=== PATIENT | female | born 1945 | race Caucasian/White ===

== ENCOUNTER → 2017-02-26 | Outpatient (CLI) | payer MEDICARE, OTHER ==
[~2017-02-26] MED LIST: ENAL1TAB16 PO; FEXO180T PO; SIMV40TA4 PO; vitamins PO
--- NOTE | 2017-02-26 13:51 | Diagnostic Imaging Report ---
Bilateral diagnostic mammogram. The current study was also evaluated with a Computer Aided Detection (CAD) system. INDICATION: Asymmetry along the upper aspect of the right MLO view. FINDINGS: The breasts are composed of scattered fibroglandular densities. There are scattered benign-appearing calcifications. No mass, architectural distortion, or suspicious cluster of calcification. Allowing for technique and positional differences, no suspicious change is seen. IMPRESSION: No significant change. ACR BI-RADS Category 2: Benign findings. Result letter will be mailed to the patient. Note: At least 10% of breast cancer is not imaged by mammography. Dictated by: Dictated on workstation # [id number]
== END ==
LOC: RAD 13:10
PROVIDERS: ATTEND Nurse Practitioner Family
DX: R92.8 Other abnormal and inconclusive findings on diagnostic imaging of breast (principal)
CPT/HCPCS: 77066

== ENCOUNTER → 2018-03-24 | Outpatient (CLI) | payer MEDICARE, OTHER ==
--- NOTE | 2018-03-24 19:13 | Diagnostic Imaging Report ---
INDICATION: Routine screening. COMPARISON: Comparison is made with prior study from 02/26/2017 and 03/04/2016. TECHNIQUE: 2D and 3D bilateral screening mammography was performed with computer-aided detection (CAD) system. FINDINGS: Scattered fibroglandular densities are identified bilaterally. No spiculated mass or malignant appearing microcalcifications are seen. There are benign calcifications bilaterally. The axillae are unremarkable. IMPRESSION: No mammographic features suspicious for malignancy are identified. ACR BI-RADS Category 2: Benign findings. Result letter will be mailed to the patient. Note: At least 10% of breast cancer is not imaged by mammography. Dictated by: Dictated on workstation # [id number]
== END ==
LOC: RAD 12:47
PROVIDERS: ATTEND Nurse Practitioner Family
DX: Z12.31 Encounter for screening mammogram for malignant neoplasm of breast (principal)
CPT/HCPCS: 77067

== ENCOUNTER → 2018-11-09 | Outpatient (CLI) | payer MEDICARE, OTHER ==
--- NOTE | 2018-11-09 13:28 | Diagnostic Imaging Report ---
EXAMINATION: Pelvic ultrasound. INDICATION: Vaginal bleeding, post menopausal. FINDINGS: There are no prior studies available for comparison. In the left adnexa, there is a large 10.4 x 12.7 x 11.1 cm complex mass. This mass has both solid and cystic components and there does seem to be blood flow to the solid component. I am concerned that this is related to an ovarian neoplasm. If further imaging as desired, then CT of the abdomen and pelvis should be obtained. Ultimately, laparoscopy will most likely be necessary. The right ovary could not be identified. The uterus is not enlarged measuring 7.5 x 3.7 x 3.1 cm. The endometrial lining is slightly thickened measuring 6 mm (normal postmenopausal thickening 5 mm or less). IMPRESSION: 1. There is a large complex mass in the left adnexa. This finding is worrisome for an ovarian neoplasm. If further imaging is desired, then CT the abdomen pelvis should be obtained. Ultimately, laparoscopy will most likely be necessary. 2. There is no other abnormality identified. 3. These results were discussed with Constance Esposito APRN. Dictated by: Dictated on workstation # [id number]
== END ==
LOC: RAD 11:31
PROVIDERS: ATTEND Nurse Practitioner Family
DX: N83.8 Other noninflammatory disorders of ovary, fallopian tube and broad ligament (principal); N93.8 Other specified abnormal uterine and vaginal bleeding; Z78.0 Asymptomatic menopausal state
CPT/HCPCS: 76830; 76856

== ENCOUNTER → 2018-11-20 | Outpatient (CLI) | payer MEDICARE, OTHER ==
[~2018-11-20] MED LIST changes: +IOHEXOL 350 MG/ML 100 ML (OMNIPAQUE 350) VIAL IV ONE; +NS 100 ML (IVPB) BAG IV ONE; +RECEIVED CONTRAST (Hold Metformin) IV SCH
--- NOTE | 2018-11-20 10:32 | Diagnostic Imaging Report ---
PROCEDURE: CT chest with contrast only. TECHNIQUE: Multiple contiguous axial images were obtained through the chest after administration of intravenous contrast. INDICATION: Left adnexal mass. COMPARISON: 04/04/2016 FINDINGS: Soft tissue nodularity of the anterior mediastinum overall relatively stable. No suggestion for pathologically enlarged mediastinal and/or hilar lymph nodes. The heart size is unremarkable. Thoracic aorta normal in contour. Small hiatal hernia at the gastroesophageal junction. The lung mackey are clear of infiltrate. There is presence of peripheral pneumatocele and/or bulla within the left upper lobe and medial left lung base, appears unchanged. No abnormal pulmonary mass. No significant pleural effusion. Faint hypervascular area of enhancement at the lateral right lobe of the liver is present, nonspecific as to etiology. Gallstones are present. Cyst superior pole left kidney. Leftward curvature of the thoracic spine. Probable hemangioma L1 and T11 levels. IMPRESSION: 1. Negative for acute abnormality about the chest. No findings to suggest thoracic metastatic disease. Dictated by: Dictated on workstation # [id number]
== END ==
LOC: RAD 09:18
PROVIDERS: ATTEND Nurse Practitioner Family
DX: Z01.811 Encounter for preprocedural respiratory examination (principal); R19.09 Other intra-abdominal and pelvic swelling, mass and lump
CPT/HCPCS: 71260

== ENCOUNTER → 2019-02-08 | Outpatient (CLI) | payer MEDICARE, OTHER ==
[~2019-02-08] MED LIST changes: -IOHEXOL 350 MG/ML 100 ML (OMNIPAQUE 350) VIAL IV ONE; -NS 100 ML (IVPB) BAG IV ONE; -RECEIVED CONTRAST (Hold Metformin) IV SCH
--- NOTE | 2019-02-08 17:50 | Diagnostic Imaging Report ---
PATIENT HISTORY: Right leg pain and numbness for two weeks in the medial upper thigh. TECHNIQUE: High-resolution grayscale ultrasound was performed of the soft tissues in the right upper medial thigh at the area of pain. COMPARISON: None. FINDINGS: Ultrasound performed of the soft tissues in the area of concern at the upper medial right thigh demonstrates unremarkable fat and muscular soft tissue. No fluid collection or mass is seen. IMPRESSION: Unremarkable soft tissue ultrasound of the upper medial right thigh. Dictated by: Dictated on workstation # [id number]
== END ==
LOC: RAD 13:45
PROVIDERS: ATTEND Internal Medicine Hematology & Oncology
DX: M79.604 Pain in right leg (principal); R20.0 Anesthesia of skin
CPT/HCPCS: 76881

== ENCOUNTER → 2019-02-25 | Outpatient (CLI) | payer MEDICARE, OTHER ==
--- NOTE | 2019-02-25 19:13 | Diagnostic Imaging Report ---
INDICATION: Right hip pain. TIME OF EXAM: 2:25 p.m. EXAMINATION: Two views of the right hip were obtained. FINDINGS: Femoral acetabular alignment is normal. Joint space is maintained. The femoral head and neck are intact. No fracture is seen. IMPRESSION: No acute bony abnormality is detected. Dictated by: Dictated on workstation # [id number]
== END ==
LOC: RAD 11:59
PROVIDERS: ATTEND Internal Medicine Hematology & Oncology
DX: M25.551 Pain in right hip (principal); R29.898 Other symptoms and signs involving the musculoskeletal system
CPT/HCPCS: 73502

== ENCOUNTER 2019-03-18 10:37 | Outpatient (RCR) | payer MEDICARE, OTHER ==
[2019-01-07 11:11] LABS: BASOPHILS % (AUTO) 0 % (0-10); EOSINOPHILS % (AUTO) 0 % (0-10); HEMATOCRIT 39 % (35-52); HEMOGLOBIN 12.9 G/DL (11.5-16.0); LYMPHOCYTES # (AUTO) 0.6 X 10^3 (1.0-4.0); LYMPHOCYTES % (AUTO) 5 % (12-44); MEAN CORPUSCULAR HEMOGLOBIN 28 PG (25-34); MEAN CORPUSCULAR HGB CONC 33 G/DL (32-36); MEAN CORPUSCULAR VOLUME 85 FL (80-99); MEAN PLATELET VOLUME 9.4 FL (7.4-10.4); MONOCYTES % (AUTO) 0 % (0-12); NEUTROPHILS # (AUTO) 10.4 X 10^3 (1.8-7.8); NEUTROPHILS % (AUTO) 95 % (42-75); PLATELET COUNT 291 10^3/uL (130-400); RED CELL DISTRIBUTION WIDTH 14.3 % (10.0-14.5)
[2019-01-07 11:29] LABS: ALANINE AMINOTRANSFERASE 15 U/L (0-55); ALKALINE PHOSPHATASE 75 U/L (40-136); BILIRUBIN,TOTAL 0.3 MG/DL (0.1-1.0); BUN/CREATININE RATIO 20; CALCIUM 9.6 MG/DL (8.5-10.1); CARBON DIOXIDE 20 MMOL/L (21-32); CHLORIDE 102 MMOL/L (98-107); CREATININE SERUM 0.82 MG/DL (0.60-1.30); GFR ESTIMATED > 60; GLUCOSE 302 MG/DL (70-105); SODIUM 134 MMOL/L (135-145); TOTAL PROTEIN 7.3 GM/DL (6.4-8.2)
[2019-01-14 11:24] LABS: BASOPHILS % (AUTO) 0 % (0-10); EOSINOPHILS % (AUTO) 0 % (0-10); HEMATOCRIT 42 % (35-52); HEMOGLOBIN 13.7 G/DL (11.5-16.0); LYMPHOCYTES # (AUTO) 0.9 X 10^3 (1.0-4.0); LYMPHOCYTES % (AUTO) 5 % (12-44); MEAN CORPUSCULAR HEMOGLOBIN 28 PG (25-34); MEAN CORPUSCULAR HGB CONC 33 G/DL (32-36); MEAN CORPUSCULAR VOLUME 84 FL (80-99); MEAN PLATELET VOLUME 9.4 FL (7.4-10.4); MONOCYTES # (AUTO) 0.7 X 10^3 (0.0-1.0); MONOCYTES % (AUTO) 4 % (0-12); NEUTROPHILS # (AUTO) 17.2 X 10^3 (1.8-7.8); NEUTROPHILS % (AUTO) 92 % (42-75); PLATELET COUNT 349 10^3/uL (130-400); RED CELL DISTRIBUTION WIDTH 14.9 % (10.0-14.5); WHITE BLOOD COUNT 18.7 10^3/uL (4.3-11.0)
[2019-01-14 11:38] LABS: ALANINE AMINOTRANSFERASE 23 U/L (0-55); ALBUMIN 4.2 GM/DL (3.2-4.5); ALKALINE PHOSPHATASE 63 U/L (40-136); BILIRUBIN,TOTAL 0.3 MG/DL (0.1-1.0); BUN/CREATININE RATIO 21; CALCIUM 9.5 MG/DL (8.5-10.1); CARBON DIOXIDE 24 MMOL/L (21-32); CHLORIDE 100 MMOL/L (98-107); CREATININE SERUM 0.77 MG/DL (0.60-1.30); GFR ESTIMATED > 60; GLUCOSE 190 MG/DL (70-105); POTASSIUM 4.5 MMOL/L (3.6-5.0); SODIUM 135 MMOL/L (135-145); TOTAL PROTEIN 7.2 GM/DL (6.4-8.2)
[2019-01-21 13:59] LABS: BASOPHILS % (AUTO) 0 % (0-10); EOSINOPHILS # (AUTO) 0.1 10^3/uL (0.0-0.3); EOSINOPHILS % (AUTO) 1 % (0-10); HEMATOCRIT 37 % (35-52); HEMOGLOBIN 12.4 G/DL (11.5-16.0); LYMPHOCYTES # (AUTO) 1.4 X 10^3 (1.0-4.0); LYMPHOCYTES % (AUTO) 13 % (12-44); MEAN CORPUSCULAR HEMOGLOBIN 28 PG (25-34); MEAN CORPUSCULAR HGB CONC 33 G/DL (32-36); MEAN CORPUSCULAR VOLUME 84 FL (80-99); MEAN PLATELET VOLUME 11.1 FL (7.4-10.4); MONOCYTES # (AUTO) 1.3 X 10^3 (0.0-1.0); MONOCYTES % (AUTO) 11 % (0-12); NEUTROPHILS # (AUTO) 8.3 X 10^3 (1.8-7.8); NEUTROPHILS % (AUTO) 75 % (42-75); PLATELET COUNT 197 10^3/uL (130-400); RED CELL DISTRIBUTION WIDTH 14.5 % (10.0-14.5); WHITE BLOOD COUNT 11.1 10^3/uL (4.3-11.0)
[2019-01-21 14:17] LABS: BUN/CREATININE RATIO 16; CALCIUM 9.3 MG/DL (8.5-10.1); CARBON DIOXIDE 25 MMOL/L (21-32); CHLORIDE 96 MMOL/L (98-107); CREATININE SERUM 0.91 MG/DL (0.60-1.30); GFR ESTIMATED > 60; GLUCOSE 167 MG/DL (70-105); POTASSIUM 3.4 MMOL/L (3.6-5.0); SODIUM 132 MMOL/L (135-145)
[2019-01-28 13:49] LABS: BASOPHILS # (AUTO) 0.1 10^3/uL (0.0-0.1); BASOPHILS % (AUTO) 1 % (0-10); EOSINOPHILS % (AUTO) 0 % (0-10); HEMATOCRIT 37 % (35-52); HEMOGLOBIN 12.1 G/DL (11.5-16.0); LYMPHOCYTES # (AUTO) 2.1 X 10^3 (1.0-4.0); LYMPHOCYTES % (AUTO) 10 % (12-44); MEAN CORPUSCULAR HEMOGLOBIN 28 PG (25-34); MEAN CORPUSCULAR HGB CONC 33 G/DL (32-36); MEAN CORPUSCULAR VOLUME 85 FL (80-99); MEAN PLATELET VOLUME 9.6 FL (7.4-10.4); MONOCYTES # (AUTO) 1.3 X 10^3 (0.0-1.0); MONOCYTES % (AUTO) 6 % (0-12); NEUTROPHILS # (AUTO) 18.3 X 10^3 (1.8-7.8); NEUTROPHILS % (AUTO) 84 % (42-75); PLATELET COUNT 358 10^3/uL (130-400); RED CELL DISTRIBUTION WIDTH 15.1 % (10.0-14.5); WHITE BLOOD COUNT 21.8 10^3/uL (4.3-11.0)
[2019-01-28 14:06] LABS: BUN/CREATININE RATIO 8; CALCIUM 8.7 MG/DL (8.5-10.1); CARBON DIOXIDE 26 MMOL/L (21-32); CHLORIDE 99 MMOL/L (98-107); CREATININE SERUM 0.71 MG/DL (0.60-1.30); GFR ESTIMATED > 60; GLUCOSE 133 MG/DL (70-105); POTASSIUM 3.7 MMOL/L (3.6-5.0); SODIUM 134 MMOL/L (135-145)
[2019-01-28 14:37] LABS: BILIRUBIN,URINE NEGATIVE (NEGATIVE); CLARITY,URINE CLEAR; COLOR,URINE YELLOW; GLUCOSE, URINE (UA) NEGATIVE (NEGATIVE); KETONES,URINE NEGATIVE (NEGATIVE); LEUKOCYTE ESTERASE ,URINE 3+ (NEGATIVE); NITRITE,URINE NEGATIVE (NEGATIVE); PH,URINE 7 (5-9); PROTEIN,URINE 3+ (NEGATIVE); UROBILINOGEN,URINE NORMAL (NORMAL)
[2019-01-28 14:46] LABS: BACTERIA,URINE MODERATE /HPF; WBC,URINE >100 /HPF
[2019-02-04 09:36] LABS: BASOPHILS % (AUTO) 0 % (0-10); EOSINOPHILS % (AUTO) 0 % (0-10); HEMATOCRIT 37 % (35-52); HEMOGLOBIN 12.2 G/DL (11.5-16.0); LYMPHOCYTES # (AUTO) 1.2 X 10^3 (1.0-4.0); LYMPHOCYTES % (AUTO) 6 % (12-44); MEAN CORPUSCULAR HEMOGLOBIN 29 PG (25-34); MEAN CORPUSCULAR HGB CONC 33 G/DL (32-36); MEAN CORPUSCULAR VOLUME 85 FL (80-99); MEAN PLATELET VOLUME 8.7 FL (7.4-10.4); MONOCYTES # (AUTO) 0.5 X 10^3 (0.0-1.0); MONOCYTES % (AUTO) 3 % (0-12); NEUTROPHILS # (AUTO) 16.9 X 10^3 (1.8-7.8); NEUTROPHILS % (AUTO) 91 % (42-75); PLATELET COUNT 504 10^3/uL (130-400); RED CELL DISTRIBUTION WIDTH 15.8 % (10.0-14.5); WHITE BLOOD COUNT 18.6 10^3/uL (4.3-11.0)
[2019-02-04 10:01] LABS: ALANINE AMINOTRANSFERASE 57 U/L (0-55); ALBUMIN 3.7 GM/DL (3.2-4.5); ALKALINE PHOSPHATASE 110 U/L (40-136); BILIRUBIN,TOTAL 0.2 MG/DL (0.1-1.0); BUN/CREATININE RATIO 14; CALCIUM 9.5 MG/DL (8.5-10.1); CARBON DIOXIDE 22 MMOL/L (21-32); CHLORIDE 103 MMOL/L (98-107); CREATININE SERUM 0.83 MG/DL (0.60-1.30); GFR ESTIMATED > 60; GLUCOSE 226 MG/DL (70-105); POTASSIUM 4.7 MMOL/L (3.6-5.0); SODIUM 134 MMOL/L (135-145); TOTAL PROTEIN 7.2 GM/DL (6.4-8.2)
[2019-02-11 14:04] LABS: BASOPHILS % (AUTO) 2 % (0-10); EOSINOPHILS % (AUTO) 0 % (0-10); HEMATOCRIT 34 % (35-52); LYMPHOCYTES # (AUTO) 1.3 X 10^3 (1.0-4.0); LYMPHOCYTES % (AUTO) 48 % (12-44); MEAN CORPUSCULAR HEMOGLOBIN 28 PG (25-34); MEAN CORPUSCULAR HGB CONC 33 G/DL (32-36); MEAN CORPUSCULAR VOLUME 85 FL (80-99); MEAN PLATELET VOLUME 9.6 FL (7.4-10.4); MONOCYTES # (AUTO) 0.3 X 10^3 (0.0-1.0); MONOCYTES % (AUTO) 10 % (0-12); NEUTROPHILS # (AUTO) 1.1 X 10^3 (1.8-7.8); NEUTROPHILS % (AUTO) 41 % (42-75); PLATELET COUNT 253 10^3/uL (130-400); RED CELL DISTRIBUTION WIDTH 15.6 % (10.0-14.5); WHITE BLOOD COUNT 2.6 10^3/uL (4.3-11.0)
[2019-02-11 14:29] LABS: BUN/CREATININE RATIO 24; CALCIUM 9.1 MG/DL (8.5-10.1); CARBON DIOXIDE 26 MMOL/L (21-32); CHLORIDE 102 MMOL/L (98-107); CREATININE SERUM 0.67 MG/DL (0.60-1.30); GFR ESTIMATED > 60; GLUCOSE 119 MG/DL (70-105); POTASSIUM 3.9 MMOL/L (3.6-5.0); SODIUM 135 MMOL/L (135-145)
[2019-02-18 14:00] LABS: BASOPHILS # (AUTO) 0.1 10^3/uL (0.0-0.1); BASOPHILS % (AUTO) 2 % (0-10); EOSINOPHILS % (AUTO) 0 % (0-10); HEMATOCRIT 35 % (35-52); HEMOGLOBIN 11.4 G/DL (11.5-16.0); LYMPHOCYTES # (AUTO) 1.8 X 10^3 (1.0-4.0); LYMPHOCYTES % (AUTO) 32 % (12-44); MEAN CORPUSCULAR HEMOGLOBIN 29 PG (25-34); MEAN CORPUSCULAR HGB CONC 33 G/DL (32-36); MEAN CORPUSCULAR VOLUME 87 FL (80-99); MEAN PLATELET VOLUME 8.8 FL (7.4-10.4); MONOCYTES % (AUTO) 17 % (0-12); NEUTROPHILS # (AUTO) 2.8 X 10^3 (1.8-7.8); NEUTROPHILS % (AUTO) 50 % (42-75); PLATELET COUNT 151 10^3/uL (130-400); WHITE BLOOD COUNT 5.6 10^3/uL (4.3-11.0)
[2019-02-18 14:17] LABS: BUN/CREATININE RATIO 12; CARBON DIOXIDE 26 MMOL/L (21-32); CHLORIDE 103 MMOL/L (98-107); CREATININE SERUM 0.67 MG/DL (0.60-1.30); GFR ESTIMATED > 60; GLUCOSE 135 MG/DL (70-105); POTASSIUM 3.5 MMOL/L (3.6-5.0); SODIUM 136 MMOL/L (135-145)
[2019-02-25 10:58] LABS: BASOPHILS % (AUTO) 0 % (0-10); EOSINOPHILS % (AUTO) 0 % (0-10); HEMATOCRIT 37 % (35-52); LYMPHOCYTES # (AUTO) 1.1 X 10^3 (1.0-4.0); LYMPHOCYTES % (AUTO) 6 % (12-44); MEAN CORPUSCULAR HEMOGLOBIN 28 PG (25-34); MEAN CORPUSCULAR HGB CONC 33 G/DL (32-36); MEAN CORPUSCULAR VOLUME 86 FL (80-99); MEAN PLATELET VOLUME 9.5 FL (7.4-10.4); MONOCYTES # (AUTO) 0.5 X 10^3 (0.0-1.0); MONOCYTES % (AUTO) 3 % (0-12); NEUTROPHILS # (AUTO) 16.5 X 10^3 (1.8-7.8); NEUTROPHILS % (AUTO) 91 % (42-75); PLATELET COUNT 336 10^3/uL (130-400); RED CELL DISTRIBUTION WIDTH 17.4 % (10.0-14.5); WHITE BLOOD COUNT 18.2 10^3/uL (4.3-11.0)
[2019-02-25 11:23] LABS: ALANINE AMINOTRANSFERASE 16 U/L (0-55); ALBUMIN 3.9 GM/DL (3.2-4.5); ALKALINE PHOSPHATASE 91 U/L (40-136); BILIRUBIN,TOTAL 0.3 MG/DL (0.1-1.0); BUN/CREATININE RATIO 21; CALCIUM 9.8 MG/DL (8.5-10.1); CARBON DIOXIDE 23 MMOL/L (21-32); CHLORIDE 105 MMOL/L (98-107); CREATININE SERUM 0.72 MG/DL (0.60-1.30); GFR ESTIMATED > 60; GLUCOSE 193 MG/DL (70-105); POTASSIUM 4.1 MMOL/L (3.6-5.0); SODIUM 139 MMOL/L (135-145)
[2019-02-25 12:06] LABS: BILIRUBIN,URINE NEGATIVE (NEGATIVE); CLARITY,URINE CLEAR; COLOR,URINE YELLOW; GLUCOSE, URINE (UA) NEGATIVE (NEGATIVE); KETONES,URINE NEGATIVE (NEGATIVE); LEUKOCYTE ESTERASE ,URINE 1+ (NEGATIVE); NITRITE,URINE NEGATIVE (NEGATIVE); PH,URINE 8 (5-9); PROTEIN,URINE 2+ (NEGATIVE); UROBILINOGEN,URINE NORMAL (NORMAL)
[2019-02-25 12:14] LABS: BACTERIA,URINE NEGATIVE /HPF
[2019-03-04 13:20] LABS: BASOPHILS # (AUTO) 0.1 10^3/uL (0.0-0.1); BASOPHILS % (AUTO) 2 % (0-10); EOSINOPHILS % (AUTO) 0 % (0-10); HEMATOCRIT 35 % (35-52); HEMOGLOBIN 11.4 G/DL (11.5-16.0); LYMPHOCYTES # (AUTO) 1.7 X 10^3 (1.0-4.0); LYMPHOCYTES % (AUTO) 55 % (12-44); MEAN CORPUSCULAR HEMOGLOBIN 28 PG (25-34); MEAN CORPUSCULAR HGB CONC 33 G/DL (32-36); MEAN CORPUSCULAR VOLUME 86 FL (80-99); MEAN PLATELET VOLUME 9.7 FL (7.4-10.4); MONOCYTES # (AUTO) 0.3 X 10^3 (0.0-1.0); MONOCYTES % (AUTO) 8 % (0-12); NEUTROPHILS % (AUTO) 34 % (42-75); PLATELET COUNT 215 10^3/uL (130-400); RED CELL DISTRIBUTION WIDTH 16.6 % (10.0-14.5)
[2019-03-04 13:42] LABS: BUN/CREATININE RATIO 21; CALCIUM 9.6 MG/DL (8.5-10.1); CARBON DIOXIDE 24 MMOL/L (21-32); CHLORIDE 103 MMOL/L (98-107); CREATININE SERUM 0.71 MG/DL (0.60-1.30); GFR ESTIMATED > 60; GLUCOSE 176 MG/DL (70-105); POTASSIUM 3.8 MMOL/L (3.6-5.0); SODIUM 137 MMOL/L (135-145)
[2019-03-11 13:18] LABS: BASOPHILS # (AUTO) 0.1 10^3/uL (0.0-0.1); BASOPHILS % (AUTO) 1 % (0-10); EOSINOPHILS % (AUTO) 0 % (0-10); HEMATOCRIT 36 % (35-52); HEMOGLOBIN 11.5 G/DL (11.5-16.0); LYMPHOCYTES # (AUTO) 2.5 X 10^3 (1.0-4.0); LYMPHOCYTES % (AUTO) 30 % (12-44); MEAN CORPUSCULAR HEMOGLOBIN 28 PG (25-34); MEAN CORPUSCULAR HGB CONC 32 G/DL (32-36); MEAN CORPUSCULAR VOLUME 87 FL (80-99); MEAN PLATELET VOLUME 9.5 FL (7.4-10.4); MONOCYTES % (AUTO) 12 % (0-12); NEUTROPHILS # (AUTO) 4.8 X 10^3 (1.8-7.8); NEUTROPHILS % (AUTO) 57 % (42-75); PLATELET COUNT 193 10^3/uL (130-400); RED CELL DISTRIBUTION WIDTH 17.2 % (10.0-14.5); WHITE BLOOD COUNT 8.4 10^3/uL (4.3-11.0)
[2019-03-11 13:32] LABS: BUN/CREATININE RATIO 9; CALCIUM 9.4 MG/DL (8.5-10.1); CARBON DIOXIDE 24 MMOL/L (21-32); CHLORIDE 104 MMOL/L (98-107); CREATININE SERUM 0.66 MG/DL (0.60-1.30); GFR ESTIMATED > 60; GLUCOSE 126 MG/DL (70-105); POTASSIUM 3.7 MMOL/L (3.6-5.0); SODIUM 141 MMOL/L (135-145)
[~2019-03-18] VITALS: Ht 160 cm; Wt 88.5 kg
[~2019-03-18 10:37] MED LIST changes: +CARBOPLATIN IV SCH; +D5W IV SCH; +FAMOTIDINE 20MG/2ML IV (CANCER CTR) IV SCH; +FOSAPREPITANT DIMEGLUMINE 150 MG in NS (IVPB) CANCER CENTER ONLY 150 ML IV SCH; +NS IV 1000 ML (CANCER CTR) IV SCH; +NS IV SCH; +PALONOSETRON HCL 0.25 MG, DEXAMETHASONE INJECTION 10 MG in NS (IVPB) CANCER CENTER 50 ML IV SCH; +PEGFILGRASTIM 6 MG/0.6ML NEULASTA SC SCH; +diphenhydrAMINE 25 MG TAB (BENADRYL) CANCER CENTER PO ONE; +diphenhydrAMINE 50 MG/ML INJ (CANCER CENTER) IV PRN; +diphenhydrAMINE 50 MG/ML INJ (CANCER CENTER) ONE; +methylPREDNISolone 125 MG/2 ML (SOLU-MEDROL) CANCER CTR ONE
[2019-03-18 10:57] LABS: BASOPHILS # (AUTO) 0.1 10^3/uL (0.0-0.1); BASOPHILS % (AUTO) 1 % (0-10); EOSINOPHILS % (AUTO) 0 % (0-10); HEMATOCRIT 36 % (35-52); HEMOGLOBIN 11.6 G/DL (11.5-16.0); LYMPHOCYTES # (AUTO) 2.3 X 10^3 (1.0-4.0); LYMPHOCYTES % (AUTO) 17 % (12-44); MEAN CORPUSCULAR HEMOGLOBIN 28 PG (25-34); MEAN CORPUSCULAR HGB CONC 32 G/DL (32-36); MEAN CORPUSCULAR VOLUME 89 FL (80-99); MEAN PLATELET VOLUME 9.2 FL (7.4-10.4); MONOCYTES # (AUTO) 1.2 X 10^3 (0.0-1.0); MONOCYTES % (AUTO) 9 % (0-12); NEUTROPHILS # (AUTO) 10.1 X 10^3 (1.8-7.8); NEUTROPHILS % (AUTO) 74 % (42-75); PLATELET COUNT 401 10^3/uL (130-400); RED CELL DISTRIBUTION WIDTH 17.9 % (10.0-14.5); WHITE BLOOD COUNT 13.7 10^3/uL (4.3-11.0)
[2019-03-18 11:14] LABS: ALANINE AMINOTRANSFERASE 15 U/L (0-55); ALBUMIN 3.8 GM/DL (3.2-4.5); ALKALINE PHOSPHATASE 90 U/L (40-136); BILIRUBIN,TOTAL 0.4 MG/DL (0.1-1.0); BUN/CREATININE RATIO 9; CALCIUM 9.1 MG/DL (8.5-10.1); CARBON DIOXIDE 25 MMOL/L (21-32); CHLORIDE 103 MMOL/L (98-107); CREATININE SERUM 0.75 MG/DL (0.60-1.30); GFR ESTIMATED > 60; GLUCOSE 139 MG/DL (70-105); POTASSIUM 3.7 MMOL/L (3.6-5.0); SODIUM 137 MMOL/L (135-145); TOTAL PROTEIN 6.5 GM/DL (6.4-8.2)
== END 2019-03-30 | disposition home or self-care (01) ==
LOC: ONC 10:37
PROVIDERS: ATTEND Internal Medicine Hematology & Oncology
DX: Z51.11 Encounter for antineoplastic chemotherapy (principal); C56.2 Malignant neoplasm of left ovary; E11.9 Type 2 diabetes mellitus without complications; I10 Essential (primary) hypertension; F17.210 Nicotine dependence, cigarettes, uncomplicated; M79.604 Pain in right leg; R29.898 Other symptoms and signs involving the musculoskeletal system; Z76.89 Persons encountering health services in other specified circumstances; R30.0 Dysuria; R06.02 Shortness of breath; R06.2 Wheezing; R23.2 Flushing; T45.1X5A Adverse effect of antineoplastic and immunosuppressive drugs, initial encounter; K59.00 Constipation, unspecified; Z90.710 Acquired absence of both cervix and uterus; Z79.899 Other long term (current) drug therapy
CPT/HCPCS: 36415; 36591; 80048; 80053; 81000; 85025; 87077; 87088; 87186; 96367; 96372; 96375; 96409; 96413; 96417; 99213; 99214

== ENCOUNTER → 2019-03-25 | Outpatient (CLI) | payer MEDICARE, OTHER ==
[~2019-03-25] MED LIST changes: -CARBOPLATIN IV SCH; -D5W IV SCH; -FAMOTIDINE 20MG/2ML IV (CANCER CTR) IV SCH; -FOSAPREPITANT DIMEGLUMINE 150 MG in NS (IVPB) CANCER CENTER ONLY 150 ML IV SCH; -NS IV 1000 ML (CANCER CTR) IV SCH; -NS IV SCH; -PALONOSETRON HCL 0.25 MG, DEXAMETHASONE INJECTION 10 MG in NS (IVPB) CANCER CENTER 50 ML IV SCH; -PEGFILGRASTIM 6 MG/0.6ML NEULASTA SC SCH; -diphenhydrAMINE 25 MG TAB (BENADRYL) CANCER CENTER PO ONE; -diphenhydrAMINE 50 MG/ML INJ (CANCER CENTER) IV PRN; -diphenhydrAMINE 50 MG/ML INJ (CANCER CENTER) ONE; -methylPREDNISolone 125 MG/2 ML (SOLU-MEDROL) CANCER CTR ONE
--- NOTE | 2019-03-26 17:12 | Diagnostic Imaging Report ---
INDICATION: Routine screening. COMPARISON: Prior mammograms from 03/24/2018 and 02/26/2017. EXAMINATION: 2D and 3D bilateral screening mammography was performed with CAD. The current study was also evaluated with a Computer Aided Detection (CAD) system. FINDINGS: Scattered fibroglandular densities are identified, bilaterally. Scattered benign-appearing calcifications are also noted, bilaterally. Nodular densities in both breasts appear stable. No spiculated mass or malignant appearing microcalcifications are seen. Axillae are unremarkable. IMPRESSION: No mammographic features suspicious for malignancy are identified. ACR BI-RADS Category 2: Benign findings. Result letter will be mailed to the patient. Note: At least 10% of breast cancer is not imaged by mammography. Dictated on workstation # [id number]
== END ==
LOC: RAD 14:29
PROVIDERS: ATTEND Nurse Practitioner Family
DX: Z12.31 Encounter for screening mammogram for malignant neoplasm of breast (principal)
CPT/HCPCS: 77067

== ENCOUNTER 2019-04-15 11:02 | Outpatient (RCR) | payer MEDICARE, OTHER ==
[2019-04-15 11:22] LABS: BASOPHILS # (AUTO) 0.1 10^3/uL (0.0-0.1); BASOPHILS % (AUTO) 1 % (0-10); EOSINOPHILS # (AUTO) 0.3 10^3/uL (0.0-0.3); EOSINOPHILS % (AUTO) 3 % (0-10); HEMATOCRIT 41 % (35-52); HEMOGLOBIN 13.2 G/DL (11.5-16.0); LYMPHOCYTES # (AUTO) 2.8 X 10^3 (1.0-4.0); LYMPHOCYTES % (AUTO) 26 % (12-44); MEAN CORPUSCULAR HEMOGLOBIN 29 PG (25-34); MEAN CORPUSCULAR HGB CONC 33 G/DL (32-36); MEAN CORPUSCULAR VOLUME 90 FL (80-99); MEAN PLATELET VOLUME 9.6 FL (7.4-10.4); MONOCYTES % (AUTO) 9 % (0-12); NEUTROPHILS # (AUTO) 6.6 X 10^3 (1.8-7.8); NEUTROPHILS % (AUTO) 62 % (42-75); PLATELET COUNT 343 10^3/uL (130-400); RED CELL DISTRIBUTION WIDTH 16.2 % (10.0-14.5); WHITE BLOOD COUNT 10.6 10^3/uL (4.3-11.0)
[2019-04-15 11:42] LABS: ALANINE AMINOTRANSFERASE 12 U/L (0-55); ALBUMIN 4.3 GM/DL (3.2-4.5); ALKALINE PHOSPHATASE 85 U/L (40-136); BILIRUBIN,TOTAL 0.6 MG/DL (0.1-1.0); BUN/CREATININE RATIO 13; CALCIUM 9.8 MG/DL (8.5-10.1); CARBON DIOXIDE 25 MMOL/L (21-32); CHLORIDE 102 MMOL/L (98-107); CREATININE SERUM 0.82 MG/DL (0.60-1.30); GFR ESTIMATED > 60; GLUCOSE 134 MG/DL (70-105); SODIUM 139 MMOL/L (135-145); TOTAL PROTEIN 7.4 GM/DL (6.4-8.2)
== END 2019-07-14 | disposition home or self-care (01) ==
LOC: ONC 11:02
PROVIDERS: ATTEND Internal Medicine Hematology & Oncology
DX: C56.2 Malignant neoplasm of left ovary (principal); E11.9 Type 2 diabetes mellitus without complications; I10 Essential (primary) hypertension; F17.210 Nicotine dependence, cigarettes, uncomplicated; Z79.899 Other long term (current) drug therapy
CPT/HCPCS: 36415; 80053; 85025; 86304; 99213

== ENCOUNTER 2019-07-16 10:11 | Outpatient (RCR) | payer MEDICARE, OTHER ==
[2019-07-16 10:39] LABS: BASOPHILS # (AUTO) 0.1 10^3/uL (0.0-0.1); BASOPHILS % (AUTO) 1 % (0-10); EOSINOPHILS # (AUTO) 0.4 10^3/uL (0.0-0.3); EOSINOPHILS % (AUTO) 3 % (0-10); HEMATOCRIT 44 % (35-52); HEMOGLOBIN 14.5 G/DL (11.5-16.0); LYMPHOCYTES # (AUTO) 2.9 X 10^3 (1.0-4.0); LYMPHOCYTES % (AUTO) 22 % (12-44); MEAN CORPUSCULAR HEMOGLOBIN 28 PG (25-34); MEAN CORPUSCULAR HGB CONC 33 G/DL (32-36); MEAN CORPUSCULAR VOLUME 84 FL (80-99); MEAN PLATELET VOLUME 9.6 FL (7.4-10.4); MONOCYTES # (AUTO) 1.1 X 10^3 (0.0-1.0); MONOCYTES % (AUTO) 8 % (0-12); NEUTROPHILS % (AUTO) 67 % (42-75); PLATELET COUNT 264 10^3/uL (130-400); RED CELL DISTRIBUTION WIDTH 14.9 % (10.0-14.5); WHITE BLOOD COUNT 13.4 10^3/uL (4.3-11.0)
[2019-07-16 11:02] LABS: ALANINE AMINOTRANSFERASE 12 U/L (0-55); ALBUMIN 4.2 GM/DL (3.2-4.5); ALKALINE PHOSPHATASE 93 U/L (40-136); BILIRUBIN,TOTAL 0.6 MG/DL (0.1-1.0); BUN/CREATININE RATIO 18; CALCIUM 9.4 MG/DL (8.5-10.1); CARBON DIOXIDE 25 MMOL/L (21-32); CHLORIDE 104 MMOL/L (98-107); CREATININE SERUM 0.76 MG/DL (0.60-1.30); GFR ESTIMATED > 60; GLUCOSE 122 MG/DL (70-105); POTASSIUM 3.9 MMOL/L (3.6-5.0); SODIUM 138 MMOL/L (135-145); TOTAL PROTEIN 7.2 GM/DL (6.4-8.2)
== END 2019-10-14 | disposition home or self-care (01) ==
LOC: ONC 10:11
PROVIDERS: ATTEND Internal Medicine Hematology & Oncology
DX: C56.2 Malignant neoplasm of left ovary (principal); E11.9 Type 2 diabetes mellitus without complications; I10 Essential (primary) hypertension; F17.210 Nicotine dependence, cigarettes, uncomplicated; Z79.899 Other long term (current) drug therapy
CPT/HCPCS: 80053; 85025; 99213

== ENCOUNTER 2020-01-12 10:15 | Outpatient (RCR) | payer MEDICARE, OTHER ==
[2020-01-12 10:40] LABS: BASOPHILS # (AUTO) 0.1 10^3/uL (0.0-0.1); BASOPHILS % (AUTO) 0 % (0-10); EOSINOPHILS # (AUTO) 0.4 10^3/uL (0.0-0.3); EOSINOPHILS % (AUTO) 2 % (0-10); HEMATOCRIT 44 % (35-52); HEMOGLOBIN 14.3 G/DL (11.5-16.0); LYMPHOCYTES % (AUTO) 16 % (12-44); MEAN CORPUSCULAR HEMOGLOBIN 28 PG (25-34); MEAN CORPUSCULAR HGB CONC 33 G/DL (32-36); MEAN CORPUSCULAR VOLUME 87 FL (80-99); MEAN PLATELET VOLUME 9.4 FL (7.4-10.4); MONOCYTES # (AUTO) 1.1 X 10^3 (0.0-1.0); MONOCYTES % (AUTO) 6 % (0-12); NEUTROPHILS # (AUTO) 13.5 X 10^3 (1.8-7.8); NEUTROPHILS % (AUTO) 75 % (42-75); PLATELET COUNT 288 10^3/uL (130-400); RED CELL DISTRIBUTION WIDTH 14.9 % (10.0-14.5)
[2020-01-12 11:04] LABS: ALANINE AMINOTRANSFERASE 11 U/L (0-55); ALBUMIN 4.1 GM/DL (3.2-4.5); ALKALINE PHOSPHATASE 87 U/L (40-136); BILIRUBIN,TOTAL 0.5 MG/DL (0.1-1.0); BUN/CREATININE RATIO 14; CALCIUM 9.3 MG/DL (8.5-10.1); CARBON DIOXIDE 27 MMOL/L (21-32); CHLORIDE 103 MMOL/L (98-107); CREATININE SERUM 0.81 MG/DL (0.60-1.30); GFR ESTIMATED > 60; GLUCOSE 132 MG/DL (70-105); SODIUM 138 MMOL/L (135-145)
[2020-01-12 11:14] LABS: ABSOLUTE RETIC # 53 10e9/L (24-90); RETICULOCYTE % 1.05 % (0.50-2.40)
[2020-01-12 12:50] LABS: BAND NEUTROPHILS 4 %; BASOPHILS % (MANUAL) 1 %; EOSINOPHILS % (MANUAL) 2 %; LYMPHOCYTES % (MANUAL) 14 %; MONOCYTES % (MANUAL) 1 %; NEUTROPHILS % (MANUAL) 78 %; RBC MORPH NORMAL
== END 2020-01-13 | disposition home or self-care (01) ==
LOC: ONC 10:15
PROVIDERS: ATTEND Internal Medicine Hematology & Oncology
DX: C56.2 Malignant neoplasm of left ovary (principal); E11.9 Type 2 diabetes mellitus without complications; I10 Essential (primary) hypertension; K43.9 Ventral hernia without obstruction or gangrene; F17.210 Nicotine dependence, cigarettes, uncomplicated; Z79.899 Other long term (current) drug therapy
CPT/HCPCS: 80053; 85007; 85025; 85027; 85045; 86304; 99213

== ENCOUNTER 2020-04-24 05:46 | Outpatient (RCR) | payer MEDICARE, OTHER ==
[~2020-04-24] VITALS: Ht 162.6 cm; Wt 83.7 kg
[~2020-04-24 05:46] MED LIST changes: +CHOL10002 PO; +ENAL1TAB9 PO; +FEXO-46 PO; +GLUC1TAB20 PO; +LETR2.5T6 PO; +NF-GLIP2.5 PO; +PRAV40TA2 PO; +VITA1CAP19 PO; +VITA400C60 PO
== END 2020-04-24 15:14 | disposition home or self-care (01) ==
LOC: PREOP 05:46
PROVIDERS: ATTEND Surgery
DX: Z01.818 Encounter for other preprocedural examination (principal); Z11.59 Encounter for screening for other viral diseases
CPT/HCPCS: 87635

== ENCOUNTER 2020-04-27 09:26 | Day surgery (SDC) | payer MEDICARE, OTHER ==
[2020-04-27] VITALS (12 sets, daily range): BP systolic 113–156; BP diastolic 52–85
[~2020-04-27] VITALS: Ht 162.6 cm; Wt 83.7 kg
[2020-04-27] MEDS ORDERED: ceFAZolin 2 GM IV Premixed 50 ML IV ONE (09:45)
--- NOTE | 2020-04-27 09:46 | Progress Note-Pre Operative ---
Pre-Operative Progress Note H&P Reviewed The H&P was reviewed, patient examined and no changes noted. Date Seen by Provider: Apr 27, 2020 Time Seen by Provider: :45 Date H&P Reviewed: Apr 27, 2020 Time H&P Reviewed: :45 Pre-Operative Diagnosis: ventral abd incisional hernia DEWAYNE CARPIO MD Apr 27, 2020 09:46
[2020-04-27] MEDS ORDERED: HYDR-4342 PO (09:48)
--- NOTE | 2020-04-27 09:49 | Discharge Inst-Surgical ---
D/C Lap Instructions-BALAJI New, Converted, or Re-Newed RX: RX on Chart Follow Up Appt in 2 weeks Activity as tolerated No driving for 24 hours No driving while on pain medications Incentive Spirometry use every 2 hours while awake Regular Diet Symptoms to Report: Fever over 101 degree F, Nausea/Vomiting Infection Signs and Symptoms to report: Increased redness, Foul odor of wound, Increased drainage Bathing instructions: May shower Operative Area Clean/Dry; Keep incision clean/dry If any problems/questions: Contact your physician or go to Emergency Room DEWAYNE CARPIO MD Apr 27, 2020 09:49
[2020-04-27] MEDS: LACTATED RINGERS 1,000 ML IV PRN ×2 (09:51→12:37)
[2020-04-27] MEDS ORDERED: morphine INJ 10 MG/ML 1ML (SYR OR VIAL) IVP PRN ×2 (10:00)
[2020-04-27] MEDS ORDERED: ACETAMINOPHEN 325 MG TABLET PO PRN (10:00)
[2020-04-27] MEDS ORDERED: ONDANSETRON 4 MG/2 ML (SDV) Z0FRAN IVP PRN ×2 (10:00→13:30)
[2020-04-27] MEDS ORDERED: HYDROcodone/APAP 5 MG/325 MG (LORTAB) TAB PO PRN (10:00)
[2020-04-27] MEDS ORDERED: fentaNYL INJECTION 100 MCG/2 ML AMP ONE (11:09)
[2020-04-27] MEDS ORDERED: ONDANSETRON 4 MG/2 ML (SDV) Z0FRAN ONE (11:11)
[2020-04-27] MEDS ORDERED: proPOfol 200 MG/20 ML (DIPRIVAN) VIAL IV ONE (11:11)
[2020-04-27] MEDS ORDERED: BUP/EPI 0.5% 1:200,000 (SENSORCAINE) 30 ML VIAL ONE (11:11)
[2020-04-27] MEDS ORDERED: MIDAZOLAM 2 MG/2 ML (VERSED) VIAL ONE (11:11)
[2020-04-27] MEDS ORDERED: LIDOCAINE PF 2% 5 ML (XYLOCAINE) VIAL ONE (11:12)
[2020-04-27] MEDS ORDERED: ROCURONIUM 10 MG/ML 5 ML SYRINGE IV ONE (11:12)
[2020-04-27] MEDS ORDERED: GLYCOPYRROLATE 0.2 MG/ML (ROBINUL) 2 ML VIAL ONE (11:15)
[2020-04-27] MEDS ORDERED: NEOSTIGMINE 3 MG/3 ML VIAL ONE (11:15)
--- OUTSIDE RECORDS SUMMARY | 2020-04-27 11:24 | XMS REPORT | Clinical Summary ---
Author Author [facility] Organization [facility] Address Unknown Phone Unavailable Care Team Providers Care Traveling Clerk Name Role Phone Samantha Capone MD PCP Source Comments Some departments are not documenting in the electronic medical record. If you d o not see the information that you expected, contact Release of Information in [facility] Information Management department at [phone] for further assistan ce in locating additional records.[facility] Allergies Comments Active Allergy Reactions Severity Noted Date Metformin COUGH Low 11/17/2018 Paclitaxel HIVES High 04/06/2019 Medications End Date Status Medication Sig Dispensed Refills Start Date Active vitamins, B complex tab Take 1 tablet 0 by mouth daily. Active vitamin E 400 unit Take 400 0 capsule Units by mouth every 48 hours. Active cholecalciferol (VITAMIN Take 1,000 0 D-3) 1,000 units tablet Units by mouth twice daily. Active coenzyme Q10(+) 100 mg Take 100 mg 0 cap by mouth daily. Active ondansetron (ZOFRAN) 8 mg Take one 6 tablet 0 tabletIndications: Please tablet by 9 take day of bowel prep mouth every 8 starting 30 mins prior to hours as taking morning meds needed for Nausea or Vomiting. Active fexofenadine(+) (GARFIELD) Take 180 mg 0 180 mg tablet by mouth at bedtime daily. Active enalapril-hydrochlorthiaz Take 1 tablet 0 bita (VASERETIC) 10-25 mg by mouth tablet daily. Active glipiZIDE CR (GLUCOTROL Take 2.5 mg 0 XL) 2.5 mg tablet by mouth daily with breakfast. Active Glucosamine-Chondroitin Take 1 tablet 0 (OSTEO BI-FLEX) 250-200 by mouth mg tab twice daily. Active Vit A,C,B-Acfy-Ksnuik Take 1 0 (PRESERVISION AREDS) capsule by 14,320-226-200 mouth daily. hfxz-kk-bxbm cap Active pravastatin (PRAVACHOL) Take 40 mg by 0 40 mg tablet mouth at bedtime daily. Active diphenhydrAMINE (BENADRYL Take 25 mg by 0 ALLERGY) 25 mg mouth at tabletIndications: bedtime as allergic rhinitis needed for Sleep. Active polyethylene glycol 3350 Take one 12 each 0 0 (MIRALAX) 17 g packet packet by 9 mouth daily. Active senna/docusate Take one 30 tablet 0 (SENOKOT-S) 8.6/50 mg tablet by 9 tablet mouth twice daily. Active oxyCODONE (ROXICODONE, Take one 30 tablet 0 OXY-IR) 5 mg tablet tablet by 9 mouth every 4 hours as needed Active nystatin (NYSTOP) 100,000 Use on fold 15 g 1 unit/g topical powder after 9 showering and as needed Active trimethoprim/sulfamethoxa Take one 14 tablet 0 zole (BACTRIM DS) 160/800 tablet by 9 mg tabletIndications: mouth twice skin and skin structure daily. infection Active fluconazole (DIFLUCAN) Take one 1 tablet 0 200 mg tabletIndications: tablet by 9 mucocutaneous candidiasis mouth daily. Active letrozole (FEMARA) 2.5 mg Take 2.5 mg 0 tablet by mouth daily. 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 Cancer Staging: Pathologic stage from : FIGO Stage IC2, calculated as Stage IC (pT1c2, pN0, cM0) - Signed by Nhi Gordon MD on 12/16/2018 Resolved Problems Problem Noted Date Resolved Date Adnexal mass 11/19/2018 07/08/2019 Family History Medical History Relation Name Comments Cancer Father Cancer-Prostate Father Heart Disease Father High Cholesterol Father Hypertension Father Migraines Father Cancer-Breast Maternal Aunt Diabetes Maternal Grandmother Arthritis-osteo Mother Cancer Mother Cancer-Breast Mother Hypertension Mother Cancer-Ovarian Other Cancer Paternal Aunt Cancer-Colon Paternal Aunt Cancer-Uterine Paternal Grandmother Heart Disease Paternal Grandmother Cancer-Lung Sister Relation Name Status Comments Father Maternal Aunt Maternal Grandmother Mother Other Paternal Aunt Paternal Grandmother Sister Social History Date Tobacco Use Types Packs/Day Years Used Current Every Day Smoker Cigarettes 1 50 Smokeless Tobacco: Never Used Tobacco Cessation: Ready to Quit: No Comments: decreased to 8 cigarettes/day Drinks/Week oz/Week Comments Alcohol Use No Alcohol Habits Answer Date Recorded How often do you have a drink containing alcohol? Never 11/17/2018 How many drinks containing alcohol do you have on No t asked a typical day when you are drinking? How often do you have six or more drinks on one Not asked occasion? Sex Assigned at Date Recorded Not on file Industry Job Start Date Occupation Not on file Not on file Not on file Travel End Travel History Travel Start No recent travel history available. 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 Blood Pressure 103 10/12/2019 10:38 AM ESL PROFESSOR Pulse 36.9 C (98.5 F) 10/12/2019 10:38 AM ESL PROFESSOR Temperature 16 10/12/2019 10:38 AM ESL PROFESSOR Respiratory Rate 99% 10/12/2019 10:38 AM ESL PROFESSOR Oxygen Saturation - - Inhaled Oxygen Concentration 82.9 kg (182 lb 12.8 oz) 10/12/2019 10:38 AM ESL PROFESSOR Weight 161.3 cm (5' 3.5") 10/12/2019 10:38 AM ESL PROFESSOR Height 31.87 10/12/2019 10:38 AM ESL PROFESSOR Body Mass Index Plan of Treatment Health Maintenance Due Date Last Done Comments MEDICARE ANNUAL WELLNESS 1945 VISIT DTAP/TDAP VACCINES (1 - 1964 Tdap) HEPATITIS C SCREENING 1964 PHYSICAL (COMPREHENSIVE) 1964 EXAM BREAST CANCER SCREENING 1986 COLORECTAL CANCER 1996 SCREENING SHINGLES RECOMBINANT 1996 VACCINE (1 of 2) OSTEOPOROSIS 2011 SCREENING/MONITORING PNEUMONIA (PPSV23) 2011 VACCINE (1 of 1 - PPSV23) INFLUENZA VACCINE 08/10/2020 Results Not on filefrom Last 3 Months Insurance Type Payer Benefit Subscriber ID Effective Phone Address Plan / Dates Group Medicare MEDICARE MEDICARE xxxxxxxxxxx 2011-P PART A AND resent B PPO [employer] [place] [employer] xxxxxxxxxxxx 2012-P [place]ANCE [place] Advance Directives Patient Marketing Campaign Analyst Explanation Type Date Recorded Advance 12/03/2018 6:42 AM Directive/DPOA Date Inactivated Comments Code Status Date Activated 12/05/2018 9:39 PM Full Code 12/03/2018 5:11 PM Provider has discussed Code Status Yes w/Patient or Family?
--- OUTSIDE RECORDS SUMMARY | 2020-04-27 11:29 | XMS REPORT | CCD ---
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 Name Role Phone PP Unavailable CCM Unavailable Summary Purpose Interface Exchange Insurance Providers Payer name Policy type / Coverage type Covered democrat ID Effective Begin Date Effective End Date WPS Medicare Part B Medicare Part B [id number] Unknown [employer] Medicare Part B [id number] Unknown Family history Father Diagnosis Age At Onset Hyperlipidemia Unknown Heart Attack Unknown Hypertension Unknown Mother Diagnosis Age At Onset Arthritis Unknown Breast cancer Unknown Hypertension Unknown Skin cancer Unknown Osteoporosis Unknown Sister Diagnosis Age At Onset Cancer Unknown Social History Social History Element Codes Description Effective Dates Tobacco history SNOMED CT: 49683239 Current every day smoker one pack/day 48 yrs - pt down to 1/2 ppd as of Jul 2016 09/10/2016 Marital status Unknown M arried Derik 08/17/2015 Number of children Unknown 2 adopted children - 35 (Saul) and 33y/o (Jeb) 08/17/2015 Living arrangements Unknown House 08/17/2015 Employment Unknown Retir ed 08/17/[address]: 190706383 Never drinks alcohol 08/17/2015 Allergies, Adverse Reactions, Alerts Substance Reaction Codes Entered Date Inactivated Date Status * NO KNOWN DRUG OUSMANE RGIES Unknown 08/17/2015 No Inactive Date Active Past Medical History Illness Codes Condition Status Onset Date Resolved Date Encounter for screen ing mammogram for malignant neoplasm of breast ICD-9: V76.12 ICD-10: Z12.31 Active 03/12/2018 Unknown Ovarian cancer Unknown Active 03/15/2019 Unknow n Essential (primary) hypertension ICD-9: 401.1 ICD-10: I10 Active 03/10/2017 Unknown 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21 ICD-10: R73.01 Active 03/12/2018 Unknown Vitamin D deficiency , unspecified ICD-9: 268.9 ICD-10: E55.9 Active 08/16/2015 Unknown Diabetes Unknown Active 03/10/2017 Unknow n Essential (primary) hypertension ICD-9: 401.9 ICD-10: I10 Active 09/09/2016 Unknown Tobacco use ICD-9: 305.1 ICD-10: Z72.0 Active 09/09/2016 Unknown Emphysema (subcutane ous) resulting from a procedure, subsequent encounter ICD-9: V58.89 ICD-10: T81.82XD Active 04/22/2016 Unknown Hypertension Unknown Active 08/17/2015 Unknow n Other abnormal glucose ICD-9: 790.29 ICD-10: R73.09 Active 08/16/2015 Unknown Problems Condition Codes Effectiv e Dates Condition Status Encounter for screen ing mammogram for malignant neoplasm of breast ICD-9: V76.12 ICD-10: Z12.31 03/12/2018 Active Ovarian cancer Unknown 03/15/2019 Active Essential (primary) hypertension ICD-9: 401.1 ICD-10: I10 03/10/2017 Active 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 ICD-10: C56.2 03/15/2019 Active Mixed hyperlipidemia ICD-9: 272.2 ICD-10: E78.2 09/09/2016 Active Type 2 diabetes nadege itus without complications ICD-9: 250.00 ICD-10: E11.9 09/09/2016 Active Chronic obstructive pulmonary disease with acute lower respiratory infection ICD-9: 491.22 ICD-10: J44.0 11/26/2018 Active Cough ICD-9: 786.2 ICD-10: R05 11/26/2018 Active Postmenopausal bleeding ICD-9: 627.1 ICD-10: N95.0 11/06/2018 Active Unspecified ovarian cyst, left side ICD-9: 620.2 ICD-10: N83.202 11/12/2018 Active Impaired fasting glu cose ICD-9: 790.21 ICD-10: R73.01 03/12/2018 Active Vitamin D deficiency , unspecified ICD-9: 268.9 ICD-10: E55.9 08/16/2015 Active Diabetes Unknown 03/10/2017 Active Essential (primary) hypertension ICD-9: 401.9 ICD-10: I10 09/09/2016 Active Tobacco use ICD-9: 305.1 ICD-10: Z72.0 09/09/2016 Active Emphysema (subcutane ous) resulting from a procedure, subsequent encounter ICD-9: V58.89 ICD-10: T81.82XD 04/22/2016 Active Hypertension Unknown 08/17/2015 Active Other abnormal glucose ICD-9: 790.29 ICD-10: R73.09 08/16/2015 Active Medications Medication Codes Instruc tions Start Date Stop Date Sta tus Fill Instructions glipizide ER 2.5 mg tablet, extended release 24 hr RxNorm: 432767 TAKE ONE TABLET BY MOUTH DAILY 05/06/2019 11/01/2019 Active enalapril 10 mg-hydr ochlorothiazide 25 mg tablet RxNorm: 278245 TAKE ONE TABLET BY MOUTH DAILY 05/06/2019 11/01/2019 Active pravastatin 40 mg ta blet RxNorm: 009067 TAKE ONE TABLET BY MO UTH DAILY 05/06/2019 11/01/2019 Ac tive azithromycin 250 mg tablet RxNorm: 574639 2 tabs on day #1, the n 1 Tablet(s) PO daily x 4 days 11/26/2018 03/14/2019 Inactive Symbicort 160 mcg-4. 5 mcg/actuation HFA aerosol inhaler RxNorm: 6732493 1 INH BID 11/26/2018 01/24/2019 In active pravastatin 40 mg ta blet RxNorm: 224121 TAKE ONE TABLET BY MO UT DAILY 11/13/2018 05/05/2019 In active glipizide ER 2.5 mg tablet, extended release 24 hr RxNorm: 605658 TAKE ONE TABLET BY MOUTH DAILY 11/13/2018 05/05/2019 Inactive enalapril 10 mg-hydr ochlorothiazide 25 mg tablet RxNorm: 110705 TAKE ONE TABLET BY MOUTH DAILY 11/13/2018 05/05/2019 Inactive Symbicort 160 mcg-4. 5 mcg/actuation HFA aerosol inhaler RxNorm: 5842810 2 Puff(s) INH 03/12/2018 09/13/2018 Inactive enalapril 10 mg-hydr ochlorothiazide 25 mg tablet RxNorm: 988988 TAKE ONE TABLET BY MOUTH DAILY 02/23/2018 11/12/2018 Inactive glipizide ER 2.5 mg tablet, extended release 24 hr RxNorm: 532117 Tablet(s) TAKE ONE TABLET BY MOUTH DAILY 02/23/2018 11/12/2018 Inactive pravastatin 40 mg ta blet RxNorm: 168350 TAKE ONE TABLET BY [facility] DAILY 02/23/2018 11/12/2018 In active glipizide ER 2.5 mg tablet, extended release 24 hr RxNorm: 225440 TAKE ONE TABLET BY MOUTH DAILY 08/22/2017 02/17/2018 Inactive enalapril 10 mg-hydr ochlorothiazide 25 mg tablet RxNorm: 048159 TAKE ONE TABLET BY MOUTH DAILY 05/23/2017 02/16/2018 Inactive pravastatin 40 mg ta blet RxNorm: 856924 TAKE ONE TABLET BY [facility] DAILY 05/23/2017 02/16/2018 In active glipizide ER 2.5 mg tablet, extended release 24 hr RxNorm: 555742 TAKE ONE TABLET BY MOUTH DAILY 02/21/2017 08/19/2017 Inactive glipizide ER 2.5 mg tablet, extended release 24 hr RxNorm: 746244 TAKE ONE TABLET BY MOUTH DAILY 12/23/2016 02/20/2017 Inactive pravastatin 40 mg ta blet RxNorm: 522788 TAKE ONE TABLET BY [facility] DAILY 08/26/2016 05/22/2017 In active enalapril 10 mg-hydr ochlorothiazide 25 mg tablet RxNorm: 101725 TAKE ONE TABLET BY MOUTH DAILY 08/26/2016 02/22/2018 Inactive pravastatin 40 mg ta blet RxNorm: 709654 TAKE ONE TABLET BY MO UTH DAILY 08/26/2016 02/22/2018 In active enalapril 10 mg-hydr ochlorothiazide 25 mg tablet RxNorm: 385394 TAKE ONE TABLET BY MOUTH DAILY 08/26/2016 02/22/2018 Inactive enalapril 10 mg-hydr ochlorothiazide 25 mg tablet RxNorm: 558171 TAKE ONE TABLET BY MOUTH DAILY 08/26/2016 05/22/2017 Inactive glipizide ER 2.5 mg tablet, extended release 24 hr RxNorm: 888637 TAKE ONE TABLET BY MOUTH DAILY 06/25/2016 12/21/2016 Inactive glipizide ER 2.5 mg tablet, extended release 24 hr RxNorm: 795934 TAKE ONE TABLET BY MOUTH DAILY 03/11/2016 06/24/2016 Inactive glipizide 5 mg tablet RxNorm: 868378 1 Tablet(s) PO daily 10/16/2015 10/15/2015 Inactive glipizide ER 2.5 mg tablet, extended release 24 hr RxNorm: 628574 1 Tablet(s) PO daily 10/16/2015 03/10/2016 Inactive enalapril 10 mg-hydr ochlorothiazide 25 mg tablet RxNorm: 244377 1 Tablet(s) PO daily 09/01/2015 08/25/2016 Inactive pravastatin 40 mg ta blet RxNorm: 553314 1 Tablet(s) PO daily 09/01/2015 08/25/2016 Inactive metformin 500 mg tablet RxNorm: 433013 1/2 Tablet(s) PO BID 09/01/2015 09/13/2018 Inactive metformin 500 mg tablet RxNorm: 836889 1/2 Tablet(s) PO BID 09/01/2015 08/31/2015 Inactive pravastatin 40 mg ta blet RxNorm: 993947 1 Tablet(s) PO daily 08/17/2015 08/31/2015 Inactive vitamin E (dl, aceta te) 1,000 unit capsule RxNorm: 156839 1 Capsule(s) PO every other day No Start Date Active Super B Complex + C 150 mg tablet RxNorm: 1 Tablet(s) PO daily No Start Date Active Odilia 180 mg tablet RxNorm: 801902 1 Tablet(s) PO daily No Start Date Active Vitamin D2 1,000 uni t capsule RxNorm: 573378 1 Capsule(s) PO BID No Start Date Active enalapril 10 mg-hydr ochlorothiazide 25 mg tablet RxNorm: 574115 1 Tablet(s) PO daily No Start Date 08/31/2015 Inactive Medication Administered No Medication Administered data Immunizations No Immunization data Assessments Condition Codes Effectiv e Dates Encounter for screening mammogram for ma lignant neoplasm of breast ICD-10: Z12.31 ICD-9: V76.12 03/30/2019 Malignant neoplasm of left ovary ICD -10: C56.2 ICD-9: 183.0 03/15/2019 Essential (primary) hypertension ICD -10: I10 ICD-9: 401.1 03/15/2019 Type 2 diabetes mellitus without complications ICD-10: E11.9 ICD-9: 250.00 03/15/2019 Mixed hyperlipidemia ICD-10: E78.2 ICD-9: 272.2 03/15/2019 Chronic obstructive pulmonary disease wi th acute lower respiratory infection ICD-10: J44.0 ICD-9: 491.22 11/26/2018 Cough ICD-10: R05 ICD-9: 786.2 11/26/2018 Postmenopausal bleeding ICD-10: N95. 0 ICD-9: 627.1 11/12/2018 Unspecified ovarian cyst, left side ICD-10: N83.202 ICD-9: 620.2 11/12/2018 Vitamin D deficiency, unspecified IC D-10: E55.9 ICD-9: 268.9 03/12/2018 Impaired fasting glucose ICD-10: R73 .01 ICD-9: 790.21 03/12/2018 Tobacco use ICD-10: Z72.0 ICD-9: 305.1 09/10/2016 Essential (primary) hypertension ICD -10: I10 ICD-9: 401.9 09/10/2016 Emphysema (subcutaneous) resulting from a procedure, subsequent encounter ICD-10: T81.82XD ICD-9: V58.89 04/23/2016 Other abnormal glucose ICD-10: R73.0 9 ICD-9: 790.29 08/17/2015 Reason For Visit Reason For Visit Effective Dates Notes hypertension 03/15/2019 cough 11/26/2018 abnormal test results 11/12/2018 abdominal pain 11/06/2018 hypertension 09/14/2018 hypertension 03/12/2018 hypertension 09/11/2017 hypertension 03/10/2017 hypertension 09/10/2016 hypertension 04/23/2016 hypertension 02/29/2016 hypertension 08/17/2015 Results Observation Observation Code Item Item Code Result Date Lipid Ord30 CHOL 188 mg/dL 03/15/2019 Lipid Ord30 HDL 40.0 mg/dl 03/15/2019 Lipid Ord30 TRIG 204 mg/dL 03/15/2019 Lipid Ord30 LDL 107 mg/dL 03/15/2019 Lipid Ord30 C/HDL 4.7 Ratio 03/15/2019 Comp Metabolic Wsy442 NA 138 mEq/L 03/15/2019 Comp Metabolic Cyf453 K 4.2 mEq/L 03/15/2019 Comp Metabolic Fcf014 CL 102 mEq/L 03/15/2019 Comp Metabolic Psk668 CO2 28.0 mEq/L 03/15/2019 Comp Metabolic Jgt189 AN ION GAP 12 03/15/2019 Comp Metabolic Tnw950 GL UCOSE 157 mg/dL 03/15/2019 Comp Metabolic Kod919 Cr eat 0.6 mg/dL 03/15/2019 Comp Metabolic Jga648 eG FR 99 ml/min/1.73m2 03/15 Comp Metabolic Oic742 BUN 9 mg/dL 03/15/2019 Comp Metabolic Egc831 B/ C Ratio 14.3 Ratio 03/15/2019 Comp Metabolic Dsl948 CA LCIUM 8.9 mg/dL 03/15/2019 Comp Metabolic Thq822 AL K PHOS 91 U/L 03/15/2019 Comp Metabolic Piy889 T(SGOT) 12 U/L 03/15/2019 Comp Metabolic Uup748 AL T(SGPT) 14 U/L 03/15/2019 Comp Metabolic Gcc975 BI LI T 0.5 mg/dL 03/15/2019 Comp Metabolic Ayh270 AL BUMIN 3.7 g/dL 03/15/2019 Comp Metabolic Hwz119 TP RO 6.2 g/dL 03/15/2019 Comp Metabolic Lcf493 GL OB 2.5 g/dL 03/15/2019 Comp Metabolic Tsp528 A/ G Ratio 1.5 Ratio 03/15/2019 Comp Metabolic Mwr492 Os mo 278 mOsmo 03/15/2019 %Hba1C Sys469 % HbA1c 17141-6 7.2 % 03/15/2019 %Hba1C Ovq170 Gluc Ave 160 mg/dL 03/15/2019 Tsh Ord6 TSH (3rd IS) 3.46 uIU/mL 03/12/2018 Comp Metabolic Okm394 NA 138 mEq/L 03/12/2018 Comp Metabolic Txw908 K 4.5 mEq/L 03/12/2018 Comp Metabolic Ptl241 CL 104 mEq/L 03/12/2018 Comp Metabolic Cbh294 CO2 28.0 mEq/L 03/12/2018 Comp Metabolic Zfc750 AN ION GAP 11 03/12/2018 Comp Metabolic Ejb274 GL UCOSE 129 mg/dL 03/12/2018 Comp Metabolic Dsj651 Cr eat 0.8 mg/dL 03/12/2018 Comp Metabolic Keh044 eG FR 74 ml/min/1.73m2 03/12 Comp Metabolic Qqt664 BUN 12 mg/dL 03/12/2018 Comp Metabolic Bud225 B/ C Ratio 14.8 Ratio 03/12/2018 Comp Metabolic Tii202 CA LCIUM 9.1 mg/dL 03/12/2018 Comp Metabolic Ouz145 AL K PHOS 64 U/L 03/12/2018 Comp Metabolic Ydg163 T(SGOT) 13 U/L 03/12/2018 Comp Metabolic Uxu437 AL T(SGPT) 12 U/L 03/12/2018 Comp Metabolic Dre222 BI LI T 0.5 mg/dL 03/12/2018 Comp Metabolic Yby104 AL BUMIN 4.0 g/dL 03/12/2018 Comp Metabolic Xrt460 TP RO 6.8 g/dL 03/12/2018 Comp Metabolic Bqi163 GL OB 2.8 g/dL 03/12/2018 Comp Metabolic Lzc063 A/ G Ratio 1.4 Ratio 03/12/2018 Comp Metabolic Syz601 Os mo 277 mOsmo 03/12/2018 Vitamin D 25 Oh Top2692 VITAMIN D, 25 HYDROXY 47.13 ng/mL 03/12/2018 Lipid Ord30 CHOL 161 mg/dL 03/12/2018 Lipid Ord30 HDL 49.0 mg/dl 03/12/2018 Lipid Ord30 TRIG 126 mg/dL 03/12/2018 Lipid Ord30 LDL 87 mg/dL 03/12/2018 Lipid Ord30 C/HDL 3.3 Ratio 03/12/2018 %Hba1C Mbz171 % HbA1c 68725-1 6.4 % 03/12/2018 %Hba1C Kqd761 Gluc Ave 137 mg/dL 03/12/2018 Cbc With Differential Ord2 WBC 10.71 K/ul 03/12/2018 Cbc With Differential Ord2 RBC 5.35 M/ul 03/12/2018 Cbc With Differential Ord2 HGB 15.4 g/dl 03/12/2018 Cbc With Differential Ord2 HCT 46.8 % 03/12/2018 Cbc With Differential Ord2 Neut% 61.1 % 03/12/2018 Cbc With Differential Ord2 MCV 87.5 fl 03/12/2018 Cbc With Differential Ord2 Lymph% 27.2 % 03/12/2018 Cbc With Differential Ord2 MCH 28.8 pg 03/12/2018 Cbc With Differential Ord2 Bond% 9.0 % 03/12/2018 Cbc With Differential Ord2 MCHC 32.9 pg 03/12/2018 Cbc With Differential Ord2 Eos% 2.1 % 03/12/2018 Cbc With Differential Ord2 PLT 252 K/ul 03/12/2018 Cbc With Differential Ord2 Baso% 0.6 % 03/12/2018 Cbc With Differential Ord2 RDW 14.9 % 03/12/2018 Cbc With Differential Ord2 Neut ABS# 6.55 K/ul 03/12/2018 Cbc With Differential Ord2 Lymph ABS# 2.91 K/ul 03/12/2018 Cbc With Differential Ord2 Bond ABS# 1.0 K/ul 03/12/2018 Cbc With Differential Ord2 Eos ABS# 0.2 K/ul 03/12/2018 Cbc With Differential Ord2 Baso ABS# 0.1 K/ul 03/12/2018 Vitamin D 25 Oh [id number] VITAMIN D, 25 HYDROXY 40.72 ng/mL 09/11/2017 %Hba1C Fdl267 % HbA1c 26023-2 6.0 % 09/11/2017 %Hba1C Ykv504 Gluc Ave 126 mg/dL 09/11/2017 Cbc With Differential Ord2 WBC 12.20 K/ul 09/11/2017 Cbc With Differential Ord2 RBC 5.10 M/ul 09/11/2017 Cbc With Differential Ord2 HGB 14.7 g/dl 09/11/2017 Cbc With Differential Ord2 HCT 45.0 % 09/11/2017 Cbc With Differential Ord2 Neut% 60.0 % 09/11/2017 Cbc With Differential Ord2 MCV 88.2 fl 09/11/2017 Cbc With Differential Ord2 Lymph% 29.3 % 09/11/2017 Cbc With Differential Ord2 MCH 28.8 pg 09/11/2017 Cbc With Differential Ord2 Bond% 7.8 % 09/11/2017 Cbc With Differential Ord2 MCHC 32.7 pg 09/11/2017 Cbc With Differential Ord2 Eos% 2.5 % 09/11/2017 Cbc With Differential Ord2 PLT 283 K/ul 09/11/2017 Cbc With Differential Ord2 Baso% 0.4 % 09/11/2017 Cbc With Differential Ord2 RDW 14.9 % 09/11/2017 Cbc With Differential Ord2 Neut ABS# 7.33 K/ul 09/11/2017 Cbc With Differential Ord2 Lymph ABS# 3.57 K/ul 09/11/2017 Cbc With Differential Ord2 Bond ABS# 1.0 K/ul 09/11/2017 Cbc With Differential Ord2 Eos ABS# 0.3 K/ul 09/11/2017 Cbc With Differential Ord2 Baso ABS# 0.1 K/ul 09/11/2017 Tsh Ord6 hTSH II 2.46 uIU/mL 09/11/2017 Lipid Ord30 CHOL 172 mg/dL 09/11/2017 Lipid Ord30 HDL 47.0 mg/dl 09/11/2017 Lipid Ord30 TRIG 137 mg/dL 09/11/2017 Lipid Ord30 LDL 98 mg/dL 09/11/2017 Lipid Ord30 C/HDL 3.7 Ratio 09/11/2017 Comp Metabolic Bgg266 NA 138 mEq/L 09/11/2017 Comp Metabolic Ogv741 K 4.5 mEq/L 09/11/2017 Comp Metabolic Ujg802 CL 103 mEq/L 09/11/2017 Comp Metabolic Sej423 CO2 28.0 mEq/L 09/11/2017 Comp Metabolic Ali316 AN ION GAP 12 09/11/2017 Comp Metabolic Xsf607 GL UCOSE 105 mg/dL 09/11/2017 Comp Metabolic Upu536 Cr eat 0.7 mg/dL 09/11/2017 Comp Metabolic Amu209 eG FR 94 ml/min/1.73m2 09/11 Comp Metabolic Qto970 BUN 10 mg/dL 09/11/2017 Comp Metabolic Vae361 B/ C Ratio 15.2 Ratio 09/11/2017 Comp Metabolic Yqg706 CA LCIUM 9.1 mg/dL 09/11/2017 Comp Metabolic Pku815 AL K PHOS 70 U/L 09/11/2017 Comp Metabolic Fsg755 T(SGOT) 12 U/L 09/11/2017 Comp Metabolic Wng215 AL T(SGPT) 11 U/L 09/11/2017 Comp Metabolic Idw114 BI LI T 0.6 mg/dL 09/11/2017 Comp Metabolic Ssw808 AL BUMIN 4.1 g/dL 09/11/2017 Comp Metabolic Qdv647 TP RO 7.1 g/dL 09/11/2017 Comp Metabolic Xuf053 GL OB 3.0 g/dL 09/11/2017 Comp Metabolic Qre481 A/ G Ratio 1.4 Ratio 09/11/2017 Comp Metabolic Eok051 Os mo 275 mOsmo 09/11/2017 Microalbumin Srl317 Micr oAlb <0.7 mg/dL 09/11/2016 %Hba1C Gox501 % HbA1c 39154-1 5.8 % 09/11/2016 %Hba1C Ose981 Gluc Ave 120 mg/dL 09/11/2016 Cbc With Differential Ord2 WBC 12.06 K/ul 09/10/2016 Cbc With Differential Ord2 RBC 4.85 M/ul 09/10/2016 Cbc With Differential Ord2 HGB 14.2 g/dl 09/10/2016 Cbc With Differential Ord2 HCT 43.2 % 09/10/2016 Cbc With Differential Ord2 Neut% 58.7 % 09/10/2016 Cbc With Differential Ord2 MCV 89.1 fl 09/10/2016 Cbc With Differential Ord2 Lymph% 31.3 % 09/10/2016 Cbc With Differential Ord2 MCH 29.3 pg 09/10/2016 Cbc With Differential Ord2 Bond% 7.5 % 09/10/2016 Cbc With Differential Ord2 MCHC 32.9 pg 09/10/2016 Cbc With Differential Ord2 Eos% 2.1 % 09/10/2016 Cbc With Differential Ord2 PLT 272 K/ul 09/10/2016 Cbc With Differential Ord2 Baso% 0.4 % 09/10/2016 Cbc With Differential Ord2 RDW 14.7 % 09/10/2016 Cbc With Differential Ord2 Neut ABS# 7.07 K/ul 09/10/2016 Cbc With Differential Ord2 Lymph ABS# 3.78 K/ul 09/10/2016 Cbc With Differential Ord2 Bond ABS# 0.9 K/ul 09/10/2016 Cbc With Differential Ord2 Eos ABS# 0.3 K/ul 09/10/2016 Cbc With Differential Ord2 Baso ABS# 0.1 K/ul 09/10/2016 Lipid Ord30 CHOL 163 mg/dL 09/10/2016 Lipid Ord30 HDL 48.0 mg/dl 09/10/2016 Lipid Ord30 TRIG 174 mg/dL 09/10/2016 Lipid Ord30 LDL 80 mg/dL 09/10/2016 Lipid Ord30 C/HDL 3.4 Ratio 09/10/2016 Comp Metabolic Hrf639 NA 135 mEq/L 09/10/2016 Comp Metabolic Dzb435 K 3.8 mEq/L 09/10/2016 Comp Metabolic Uwi908 CL 99 mEq/L 09/10/2016 Comp Metabolic Ggd948 CO2 27.0 mEq/L 09/10/2016 Comp Metabolic Dly160 AN ION GAP 13 09/10/2016 Comp Metabolic Dqg499 GL UCOSE 72 mg/dL 09/10/2016 Comp Metabolic Seo285 Cr eat 0.7 mg/dL 09/10/2016 Comp Metabolic Ytz960 eG FR 89 ml/min/1.73m2 09/10 Comp Metabolic Mhk576 BUN 7 mg/dL 09/10/2016 Comp Metabolic Srs557 B/ C Ratio 10.1 Ratio 09/10/2016 Comp Metabolic Qjw262 CA LCIUM 9.1 mg/dL 09/10/2016 Comp Metabolic Ika387 AL K PHOS 66 U/L 09/10/2016 Comp Metabolic Gdp630 T(SGOT) 14 U/L 09/10/2016 Comp Metabolic Uqc332 AL T(SGPT) 11 U/L 09/10/2016 Comp Metabolic Nak634 BI LI T 0.6 mg/dL 09/10/2016 Comp Metabolic Lgs794 AL BUMIN 4.1 g/dL 09/10/2016 Comp Metabolic Qle547 TP RO 7.3 g/dL 09/10/2016 Comp Metabolic Bgp184 GL OB 3.2 g/dL 09/10/2016 Comp Metabolic Bow854 A/ G Ratio 1.3 Ratio 09/10/2016 Comp Metabolic Top913 Os mo 267 mOsmo 09/10/2016 Tsh Ord6 hTSH II 2.80 uIU/mL 09/10/2016 %Hba1C Aty037 % HbA1c 93949-5 5.8 % 02/29/2016 %Hba1C Jhj332 Gluc Ave 120 mg/dL 02/29/2016 Comp Metabolic Hcq868 NA 135 mEq/L 02/29/2016 Comp Metabolic Ifz795 K 4.4 mEq/L 02/29/2016 Comp Metabolic Ndk239 CL 101 mEq/L 02/29/2016 Comp Metabolic Rrq754 CO2 27.0 mEq/L 02/29/2016 Comp Metabolic Nke719 AN ION GAP 11 02/29/2016 Comp Metabolic Ysr232 GL UCOSE 77 mg/dL 02/29/2016 Comp Metabolic Qun895 Cr eat 0.6 mg/dL 02/29/2016 Comp Metabolic Jff447 eG FR 99 ml/min/1.73m2 02/28 Comp Metabolic Dag089 BUN 13 mg/dL 02/29/2016 Comp Metabolic Yrt006 B/ C Ratio 20.6 Ratio 02/29/2016 Comp Metabolic Nje482 CA LCIUM 9.4 mg/dL 02/29/2016 Comp Metabolic Pvo419 AL K PHOS 65 U/L 02/29/2016 Comp Metabolic Gwc848 T(SGOT) 14 U/L 02/29/2016 Comp Metabolic Ghu028 AL T(SGPT) 11 U/L 02/29/2016 Comp Metabolic Yhx207 BI LI T 0.6 mg/dL 02/29/2016 Comp Metabolic Ojw563 AL BUMIN 4.1 g/dL 02/29/2016 Comp Metabolic Nss615 TP RO 7.2 g/dL 02/29/2016 Comp Metabolic Job118 GL OB 3.1 g/dL 02/29/2016 Comp Metabolic Fvh279 A/ G Ratio 1.3 Ratio 02/29/2016 Comp Metabolic Dfq024 Os mo 269 mOsmo 02/29/2016 Lipid Ord30 CHOL 202 mg/dL 02/29/2016 Lipid Ord30 HDL 62.0 mg/dl 02/29/2016 Lipid Ord30 TRIG 123 mg/dL 02/29/2016 Lipid Ord30 LDL 115 mg/dL 02/29/2016 Lipid Ord30 C/HDL 3.3 Ratio 02/29/2016 Vitamin D 25 Oh [id number] VITAMIN D, 25 HYDROXY 58.48 ng/mL 08/18/2015 Lipid Ord30 CHOL 172 mg/dL 08/17/2015 Lipid Ord30 HDL 49.0 mg/dl 08/17/2015 Lipid Ord30 TRIG 170 mg/dL 08/17/2015 Lipid Ord30 LDL 89 mg/dL 08/17/2015 Lipid Ord30 C/HDL 3.5 Ratio 08/17/2015 %Hba1C Ekn460 % HbA1c 59134-3 6.4 % 08/17/2015 %Hba1C Qpp083 Gluc Ave 137 mg/dL 08/17/2015 Tsh Ord6 hTSH II 2.25 uIU/mL 08/17/2015 Cbc With Differential Ord2 WBC 10.9 K/uL 08/17/2015 Cbc With Differential Ord2 LYM 2.3 K/uL 08/17/2015 Cbc With Differential Ord2 LYM% 21.0 % 08/17/2015 Cbc With Differential Ord2 NEUT/GRAN 8.0 K/uL 08/17/2015 Cbc With Differential Ord2 NEUT/GRAN % 73.1 % 08/17/2015 Cbc With Differential Ord2 MID 0.6 K/uL 08/17/2015 Cbc With Differential Ord2 MID% 5.9 % 08/17/2015 Cbc With Differential Ord2 RBC 5.05 M/uL 08/17/2015 Cbc With Differential Ord2 HGB 15.2 g/dL 08/17/2015 Cbc With Differential Ord2 HCT 45.6 % 08/17/2015 Cbc With Differential Ord2 MCV 90 fL 08/17/2015 Cbc With Differential Ord2 MCH 30 pg 08/17/2015 Cbc With Differential Ord2 MCHC 33 g/dL 08/17/2015 Cbc With Differential Ord2 PLT 268 K/uL 08/17/2015 Cbc With Differential Ord2 RDW 14.8 % 08/17/2015 Comp Metabolic Pyp948 NA 132 mEq/L 08/17/2015 Comp Metabolic Szn645 K 4.4 mEq/L 08/17/2015 Comp Metabolic Yet128 CL 101 mEq/L 08/17/2015 Comp Metabolic Kmk733 CO2 24.0 mEq/L 08/17/2015 Comp Metabolic Whe702 AN ION GAP 11 08/17/2015 Comp Metabolic Sxu273 GL UCOSE 130 mg/dL 08/17/2015 Comp Metabolic Jux830 Cr eat 0.7 mg/dL 08/17/2015 Comp Metabolic Jps161 eG FR 93 ml/min/1.73m2 08/17 Comp Metabolic Avf030 BUN 8 mg/dL 08/17/2015 Comp Metabolic Dmb219 B/ C Ratio 11.9 Ratio 08/17/2015 Comp Metabolic Cra646 CA LCIUM 9.5 mg/dL 08/17/2015 Comp Metabolic Hvz604 AL K PHOS 70 U/L 08/17/2015 Comp Metabolic Ukb162 T(SGOT) 28 U/L 08/17/2015 Comp Metabolic Ddj820 AL T(SGPT) 14 U/L 08/17/2015 Comp Metabolic Brp158 BI LI T 0.8 mg/dL 08/17/2015 Comp Metabolic Cte690 AL BUMIN 4.2 g/dL 08/17/2015 Comp Metabolic Mbx739 TP RO 7.3 g/dL 08/17/2015 Comp Metabolic Dzo388 GL OB 3.1 g/dL 08/17/2015 Comp Metabolic Ftq024 A/ G Ratio 1.4 Ratio 08/17/2015 Comp Metabolic Xtd313 Os mo 265 mOsmo 08/17/2015 Review of Systems System Result Effective Dates Constitutional No recent illness 03/15/2019 Constitutional No chills 03/15/2019 Constitutional No fatigue 03/15/2019 Constitutional No fever 03/15/2019 Constitutional No insomnia 03/15/2019 Constitutional No malaise 03/15/2019 Eyes No blindness 2018 Eyes No vision change Ears/Nose/Throat/Neck No dental pain 03/15/2019 Ears/Nose/Throat/Neck No dizziness 03/15/2019 Ears/Nose/Throat/Neck No dysphagia 03/15/2019 Ears/Nose/Throat/Neck No headache 03/15/2019 Ears/Nose/Throat/Neck No hearing loss 03/15/2019 Ears/Nose/Throat/Neck No nasal allergies 03/15/2019 Ears/Nose/Throat/Neck No sore throat 03/15/2019 Ears/Nose/Throat/Neck No postnasal drip 03/15/2019 Ears/Nose/Throat/Neck No sinus congestion 03/15/2019 Cardiovascular No chest pain/pressure 03/15/2019 Cardiovascular No dyspnea 03/15/2019 Cardiovascular edema 04/2019 Cardiovascular No exercise intolerance 03/15/2019 Cardiovascular No fatigue 03/15/2019 Cardiovascular No near-syncope/dizziness 03/15/2019 Respiratory No chest tightness 03/15/2019 Respiratory cough 2018 Respiratory No dyspnea 0 03/15/2019 Respiratory No pedal edema 03/15/2019 Gastrointestinal No abdominal pain 03/15/2019 Gastrointestinal constipation 03/15/2019 Gastrointestinal No diarrhea 03/15/2019 Gastrointestinal No gastroesophageal reflu x 03/15/2019 Gastrointestinal No nausea 03/15/2019 Gastrointestinal No vomiting 03/15/2019 Neurologic No dizziness 03/15/2019 Neurologic No headache 0 03/15/2019 Psychiatric No anxiety 0 03/15/2019 Psychiatric No depression 03/15/2019 Constitutional No anorexia 03/15/2019 Constitutional weight loss 03/15/2019 Genitourinary/Nephrology No dysuria 03/15/2019 Musculoskeletal No joint complaint 03/15/2019 Dermatologic No rash 04/2019 Constitutional recent illness 11/26/2018 Constitutional No chills 11/26/2018 Constitutional No fatigue 11/26/2018 Constitutional No fever 11/26/2018 Constitutional No insomnia 11/26/2018 Constitutional No malaise 11/26/2018 Eyes No blindness 2018 Eyes No vision change Ears/Nose/Throat/Neck No dental pain 11/26/2018 Ears/Nose/Throat/Neck No dizziness 11/26/2018 Ears/Nose/Throat/Neck No dysphagia 11/26/2018 Ears/Nose/Throat/Neck No headache 11/26/2018 Ears/Nose/Throat/Neck No hearing loss 11/26/2018 Ears/Nose/Throat/Neck No nasal allergies 11/26/2018 Ears/Nose/Throat/Neck No sore throat 11/26/2018 Ears/Nose/Throat/Neck No postnasal drip 11/26/2018 Ears/Nose/Throat/Neck No sinus congestion 11/26/2018 Cardiovascular No chest pain/pressure 11/26/2018 Cardiovascular No dyspnea 11/26/2018 Cardiovascular No edema 11/26/2018 Cardiovascular No exercise intolerance 11/26/2018 Cardiovascular No fatigue 11/26/2018 Cardiovascular No near-syncope/dizziness 11/26/2018 Respiratory No chest tightness 11/26/2018 Respiratory cough 2018 Respiratory No dyspnea 0 11/26/2018 Respiratory No pedal edema 11/26/2018 Gastrointestinal No abdominal pain 11/26/2018 Gastrointestinal No constipation 11/26/2018 Gastrointestinal No diarrhea 11/26/2018 Gastrointestinal No gastroesophageal reflu x 11/26/2018 Gastrointestinal No nausea 11/26/2018 Gastrointestinal No vomiting 11/26/2018 Neurologic No dizziness 11/26/2018 Neurologic No headache 0 11/26/2018 Psychiatric No anxiety 0 11/26/2018 Psychiatric No depression 11/26/2018 Genitourinary/Nephrology vaginal discharge 11/26/2018 Constitutional No recent illness 11/12/2018 Constitutional No chills 11/12/2018 Constitutional No diaphoresis 11/12/2018 Constitutional No fever 11/12/2018 Eyes No eye erythema 01/2019 Ears/Nose/Throat/Neck No nasal discharge 11/12/2018 Cardiovascular No chest pain/pressure 11/12/2018 Respiratory No cough 01/2019 Neurologic No alteration of consciousness 11/12/2018 Neurologic No mental status change 11/12/2018 Constitutional No recent illness 11/06/2018 Constitutional No chills 11/06/2018 Constitutional No diaphoresis 11/06/2018 Constitutional No fever 11/06/2018 Eyes No eye erythema Ears/Nose/Throat/Neck No nasal discharge 11/06/2018 Cardiovascular No chest pain/pressure 11/06/2018 Cardiovascular No dyspnea 11/06/2018 Respiratory No cough Gastrointestinal No abdominal pain 11/06/2018 Gastrointestinal No constipation 11/06/2018 Gastrointestinal No diarrhea 11/06/2018 Gastrointestinal No vomiting 11/06/2018 Gastrointestinal No nausea 11/06/2018 Genitourinary/Nephrology menstrual i rregularity 11/06/2018 Genitourinary/Nephrology vaginal discharge 11/06/2018 Musculoskeletal No joint complaint 11/06/2018 Neurologic No alteration of consciousness 11/06/2018 Neurologic No mental status change 11/06/2018 Constitutional No recent illness 09/14/2018 Constitutional No anorexia 09/14/2018 Constitutional No night sweats 09/14/2018 Constitutional No chills 09/14/2018 Constitutional No diaphoresis 09/14/2018 Constitutional No fatigue 09/14/2018 Constitutional No fever 09/14/2018 Constitutional No insomnia 09/14/2018 Constitutional No malaise 09/14/2018 Constitutional No weight loss 09/14/2018 Constitutional No weight gain 09/14/2018 Constitutional No obesity 09/14/2018 Eyes No eye pain 018 Ears/Nose/Throat/Neck No dizziness 09/14/2018 Ears/Nose/Throat/Neck headache 09/14/2018 Ears/Nose/Throat/Neck nasal allergies 09/14/2018 Cardiovascular No dyspnea 09/14/2018 Respiratory No chest tightness 09/14/2018 Respiratory cigarette smoking 09/14/2018 Respiratory cough 2017 Gastrointestinal No abdominal pain 09/14/2018 Gastrointestinal No constipation 09/14/2018 Gastrointestinal No diarrhea 09/14/2018 Gastrointestinal No gas and bloating 09/14/2018 Gastrointestinal No nausea 09/14/2018 Gastrointestinal No vomiting 09/14/2018 Genitourinary/Nephrology No anuria/oliguri a 09/14/2018 Genitourinary/Nephrology No dysuria 09/14/2018 Dermatologic No rash 03/2018 Dermatologic No sores Neurologic No alteration of consciousness 09/14/2018 Neurologic No ataxia 03/2018 Neurologic No mental status change 09/14/2018 Psychiatric No anxiety 1 11/14/2017 Psychiatric No depression 09/14/2018 Endocrine No polydipsia 09/14/2018 Endocrine No polyuria Hematologic/Lymphatic No abnormal ec chymoses 09/14/2018 Hematologic/Lymphatic No abnormal bl eeding and bruising 09/14/2018 Allergy/Immunology No anaphylactoid reaction 09/14/2018 Allergy/Immunology No urticaria 09/14/2018 Musculoskeletal No joint complaint 09/14/2018 Constitutional No recent illness 03/12/2018 Constitutional No anorexia 03/12/2018 Constitutional No night sweats 03/12/2018 Constitutional No chills 03/12/2018 Constitutional No diaphoresis 03/12/2018 Constitutional No fatigue 03/12/2018 Constitutional No fever 03/12/2018 Constitutional No insomnia 03/12/2018 Constitutional No malaise 03/12/2018 Constitutional No weight loss 03/12/2018 Constitutional No weight gain 03/12/2018 Constitutional No obesity 03/12/2018 Eyes No eye pain 018 Ears/Nose/Throat/Neck No dizziness 03/12/2018 Ears/Nose/Throat/Neck headache 03/12/2018 Ears/Nose/Throat/Neck nasal allergies 03/12/2018 Cardiovascular No dyspnea 03/12/2018 Respiratory No chest tightness 03/12/2018 Respiratory cigarette smoking 03/12/2018 Respiratory cough 2017 Gastrointestinal No abdominal pain 03/12/2018 Gastrointestinal No constipation 03/12/2018 Gastrointestinal No diarrhea 03/12/2018 Gastrointestinal No gas and bloating 03/12/2018 Gastrointestinal No nausea 03/12/2018 Gastrointestinal No vomiting 03/12/2018 Genitourinary/Nephrology No anuria/oliguri a 03/12/2018 Genitourinary/Nephrology No dysuria 03/12/2018 Musculoskeletal joint complaint 03/12/2018 Dermatologic No rash 01/2018 Dermatologic No sores Neurologic No alteration of consciousness 03/12/2018 Neurologic No ataxia 01/2018 Neurologic No mental status change 03/12/2018 Psychiatric No anxiety 0 03/12/2018 Psychiatric No depression 03/12/2018 Endocrine No polydipsia 03/12/2018 Endocrine No polyuria Hematologic/Lymphatic No abnormal ec chymoses 03/12/2018 Hematologic/Lymphatic No abnormal bl eeding and bruising 03/12/2018 Allergy/Immunology No anaphylactoid reaction 03/12/2018 Allergy/Immunology No urticaria 03/12/2018 Constitutional No recent illness 09/11/2017 Constitutional No anorexia 09/11/2017 Constitutional No night sweats 09/11/2017 Constitutional No chills 09/11/2017 Constitutional No diaphoresis 09/11/2017 Constitutional No fatigue 09/11/2017 Constitutional No fever 09/11/2017 Constitutional No insomnia 09/11/2017 Constitutional No malaise 09/11/2017 Constitutional No weight loss 09/11/2017 Constitutional No weight gain 09/11/2017 Constitutional No obesity 09/11/2017 Eyes No eye pain 017 Ears/Nose/Throat/Neck No dizziness 09/11/2017 Ears/Nose/Throat/Neck headache 09/11/2017 Ears/Nose/Throat/Neck nasal allergies 09/11/2017 Cardiovascular No dyspnea 09/11/2017 Respiratory No chest tightness 09/11/2017 Respiratory cigarette smoking 09/11/2017 Respiratory cough 2016 Gastrointestinal No abdominal pain 09/11/2017 Gastrointestinal No constipation 09/11/2017 Gastrointestinal No diarrhea 09/11/2017 Gastrointestinal No gas and bloating 09/11/2017 Gastrointestinal No nausea 09/11/2017 Gastrointestinal No vomiting 09/11/2017 Genitourinary/Nephrology No anuria/oliguri a 09/11/2017 Genitourinary/Nephrology No dysuria 09/11/2017 Dermatologic No rash 12/2016 Dermatologic No sores Neurologic No alteration of consciousness 09/11/2017 Neurologic No ataxia 12/2016 Neurologic No mental status change 09/11/2017 Psychiatric No anxiety 1 11/11/2016 Psychiatric No depression 09/11/2017 Endocrine No polydipsia 09/11/2017 Endocrine No polyuria Hematologic/Lymphatic No abnormal ec chymoses 09/11/2017 Hematologic/Lymphatic No abnormal bl eeding and bruising 09/11/2017 Allergy/Immunology No anaphylactoid reaction 09/11/2017 Allergy/Immunology No urticaria 09/11/2017 Musculoskeletal joint complaint 09/11/2017 Constitutional No recent illness 03/10/2017 Constitutional No anorexia 03/10/2017 Constitutional No night sweats 03/10/2017 Constitutional No chills 03/10/2017 Constitutional No diaphoresis 03/10/2017 Constitutional No fatigue 03/10/2017 Constitutional No fever 03/10/2017 Constitutional No insomnia 03/10/2017 Constitutional No malaise 03/10/2017 Constitutional No weight loss 03/10/2017 Constitutional No weight gain 03/10/2017 Constitutional No obesity 03/10/2017 Eyes No eye pain 017 Ears/Nose/Throat/Neck No dizziness 03/10/2017 Ears/Nose/Throat/Neck No headache 03/10/2017 Cardiovascular No dyspnea 03/10/2017 Ears/Nose/Throat/Neck nasal allergies 03/10/2017 Ears/Nose/Throat/Neck nasal discharge 03/10/2017 Respiratory No chest tightness 03/10/2017 Respiratory cigarette smoking 03/10/2017 Respiratory cough 2016 Gastrointestinal No abdominal pain 03/10/2017 Gastrointestinal No gas and bloating 03/10/2017 Gastrointestinal No diarrhea 03/10/2017 Gastrointestinal No constipation 03/10/2017 Gastrointestinal No vomiting 03/10/2017 Gastrointestinal No nausea 03/10/2017 Genitourinary/Nephrology No anuria/oliguri a 03/10/2017 Genitourinary/Nephrology No dysuria 03/10/2017 Musculoskeletal No stiffness 03/10/2017 Musculoskeletal No swelling 03/10/2017 Musculoskeletal No arthralgia(s) 03/10/2017 Musculoskeletal No back pain 03/10/2017 Dermatologic No rash 11/2016 Dermatologic No sores Neurologic No alteration of consciousness 03/10/2017 Neurologic No ataxia 11/2016 Neurologic No mental status change 03/10/2017 Psychiatric No anxiety 0 03/10/2017 Psychiatric No depression 03/10/2017 Hematologic/Lymphatic No abnormal ec chymoses 03/10/2017 Hematologic/Lymphatic No abnormal bl eeding and bruising 03/10/2017 Endocrine No polyuria Endocrine No polydipsia 03/10/2017 Allergy/Immunology No urticaria 03/10/2017 Allergy/Immunology No anaphylactoid reaction 03/10/2017 Constitutional No recent illness 09/10/2016 Constitutional No chills 09/10/2016 Constitutional No fatigue 09/10/2016 Constitutional No fever 09/10/2016 Constitutional No insomnia 09/10/2016 Constitutional No malaise 09/10/2016 Eyes No blindness 2015 Eyes No vision change Ears/Nose/Throat/Neck No dental pain 09/10/2016 Ears/Nose/Throat/Neck No dizziness 09/10/2016 Ears/Nose/Throat/Neck No dysphagia 09/10/2016 Ears/Nose/Throat/Neck No headache 09/10/2016 Ears/Nose/Throat/Neck No hearing loss 09/10/2016 Ears/Nose/Throat/Neck No nasal allergies 09/10/2016 Ears/Nose/Throat/Neck No sore throat 09/10/2016 Ears/Nose/Throat/Neck No postnasal drip 09/10/2016 Ears/Nose/Throat/Neck No sinus congestion 09/10/2016 Cardiovascular No chest pain/pressure 09/10/2016 Cardiovascular No dyspnea 09/10/2016 Cardiovascular No edema 09/10/2016 Cardiovascular No exercise intolerance 09/10/2016 Cardiovascular No fatigue 09/10/2016 Cardiovascular No near-syncope/dizziness 09/10/2016 Respiratory No chest tightness 09/10/2016 Respiratory No cough 11/2015 Respiratory No dyspnea 1 11/10/2015 Respiratory No pedal edema 09/10/2016 Gastrointestinal No abdominal pain 09/10/2016 Gastrointestinal No constipation 09/10/2016 Gastrointestinal No diarrhea 09/10/2016 Gastrointestinal No gastroesophageal reflu x 09/10/2016 Gastrointestinal No nausea 09/10/2016 Gastrointestinal No vomiting 09/10/2016 Genitourinary/Nephrology No dysuria 09/10/2016 Genitourinary/Nephrology No nocturia 09/10/2016 Genitourinary/Nephrology No urinary incontinence 09/10/2016 Musculoskeletal No stiffness 09/10/2016 Musculoskeletal No swelling 09/10/2016 Musculoskeletal No muscle weakness 09/10/2016 Musculoskeletal No myalgias 09/10/2016 Dermatologic No rash 11/2015 Dermatologic No sores Dermatologic No scar 11/2015 Neurologic No dizziness 09/10/2016 Neurologic No headache 1 11/10/2015 Neurologic No neck pain 09/10/2016 Neurologic No syncope Psychiatric No anxiety 1 11/10/2015 Psychiatric No depression 09/10/2016 Constitutional No recent illness 04/23/2016 Constitutional No chills 04/23/2016 Constitutional No fatigue 04/23/2016 Constitutional No fever 04/23/2016 Constitutional No insomnia 04/23/2016 Constitutional No malaise 04/23/2016 Eyes No blindness 2015 Eyes No vision change Ears/Nose/Throat/Neck No dental pain 04/23/2016 Ears/Nose/Throat/Neck No dizziness 04/23/2016 Ears/Nose/Throat/Neck No dysphagia 04/23/2016 Ears/Nose/Throat/Neck No headache 04/23/2016 Ears/Nose/Throat/Neck No hearing loss 04/23/2016 Ears/Nose/Throat/Neck No nasal allergies 04/23/2016 Ears/Nose/Throat/Neck No sore throat 04/23/2016 Ears/Nose/Throat/Neck No postnasal drip 04/23/2016 Ears/Nose/Throat/Neck No sinus congestion 04/23/2016 Cardiovascular No chest pain/pressure 04/23/2016 Cardiovascular No dyspnea 04/23/2016 Cardiovascular No edema 04/23/2016 Cardiovascular No exercise intolerance 04/23/2016 Cardiovascular No fatigue 04/23/2016 Cardiovascular No near-syncope/dizziness 04/23/2016 Respiratory No chest tightness 04/23/2016 Respiratory No cough Respiratory No dyspnea 0 04/23/2016 Respiratory No pedal edema 04/23/2016 Gastrointestinal No abdominal pain 04/23/2016 Gastrointestinal No constipation 04/23/2016 Gastrointestinal No diarrhea 04/23/2016 Gastrointestinal No gastroesophageal reflu x 04/23/2016 Gastrointestinal No nausea 04/23/2016 Gastrointestinal No vomiting 04/23/2016 Genitourinary/Nephrology No dysuria 04/23/2016 Genitourinary/Nephrology No nocturia 04/23/2016 Genitourinary/Nephrology No urinary incontinence 04/23/2016 Musculoskeletal No stiffness 04/23/2016 Musculoskeletal No swelling 04/23/2016 Musculoskeletal No muscle weakness 04/23/2016 Musculoskeletal No myalgias 04/23/2016 Dermatologic No rash Dermatologic No sores Dermatologic No scar Neurologic No dizziness 04/23/2016 Neurologic No headache 0 04/23/2016 Neurologic No neck pain 04/23/2016 Neurologic No syncope Psychiatric No anxiety 0 04/23/2016 Psychiatric No depression 04/23/2016 Constitutional No recent illness 02/29/2016 Constitutional No chills 02/29/2016 Constitutional No fatigue 02/29/2016 Constitutional No fever 02/29/2016 Constitutional No insomnia 02/29/2016 Constitutional No malaise 02/29/2016 Eyes No blindness 2015 Eyes No vision change Ears/Nose/Throat/Neck No dental pain 02/29/2016 Ears/Nose/Throat/Neck No dizziness 02/29/2016 Ears/Nose/Throat/Neck No dysphagia 02/29/2016 Ears/Nose/Throat/Neck No headache 02/29/2016 Ears/Nose/Throat/Neck No hearing loss 02/29/2016 Ears/Nose/Throat/Neck No nasal allergies 02/29/2016 Ears/Nose/Throat/Neck No sore throat 02/29/2016 Ears/Nose/Throat/Neck No postnasal drip 02/29/2016 Ears/Nose/Throat/Neck No sinus congestion 02/29/2016 Cardiovascular No chest pain/pressure 02/29/2016 Cardiovascular No dyspnea 02/29/2016 Cardiovascular No edema 02/29/2016 Cardiovascular No exercise intolerance 02/29/2016 Cardiovascular No fatigue 02/29/2016 Cardiovascular No near-syncope/dizziness 02/29/2016 Respiratory No chest tightness 02/29/2016 Respiratory No cough Respiratory No dyspnea 0 02/29/2016 Respiratory No pedal edema 02/29/2016 Gastrointestinal No abdominal pain 02/29/2016 Gastrointestinal No constipation 02/29/2016 Gastrointestinal No diarrhea 02/29/2016 Gastrointestinal No gastroesophageal reflu x 02/29/2016 Gastrointestinal No nausea 02/29/2016 Gastrointestinal No vomiting 02/29/2016 Genitourinary/Nephrology No dysuria 02/29/2016 Genitourinary/Nephrology No nocturia 02/29/2016 Genitourinary/Nephrology No urinary incontinence 02/29/2016 Musculoskeletal No stiffness 02/29/2016 Musculoskeletal No swelling 02/29/2016 Musculoskeletal No muscle weakness 02/29/2016 Musculoskeletal No myalgias 02/29/2016 Dermatologic No rash Dermatologic No sores Dermatologic No scar Neurologic No dizziness 02/29/2016 Neurologic No headache 0 02/29/2016 Neurologic No neck pain 02/29/2016 Neurologic No syncope Psychiatric No anxiety 0 02/29/2016 Psychiatric No depression 02/29/2016 Constitutional No recent illness 08/17/2015 Constitutional No chills 08/17/2015 Constitutional No fatigue 08/17/2015 Constitutional No fever 08/17/2015 Constitutional No insomnia 08/17/2015 Constitutional No malaise 08/17/2015 Eyes No blindness 2014 Eyes No vision change Ears/Nose/Throat/Neck No dental pain 08/17/2015 Ears/Nose/Throat/Neck No dizziness 08/17/2015 Ears/Nose/Throat/Neck No dysphagia 08/17/2015 Ears/Nose/Throat/Neck No headache 08/17/2015 Ears/Nose/Throat/Neck No hearing loss 08/17/2015 Ears/Nose/Throat/Neck No nasal allergies 08/17/2015 Ears/Nose/Throat/Neck No sore throat 08/17/2015 Ears/Nose/Throat/Neck No postnasal drip 08/17/2015 Ears/Nose/Throat/Neck No sinus congestion 08/17/2015 Cardiovascular No chest pain/pressure 08/17/2015 Cardiovascular No dyspnea 08/17/2015 Cardiovascular No edema 08/17/2015 Cardiovascular No exercise intolerance 08/17/2015 Cardiovascular No fatigue 08/17/2015 Cardiovascular No near-syncope/dizziness 08/17/2015 Respiratory No chest tightness 08/17/2015 Respiratory No cough 06/2015 Respiratory No dyspnea 1 Respiratory No pedal edema 08/17/2015 Gastrointestinal No abdominal pain 08/17/2015 Gastrointestinal No constipation 08/17/2015 Gastrointestinal No diarrhea 08/17/2015 Gastrointestinal No gastroesophageal reflu x 08/17/2015 Gastrointestinal No nausea 08/17/2015 Gastrointestinal No vomiting 08/17/2015 Genitourinary/Nephrology No dysuria 08/17/2015 Genitourinary/Nephrology No nocturia 08/17/2015 Genitourinary/Nephrology No urinary incontinence 08/17/2015 Musculoskeletal No stiffness 08/17/2015 Musculoskeletal No swelling 08/17/2015 Musculoskeletal No muscle weakness 08/17/2015 Musculoskeletal No myalgias 08/17/2015 Dermatologic No rash 06/2015 Dermatologic No sores Dermatologic No scar 06/2015 Neurologic No dizziness 08/17/2015 Neurologic No headache 1 Neurologic No neck pain 08/17/2015 Neurologic No syncope Psychiatric No anxiety 1 Psychiatric No depression 08/17/2015 Physical Exam Exam Name System Name It em Name Status Result Effective Dates Notes Full Exam - General 1994 Constitutional general appearance Development: well developed 03/15/2019 None Full Exam - General 1994 Constitutional general appearance Development: appears stated age 0503/15/2019 None Full Exam - General 1994 Constitutional general appearance Hygiene/Attention to Grooming: good hygiene 03/15/2019 None Full Exam - General 1994 Eyes conjunctiva/eyelids Overall: conjunctiva clear 03/15/2019 None Full Exam - General 1994 Eyes conjunctiva/eyelids Overall: cornea clear 03/15/2019 None Full Exam - General 1994 Eyes conjunctiva/eyelids Overall: eyelids normal 03/15/2019 None Full Exam - General 1994 Eyes pupils and irises Overall: pupils equal, round, reactive to light and accomodation 03/15/2019 None Full Exam - General 1994 Ears/Nose/Throat otoscopic exam Overall: external auditory canals clear 03/15/2019 None Full Exam - General 1994 Ears/Nose/Throat otoscopic exam Overall: tympanic membranes clear 03/15/2019 None Full Exam - General 1994 Ears/Nose/Throat lips/teeth/gingiva Overall: benign lips 03/15/2019 None Full Exam - General 1994 Ears/Nose/Throat lips/teeth/gingiva Overall: normal dentition 03/15/2019 None Full Exam - General 1994 Ears/Nose/Throat oral cavity/pharynx/larynx Overall: oral mucosa clear 03/15/2019 None Full Exam - General 1994 Ears/Nose/Throat oral cavity/pharynx/larynx Overall: oropharyngeal mucosa clear 03/15/2019 None Full Exam - General 1994 Ears/Nose/Throat oral cavity/pharynx/larynx Overall: hypopharynx benign 03/15/2019 None Full Exam - General 1994 Ears/Nose/Throat oral cavity/pharynx/larynx Overall: no masses 03/15/2019 None Full Exam - General 1994 Respiratory respiratory effort/rhythm Overall: no retractions 03/15/2019 None Full Exam - General 1994 Respiratory respiratory effort/rhythm Overall: normal rate 03/15/2019 None Full Exam - General 1994 Cardiovascular extremities Overall: no clubbing 03/15/2019 None Full Exam - General 1994 Cardiovascular auscultation of heart Overall: regular rate 03/15/2019 None Full Exam - General 1994 Cardiovascular auscultation of heart Overall: normal heart sounds 03/15/2019 None Full Exam - General 1994 Musculoskeletal spine, ribs and pelvis Overall: good posture 03/15/2019 None Full Exam - General 1994 Musculoskeletal head and neck Overall: head atraumatic 03/15/2019 None Full Exam - General 1994 Musculoskeletal head and neck Overall: cervical spine benign 03/15/2019 None Full Exam - General 1994 Neurologic cranial nerves Overall: crainial nerves 2 - 12 grossly intact 03/15/2019 None Full Exam - General 1994 Psychiatric orientation/consciousness Overall: oriented to person, place and time 03/15/2019 None Full Exam - General 1994 Psychiatric mood and affect Overall: normal mood and affect 03/15/2019 None Full Exam - Cardiology Respiratory auscultation Overall: breath sounds clear bilaterally 03/15/2019 None Full Exam - General 1994 Constitutional general appearance Development: well developed 11/26/2018 None Full Exam - General 1994 Constitutional general appearance Development: appears stated age 0111/26/2018 None Full Exam - General 1994 Constitutional general appearance Hygiene/Attention to Grooming: good hygiene 11/26/2018 None Full Exam - General 1994 Eyes conjunctiva/eyelids Overall: conjunctiva clear 11/26/2018 None Full Exam - General 1994 Eyes conjunctiva/eyelids Overall: cornea clear 11/26/2018 None Full Exam - General 1994 Eyes conjunctiva/eyelids Overall: eyelids normal 11/26/2018 None Full Exam - General 1994 Eyes pupils and irises Overall: pupils equal, round, reactive to light and accomodation 11/26/2018 None Full Exam - General 1994 Ears/Nose/Throat otoscopic exam Overall: external auditory canals clear 11/26/2018 None Full Exam - General 1994 Ears/Nose/Throat otoscopic exam Overall: tympanic membranes clear 11/26/2018 None Full Exam - General 1994 Ears/Nose/Throat lips/teeth/gingiva Overall: benign lips 11/26/2018 None Full Exam - General 1995 Ears/Nose/Throat lips/teeth/gingiva Overall: normal dentition 11/26/2018 None Full Exam - General 1994 Ears/Nose/Throat oral cavity/pharynx/larynx Overall: oral mucosa clear 11/26/2018 None Full Exam - General 1994 Ears/Nose/Throat oral cavity/pharynx/larynx Overall: oropharyngeal mucosa clear 11/26/2018 None Full Exam - General 1994 Ears/Nose/Throat oral cavity/pharynx/larynx Overall: hypopharynx benign 11/26/2018 None Full Exam - General 1995 Ears/Nose/Throat oral cavity/pharynx/larynx Overall: no masses 11/26/2018 None Full Exam - General 1995 Respiratory respiratory effort/rhythm Overall: no retractions 11/26/2018 None Full Exam - General 1994 Respiratory respiratory effort/rhythm Overall: normal rate 11/26/2018 None Full Exam - General 1995 Cardiovascular extremities Overall: no clubbing 11/26/2018 None Full Exam - General 1994 Cardiovascular auscultation of heart Overall: regular rate 11/26/2018 None Full Exam - General 1994 Cardiovascular auscultation of heart Overall: normal heart sounds 11/26/2018 None Full Exam - General 1994 Musculoskeletal spine, ribs and pelvis Overall: good posture 11/26/2018 None Full Exam - General 1994 Musculoskeletal head and neck Overall: head atraumatic 11/26/2018 None Full Exam - General 1994 Musculoskeletal head and neck Overall: cervical spine benign 11/26/2018 None Full Exam - General 1994 Neurologic cranial nerves Overall: crainial nerves 2 - 12 grossly intact 11/26/2018 None Full Exam - General 1994 Psychiatric orientation/consciousness Overall: oriented to person, place and time 11/26/2018 None Full Exam - General 1994 Psychiatric mood and affect Overall: normal mood and affect 11/26/2018 None Full Exam - General 1994 Respiratory auscultation Upper lung field: inspiratory wheezes 11/26/2018 None Full Exam - General 1994 Respiratory auscultation Lower lung field: diminished 11/26/2018 None Full Exam - General 1994 Constitutional general appearance Overall: well developed 11/12/2018 None Full Exam - General 1994 Constitutional general appearance Overall: in no acute distress 11/12/2018 None Full Exam - General 1994 Constitutional general appearance Overall: well nourished 11/12/2018 None Full Exam - General 1994 Eyes conjunctiva/eyelids Overall: eyelids normal 11/12/2018 None Full Exam - General 1994 Eyes conjunctiva/eyelids Overall: cornea clear 11/12/2018 None Full Exam - General 1994 Eyes conjunctiva/eyelids Overall: conjunctiva clear 11/12/2018 None Full Exam - General 1994 Ears/Nose/Throat lips/teeth/gingiva Overall: benign lips 11/12/2018 None Full Exam - General 1994 Ears/Nose/Throat oral cavity/pharynx/larynx Overall: oral mucosa clear 11/12/2018 None Full Exam - General 1994 Respiratory respiratory effort/rhythm Overall: no retractions 11/12/2018 None Full Exam - General 1994 Respiratory respiratory effort/rhythm Overall: normal rate 11/12/2018 None Full Exam - General 1994 Musculoskeletal head and neck Overall: head atraumatic 11/12/2018 None Full Exam - General 1994 Musculoskeletal gait and station Overall: normal station 11/12/2018 None Full Exam - General 1994 Musculoskeletal gait and station Overall: normal gait 11/12/2018 None Full Exam - General 1994 Psychiatric orientation/consciousness Overall: oriented to person, place and time 11/12/2018 None Full Exam - General 1994 Psychiatric mood and affect Overall: normal mood and affect 11/12/2018 None Full Exam - General 1994 Psychiatric appearance Overall: well-groomed, good eye contact 11/12/2018 None Full Exam - Genitourinary/Female Con stitutional general appearance Overall: well nourished 11/06/2018 None Full Exam - Genitourinary/Female Con stitutional general appearance Overall: well developed 11/06/2018 None Full Exam - Genitourinary/Female Con stitutional general appearance Overall: in no acute distress 11/06/2018 None Full Exam - Genitourinary/Female Eyes conjunctiva/eyelids Overall: eyelids normal 11/06/2018 None Full Exam - Genitourinary/Female Eyes conjunctiva/eyelids Overall: cornea clear 11/06/2018 None Full Exam - Genitourinary/Female Eyes conjunctiva/eyelids Overall: conjunctiva clear 11/06/2018 None Full Exam - Genitourinary/Female Ear s/Nose/Throat lips/teeth/gingiva Overall: benign lips 11/06/2018 None Full Exam - Genitourinary/Female Ear s/Nose/Throat oral cavity/pharynx/larynx Overall: oral mucosa clear 11/06/2018 None Full Exam - Genitourinary/Female Res piratory respiratory effort/rhythm Overall: normal rate 11/06/2018 None Full Exam - Genitourinary/Female Res piratory respiratory effort/rhythm Overall: no retractions 11/06/2018 None Full Exam - Genitourinary/Female Res piratory auscultation Overall: br eath sounds clear bilaterally 11/06/2018 None Full Exam - Genitourinary/Female Car diovascular auscultation of heart Overall: regular rate 11/06/2018 None Full Exam - Genitourinary/Female Car diovascular auscultation of heart Overall: normal heart sounds 11/06/2018 None Full Exam - Genitourinary/Female Gen itourinary vagina Overall: no lesio ns 11/06/2018 None Full Exam - Genitourinary/Female Gen itourinary vagina Overall: normal t one 11/06/2018 None Full Exam - Genitourinary/Female Gen itourinary vagina Vaginal discharge: bloody 11/06/2018 None Full Exam - Genitourinary/Female Gen itourinary cervix Overall: no cervi ruben motion tenderness 11/06/2018 None Full Exam - Genitourinary/Female Gen itourinary cervix Cervical discharge: bloody 11/06/2018 None Full Exam - Genitourinary/Female Gen itourinary uterus Uterine mass: ten desi 11/06/2018 None Full Exam - Genitourinary/Female Gen itourinary adnexa/parametria Left adnexa: tender 11/06/2018 None Full Exam - Genitourinary/Female Gen itourinary adnexa/parametria Right adnexa: tender 11/06/2018 None Full Exam - Genitourinary/Female Mus culoskeletal head and neck Overall: h ead atraumatic 11/06/2018 None Full Exam - Genitourinary/Female Mus culoskeletal gait and station Overall: normal station 11/06/2018 None Full Exam - Genitourinary/Female Mus culoskeletal gait and station Overall: normal gait 11/06/2018 None Full Exam - Genitourinary/Female Neurologi c mood and affect Overall: normal affect 11/06/2018 None Full Exam - Genitourinary/Female Neurologi c mood and affect Overall: normal mood 11/06/2018 None Full Exam - Genitourinary/Female Neurologi c orientation Overall: oriented to person, place and time 11/06/2018 None Full Exam - Genitourinary/Female Psy chiatric appearance Overall: well -groomed, good eye contact 11/06/2018 None Full Exam - General 1994 Constitutional general appearance Development: well developed 09/14/2018 None Full Exam - General 1994 Constitutional general appearance Development: appears stated age 1109/14/2018 None Full Exam - General 1994 Eyes conjunctiva/eyelids Overall: conjunctiva clear 09/14/2018 None Full Exam - General 1994 Eyes conjunctiva/eyelids Overall: cornea clear 09/14/2018 None Full Exam - General 1994 Eyes conjunctiva/eyelids Overall: eyelids normal 09/14/2018 None Full Exam - General 1994 Eyes pupils and irises Overall: pupils equal, round, reactive to light and accomodation 09/14/2018 None Full Exam - General 1994 Ears/Nose/Throat otoscopic exam Overall: external auditory canals clear 09/14/2018 None Full Exam - General 1994 Ears/Nose/Throat otoscopic exam Overall: tympanic membranes clear 09/14/2018 None Full Exam - General 1994 Ears/Nose/Throat lips/teeth/gingiva Overall: benign lips 09/14/2018 None Full Exam - General 1994 Ears/Nose/Throat lips/teeth/gingiva Teeth: dental caries 09/14/2018 None Full Exam - General 1994 Ears/Nose/Throat oral cavity/pharynx/larynx Overall: oral mucosa clear 09/14/2018 None Full Exam - General 1994 Neck thyroid Overall: normal size 03/2018 None Full Exam - General 1994 Neck thyroid Overall: normal consistency 09/14/2018 None Full Exam - General 1994 Neck thyroid Overall: nontender 09/14 None Full Exam - General 1994 Neck inspection of neck Overall: normal size 09/14/2018 None Full Exam - General 1994 Neck inspection of neck Overall: normal appearance 09/14/2018 None Full Exam - General 1994 Respiratory auscultation Diffuse: diminished 09/14/2018 None Full Exam - General 1994 Respiratory auscultation Diffuse: expiratory wheezes 09/14/2018 None Full Exam - General 1994 Respiratory respiratory effort/rhythm Overall: no retractions 09/14/2018 None Full Exam - General 1994 Respiratory respiratory effort/rhythm Overall: normal rate 09/14/2018 None Full Exam - General 1994 Cardiovascular auscultation of heart Overall: regular rate 09/14/2018 None Full Exam - General 1994 Cardiovascular auscultation of heart Overall: normal heart sounds 09/14/2018 None Full Exam - General 1994 Abdomen abdominal exam Overall: no tenderness 09/14/2018 None Full Exam - General 1994 Abdomen abdominal exam Overall: normal bowel sounds 09/14/2018 None Full Exam - General 1994 Lymphatic neck nodes Overall: anterior cervical chain benign 09/14/2018 None Full Exam - General 1994 Lymphatic neck nodes Overall: posterior cervical chain benign 09/14/2018 None Full Exam - General 1994 Musculoskeletal gait and station Overall: normal gait 09/14/2018 None Full Exam - General 1994 Musculoskeletal gait and station Overall: normal station 09/14/2018 None Full Exam - General 1994 Musculoskeletal head and neck Overall: head atraumatic 09/14/2018 None Full Exam - General 1994 Musculoskeletal head and neck Overall: cervical spine benign 09/14/2018 None Full Exam - General 1994 Integument inspection of skin Overall: few scattered moles, no gross abnormalities 09/14/2018 None Full Exam - General 1994 Neurologic mental status Overall: alert 09/14/2018 None Full Exam - General 1994 Neurologic mental status Overall: oriented 09/14/2018 None Full Exam - General 1994 Neurologic gait Overall: no ataxia, no unsteadiness 09/14/2018 None Full Exam - General 1994 Neurologic motor Overall: normal bulk, tone 09/14/2018 None Full Exam - General 1994 Psychiatric orientation/consciousness Overall: oriented to person, place and time 09/14/2018 None Full Exam - General 1994 Psychiatric mood and affect Overall: normal mood and affect 09/14/2018 None Full Exam - General 1994 Psychiatric speech Overall: normal quality, no aphasia 09/14/2018 None Full Exam - General 1994 Constitutional general appearance Development: well developed 03/12/2018 None Full Exam - General 1994 Constitutional general appearance Development: appears stated age 0503/12/2018 None Full Exam - General 1994 Eyes conjunctiva/eyelids Overall: conjunctiva clear 03/12/2018 None Full Exam - General 1994 Eyes conjunctiva/eyelids Overall: cornea clear 03/12/2018 None Full Exam - General 1994 Eyes conjunctiva/eyelids Overall: eyelids normal 03/12/2018 None Full Exam - General 1994 Eyes pupils and irises Overall: pupils equal, round, reactive to light and accomodation 03/12/2018 None Full Exam - General 1994 Ears/Nose/Throat otoscopic exam Overall: external auditory canals clear 03/12/2018 None Full Exam - General 1994 Ears/Nose/Throat otoscopic exam Overall: tympanic membranes clear 03/12/2018 None Full Exam - General 1994 Ears/Nose/Throat lips/teeth/gingiva Overall: benign lips 03/12/2018 None Full Exam - General 1994 Ears/Nose/Throat lips/teeth/gingiva Teeth: dental caries 03/12/2018 None Full Exam - General 1994 Ears/Nose/Throat oral cavity/pharynx/larynx Overall: oral mucosa clear 03/12/2018 None Full Exam - General 1994 Neck thyroid Overall: normal size 01/2018 None Full Exam - General 1994 Neck thyroid Overall: normal consistency 03/12/2018 None Full Exam - General 1994 Neck thyroid Overall: nontender 03/12 None Full Exam - General 1994 Neck inspection of neck Overall: normal size 03/12/2018 None Full Exam - General 1994 Neck inspection of neck Overall: normal appearance 03/12/2018 None Full Exam - General 1994 Respiratory auscultation Diffuse: diminished 03/12/2018 None Full Exam - General 1994 Respiratory respiratory effort/rhythm Overall: no retractions 03/12/2018 None Full Exam - General 1994 Respiratory respiratory effort/rhythm Overall: normal rate 03/12/2018 None Full Exam - General 1994 Cardiovascular auscultation of heart Overall: regular rate 03/12/2018 None Full Exam - General 1994 Cardiovascular auscultation of heart Overall: normal heart sounds 03/12/2018 None Full Exam - General 1994 Abdomen abdominal exam Overall: no tenderness 03/12/2018 None Full Exam - General 1994 Abdomen abdominal exam Overall: normal bowel sounds 03/12/2018 None Full Exam - General 1994 Lymphatic neck nodes Overall: anterior cervical chain benign 03/12/2018 None Full Exam - General 1994 Lymphatic neck nodes Overall: posterior cervical chain benign 03/12/2018 None Full Exam - General 1994 Musculoskeletal gait and station Overall: normal gait 03/12/2018 None Full Exam - General 1994 Musculoskeletal gait and station Overall: normal station 03/12/2018 None Full Exam - General 1994 Musculoskeletal head and neck Overall: head atraumatic 03/12/2018 None Full Exam - General 1994 Musculoskeletal head and neck Overall: cervical spine benign 03/12/2018 None Full Exam - General 1994 Integument inspection of skin Overall: few scattered moles, no gross abnormalities 03/12/2018 None Full Exam - General 1994 Neurologic mental status Overall: alert 03/12/2018 None Full Exam - General 1994 Neurologic mental status Overall: oriented 03/12/2018 None Full Exam - General 1994 Neurologic gait Overall: no ataxia, no unsteadiness 03/12/2018 None Full Exam - General 1994 Neurologic motor Overall: normal bulk, tone 03/12/2018 None Full Exam - General 1994 Psychiatric orientation/consciousness Overall: oriented to person, place and time 03/12/2018 None Full Exam - General 1994 Psychiatric mood and affect Overall: normal mood and affect 03/12/2018 None Full Exam - General 1994 Psychiatric speech Overall: normal quality, no aphasia 03/12/2018 None Full Exam - General 1994 Respiratory auscultation Diffuse: expiratory wheezes 03/12/2018 None Full Exam - General 1994 Constitutional general appearance Development: well developed 09/11/2017 None Full Exam - General 1994 Constitutional general appearance Development: appears stated age 1109/11/2017 None Full Exam - General 1994 Eyes conjunctiva/eyelids Overall: conjunctiva clear 09/11/2017 None Full Exam - General 1994 Eyes conjunctiva/eyelids Overall: cornea clear 09/11/2017 None Full Exam - General 1994 Eyes conjunctiva/eyelids Overall: eyelids normal 09/11/2017 None Full Exam - General 1994 Eyes pupils and irises Overall: pupils equal, round, reactive to light and accomodation 09/11/2017 None Full Exam - General 1994 Ears/Nose/Throat otoscopic exam Overall: external auditory canals clear 09/11/2017 None Full Exam - General 1994 Ears/Nose/Throat otoscopic exam Overall: tympanic membranes clear 09/11/2017 None Full Exam - General 1994 Ears/Nose/Throat lips/teeth/gingiva Overall: benign lips 09/11/2017 None Full Exam - General 1994 Ears/Nose/Throat lips/teeth/gingiva Teeth: dental caries 09/11/2017 None Full Exam - General 1994 Ears/Nose/Throat oral cavity/pharynx/larynx Overall: oral mucosa clear 09/11/2017 None Full Exam - General 1994 Neck thyroid Overall: normal size 12/2016 None Full Exam - General 1994 Neck thyroid Overall: normal consistency 09/11/2017 None Full Exam - General 1994 Neck thyroid Overall: nontender 09/11 None Full Exam - General 1994 Neck inspection of neck Overall: normal size 09/11/2017 None Full Exam - General 1994 Neck inspection of neck Overall: normal appearance 09/11/2017 None Full Exam - General 1994 Respiratory respiratory effort/rhythm Overall: no retractions 09/11/2017 None Full Exam - General 1994 Respiratory respiratory effort/rhythm Overall: normal rate 09/11/2017 None Full Exam - General 1994 Cardiovascular auscultation of heart Overall: regular rate 09/11/2017 None Full Exam - General 1994 Cardiovascular auscultation of heart Overall: normal heart sounds 09/11/2017 None Full Exam - General 1994 Abdomen abdominal exam Overall: no tenderness 09/11/2017 None Full Exam - General 1994 Abdomen abdominal exam Overall: normal bowel sounds 09/11/2017 None Full Exam - General 1994 Lymphatic neck nodes Overall: anterior cervical chain benign 09/11/2017 None Full Exam - General 1994 Lymphatic neck nodes Overall: posterior cervical chain benign 09/11/2017 None Full Exam - General 1994 Musculoskeletal gait and station Overall: normal gait 09/11/2017 None Full Exam - General 1994 Musculoskeletal gait and station Overall: normal station 09/11/2017 None Full Exam - General 1994 Musculoskeletal head and neck Overall: head atraumatic 09/11/2017 None Full Exam - General 1994 Musculoskeletal head and neck Overall: cervical spine benign 09/11/2017 None Full Exam - General 1994 Integument inspection of skin Overall: few scattered moles, no gross abnormalities 09/11/2017 None Full Exam - General 1994 Neurologic mental status Overall: alert 09/11/2017 None Full Exam - General 1994 Neurologic mental status Overall: oriented 09/11/2017 None Full Exam - General 1994 Neurologic gait Overall: no ataxia, no unsteadiness 09/11/2017 None Full Exam - General 1994 Neurologic motor Overall: normal bulk, tone 09/11/2017 None Full Exam - General 1994 Psychiatric orientation/consciousness Overall: oriented to person, place and time 09/11/2017 None Full Exam - General 1994 Psychiatric mood and affect Overall: normal mood and affect 09/11/2017 None Full Exam - General 1994 Psychiatric speech Overall: normal quality, no aphasia 09/11/2017 None Full Exam - General 1994 Respiratory auscultation Diffuse: diminished 09/11/2017 None Full Exam - General 1994 Constitutional general appearance Development: well developed 03/10/2017 None Full Exam - General 1994 Constitutional general appearance Development: appears stated age 0503/10/2017 None Full Exam - General 1994 Eyes conjunctiva/eyelids Overall: conjunctiva clear 03/10/2017 None Full Exam - General 1994 Eyes conjunctiva/eyelids Overall: cornea clear 03/10/2017 None Full Exam - General 1994 Eyes conjunctiva/eyelids Overall: eyelids normal 03/10/2017 None Full Exam - General 1994 Eyes pupils and irises Overall: pupils equal, round, reactive to light and accomodation 03/10/2017 None Full Exam - General 1994 Ears/Nose/Throat otoscopic exam Overall: external auditory canals clear 03/10/2017 None Full Exam - General 1994 Ears/Nose/Throat otoscopic exam Overall: tympanic membranes clear 03/10/2017 None Full Exam - General 1994 Ears/Nose/Throat lips/teeth/gingiva Overall: benign lips 03/10/2017 None Full Exam - General 1994 Ears/Nose/Throat lips/teeth/gingiva Teeth: dental caries 03/10/2017 None Full Exam - General 1994 Ears/Nose/Throat oral cavity/pharynx/larynx Overall: oral mucosa clear 03/10/2017 None Full Exam - General 1994 Neck thyroid Overall: normal size 11/2016 None Full Exam - General 1994 Neck thyroid Overall: normal consistency 03/10/2017 None Full Exam - General 1994 Neck thyroid Overall: nontender 03/10 None Full Exam - General 1994 Neck inspection of neck Overall: normal size 03/10/2017 None Full Exam - General 1994 Neck inspection of neck Overall: normal appearance 03/10/2017 None Full Exam - General 1994 Respiratory respiratory effort/rhythm Overall: no retractions 03/10/2017 None Full Exam - General 1994 Respiratory respiratory effort/rhythm Overall: normal rate 03/10/2017 None Full Exam - General 1994 Cardiovascular auscultation of heart Overall: regular rate 03/10/2017 None Full Exam - General 1994 Cardiovascular auscultation of heart Overall: normal heart sounds 03/10/2017 None Full Exam - General 1994 Abdomen abdominal exam Overall: no tenderness 03/10/2017 None Full Exam - General 1994 Abdomen abdominal exam Overall: normal bowel sounds 03/10/2017 None Full Exam - General 1994 Lymphatic neck nodes Overall: anterior cervical chain benign 03/10/2017 None Full Exam - General 1994 Lymphatic neck nodes Overall: posterior cervical chain benign 03/10/2017 None Full Exam - General 1994 Musculoskeletal gait and station Overall: normal gait 03/10/2017 None Full Exam - General 1994 Musculoskeletal gait and station Overall: normal station 03/10/2017 None Full Exam - General 1994 Musculoskeletal head and neck Overall: head atraumatic 03/10/2017 None Full Exam - General 1994 Musculoskeletal head and neck Overall: cervical spine benign 03/10/2017 None Full Exam - General 1994 Integument inspection of skin Overall: few scattered moles, no gross abnormalities 03/10/2017 None Full Exam - General 1994 Neurologic mental status Overall: alert 03/10/2017 None Full Exam - General 1994 Neurologic mental status Overall: oriented 03/10/2017 None Full Exam - General 1994 Neurologic gait Overall: no ataxia, no unsteadiness 03/10/2017 None Full Exam - General 1994 Neurologic motor Overall: normal bulk, tone 03/10/2017 None Full Exam - General 1994 Psychiatric orientation/consciousness Overall: oriented to person, place and time 03/10/2017 None Full Exam - General 1994 Psychiatric mood and affect Overall: normal mood and affect 03/10/2017 None Full Exam - General 1994 Psychiatric speech Overall: normal quality, no aphasia 03/10/2017 None Full Exam - General 1994 Respiratory auscultation Overall: breath sounds clear bilaterally 03/10/2017 None Full Exam - General 1994 Constitutional general appearance Development: well developed 09/10/2016 None Full Exam - General 1994 Constitutional general appearance Development: appears stated age 1109/10/2016 None Full Exam - General 1994 Constitutional general appearance Hygiene/Attention to Grooming: good hygiene 09/10/2016 None Full Exam - General 1994 Eyes conjunctiva/eyelids Overall: conjunctiva clear 09/10/2016 None Full Exam - General 1994 Eyes conjunctiva/eyelids Overall: cornea clear 09/10/2016 None Full Exam - General 1994 Eyes conjunctiva/eyelids Overall: eyelids normal 09/10/2016 None Full Exam - General 1994 Eyes pupils and irises Overall: pupils equal, round, reactive to light and accomodation 09/10/2016 None Full Exam - General 1994 Ears/Nose/Throat otoscopic exam Overall: external auditory canals clear 09/10/2016 None Full Exam - General 1994 Ears/Nose/Throat otoscopic exam Overall: tympanic membranes clear 09/10/2016 None Full Exam - General 1994 Ears/Nose/Throat lips/teeth/gingiva Overall: benign lips 09/10/2016 None Full Exam - General 1994 Ears/Nose/Throat lips/teeth/gingiva Overall: normal dentition 09/10/2016 None Full Exam - General 1994 Ears/Nose/Throat oral cavity/pharynx/larynx Overall: oral mucosa clear 09/10/2016 None Full Exam - General 1994 Ears/Nose/Throat oral cavity/pharynx/larynx Overall: oropharyngeal mucosa clear 09/10/2016 None Full Exam - General 1994 Ears/Nose/Throat oral cavity/pharynx/larynx Overall: hypopharynx benign 09/10/2016 None Full Exam - General 1994 Ears/Nose/Throat oral cavity/pharynx/larynx Overall: no masses 09/10/2016 None Full Exam - General 1994 Respiratory auscultation Overall: breath sounds clear bilaterally 09/10/2016 None Full Exam - General 1994 Respiratory respiratory effort/rhythm Overall: no retractions 09/10/2016 None Full Exam - General 1994 Respiratory respiratory effort/rhythm Overall: normal rate 09/10/2016 None Full Exam - General 1994 Cardiovascular extremities Overall: no clubbing 09/10/2016 None Full Exam - General 1994 Cardiovascular auscultation of heart Overall: regular rate 09/10/2016 None Full Exam - General 1994 Cardiovascular auscultation of heart Overall: normal heart sounds 09/10/2016 None Full Exam - General 1994 Abdomen abdominal exam Overall: no tenderness 09/10/2016 None Full Exam - General 1994 Abdomen abdominal exam Overall: normal bowel sounds 09/10/2016 None Full Exam - General 1994 Lymphatic neck nodes Overall: anterior cervical chain benign 09/10/2016 None Full Exam - General 1994 Lymphatic neck nodes Overall: posterior cervical chain benign 09/10/2016 None Full Exam - General 1994 Musculoskeletal spine, ribs and pelvis Overall: spine benign 09/10/2016 None Full Exam - General 1994 Musculoskeletal spine, ribs and pelvis Overall: sacroiliac joint benign 09/10/2016 None Full Exam - General 1994 Musculoskeletal spine, ribs and pelvis Overall: good posture 09/10/2016 None Full Exam - General 1994 Musculoskeletal head and neck Overall: head atraumatic 09/10/2016 None Full Exam - General 1994 Musculoskeletal head and neck Overall: cervical spine benign 09/10/2016 None Full Exam - General 1994 Integument inspection of skin Overall: few scattered moles, no gross abnormalities 09/10/2016 None Full Exam - General 1994 Neurologic deep tendon reflexes Overall: deep tendon reflexes intact 09/10/2016 None Full Exam - General 1994 Neurologic cranial nerves Overall: crainial nerves 2 - 12 grossly intact 09/10/2016 None Full Exam - General 1994 Psychiatric orientation/consciousness Overall: oriented to person, place and time 09/10/2016 None Full Exam - General 1994 Psychiatric mood and affect Overall: normal mood and affect 09/10/2016 None Full Exam - General 1994 Constitutional general appearance Development: well developed 04/23/2016 None Full Exam - General 1994 Constitutional general appearance Development: appears stated age 0604/23/2016 None Full Exam - General 1994 Constitutional general appearance Hygiene/Attention to Grooming: good hygiene 04/23/2016 None Full Exam - General 1994 Eyes conjunctiva/eyelids Overall: conjunctiva clear 04/23/2016 None Full Exam - General 1994 Eyes conjunctiva/eyelids Overall: cornea clear 04/23/2016 None Full Exam - General 1994 Eyes conjunctiva/eyelids Overall: eyelids normal 04/23/2016 None Full Exam - General 1994 Eyes pupils and irises Overall: pupils equal, round, reactive to light and accomodation 04/23/2016 None Full Exam - General 1994 Ears/Nose/Throat otoscopic exam Overall: external auditory canals clear 04/23/2016 None Full Exam - General 1994 Ears/Nose/Throat otoscopic exam Overall: tympanic membranes clear 04/23/2016 None Full Exam - General 1994 Ears/Nose/Throat lips/teeth/gingiva Overall: benign lips 04/23/2016 None Full Exam - General 1994 Ears/Nose/Throat lips/teeth/gingiva Overall: normal dentition 04/23/2016 None Full Exam - General 1994 Ears/Nose/Throat oral cavity/pharynx/larynx Overall: oral mucosa clear 04/23/2016 None Full Exam - General 1994 Ears/Nose/Throat oral cavity/pharynx/larynx Overall: oropharyngeal mucosa clear 04/23/2016 None Full Exam - General 1994 Ears/Nose/Throat oral cavity/pharynx/larynx Overall: hypopharynx benign 04/23/2016 None Full Exam - General 1994 Ears/Nose/Throat oral cavity/pharynx/larynx Overall: no masses 04/23/2016 None Full Exam - General 1994 Respiratory auscultation Overall: breath sounds clear bilaterally 04/23/2016 None Full Exam - General 1994 Respiratory respiratory effort/rhythm Overall: no retractions 04/23/2016 None Full Exam - General 1994 Respiratory respiratory effort/rhythm Overall: normal rate 04/23/2016 None Full Exam - General 1994 Cardiovascular extremities Overall: no clubbing 04/23/2016 None Full Exam - General 1994 Cardiovascular auscultation of heart Overall: regular rate 04/23/2016 None Full Exam - General 1994 Cardiovascular auscultation of heart Overall: normal heart sounds 04/23/2016 None Full Exam - General 1994 Abdomen abdominal exam Overall: no tenderness 04/23/2016 None Full Exam - General 1994 Abdomen abdominal exam Overall: normal bowel sounds 04/23/2016 None Full Exam - General 1994 Lymphatic neck nodes Overall: anterior cervical chain benign 04/23/2016 None Full Exam - General 1994 Lymphatic neck nodes Overall: posterior cervical chain benign 04/23/2016 None Full Exam - General 1994 Musculoskeletal spine, ribs and pelvis Overall: spine benign 04/23/2016 None Full Exam - General 1994 Musculoskeletal spine, ribs and pelvis Overall: sacroiliac joint benign 04/23/2016 None Full Exam - General 1994 Musculoskeletal spine, ribs and pelvis Overall: good posture 04/23/2016 None Full Exam - General 1994 Musculoskeletal head and neck Overall: head atraumatic 04/23/2016 None Full Exam - General 1994 Musculoskeletal head and neck Overall: cervical spine benign 04/23/2016 None Full Exam - General 1994 Integument inspection of skin Overall: few scattered moles, no gross abnormalities 04/23/2016 None Full Exam - General 1994 Neurologic deep tendon reflexes Overall: deep tendon reflexes intact 04/23/2016 None Full Exam - General 1994 Neurologic cranial nerves Overall: crainial nerves 2 - 12 grossly intact 04/23/2016 None Full Exam - General 1994 Psychiatric orientation/consciousness Overall: oriented to person, place and time 04/23/2016 None Full Exam - General 1994 Psychiatric mood and affect Overall: normal mood and affect 04/23/2016 None Full Exam - General 1994 Constitutional general appearance Development: well developed 02/29/2016 None Full Exam - General 1994 Constitutional general appearance Development: appears stated age 0402/29/2016 None Full Exam - General 1994 Constitutional general appearance Hygiene/Attention to Grooming: good hygiene 02/29/2016 None Full Exam - General 1994 Eyes conjunctiva/eyelids Overall: conjunctiva clear 02/29/2016 None Full Exam - General 1994 Eyes conjunctiva/eyelids Overall: cornea clear 02/29/2016 None Full Exam - General 1994 Eyes conjunctiva/eyelids Overall: eyelids normal 02/29/2016 None Full Exam - General 1994 Eyes pupils and irises Overall: pupils equal, round, reactive to light and accomodation 02/29/2016 None Full Exam - General 1994 Ears/Nose/Throat otoscopic exam Overall: external auditory canals clear 02/29/2016 None Full Exam - General 1994 Ears/Nose/Throat otoscopic exam Overall: tympanic membranes clear 02/29/2016 None Full Exam - General 1994 Ears/Nose/Throat lips/teeth/gingiva Overall: benign lips 02/29/2016 None Full Exam - General 1994 Ears/Nose/Throat lips/teeth/gingiva Overall: normal dentition 02/29/2016 None Full Exam - General 1994 Ears/Nose/Throat oral cavity/pharynx/larynx Overall: oral mucosa clear 02/29/2016 None Full Exam - General 1994 Ears/Nose/Throat oral cavity/pharynx/larynx Overall: oropharyngeal mucosa clear 02/29/2016 None Full Exam - General 1994 Ears/Nose/Throat oral cavity/pharynx/larynx Overall: hypopharynx benign 02/29/2016 None Full Exam - General 1994 Ears/Nose/Throat oral cavity/pharynx/larynx Overall: no masses 02/29/2016 None Full Exam - General 1994 Respiratory auscultation Overall: breath sounds clear bilaterally 02/29/2016 None Full Exam - General 1994 Respiratory respiratory effort/rhythm Overall: no retractions 02/29/2016 None Full Exam - General 1994 Respiratory respiratory effort/rhythm Overall: normal rate 02/29/2016 None Full Exam - General 1994 Cardiovascular extremities Overall: no clubbing 02/29/2016 None Full Exam - General 1994 Cardiovascular auscultation of heart Overall: regular rate 02/29/2016 None Full Exam - General 1994 Cardiovascular auscultation of heart Overall: normal heart sounds 02/29/2016 None Full Exam - General 1994 Abdomen abdominal exam Overall: no tenderness 02/29/2016 None Full Exam - General 1994 Abdomen abdominal exam Overall: normal bowel sounds 02/29/2016 None Full Exam - General 1994 Lymphatic neck nodes Overall: anterior cervical chain benign 02/29/2016 None Full Exam - General 1994 Lymphatic neck nodes Overall: posterior cervical chain benign 02/29/2016 None Full Exam - General 1994 Musculoskeletal spine, ribs and pelvis Overall: spine benign 02/29/2016 None Full Exam - General 1994 Musculoskeletal spine, ribs and pelvis Overall: sacroiliac joint benign 02/29/2016 None Full Exam - General 1994 Musculoskeletal spine, ribs and pelvis Overall: good posture 02/29/2016 None Full Exam - General 1994 Musculoskeletal head and neck Overall: head atraumatic 02/29/2016 None Full Exam - General 1994 Musculoskeletal head and neck Overall: cervical spine benign 02/29/2016 None Full Exam - General 1994 Integument inspection of skin Overall: few scattered moles, no gross abnormalities 02/29/2016 None Full Exam - General 1994 Neurologic deep tendon reflexes Overall: deep tendon reflexes intact 02/29/2016 None Full Exam - General 1994 Neurologic cranial nerves Overall: crainial nerves 2 - 12 grossly intact 02/29/2016 None Full Exam - General 1994 Psychiatric orientation/consciousness Overall: oriented to person, place and time 02/29/2016 None Full Exam - General 1994 Psychiatric mood and affect Overall: normal mood and affect 02/29/2016 None Full Exam - General 1994 Constitutional general appearance Development: well developed 08/17/2015 None Full Exam - General 1994 Constitutional general appearance Development: appears stated age 1008/17/2015 None Full Exam - General 1994 Constitutional general appearance Hygiene/Attention to Grooming: good hygiene 08/17/2015 None Full Exam - General 1994 Eyes conjunctiva/eyelids Overall: conjunctiva clear 08/17/2015 None Full Exam - General 1994 Eyes conjunctiva/eyelids Overall: cornea clear 08/17/2015 None Full Exam - General 1994 Eyes conjunctiva/eyelids Overall: eyelids normal 08/17/2015 None Full Exam - General 1994 Eyes pupils and irises Overall: pupils equal, round, reactive to light and accomodation 08/17/2015 None Full Exam - General 1994 Ears/Nose/Throat otoscopic exam Overall: external auditory canals clear 08/17/2015 None Full Exam - General 1994 Ears/Nose/Throat otoscopic exam Overall: tympanic membranes clear 08/17/2015 None Full Exam - General 1994 Ears/Nose/Throat lips/teeth/gingiva Overall: benign lips 08/17/2015 None Full Exam - General 1994 Ears/Nose/Throat lips/teeth/gingiva Overall: normal dentition 08/17/2015 None Full Exam - General 1994 Ears/Nose/Throat oral cavity/pharynx/larynx Overall: oral mucosa clear 08/17/2015 None Full Exam - General 1994 Ears/Nose/Throat oral cavity/pharynx/larynx Overall: oropharyngeal mucosa clear 08/17/2015 None Full Exam - General 1994 Ears/Nose/Throat oral cavity/pharynx/larynx Overall: hypopharynx benign 08/17/2015 None Full Exam - General 1994 Ears/Nose/Throat oral cavity/pharynx/larynx Overall: no masses 08/17/2015 None Full Exam - General 1994 Respiratory auscultation Overall: breath sounds clear bilaterally 08/17/2015 None Full Exam - General 1994 Respiratory respiratory effort/rhythm Overall: no retractions 08/17/2015 None Full Exam - General 1994 Respiratory respiratory effort/rhythm Overall: normal rate 08/17/2015 None Full Exam - General 1994 Cardiovascular extremities Overall: no clubbing 08/17/2015 None Full Exam - General 1994 Cardiovascular auscultation of heart Overall: regular rate 08/17/2015 None Full Exam - General 1994 Cardiovascular auscultation of heart Overall: normal heart sounds 08/17/2015 None Full Exam - General 1994 Integument inspection of skin Overall: few scattered moles, no gross abnormalities 08/17/2015 None Full Exam - General 1994 Psychiatric orientation/consciousness Overall: oriented to person, place and time 08/17/2015 None Full Exam - General 1994 Psychiatric mood and affect Overall: normal mood and affect 08/17/2015 None Full Exam - General 1994 Abdomen abdominal exam Overall: no tenderness 08/17/2015 None Full Exam - General 1994 Abdomen abdominal exam Overall: normal bowel sounds 08/17/2015 None Full Exam - General 1994 Neurologic deep tendon reflexes Overall: deep tendon reflexes intact 08/17/2015 None Full Exam - General 1994 Neurologic cranial nerves Overall: crainial nerves 2 - 12 grossly intact 08/17/2015 None Full Exam - General 1994 Lymphatic neck nodes Overall: anterior cervical chain benign 08/17/2015 None Full Exam - General 1994 Lymphatic neck nodes Overall: posterior cervical chain benign 08/17/2015 None Full Exam - General 1994 Musculoskeletal head and neck Overall: cervical spine benign 08/17/2015 None Full Exam - General 1994 Musculoskeletal head and neck Overall: head atraumatic 08/17/2015 None Full Exam - General 1994 Musculoskeletal spine, ribs and pelvis Overall: good posture 08/17/2015 None Full Exam - General 1994 Musculoskeletal spine, ribs and pelvis Overall: sacroiliac joint benign 08/17/2015 None Full Exam - General 1994 Musculoskeletal spine, ribs and pelvis Overall: spine benign 08/17/2015 None Procedures Procedure Codes Date 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-[address]: 254737310 CPT-4: G0436 09/10/2016 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-[address]: 918502331 CPT-4: G0436 04/23/2016 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-[address]: 553639649 CPT-4: G0436 02/29/2016 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-[address]: 689957275 CPT-4: G0436 08/17/2015 TOTAL HYSTERECTOMY CPT- 4: 78493 Unknown Vital Signs Date Vital 03/15/2019 Blood Pressure 1: 140/84 Code: 8480-6 BMI: 33.1 Code: 47312-2 Heart Rate 1: 104 bpm Height: 5'4" SpO2: 96% Weight: 193 lbs 11/26/2018 Blood Pressure 1: 130/76 Code: 8480-6 BMI: 36.6 Code: 73623-8 Heart Rate 1: 100 bpm Height: 5'4" SpO2: 96% Temperature: 36.7 (C ) / 98.0 (F) Weight: 213 lbs 11/12/2018 Heigh t: Weight: 11/06/2018 Blood Pressure 1: 150/90 Code: 8480-6 BMI: 36.6 Code: 50283-9 Heart Rate 1: 105 bpm Height: 5'4" SpO2: 96% Weight: 213 lbs 09/14/2018 Blood Pressure 1: 130/80 Code: 8480-6 BMI: 36.9 Code: 00205-3 Height: 5'4" Weight: 215 lbs 03/12/2018 Blood Pressure 1: 148/82 Code: 8480-6 BMI: 36.7 Code: 84458-6 Heart Rate 1: 96 bpm Height: 5'4" SpO2: 98% Weight: 214 lbs 09/11/2017 Blood Pressure 1: 142/84 Code: 8480-6 BMI: 37.2 Code: 75547-9 Heart Rate 1: 91 bpm Height: 5'4" SpO2: 98% Weight: 217 lbs 03/10/2017 Blood Pressure 1: 144/78 Code: 8480-6 BMI: 36.8 Code: 48104-2 Heart Rate 1: 86 bpm Height: 5'4" SpO2: 98% Weight: 214 lbs 8 oz 09/10/2016 Blood Pressure 1: 130/80 Code: 8480-6 BMI: 36.7 Code: 51754-4 Heart Rate 1: 98 bpm Height: 5'4" SpO2: 98% Weight: 214 lbs 04/23/2016 Blood Pressure 1: 126/72 Code: 8480-6 BMI: 36.0 Code: 06675-8 Heart Rate 1: 86 bpm Height: 5'4" SpO2: 97% Weight: 209 lbs 8 oz 02/29/2016 Blood Pressure 1: 138/76 Code: 8480-6 BMI: 34.8 Code: 65380-6 Heart Rate 1: 78 bpm Height: 5'4" SpO2: 98% Weight: 203 lbs 08/17/2015 Blood Pressure 1: 140/88 Code: 8480-6 BMI: 35.2 Code: 35337-2 Heart Rate 1: 90 bpm Height: 5'4" SpO2: 97% Weight: 205 lbs Functional Status No Functional Status data History of Present Illness Symptom Name Status Resu lt Effective Date Notes Quality chronic 03/15/2019 None Quality primary hypert ension 03/15/2019 None Onset and Resolution o ngoing 03/15/2019 None Onset of Symptom durin g adulthood 03/15/2019 None Blood Pressure Values not checking blood pressure at home 03/15/2019 None Severity not consisten tly severe symptoms, the symptoms fluctuate from no symptoms to anxiety and headaches 03/15/2019 None Frequency of Episodes unchanged 03/15/2019 None Significant Medical Conditions diabetes 03/15/2019 None Triggers stress 03/15/2019 None Alleviating Factors me dication 03/15/2019 None Pertinent Findings Den ies dizziness 03/15/2019 None Pertinent Findings Den ies dyspnea 03/15/2019 None Pertinent Findings Den ies edema 03/15/2019 in the left ankle Quality non-insulin de pendent 03/15/2019 None Alleviating Factors me dication 03/15/2019 None Exacerbating Factors d iet 03/15/2019 None Pertinent Findings Den ies nausea 03/15/2019 None Pertinent Findings num bness 03/15/2019 in her hands and mildly i n her feet Pertinent Findings tin gling 03/15/2019 in her hands Onset of Symptom durin g adulthood 03/15/2019 None Significant Medications statin 03/15/2019 None Alleviating Factors me dication 03/15/2019 None Exacerbating Factors d iet 03/15/2019 None Onset and Resolution g radual in onset 03/15/2019 None Location in the throat 11/26/2018 None Quality dry 11/26/2018 None Onset and Resolution s udden in onset 11/26/2018 None Onset of Symptom 2-3 d ays ago 11/26/2018 None Frequency of Episodes hourly 11/26/2018 None Pertinent Findings Den ies chest discomfort 11/26/2018 None Pertinent Findings Den ies fever 11/26/2018 None Abnormal Indicator mal ignant 11/12/2018 None Pertinent Findings Den ies fever 11/12/2018 None Pertinent Findings uri nary urgency 11/12/2018 None Type of Test(s) ultras ound 11/12/2018 None Location diffusely 11/06/2018 None Quality intermittent 11/06/2018 None Onset of Symptom 10 da ys ago 11/06/2018 None Pertinent Findings Den ies back pain 11/06/2018 None Pertinent Findings Den ies dyspnea 11/06/2018 None Pertinent Findings men opause 11/06/2018 None Quality brown 11/06/2018 None Onset of Symptom Denie s 10 days ago 11/06/2018 None Limitation on Activities does not limit activities 11/06/2018 None Frequency of Episodes daily 11/06/2018 None hypertension Quality chr onic 09/14/2018 None hypertension Quality ricardo duncan hypertension 09/14/2018 None hypertension Onset and Resolution ongoing 09/14/2018 None hypertension Onset of Symptom during adulthood 09/14/2018 None hypertension Blood Pressure Values not checking blood pressure at home 09/14/2018 None hypertension Severity no t consistently severe symptoms, the symptoms fluctuate from no symptoms to anxiety and headaches 09/14/2018 None hypertension Frequency of Episodes unchanged 09/14/2018 None hypertension Significant Medical Condition s diabetes 09/14/[address] ress 09/14/2018 None hypertension Alleviating Factors medication 09/14/2018 None hypertension Pertinent Findings Denies dizziness 09/14/2018 None hypertension Pertinent Findings Denies dyspnea 09/14/2018 None hypertension Pertinent Findings Denies edema 09/14/2018 in the left ankle diabetes mellitus Quality non-insulin dependent 09/14/2018 None diabetes mellitus Alleviating Factors medication 09/14/2018 None diabetes mellitus Exacerbating Factors diet 09/14/2018 None diabetes mellitus Pertinent Findings Denies nausea 09/14/2018 None diabetes mellitus Pertinent Findings numbness 09/14/2018 in her hands and mildly in her feet diabetes mellitus Pertinent Findings tingling 09/14/2018 in her hands hyperlipidemia Onset of Symptom during adulthood 09/14/2018 None hyperlipidemia Significant Medications statin 09/14/2018 None hyperlipidemia Alleviating Factors medication 09/14/2018 None hyperlipidemia Exacerbating Factors diet 09/14/2018 None hyperlipidemia Onset and Resolution gradual in onset 09/14/2018 None diabetes mellitus Glucose monitoring does not test 09/14/2018 None hypertension Quality chr onic 03/12/2018 None hypertension Quality ricardo perla hypertension 03/12/2018 None hypertension Onset and Resolution ongoing 03/12/2018 None hypertension Onset of Symptom during adulthood 03/12/2018 None hypertension Blood Pressure Values not checking blood pressure at home 03/12/2018 None hypertension Severity no t consistently severe symptoms, the symptoms fluctuate from no symptoms to anxiety and headaches 03/12/2018 None hypertension Frequency of Episodes unchanged 03/12/2018 None hypertension Significant Medical Condition s diabetes 03/12/[address] ress 03/12/2018 None hypertension Alleviating Factors medication 03/12/2018 None hypertension Pertinent Findings Denies dizziness 03/12/2018 None hypertension Pertinent Findings Denies dyspnea 03/12/2018 None hypertension Pertinent Findings edema 03/12/2018 in the left ankle diabetes mellitus Quality non-insulin dependent 03/12/2018 None diabetes mellitus Alleviating Factors medication 03/12/2018 None diabetes mellitus Exacerbating Factors diet 03/12/2018 None diabetes mellitus Pertinent Findings Denies nausea 03/12/2018 None diabetes mellitus Pertinent Findings numbness 03/12/2018 in her hands and mildly in her feet diabetes mellitus Pertinent Findings tingling 03/12/2018 in her hands diabetes mellitus Test results Pt not checking blood glucose readings at home 03/12/2018 None hyperlipidemia Onset of Symptom during adulthood 03/12/2018 None hyperlipidemia Significant Medications statin 03/12/2018 None hyperlipidemia Alleviating Factors medication 03/12/2018 None hyperlipidemia Exacerbating Factors diet 03/12/2018 None hyperlipidemia Onset and Resolution gradual in onset 03/12/2018 None hypertension Quality chr onic 09/11/2017 None hypertension Onset and Resolution ongoing 09/11/2017 None hypertension Onset of Symptom during adulthood 09/11/2017 None hypertension Blood Pressure Values not checking blood pressure at home 09/11/2017 None hypertension Alleviating Factors medication 09/11/2017 None hypertension Pertinent Findings Denies dizziness 09/11/2017 None hypertension Pertinent Findings Denies dyspnea 09/11/2017 None hypertension Pertinent Findings Denies edema 09/11/2017 None diabetes mellitus Quality non-insulin dependent 09/11/2017 None diabetes mellitus Alleviating Factors medication 09/11/2017 None diabetes mellitus Exacerbating Factors diet 09/11/2017 None diabetes mellitus Pertinent Findings Denies dizziness 09/11/2017 None diabetes mellitus Pertinent Findings Denies nausea 09/11/2017 None diabetes mellitus Pertinent Findings numbness 09/11/2017 in her hands and mildly in her feet diabetes mellitus Pertinent Findings tingling 09/11/2017 in her hands hypertension Quality ricardo duncan hypertension 09/11/2017 None diabetes mellitus Test results Pt not checking blood glucose readings at home 09/11/2017 None hypertension Severity no t consistently severe symptoms, the symptoms fluctuate from no symptoms to anxiety and headaches 09/11/2017 None hypertension Frequency of Episodes unchanged 09/11/2017 None hypertension Significant Medical Condition s diabetes 09/11/[address] ress 09/11/2017 None hypertension Quality chr onic 03/10/2017 None hypertension Onset and Resolution ongoing 03/10/2017 None hypertension Onset of Symptom during adulthood 03/10/2017 None hypertension Blood Pressure Values not checking blood pressure at home 03/10/2017 None hypertension Severity mi ld 03/10/2017 None hypertension Alleviating Factors medication 03/10/2017 None hypertension Pertinent Findings Denies dizziness 03/10/2017 due to allergies hypertension Pertinent Findings Denies dyspnea 03/10/2017 None diabetes mellitus Quality non-insulin dependent 03/10/2017 None diabetes mellitus Alleviating Factors medication 03/10/2017 None diabetes mellitus Exacerbating Factors diet 03/10/2017 None diabetes mellitus Pertinent Findings Denies nausea 03/10/2017 None cough Quality intermitte nt 03/10/2017 None cough Quality productive 03/10/2017 None cough Onset and Resolution ongoing 03/10/2017 None cough Timing of Episodes upon awakening 03/10/2017 None cough Timing of Episodes in the morning 03/10/2017 None cough Triggers change of seasons 03/10/2017 None cough Triggers known all ergens 03/10/2017 None diabetes mellitus Test results Pt not checking blood glucose readings at home 03/10/2017 None hypertension Pertinent Findings Denies edema 03/10/2017 None hypertension Pertinent Findings anxiety 03/10/2017 None hypertension Pertinent Findings Denies confusion 03/10/2017 None hypertension Pertinent Findings Denies decreased energy 03/10/2017 None diabetes mellitus Pertinent Findings Denies tingling 03/10/2017 None diabetes mellitus Pertinent Findings Denies dizziness 03/10/2017 None diabetes mellitus Pertinent Findings Denies polyuria 03/10/2017 None diabetes mellitus Pertinent Findings Denies numbness 03/10/2017 None hypertension Quality chr onic 09/10/2016 None hypertension Onset and Resolution ongoing 09/10/2016 None hypertension Onset of Symptom during adulthood 09/10/2016 None hypertension Blood Pressure Values not checking blood pressure at home 09/10/2016 None hypertension Severity mi ld 09/10/2016 None hypertension Pertinent Findings dizziness 09/10/2016 due to allergies hypertension Pertinent Findings Denies dyspnea 09/10/2016 None diabetes mellitus Quality non-insulin dependent 09/10/2016 None diabetes mellitus Alleviating Factors medication 09/10/2016 None diabetes mellitus Exacerbating Factors diet 09/10/2016 None diabetes mellitus Pertinent Findings Denies nausea 09/10/2016 None diabetes mellitus Test results Pt not checking blood glucose readings at home 09/10/2016 None diabetes mellitus Glucose monitoring does not test 09/10/2016 None hypertension Alleviating Factors medication 09/10/2016 None cough Quality intermitte nt 09/10/2016 None cough Onset and Resolution ongoing 09/10/2016 None cough Triggers change of seasons 09/10/2016 None cough Triggers known all ergens 09/10/2016 None cough Quality productive 09/10/2016 None cough Timing of Episodes in the morning 09/10/2016 None cough Timing of Episodes upon awakening 09/10/2016 None hypertension Quality chr onic 04/23/2016 None hypertension Onset and Resolution ongoing 04/23/2016 None hypertension Onset of Symptom during adulthood 04/23/2016 None hypertension Blood Pressure Values not checking blood pressure at home 04/23/2016 None hypertension Severity mi ld 04/23/2016 None hypertension Pertinent Findings Denies dizziness 04/23/2016 None hypertension Pertinent Findings Denies dyspnea 04/23/2016 None diabetes mellitus Quality non-insulin dependent 04/23/2016 None diabetes mellitus Test results Pt not checking blood glucose readings at home 04/23/2016 None diabetes mellitus Glucose monitoring does not test 04/23/2016 None diabetes mellitus Exacerbating Factors diet 04/23/2016 None diabetes mellitus Alleviating Factors medication 04/23/2016 None diabetes mellitus Pertinent Findings Denies nausea 04/23/2016 None hypertension Onset of Symptom during adulthood 02/29/2016 None hypertension Blood Pressure Values not checking blood pressure at home 02/29/2016 None hypertension Pertinent Findings Denies dizziness 02/29/2016 None hypertension Pertinent Findings Denies dyspnea 02/29/2016 None hypertension Quality chr onic 02/29/2016 None hypertension Onset and Resolution ongoing 02/29/2016 None hypertension Severity mi ld 02/29/2016 None hypertension Onset of Symptom during adulthood 08/17/2015 None hypertension Blood Pressure Values not checking blood pressure at home 08/17/2015 None hypertension Pertinent Findings Denies dizziness 08/17/2015 None hypertension Pertinent Findings Denies dyspnea 08/17/2015 None Advance Directives No Advance Directive data Encounters Encounter Performer Loca tion Codes Date ([id number]) [id number] EST. 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 P ATIENT, LEVEL III Diagnosis: Chronic obstructive pulmonary disease with acute lower respiratory infection[ICD10: J44.0] Diagnosis: Cough[ICD10: R05] Samantha Capone MD, [facility] CPT-4: 19133 11/26/2018 [id number] EST. PATIENT, LEVEL III Diagnosis: Postmenopausal bleeding[ICD10: N95.0] Diagnosis: Unspecified ovarian cyst, left side[ICD10: N83.202] Constance Capone MD, [facility] CPT-4: 03703 11/12/2018 [id number] EST. PATIENT, LEVEL IV Diagnosis: Postmenopausal bleeding[ICD10: N95.0] Constance Capone MD, [facility] CPT- 4: 40551 11/06/2018 ([id number]) [id number] EST. P ATIENT, LEVEL IV Diagnosis: Essential (primary) hypertension[ICD10: I10] Diagnosis: Type 2 diabetes mellitus without complications[ICD10: E11.9] Diagnosis: Mixed hyperlipidemia[ICD10: E78.2] Blessing Capone MD, [facility] CPT-4: 72520 09/14/2018 ([id number]) 98621 EST. P ATIENT, LEVEL IV Diagnosis: Essential (primary) hypertension[ICD10: I10] Diagnosis: Mixed hyperlipidemia[ICD10: E78.2] Diagnosis: Vitamin D deficiency, unspecified[ICD10: E55.9] Diagnosis: Type 2 diabetes mellitus without complications[ICD10: E11.9] Diagnosis: Impaired fasting glucose[ICD10: R73.01] Diagnosis: Encounter for screening mammogram for malignant neoplasm of breast[ICD10: Z12.31] Blessing Capone MD, [facility] CPT-4: 91269 03/12/2018 ([id number]) 34728 EST. P ATIENT, LEVEL IV Diagnosis: Type 2 diabetes mellitus without complications[ICD10: E11.9] Diagnosis: Vitamin D deficiency, unspecified[ICD10: E55.9] Diagnosis: Mixed hyperlipidemia[ICD10: E78.2] Diagnosis: Essential (primary) hypertension[ICD10: I10] Blessing Capone MD, [facility] CPT-4: 83971 09/11/2017 ([id number]) 00389 EST. P ATIENT, LEVEL III Diagnosis: Essential (primary) hypertension[ICD10: I10] Diagnosis: Type 2 diabetes mellitus without complications[ICD10: E11.9] Blessing Capone MD, [facility] CPT-4: 83778 03/10/2017 ([id number]) 06955 EST. P ATIENT, LEVEL IV Diagnosis: Type 2 diabetes mellitus without complications[ICD10: E11.9] Diagnosis: Mixed hyperlipidemia[ICD10: E78.2] Diagnosis: Essential (primary) hypertension[ICD10: I10] Diagnosis: Tobacco use[ICD10: Z72.0] Samantha Capone MD, [facility] CPT-4: 05755 09/10/2016 ([id number]) [id number] EST. P ATIENT, LEVEL IV Diagnosis: Type 2 diabetes mellitus without complications[ICD10: E11.9] Diagnosis: Essential (primary) hypertension[ICD10: I10] Diagnosis: Emphysema (subcutaneous) resulting from a procedure, subsequent encounter[ICD10: T81.82XD] Diagnosis: Tobacco use[ICD10: Z72.0] Samantha Capone MD, [facility] CPT-4: 26515 04/23/2016 ([id number]) 95863 EST. P ATIENT, LEVEL IV Diagnosis: Essential (primary) hypertension[ICD10: I10] Diagnosis: Tobacco use[ICD10: Z72.0] Diagnosis: Type 2 diabetes mellitus without complications[ICD10: E11.9] Samantha Capone MD, [facility] CPT-4: 06806 02/29/2016 ([id number]) OFFICE VISI T, NEW - LEVEL 4 Diagnosis: Other abnormal glucose[ICD10: R73.09] Diagnosis: Essential (primary) hypertension[ICD10: I10] Diagnosis: Mixed hyperlipidemia[ICD10: E78.2] Diagnosis: Tobacco use[ICD10: Z72.0] Diagnosis: Vitamin D deficiency, unspecified[ICD10: E55.9] Samantha Capone MD, [facility] CPT-4: 85026 08/17/2015 Plan of Care Planned Activity Notes C odes Status Date Patient Education: Patient Medication Summary Completed 03/30/2019 Visit Plan: Hypertension - well con trolled - continue with current medications, continue with no added salt diet. Pt has been encouraged to exercise daily. The pt has been advised to call the office if there are any acute concerns about change in blood pressure readings at home. Hyperlipidemia - pt has been counseled about appropriate diet, exercise, and need for low fat food choices. I have discussed the need for the patient to take medications as prescribed. If the patient has negative side effects from the medication, they are to CALL the office and not abruptly discontinue the medication without discussion with a practitioner in the office. We will check labs in 3-6 months for follow up on the patient's chronic medical problem and to assure normal liver response to medications. DM -check Hgb A1C -patient has been on steroids recently with chemo so blood sugars will be more elevated Ovarian cancer - patient has finished chemo-will see Dr Alvarez later this week 03/15/2019 Appointment: Blessing Miller WPtel: [address] [place], [place] [phone] (15 min) Moderate 03/15/2019 Patient Education: Patient Medication Summary Completed 03/15/2019 Patient Education: Cholesterol Management Completed 03/15/2019 Patient Education: Diabetes Completed 03/15/2019 Patient Education: Smoking and Tobacco Addiction Completed 03/15/2019 Care Plan: SCREENINGMAMMOGRAPHYDIGITAL LOINC : 76404-8 Pending 03/15/2019 Visit Plan: COPD EXACERBATION - 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 Pt is to receive appropriate treatment as an out patient, but the pt is aware that if symptoms worsen or do not improve, to call [facility] for instructions, or go to the EMERGENCY ROOM if the symptoms are beyond acute control with rescue medications. We have reviewed chronic treatment strategy, symptom control, and plans for acute exacerbations. No changes today to the current treatment plan as the patient is stable, monitor for acute changes. 11/26/2018 Appointment: Samantha Capone WPtel: [phone] [phone] (30 min) Complex 11/26/2018 Patient Education: Patient Medication Summary Completed 11/26/2018 Visit Plan: Post menopausal bleedin g - US shows mass - Dr. Capone in to discuss with pt - will refer to [facility] telephone sterilizer/onc, will order CT Abdomen/pelvis and labs 11/12/2018 Appointment: Constance Esposito WPtel: [phone] [phone] [place] (30 min) Complex 11/12/2018 Patient Education: Patient Medication Summary Completed 11/12/2018 Visit Plan: Post menopausal bleedin g - Pap done - will order US and refer as indicated - pt is to notify clinic with any changes, questions, or concerns. 11/06/2018 Appointment: Constance Esposito WPtel: [facility] [place] (30 min) Complex 11/06/2018 Patient Education: Patient Medication Summary Completed 11/06/2018 Visit Plan: Hypertension - well con trolled - continue with current medications, continue with no added salt diet. Pt has been encouraged to exercise daily. The pt has been advised to call the office if there are any acute concerns about change in blood pressure readings at home. DM-patient stopped metformin on her own - refuses to have blood drawn today due to incorrect billing from the lab with labs in March. Cerumen impaction-right ear - removed today with water pic. Hyperlipidemia-continue pravastatin-low fat diet 09/14/2018 Appointment: Blessing Miller WPtel: [phone] [phone] [place] (30 min) Complex 09/14/2018 Patient Education: Patient Medication Summary Completed 09/14/2018 Patient Education: Diabetes Completed 09/14/2018 Patient Education: Cholesterol Management Completed 09/14/2018 Visit Plan: Hypertension - well con trolled - continue with current medications, continue with no added salt diet. Pt has been encouraged to exercise daily. The pt has been advised to call the office if there are any acute concerns about change in blood pressure readings at home. Hyperlipidemia - pt has been counseled about appropriate diet, exercise, and need for low fat food choices. I have discussed the need for the patient to take medications as prescribed. If the patient has negative side effects from the medication, they are to CALL the office and not abruptly discontinue the medication without discussion with a practitioner in the office. We will check labs in 3-6 months for follow up on the patient's chronic medical problem and to assure normal liver response to medications. DM-check Hgb A1C Cough-tobacco use-sample of symbicort provided and instructed on use 03/12/2018 Appointment: Blessing Miller WPtel: [phone] [phone] (30 min) Complex 03/12/2018 Patient Education: Patient Medication Summary Completed 03/12/2018 Care Plan: SCREENINGMAMMOGRAPHYDIGITAL LOINC : 11337-2 Pending 03/12/2018 Visit Plan: Hypertension - well con trolled - continue with current medications, continue with no added salt diet. Pt has been encouraged to exercise daily. The pt has been advised to call the office if there are any acute concerns about change in blood pressure readings at home. Diabetes Mellitus - I have recommended for the patient to have follow up labs prior to the next office visit. The patient has been instructed to continue with current medications as previously directed, continue with regular FSBS monitoring to assure continued control of diabetes. Pt to call for any acute concerns, complaints, or if the blood glucose readings are starting to become less controlled. Hyperlipidemia - pt has been counseled about appropriate diet, exercise, and need for low fat food choices. I have discussed the need for the patient to take medications as prescribed. If the patient has negative side effects from the medication, they are to CALL the office and not abruptly discontinue the medication without discussion with a practitioner in the office. We will check labs in 3-6 months for follow up on the patient's chronic medical problem and to assure normal liver response to medications. 09/11/2017 Appointment: Blessing Miller WPtel: [phone] [phone] (30 min) Complex 09/11/2017 Patient Education: Patient Medication Summary Completed 09/11/2017 Patient Education: Smoking and Tobacco Addiction Completed 09/11/2017 Patient Education: Obesity Completed 09/11/2017 Care Plan: Comp Metabolic Cancelled 09/11/2017 Care Plan: Cbc With Differential Cancelled 09/11/2017 Care Plan: %Hba1C LOIN C : 72715-8 Cancelled 09/11/2017 Care Plan: Tsh Cancelled 09/11/2017 Care Plan: Lipid Cancelled 09/11/2017 Care Plan: Vitamin D 25 Oh Cancelled 09/11/2017 Appointment: Blessing Miller WPtel: [phone] (30 min) Complex 09/08/2017 Visit Plan: Hypertension - well con trolled - continue with current medications, continue with no added salt diet. Pt has been encouraged to exercise daily. The pt has been advised to call the office if there are any acute concerns about change in blood pressure readings at home. Diabetes Mellitus - controlled - per recent FSBS reports. I have recommended for the patient to have follow up labs prior to the next office visit. The patient has been instructed to continue with current medications as previously directed, continue with regular FSBS monitoring to assure continued control of diabetes. Pt to call for any acute concerns, complaints, or if the blood glucose readings are starting to become less controlled. 03/10/2017 Appointment: Blessing Miller WPtel: [address] [place], [place] [phone] (30 min) Complex 03/10/2017 Patient Education: Patient Medication Summary Completed 03/10/2017 Patient Education: Smoking and Tobacco Addiction Completed 03/10/2017 Patient Education: Obesity Completed 03/10/2017 Care Plan: Lipid Cancelled 03/10/2017 Care Plan: Tsh Cancelled 03/10/2017 Care Plan: %Hba1C LOIN C : 97340-3 Cancelled 03/10/2017 Care Plan: Cbc With Differential Cancelled 03/10/2017 Care Plan: Comp Metabolic Cancelled 03/10/2017 Visit Plan: Diabetes Mellitus - con trolled - per recent FSBS reports. I have recommended for the patient to have follow up labs prior to the next office visit. The patient has been instructed to continue with current medications as previously directed, continue with regular FSBS monitoring to assure continued control of diabetes. Pt to call for any acute concerns, complaints, or if the blood glucose readings are starting to become less controlled. Hypertension - well controlled - continue with current medications, continue with no added salt diet. Pt has been encouraged to exercise daily. The pt has been advised to call the office if there are any acute concerns about change in blood pressure readings at home. Hyperlipidemia - pt has been counseled about appropriate diet, exercise, and need for low fat food choices. I have discussed the need for the patient to take medications as prescribed. If the patient has negative side effects from the medication, they are to CALL the office and not abruptly discontinue the medication without discussion with a practitioner in the office. We will check labs in 3-6 months for follow up on the patient's chronic medical problem and to assure normal liver response to me dications. smoking - pt is not interested in stopping smoking at this time. 09/10/2016 Patient Education: Patient Medication Summary Completed 09/10/2016 Patient Education: Smoking and Tobacco Addiction Completed 09/10/2016 Patient Education: Obesity Completed 09/10/2016 Care Plan: Comp Metabolic Cancelled 09/10/2016 Care Plan: Cbc With Differential Cancelled 09/10/2016 Care Plan: Microalbumin Cancelled 09/10/2016 Care Plan: %Hba1C LOIN C : 90016-0 Cancelled 09/10/2016 Care Plan: Tsh Cancelled 09/10/2016 Care Plan: Lipid Cancelled 09/10/2016 Visit Plan: Hypertension - well con trolled - continue with current medications, continue with no added salt diet. Pt has been encouraged to exercise daily. The pt has been advised to call the office if there are any acute concerns about change in blood pressure readings at home. Diabetes Mellitus - controlled - per recent FSBS reports. I have recommended for the patient to have follow up labs prior to the next office visit. The patient has been instructed to continue with current medications as previously directed, continue with regular FSBS monitoring to assure continued control of diabetes. Pt to call for any acute concerns, complaints, or if the blood glucose readings are starting to become less controlled. Tobaccoism - recommend pt to stop smoking - she has cut back on tobacco intake - down from 1.5ppd to 1/2 ppd. 04/23/2016 Patient Education: Patient Medication Summary Completed 04/23/2016 Patient Education: Smoking and Tobacco Addiction Completed 04/23/2016 Patient Education: Obesity Completed 04/23/2016 Visit Plan: Hypertension - well con trolled - continue with current medications, continue with no added salt diet. Pt has been encouraged to exercise daily. The pt has been advised to call the office if there are any acute concerns about change in blood pressure readings at home. Diabetes Mellitus - controlled - per recent FSBS reports. I have recommended for the patient to have follow up labs prior to the next office visit. The patient has been instructed to continue with current medications as previously directed, continue with regular FSBS monitoring to assure continued control of diabetes. Pt to call for any acute concerns, complaints, or if the blood glucose readings are starting to become less controlled. Tobacco abuse - recommended cessation - pt is not interested in stopping at this time, but is aware that there are ways to assist with smoking cessation when she is ready - and she is to avoid use of vapors. 02/29/2016 Patient Education: Patient Medication Summary Completed 02/29/2016 Patient Education: Smoking and Tobacco Addiction Completed 02/29/2016 Patient Education: Obesity Completed 02/29/2016 Appointment: Samantha Capone [facility]Ptel: [phone] (15 min) Moderate 02/22/2016 Visit Plan: Hypertension - well con trolled - continue with current medications, continue with no added salt diet. Pt has been encouraged to exercise daily. The pt has been advised to call the office if there are any acute concerns about change in blood pressure readings at home. Hyperlipidemia - continue with pravastatin - low fat diet, we will call with lab report. Tobaccoism - pt is NOT interested in stopping smoking, pt desires to continue smoking despite known risks, and pt reports that she has had several family members pass from cancer, including lung cancer. I have recommended a CT scan of her chest without contrast. Abnormal glucose - check hgba1c. 08/17/2015 Appointment: Samantha Capone WPtel: [phone] [place] ([place] New Patient 08/17/2015 Patient Education: Patient Medication Summary Completed 08/17/2015 Patient Education: Hypertension Completed 08/17/2015 Patient Education: Smoking and Tobacco Addiction Completed 08/17/2015 Instructions Comment . Post menopausal bl eeding - US shows mass - Dr. Capone in to discuss with pt - will refer to [facility] telephone sterilizer/onc, will order CT Abdomen/pelvis and labs . Hypertension - wel l controlled - continue with current medications, continue with no added salt diet. Pt has been encouraged to exercise daily. The pt has been advised to call the office if there are any acute concerns about change in blood pressure readings at home. Diabetes Mellitus - controlled - per recent FSBS reports. I have recommended for the patient to have follow up labs prior to the next office visit. The patient has been instructed to continue with current medications as previously directed, continue with regular FSBS monitoring to assure continued control of diabetes. Pt to call for any acute concerns, complaints, or if the blood glucose readings are starting to become less controlled. Tobacco abuse - recommended cessation - pt is not interested in stopping at this time, but is aware that there are ways to assist with smoking cessation when she is ready - and she is to avoid use of vapors. . COPD EXACERBATION - COPD is a chronic problem for this patient, however, the pt is experiencing an acute exacerbation of the COPD. Pt is to receive appropriate treatment as an out patient, but the pt is aware that if symptoms worsen or do not improve, to call [facility] for instructions, or go to the EMERGENCY ROOM if the symptoms are beyond acute control with rescue medications. We have reviewed chronic treatment strategy, symptom control, and plans for acute exacerbations. No changes today to the current treatment plan as the patient is stable, monitor for acute changes. . Hypertension - wel l controlled - continue with current medications, continue with no added salt diet. Pt has been encouraged to exercise daily. The pt has been advised to call the office if there are any acute concerns about change in blood pressure readings at home. Diabetes Mellitus - controlled - per recent FSBS reports. I have recommended for the patient to have follow up labs prior to the next office visit. The patient has been instructed to continue with current medications as previously directed, continue with regular FSBS monitoring to assure continued control of diabetes. Pt to call for any acute concerns, complaints, or if the blood glucose readings are starting to become less controlled. Tobaccoism - recommend pt to stop smoking - she has cut back on tobacco intake - down from 1.5ppd to 1/2 ppd. . Hypertension - wel l controlled - continue with current medications, continue with no added salt diet. Pt has been encouraged to exercise daily. The pt has been advised to call the office if there are any acute concerns about change in blood pressure readings at home. DM-patient stopped metformin on her own - refuses to have blood drawn today due to incorrect billing from the lab with labs in March. Cerumen impaction-right ear -removed today with water pic. Hyperlipidemia-continue pravastatin-low fat diet . Hypertension - wel l controlled - continue with current medications, continue with no added salt diet. Pt has been encouraged to exercise daily. The pt has been advised to call the office if there are any acute concerns about change in blood pressure readings at home. Diabetes Mellitus - I have recommended for the patient to have follow up labs prior to the next office visit. The patient has been instructed to continue with current medications as previously directed, continue with regular FSBS monitoring to assure continued control of diabetes. Pt to call for any acute concerns, complaints, or if the blood glucose readings are starting to become less controlled. Hyperlipidemia - pt has been counseled about appropriate diet, exercise, and need for low fat food choices. I have discussed the need for the patient to take medications as prescribed. If the patient has negative side effects from the medication, they are to CALL the office and not abruptly discontinue the medication without discussion with a practitioner in the office. We will check labs in 3-6 months for follow up on the patient's chronic medical problem and to assure normal liver response to medications. LABS TODAY MAMMOGRAM . Hypertension - well controlled - maximo nue with current medications, continue with no added salt diet. Pt has been encouraged to exercise daily. The pt has been advised to call the office if there are any acute concerns about change in blood pressure readings at home. Hyperlipidemia - pt has been counseled about appropriate diet, exercise, and need for low fat food choices. I have discussed the need for the patient to take medications as prescribed. If the patient has negative side effects from the medication, they are to CALL the office and not abruptly discontinue the medication without discussion with a practitioner in the office. We will check labs in 3-6 months for follow up on the patient's chronic medical problem and to assure normal liver response to medications. DM -check Hgb A1C -patient has been on steroids recently with chemo so blood sugars will be more elevated Ovarian cancer -patient has finished chemo-will see Dr Alvarez later this week SYMBICORT 2 PUFFS TW ICE DAILY . Hypertension - well controlled - maximo nue with current medications, continue with no added salt diet. Pt has been encouraged to exercise daily. The pt has been advised to call the office if there are any acute concerns about change in blood pressure readings at home. Hyperlipidemia - pt has been counseled about appropriate diet, exercise, and need for low fat food choices. I have discussed the need for the patient to take medications as prescribed. If the patient has negative side effects from the medication, they are to CALL the office and not abruptly discontinue the medication without discussion with a practitioner in the office. We will check labs in 3-6 months for follow up on the patient's chronic medical problem and to assure normal liver response to medications. DM-check Hgb A1C Cough-tobacco use-sample of symbicort provided and instructed on use co-enzyme Q10 - buy this over the counter - this may help decrease the irritation that the STATIN's cause your muscles. 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 . Hypertension - well controlled - maximo nue with current medications, continue with no added salt diet. Pt has been encouraged to exercise daily. The pt has been advised to call the office if there are any acute concerns about change in blood pressure readings at home. Hyperlipidemia - continue with pravastatin - low fat diet, we will call with lab report. Tobaccoism - pt is NOT interested in stopping smoking, pt desires to continue smoking despite known risks, and pt reports that she has had several family members pass from cancer, including lung cancer. I have recommended a CT scan of her chest without contrast. Abnormal glucose - check hgba1c. appointment for US m on at noon . Post menopausal bleeding - Pap done - will order US and refer as indicated - pt is to notify clinic with any changes, questions, or concerns. . Hypertension - wel l controlled - continue with current medications, continue with no added salt diet. Pt has been encouraged to exercise daily. The pt has been advised to call the office if there are any acute concerns about change in blood pressure readings at home. Diabetes Mellitus - controlled - per recent FSBS reports. I have recommended for the patient to have follow up labs prior to the next office visit. The patient has been instructed to continue with current medications as previously directed, continue with regular FSBS monitoring to assure continued control of diabetes. Pt to call for any acute concerns, complaints, or if the blood glucose readings are starting to become less controlled. . Diabetes Mellitus - controlled - per recent FSBS reports. I have recommended for the patient to have follow up labs prior to the next office visit. The patient has been instructed to continue with current medications as previously directed, continue with regular FSBS monitoring to assure continued control of diabetes. Pt to call for any acute concerns, complaints, or if the blood glucose readings are starting to become less controlled. Hypertension - well controlled - continue with current medications, continue with no added salt diet. Pt has been encouraged to exercise daily. The pt has been advised to call the office if there are any acute concerns about change in blood pressure readings at home. Hyperlipidemia - pt has been counseled about appropriate diet, exercise, and need for low fat food choices. I have discussed the need for the patient to take medications as prescribed. If the patient has negative side effects from the medication, they are to CALL the office and not abruptly discontinue the medication without discussion with a practitioner in the office. We will check labs in 3-6 months for follow up on the patient's chronic medical problem and to assure normal liver response to medications. smoking - pt is not interested in stopping smoking at this time.
--- OUTSIDE RECORDS SUMMARY | 2020-04-27 11:30 | XMS REPORT | CCD ---
Author Author Roberta Capone Organization Samantha Capone MD, [facility] Address [address] [place] [address] Phone Care Team Providers Care Clinical Psychiatrist Name Role Phone PP Unavailable CCM Unavailable Summary Purpose Interface Exchange Insurance Providers Payer name Policy type / Coverage type Covered alliance party ID Effective Begin Date Effective End Date WPS Medicare Part B Medicare Part B [id number] Unknown [employer] Medicare Part B [id number] Unknown Family history Father Diagnosis Age At Onset Hyperlipidemia Unknown Heart Attack Unknown Hypertension Unknown Mother Diagnosis Age At Onset Arthritis Unknown Breast cancer Unknown Hypertension Unknown Skin cancer Unknown Osteoporosis Unknown Sister Diagnosis Age At Onset Cancer Unknown Social History Social History Element Codes Description Effective Dates Tobacco history SNOMED CT: 65054636 Current every day smoker one pack/day 48 yrs - pt down to 1/2 ppd as of Jul 2016 09/10/2016 Marital status Unknown M arried Derik 08/17/2015 Number of children Unknown 2 adopted children - 35 (Saul) and 33y/o (Jeb) 08/17/2015 Living arrangements Unknown House 08/17/2015 Employment Unknown Retir ed 08/17/[address]: 066447275 Never drinks alcohol 08/17/2015 Allergies, Adverse Reactions, [...] Instruc tions Start Date Stop Date Sta s Fill Instructions azithromycin 250 mg tablet RxNorm: 951007 2 tabs on day #1, the n 1 Tablet(s) PO daily x 4 days 11/26/2018 03/14/2019 Inactive Symbicort 160 mcg-4. 5 mcg/actuation HFA aerosol inhaler RxNorm: 4611151 1 INH BID 11/26/2018 01/24/2019 In active pravastatin 40 mg ta blet RxNorm: 719243 TAKE ONE TABLET BY MO [facility] DAILY 11/13/2018 05/11/2019 Ac tive glipizide ER 2.5 mg tablet, extended release 24 hr RxNorm: 708300 TAKE ONE TABLET BY MOUTH DAILY 11/13/2018 05/11/2019 Active enalapril 10 mg-hydr ochlorothiazide 25 mg tablet RxNorm: 790632 TAKE ONE TABLET BY MOUTH DAILY 11/13/2018 05/11/2019 Active Symbicort 160 mcg-4. 5 mcg/actuation HFA aerosol inhaler RxNorm: 3843397 2 Puff(s) INH 03/12/2018 09/13/2018 Inactive enalapril 10 mg-hydr ochlorothiazide 25 mg tablet RxNorm: 266010 TAKE ONE TABLET BY MOUTH DAILY 02/23/2018 11/12/2018 Inactive glipizide ER 2.5 mg tablet, extended release 24 hr RxNorm: 720498 Tablet(s) TAKE ONE TABLET BY MOUTH DAILY 02/23/2018 11/12/2018 Inactive pravastatin 40 mg ta blet RxNorm: 809593 TAKE ONE TABLET BY [facility] DAILY 02/23/2018 11/12/2018 In active glipizide ER 2.5 mg tablet, extended release 24 hr RxNorm: 499636 TAKE ONE TABLET BY MOUTH DAILY 08/22/2017 02/17/2018 Inactive enalapril 10 mg-hydr ochlorothiazide 25 mg tablet RxNorm: 290105 TAKE ONE TABLET BY MOUTH DAILY 05/23/2017 02/16/2018 Inactive pravastatin 40 mg ta blet RxNorm: 711161 TAKE ONE TABLET BY [facility] DAILY 05/23/2017 02/16/2018 In active glipizide ER 2.5 mg tablet, extended release 24 hr RxNorm: 176811 TAKE ONE TABLET BY MOUTH DAILY 02/21/2017 08/19/2017 Inactive glipizide ER 2.5 mg tablet, extended release 24 hr RxNorm: 517428 TAKE ONE TABLET BY MOUTH DAILY 12/23/2016 02/20/2017 Inactive pravastatin 40 mg ta blet RxNorm: 273911 TAKE ONE TABLET BY [facility] DAILY 08/26/2016 05/22/2017 In active enalapril 10 mg-hydr ochlorothiazide 25 mg tablet RxNorm: 795197 TAKE ONE TABLET BY MOUTH DAILY 08/26/2016 02/22/2018 Inactive pravastatin 40 mg ta blet RxNorm: 183118 TAKE ONE TABLET BY [facility] DAILY 08/26/2016 02/22/2018 In active enalapril 10 mg-hydr ochlorothiazide 25 mg tablet RxNorm: 255469 TAKE ONE TABLET BY MOUTH DAILY 08/26/2016 02/22/2018 Inactive enalapril 10 mg-hydr ochlorothiazide 25 mg tablet RxNorm: 122640 TAKE ONE TABLET BY MOUTH DAILY 08/26/2016 05/22/2017 Inactive glipizide ER 2.5 mg tablet, extended release 24 hr RxNorm: 964406 TAKE ONE TABLET BY MOUTH DAILY 06/25/2016 12/21/2016 Inactive glipizide ER 2.5 mg tablet, extended release 24 hr RxNorm: 095459 TAKE ONE TABLET BY MOUTH DAILY 03/11/2016 06/24/2016 Inactive glipizide 5 mg tablet RxNorm: 888307 1 Tablet(s) PO daily 10/16/2015 10/15/2015 Inactive glipizide ER 2.5 mg tablet, extended release 24 hr RxNorm: 468630 1 Tablet(s) PO daily 10/16/2015 03/10/2016 Inactive enalapril 10 mg-hydr ochlorothiazide 25 mg tablet RxNorm: 407293 1 Tablet(s) PO daily 09/01/2015 08/25/2016 Inactive pravastatin 40 mg ta blet RxNorm: 760882 1 Tablet(s) PO daily 09/01/2015 08/25/2016 Inactive metformin 500 mg tablet RxNorm: 496759 1/2 Tablet(s) PO BID 09/01/2015 09/13/2018 Inactive metformin 500 mg tablet RxNorm: 155292 1/2 Tablet(s) PO BID 09/01/2015 08/31/2015 Inactive pravastatin 40 mg ta blet RxNorm: 089970 1 Tablet(s) PO daily 08/17/2015 08/31/2015 Inactive vitamin E (dl, aceta te) 1,000 unit capsule RxNorm: 925585 1 Capsule(s) PO every other day No Start Date Active Super B Complex + C 150 mg tablet RxNorm: 1 Tablet(s) PO daily No Start Date Active Odilia 180 mg tablet RxNorm: 963775 1 Tablet(s) PO daily No Start Date Active Vitamin D2 1,000 uni t capsule RxNorm: 369855 1 Capsule(s) PO BID No Start Date Active enalapril 10 mg-hydr ochlorothiazide 25 mg tablet RxNorm: 131175 1 Tablet(s) PO daily No Start Date [...] Ord30 C/HDL 4.7 Ratio 03/15/2019 Comp Metabolic Sbo211 NA 138 mEq/L 03/15/2019 Comp Metabolic Yul121 K 4.2 mEq/L 03/15/2019 Comp Metabolic Uab424 CL 102 mEq/L 03/15/2019 Comp Metabolic Nob434 CO2 28.0 mEq/L 03/15/2019 Comp Metabolic Qaa561 AN ION GAP 12 03/15/2019 Comp Metabolic Hjh236 GL UCOSE 157 mg/dL 03/15/2019 Comp Metabolic Ijo339 Cr eat 0.6 mg/dL 03/15/2019 Comp Metabolic Unk026 eG FR 99 ml/min/1.73m2 03/15 Comp Metabolic Xuc193 BUN 9 mg/dL 03/15/2019 Comp Metabolic Nua563 B/ C Ratio 14.3 Ratio 03/15/2019 Comp Metabolic Vvk691 CA LCIUM 8.9 mg/dL 03/15/2019 Comp Metabolic Emu541 AL K PHOS 91 U/L 03/15/2019 Comp Metabolic Ndi144 T(SGOT) 12 U/L 03/15/2019 Comp Metabolic Wmp049 AL T(SGPT) 14 U/L 03/15/2019 Comp Metabolic Cpg374 BI LI T 0.5 mg/dL 03/15/2019 Comp Metabolic Zhk000 AL BUMIN 3.7 g/dL 03/15/2019 Comp Metabolic Xil458 TP RO 6.2 g/dL 03/15/2019 Comp Metabolic Zcu612 GL OB 2.5 g/dL 03/15/2019 Comp Metabolic Zgm507 A/ G Ratio 1.5 Ratio 03/15/2019 Comp Metabolic Ubo268 Os mo 278 mOsmo 03/15/2019 %Hba1C Zdz937 % HbA1c 12205-5 7.2 % 03/15/2019 %Hba1C Man533 Gluc Ave 160 mg/dL 03/15/2019 Tsh Ord6 TSH (3rd IS) 3.46 uIU/mL 03/12/2018 Comp Metabolic Ygj313 NA 138 mEq/L 03/12/2018 Comp Metabolic Klk449 K 4.5 mEq/L 03/12/2018 Comp Metabolic Yuh864 CL 104 mEq/L 03/12/2018 Comp Metabolic Cdu634 CO2 28.0 mEq/L 03/12/2018 Comp Metabolic Ajm164 AN ION GAP 11 03/12/2018 Comp Metabolic Ohv343 GL UCOSE 129 mg/dL 03/12/2018 Comp Metabolic Dea163 Cr eat 0.8 mg/dL 03/12/2018 Comp Metabolic Hbw560 eG FR 74 ml/min/1.73m2 03/12 Comp Metabolic Lfu375 BUN 12 mg/dL 03/12/2018 Comp Metabolic Rhs622 B/ C Ratio 14.8 Ratio 03/12/2018 Comp Metabolic Daq734 CA LCIUM 9.1 mg/dL 03/12/2018 Comp Metabolic Qwt882 AL K PHOS 64 U/L 03/12/2018 Comp Metabolic Vzs585 T(SGOT) 13 U/L 03/12/2018 Comp Metabolic Wbo173 AL T(SGPT) 12 U/L 03/12/2018 Comp Metabolic Jcx559 BI LI T 0.5 mg/dL 03/12/2018 Comp Metabolic Yub085 AL BUMIN 4.0 g/dL 03/12/2018 Comp Metabolic Nup016 TP RO 6.8 g/dL 03/12/2018 Comp Metabolic Vwk971 GL OB 2.8 g/dL 03/12/2018 Comp Metabolic Yae385 A/ G Ratio 1.4 Ratio 03/12/2018 Comp Metabolic Ymx414 Os mo 277 mOsmo 03/12/2018 Vitamin D 25 Oh Xfn9137 VITAMIN D, 25 HYDROXY 47.13 ng/mL 03/12/2018 Lipid Ord30 CHOL 161 mg/dL 03/12/2018 Lipid Ord30 HDL 49.0 mg/dl 03/12/2018 Lipid Ord30 TRIG 126 mg/dL 03/12/2018 Lipid Ord30 LDL 87 mg/dL 03/12/2018 Lipid Ord30 C/HDL 3.3 Ratio 03/12/2018 %Hba1C Rif502 % HbA1c 95194-0 6.4 % 03/12/2018 %Hba1C Vov066 Gluc Ave 137 mg/dL 03/12/2018 Cbc With [...] 28.8 pg 03/12/2018 Cbc With Differential Ord2 [place]% 9.0 % 03/12/2018 Cbc With Differential Ord2 [...] 2.91 K/ul 03/12/2018 Cbc With Differential Ord2 [place] ABS# 1.0 K/ul 03/12/2018 Cbc With Differential Ord2 Eos ABS# 0.2 K/ul 03/12/2018 Cbc With Differential Ord2 Baso ABS# 0.1 K/ul 03/12/2018 Vitamin D 25 Oh Pzi6224 VITAMIN D, 25 HYDROXY 40.72 ng/mL 09/11/2017 %Hba1C Boq630 % HbA1c 88815-1 6.0 % 09/11/2017 %Hba1C Yxh259 Gluc Ave 126 mg/dL 09/11/2017 Cbc With [...] 28.8 pg 09/11/2017 Cbc With Differential Ord2 [place]% 7.8 % 09/11/2017 Cbc With Differential Ord2 [...] 3.57 K/ul 09/11/2017 Cbc With Differential Ord2 [place] ABS# 1.0 K/ul 09/11/2017 Cbc With Differential Ord2 Eos ABS# 0.3 K/ul 09/11/2017 Cbc With Differential Ord2 Baso ABS# 0.1 K/ul 09/11/2017 Tsh Ord6 hTSH II 2.46 uIU/mL 09/11/2017 Lipid Ord30 CHOL 172 mg/dL 09/11/2017 Lipid Ord30 HDL 47.0 mg/dl 09/11/2017 Lipid Ord30 TRIG 137 mg/dL 09/11/2017 Lipid Ord30 LDL 98 mg/dL 09/11/2017 Lipid Ord30 C/HDL 3.7 Ratio 09/11/2017 Comp Metabolic Lqr879 NA 138 mEq/L 09/11/2017 Comp Metabolic Bmh698 K 4.5 mEq/L 09/11/2017 Comp Metabolic Mbw709 CL 103 mEq/L 09/11/2017 Comp Metabolic Uwo386 CO2 28.0 mEq/L 09/11/2017 Comp Metabolic Lwv366 AN ION GAP 12 09/11/2017 Comp Metabolic Fao706 GL UCOSE 105 mg/dL 09/11/2017 Comp Metabolic Suh419 Cr eat 0.7 mg/dL 09/11/2017 Comp Metabolic Oui353 eG FR 94 ml/min/1.73m2 09/11 Comp Metabolic Ewo636 BUN 10 mg/dL 09/11/2017 Comp Metabolic Kpk481 B/ C Ratio 15.2 Ratio 09/11/2017 Comp Metabolic Ukh049 CA LCIUM 9.1 mg/dL 09/11/2017 Comp Metabolic Dcr393 AL K PHOS 70 U/L 09/11/2017 Comp Metabolic Blr275 T(SGOT) 12 U/L 09/11/2017 Comp Metabolic Ajp726 AL T(SGPT) 11 U/L 09/11/2017 Comp Metabolic Zxy008 BI LI T 0.6 mg/dL 09/11/2017 Comp Metabolic Nok780 AL BUMIN 4.1 g/dL 09/11/2017 Comp Metabolic Iuu913 TP RO 7.1 g/dL 09/11/2017 Comp Metabolic Fni417 GL OB 3.0 g/dL 09/11/2017 Comp Metabolic Gwp849 A/ G Ratio 1.4 Ratio 09/11/2017 Comp Metabolic Xjc340 Os mo 275 mOsmo 09/11/2017 Microalbumin Gxm349 Micr oAlb <0.7 mg/dL 09/11/2016 %Hba1C Egx089 % HbA1c 23272-1 5.8 % 09/11/2016 %Hba1C Fmt869 Gluc Ave 120 mg/dL 09/11/2016 Cbc With [...] 29.3 pg 09/10/2016 Cbc With Differential Ord2 [place]% 7.5 % 09/10/2016 Cbc With Differential Ord2 [...] 3.78 K/ul 09/10/2016 Cbc With Differential Ord2 [place] ABS# 0.9 K/ul 09/10/2016 Cbc With Differential Ord2 Eos ABS# 0.3 K/ul 09/10/2016 Cbc With Differential Ord2 Baso ABS# 0.1 K/ul 09/10/2016 Lipid Ord30 CHOL 163 mg/dL 09/10/2016 Lipid Ord30 HDL 48.0 mg/dl 09/10/2016 Lipid Ord30 TRIG 174 mg/dL 09/10/2016 Lipid Ord30 LDL 80 mg/dL 09/10/2016 Lipid Ord30 C/HDL 3.4 Ratio 09/10/2016 Comp Metabolic Pgy842 NA 135 mEq/L 09/10/2016 Comp Metabolic Ipk392 K 3.8 mEq/L 09/10/2016 Comp Metabolic Qjv201 CL 99 mEq/L 09/10/2016 Comp Metabolic Mqm901 CO2 27.0 mEq/L 09/10/2016 Comp Metabolic Tvm264 AN ION GAP 13 09/10/2016 Comp Metabolic Txk296 GL UCOSE 72 mg/dL 09/10/2016 Comp Metabolic Adh367 Cr eat 0.7 mg/dL 09/10/2016 Comp Metabolic Zpc698 eG FR 89 ml/min/1.73m2 09/10 Comp Metabolic Tar274 BUN 7 mg/dL 09/10/2016 Comp Metabolic Nzy573 B/ C Ratio 10.1 Ratio 09/10/2016 Comp Metabolic Ukh913 CA LCIUM 9.1 mg/dL 09/10/2016 Comp Metabolic Yvm031 AL K PHOS 66 U/L 09/10/2016 Comp Metabolic Fex086 T(SGOT) 14 U/L 09/10/2016 Comp Metabolic Xgi694 AL T(SGPT) 11 U/L 09/10/2016 Comp Metabolic Iac190 BI LI T 0.6 mg/dL 09/10/2016 Comp Metabolic Bnw076 AL BUMIN 4.1 g/dL 09/10/2016 Comp Metabolic Wak366 TP RO 7.3 g/dL 09/10/2016 Comp Metabolic Rso756 GL OB 3.2 g/dL 09/10/2016 Comp Metabolic Axf619 A/ G Ratio 1.3 Ratio 09/10/2016 Comp Metabolic Nro818 Os mo 267 mOsmo 09/10/2016 Tsh Ord6 hTSH II 2.80 uIU/mL 09/10/2016 %Hba1C Abu202 % HbA1c 57897-4 5.8 % 02/29/2016 %Hba1C Oop620 Gluc Ave 120 mg/dL 02/29/2016 Comp Metabolic Iey519 NA 135 mEq/L 02/29/2016 Comp Metabolic Gdj788 K 4.4 mEq/L 02/29/2016 Comp Metabolic Xqg982 CL 101 mEq/L 02/29/2016 Comp Metabolic Eev584 CO2 27.0 mEq/L 02/29/2016 Comp Metabolic Wjr906 AN ION GAP 11 02/29/2016 Comp Metabolic Lss477 GL UCOSE 77 mg/dL 02/29/2016 Comp Metabolic Nlm822 Cr eat 0.6 mg/dL 02/29/2016 Comp Metabolic Egp553 eG FR 99 ml/min/1.73m2 02/28 Comp Metabolic Ctp009 BUN 13 mg/dL 02/29/2016 Comp Metabolic Ncp100 B/ C Ratio 20.6 Ratio 02/29/2016 Comp Metabolic Agn408 CA LCIUM 9.4 mg/dL 02/29/2016 Comp Metabolic Zfk541 AL K PHOS 65 U/L 02/29/2016 Comp Metabolic Wqo134 T(SGOT) 14 U/L 02/29/2016 Comp Metabolic Bwn703 AL T(SGPT) 11 U/L 02/29/2016 Comp Metabolic Jmd047 BI LI T 0.6 mg/dL 02/29/2016 Comp Metabolic Tts414 AL BUMIN 4.1 g/dL 02/29/2016 Comp Metabolic Ghb459 TP RO 7.2 g/dL 02/29/2016 Comp Metabolic Wjl799 GL OB 3.1 g/dL 02/29/2016 Comp Metabolic Gna872 A/ G Ratio 1.3 Ratio 02/29/2016 Comp Metabolic Ufq417 Os mo 269 mOsmo 02/29/2016 Lipid Ord30 CHOL 202 mg/dL 02/29/2016 Lipid Ord30 HDL 62.0 mg/dl 02/29/2016 Lipid Ord30 TRIG 123 mg/dL 02/29/2016 Lipid Ord30 LDL 115 mg/dL 02/29/2016 Lipid Ord30 C/HDL 3.3 Ratio 02/29/2016 Vitamin D 25 Oh Gzd5755 VITAMIN D, 25 HYDROXY 58.48 ng/mL 08/18/2015 Lipid Ord30 CHOL 172 mg/dL 08/17/2015 Lipid Ord30 HDL 49.0 mg/dl 08/17/2015 Lipid Ord30 TRIG 170 mg/dL 08/17/2015 Lipid Ord30 LDL 89 mg/dL 08/17/2015 Lipid Ord30 C/HDL 3.5 Ratio 08/17/2015 %Hba1C Slw146 % HbA1c 71716-8 6.4 % 08/17/2015 %Hba1C Ofp495 Gluc Ave 137 mg/dL 08/17/2015 Tsh Ord6 [...] Ord2 RDW 14.8 % 08/17/2015 Comp Metabolic Mip834 NA 132 mEq/L 08/17/2015 Comp Metabolic Stv509 K 4.4 mEq/L 08/17/2015 Comp Metabolic Jjv979 CL 101 mEq/L 08/17/2015 Comp Metabolic Pys741 CO2 24.0 mEq/L 08/17/2015 Comp Metabolic Rhm507 AN ION GAP 11 08/17/2015 Comp Metabolic Flf791 GL UCOSE 130 mg/dL 08/17/2015 Comp Metabolic Vcr458 Cr eat 0.7 mg/dL 08/17/2015 Comp Metabolic Cca259 eG FR 93 ml/min/1.73m2 08/17 Comp Metabolic Ycs703 BUN 8 mg/dL 08/17/2015 Comp Metabolic Anq754 B/ C Ratio 11.9 Ratio 08/17/2015 Comp Metabolic Vic210 CA LCIUM 9.5 mg/dL 08/17/2015 Comp Metabolic Alz213 AL K PHOS 70 U/L 08/17/2015 Comp Metabolic Jxw873 T(SGOT) 28 U/L 08/17/2015 Comp Metabolic Cdz964 AL T(SGPT) 14 U/L 08/17/2015 Comp Metabolic Unb502 BI LI T 0.8 mg/dL 08/17/2015 Comp Metabolic Smo022 AL BUMIN 4.2 g/dL 08/17/2015 Comp Metabolic Jcy877 TP RO 7.3 g/dL 08/17/2015 Comp Metabolic Ylf988 GL OB 3.1 g/dL 08/17/2015 Comp Metabolic Avc098 A/ G Ratio 1.4 Ratio 08/17/2015 Comp Metabolic Lay919 Os mo 265 mOsmo 08/17/2015 Review of [...] hygiene 03/15/2019 None Full Exam - General 1995 Eyes conjunctiva/eyelids Overall: conjunctiva clear 03/15/2019 None Full Exam - General 1994 Eyes conjunctiva/eyelids Overall: cornea clear 03/15/2019 None Full Exam - General 1995 Eyes conjunctiva/eyelids Overall: eyelids normal 03/15/2019 None Full Exam - General 1994 Eyes pupils and irises Overall: pupils equal, round, reactive to light and accomodation 03/15/2019 None Full Exam - General 1995 Ears/Nose/Throat otoscopic exam Overall: external auditory canals clear 03/15/2019 None Full Exam - General 1995 Ears/Nose/Throat otoscopic exam Overall: tympanic membranes clear 03/15/2019 None Full Exam - General 1995 Ears/Nose/Throat lips/teeth/gingiva Overall: benign lips 03/15/2019 None Full Exam - General 1995 Ears/Nose/Throat lips/teeth/gingiva Overall: normal dentition 03/15/2019 None Full Exam - General 1994 Ears/Nose/Throat oral cavity/pharynx/larynx Overall: oral mucosa clear 03/15/2019 None Full Exam - General 1995 Ears/Nose/Throat oral cavity/pharynx/larynx Overall: oropharyngeal mucosa clear 03/15/2019 None Full Exam - General 1995 Ears/Nose/Throat oral cavity/pharynx/larynx Overall: hypopharynx benign 03/15/2019 [...] lips 11/26/2018 None Full Exam - General 1994 Ears/Nose/Throat lips/teeth/gingiva Overall: normal dentition 11/26/2018 None [...] masses 11/26/2018 None Full Exam - General 1994 Respiratory respiratory effort/rhythm Overall: no retractions 11/26/2018 None Full Exam - General 1994 Respiratory respiratory effort/rhythm Overall: normal rate 11/26/2018 None Full Exam - General 1994 Cardiovascular extremities Overall: no clubbing 11/26/2018 None [...] 08/17/2015 None Procedures Procedure Codes Date 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 3-[address]: 285006183 CPT-4: G0436 09/10/2016 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 3-[address]: 355091324 CPT-4: G0436 04/23/2016 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 3-[address]: 918076529 CPT-4: G0436 02/29/2016 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 3-[address]: 318052144 CPT-4: G0436 08/17/2015 TOTAL HYSTERECTOMY CPT- 4: 68211 Unknown Vital Signs Date Vital 03/15/2019 Blood Pressure 1: 140/84 Code: 8480-6 BMI: 33.1 Code: 62913-8 Heart Rate 1: 104 bpm Height: 5'4" SpO2: 96% Weight: 193 lbs 11/26/2018 Blood Pressure 1: 130/76 Code: 8480-6 BMI: 36.6 Code: 52559-6 Heart Rate 1: 100 bpm Height: 5'4" SpO2: 96% Temperature: 36.7 (C ) / 98.0 (F) Weight: 213 lbs 11/12/2018 Heigh t: Weight: 11/06/2018 Blood Pressure 1: 150/90 Code: 8480-6 BMI: 36.6 Code: 74248-2 Heart Rate 1: 105 bpm Height: 5'4" SpO2: 96% Weight: 213 lbs 09/14/2018 Blood Pressure 1: 130/80 Code: 8480-6 BMI: 36.9 Code: 38243-2 Height: 5'4" Weight: 215 lbs 03/12/2018 Blood Pressure 1: 148/82 Code: 8480-6 BMI: 36.7 Code: 05486-8 Heart Rate 1: 96 bpm Height: 5'4" SpO2: 98% Weight: 214 lbs 09/11/2017 Blood Pressure 1: 142/84 Code: 8480-6 BMI: 37.2 Code: 99988-8 Heart Rate 1: 91 bpm Height: 5'4" SpO2: 98% Weight: 217 lbs 03/10/2017 Blood Pressure 1: 144/78 Code: 8480-6 BMI: 36.8 Code: 99338-6 Heart Rate 1: 86 bpm Height: 5'4" SpO2: 98% Weight: 214 lbs 8 oz 09/10/2016 Blood Pressure 1: 130/80 Code: 8480-6 BMI: 36.7 Code: 34151-9 Heart Rate 1: 98 bpm Height: 5'4" SpO2: 98% Weight: 214 lbs 04/23/2016 Blood Pressure 1: 126/72 Code: 8480-6 BMI: 36.0 Code: 72064-8 Heart Rate 1: 86 bpm Height: 5'4" SpO2: 97% Weight: 209 lbs 8 oz 02/29/2016 Blood Pressure 1: 138/76 Code: 8480-6 BMI: 34.8 Code: 44995-1 Heart Rate 1: 78 bpm Height: 5'4" SpO2: 98% Weight: 203 lbs 08/17/2015 Blood Pressure 1: 140/88 Code: 8480-6 BMI: 35.2 Code: 97698-5 Heart Rate 1: 90 bpm Height: 5'4" [...] chr onic 03/12/2018 None hypertension Quality ricardo duncan hypertension 03/12/2018 None hypertension Onset and Resolution [...] 09/11/2017 in her hands hypertension Quality ricardo perla hypertension 09/11/2017 None diabetes mellitus Test results [...] Encounters Encounter Performer Loca tion Codes Date ([id number]) 68225 EST. 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 P ATIENT, LEVEL III Diagnosis: Chronic obstructive pulmonary disease with acute lower respiratory infection[ICD10: J44.0] Diagnosis: Cough[ICD10: R05] Samantha Capone MD, [facility] CPT-4: 88463 11/26/2018 74524 EST. PATIENT, LEVEL III Diagnosis: Postmenopausal bleeding[ICD10: N95.0] Diagnosis: Unspecified ovarian cyst, left side[ICD10: N83.202] oCnstance Capone MD, [facility] CPT-4: 90328 11/12/2018 31109 EST. PATIENT, LEVEL IV Diagnosis: Postmenopausal bleeding[ICD10: N95.0] Constance Capone MD, [facility] CPT- 4: 61580 11/06/2018 ([id number]) 12242 EST. P ATIENT, LEVEL IV Diagnosis: Essential (primary) hypertension[ICD10: I10] Diagnosis: Type 2 diabetes mellitus without complications[ICD10: E11.9] Diagnosis: Mixed hyperlipidemia[ICD10: E78.2] Blessing Capone MD, [facility] CPT-4: 43739 09/14/2018 ([id number]) 13887 EST. P ATIENT, LEVEL IV Diagnosis: Essential (primary) hypertension[ICD10: I10] Diagnosis: Mixed hyperlipidemia[ICD10: E78.2] Diagnosis: Vitamin D deficiency, unspecified[ICD10: E55.9] Diagnosis: Type 2 diabetes mellitus without complications[ICD10: E11.9] Diagnosis: Impaired fasting glucose[ICD10: R73.01] Diagnosis: Encounter for screening mammogram for malignant neoplasm of breast[ICD10: Z12.31] Blessing Capone MD, [facility] CPT-4: 85475 03/12/2018 ([id number]) 60015 EST. P ATIENT, LEVEL IV Diagnosis: Type 2 diabetes mellitus without complications[ICD10: E11.9] Diagnosis: Vitamin D deficiency, unspecified[ICD10: E55.9] Diagnosis: Mixed hyperlipidemia[ICD10: E78.2] Diagnosis: Essential (primary) hypertension[ICD10: I10] Blessing Capone MD, [facility] CPT-4: 02559 09/11/2017 ([id number]) 99037 EST. P ATIENT, LEVEL III Diagnosis: Essential (primary) hypertension[ICD10: I10] Diagnosis: Type 2 diabetes mellitus without complications[ICD10: E11.9] Blessing Capone MD, [facility] CPT-4: 65292 03/10/2017 ([id number]) 40093 EST. P ATIENT, LEVEL IV Diagnosis: Type 2 diabetes mellitus without complications[ICD10: E11.9] Diagnosis: Mixed hyperlipidemia[ICD10: E78.2] Diagnosis: Essential (primary) hypertension[ICD10: I10] Diagnosis: Tobacco use[ICD10: Z72.0] Samantha Capone MD, [facility] CPT-4: 53196 09/10/2016 ([id number]) 43598 EST. P ATIENT, LEVEL IV Diagnosis: Type 2 diabetes mellitus without complications[ICD10: E11.9] Diagnosis: Essential (primary) hypertension[ICD10: I10] Diagnosis: Emphysema (subcutaneous) resulting from a procedure, subsequent encounter[ICD10: T81.82XD] Diagnosis: Tobacco use[ICD10: Z72.0] Samantha Capone MD, [facility] CPT-4: 57850 04/23/2016 ([id number]) 34794 EST. P ATIENT, LEVEL IV Diagnosis: Essential (primary) hypertension[ICD10: I10] Diagnosis: Tobacco use[ICD10: Z72.0] Diagnosis: Type 2 diabetes mellitus without complications[ICD10: E11.9] Samantha Capone MD, [facility] CPT-4: 15125 02/29/2016 ([id number]) OFFICE VISI , [facility] - LEVEL 4 Diagnosis: Other abnormal glucose[ICD10: R73.09] Diagnosis: Essential (primary) hypertension[ICD10: I10] Diagnosis: Mixed hyperlipidemia[ICD10: E78.2] Diagnosis: Tobacco use[ICD10: Z72.0] Diagnosis: Vitamin D deficiency, unspecified[ICD10: E55.9] Samantha Capone MD, [facility] CPT-4: 27033 08/17/2015 Plan of Care Planned Activity Notes C odes Status Date Patient Education: Patient Medication Summary Completed 03/30/2019 Care Plan: SCREENINGMAMMOGRAPHYDIGITAL LOINC : 37478-5 Pending 03/30/2019 Visit Plan: Hypertension - well con [...] this week 03/15/2019 App[facility]ment: Bless[facility] [phone] [phone] (15 min) Moderate 03/15/2019 Patient Education: Patient Medication Summary Completed 03/15/2019 Patient Education: Cholesterol Management Completed 03/15/2019 Patient Education: Diabetes Completed 03/15/2019 Patient Education: Smoking and Tobacco Addiction Completed 03/15/2019 Care Plan: SCREENINGMAMMOGRAPHYDIGITAL LOINC : 22935-7 Pending 03/15/2019 Visit Plan: 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 11/26/2018 App[facility]ment[facility] [phone] [facility] ([facility] min) Complex 11/26/2018 Patient Education: Patient Medication Summary Completed 11/26/2018 Visit Plan: Post menopausal bleedin g - US shows mass - Dr. Capone in to discuss with pt - will refer to container finisher/onc, will order CT Abdomen/pelvis and labs 11/12/2018 Appointment: Constance Esposito WPtel: [facility] (30 min) Complex 11/12/2018 Patient Education: Patient Medication Summary Completed 11/12/2018 Visit Plan: Post menopausal bleedin g - Pap done - will order US and refer as indicated - pt is to notify clinic with any changes, questions, or concerns. 11/06/2018 Appointment: Constance Esposito WPtel: [phone] [place] (30 min) Complex 11/06/2018 Patient Education: [...] fat diet 09/14/2018 Appointment: Blessing Miller WPtel: [phone] [place] (30 min) Complex 09/14/2018 Patient Education: [...] on use 03/12/2018 Appointment: [facility] [phone] [phone] (30 min) Complex 03/12/2018 Patient Education: Patient Medication Summary Completed 03/12/2018 Care Plan: SCREENINGMAMMOGRAPHYDIGITAL LOINC : 19092-8 Pending 03/12/2018 Visit Plan: Hypertension - well [...] medications. 09/11/2017 Appointment: Blessing Miller WPtel: [phone] [id number] [place] Complex 09/11/2017 Patient Education: Patient Medication Summary Completed 09/11/2017 Patient Education: Smoking and Tobacco Addiction Completed 09/11/2017 Patient Education: Obesity Completed 09/11/2017 Care Plan: Comp Metabolic Cancelled 09/11/2017 Care Plan: Cbc With Differential Cancelled 09/11/2017 Care Plan: %Hba1C LOIN C : 14187-4 Cancelled 09/11/2017 Care Plan: Tsh Cancelled 09/11/2017 Care Plan: Lipid Cancelled 09/11/2017 Care Plan: Vitamin D 25 Oh Cancelled 09/11/2017 Appointment: Blessing Miller WPtel: [phone] [phone] (30 min) Complex 09/08/2017 Visit Plan: Hypertension [...] less controlled. 03/10/2017 Appointment: Bless[facility] Miller [facility]el[facility] [phone] [phone] ([facility] min) Complex 03/10/2017 Patient Education: Patient Medication Summary Completed 03/10/2017 Patient Education: Smoking and Tobacco Addiction Completed 03/10/2017 Patient Education: Obesity Completed 03/10/2017 Care Plan: Lipid Cancelled 03/10/2017 Care Plan: Tsh Cancelled 03/10/2017 Care Plan: %Hba1C LOIN C : 23491-7 Cancelled 03/10/2017 Care Plan: Cbc With Differential [...] Plan: Microalbumin Cancelled 09/10/2016 Care Plan: %Hba1C CARLOS C : 07802-2 Cancelled 09/10/2016 Care Plan: Tsh Cancelled 09/10/2016 [...] Completed 02/29/2016 Appointment: Samantha Capone WPtel: [phone] [phone] (15 min) Moderate 02/22/2016 Visit Plan: Hypertension [...] check hgba1c. 08/17/2015 Appointment: [facility]el[phone] [facility] [place] [facility] New Patient 08/17/2015 Patient Education: Patient Medication Summary Completed 08/17/2015 Patient Education: Hypertension Completed 08/17/2015 Patient Education: Smoking and Tobacco Addiction Completed 08/17/2015 Instructions Comment . Post menopausal bl eeding - US shows mass - Dr. Capone in to discuss with pt - will refer to [facility] container finisher/onc, will order CT Abdomen/pelvis and labs . [...] - check hgba1c. appointment for US m at noon . Post menopausal bleeding - [...]
--- OUTSIDE RECORDS SUMMARY | 2020-04-27 11:31 | XMS REPORT | CCD ---
Author Author Roberta Capone Organization Samantha Capone MD, [facility] Address [address] [place] [address] Phone Care Team Providers Care Optimization Specialist Name Role Phone PP Unavailable CCM Unavailable Summary Purpose Interface Exchange Insurance Providers Payer name Policy type / Coverage type Covered alliance party ID Effective Begin Date Effective End Date WPS Medicare Part B Medicare Part B [id number] 2018 Unknown [employer] Medicare Part B [id number] Unknown Family history Father Diagnosis Age At Onset Hyperlipidemia Unknown Heart Attack Unknown Hypertension Unknown Mother Diagnosis Age At Onset Arthritis Unknown Breast cancer Unknown Hypertension Unknown Skin cancer Unknown Osteoporosis Unknown Sister Diagnosis Age At Onset Cancer Unknown Social History Social History Element Codes Description Effective Dates Tobacco history SNOMED CT: 66367581 Current every day smoker one pack/day 48 yrs - pt down to 1/2 ppd as of Jul 2016 09/10/2016 Marital status Unknown M arried Derik 08/17/2015 Number of children Unknown 2 adopted children - 35 (Saul) and 33y/o (Jeb) 08/17/2015 Living arrangements Unknown House 08/17/2015 Employment Unknown Retir ed 08/17/[address]: 529698268 Never drinks alcohol 08/17/2015 Allergies, Adverse Reactions, Alerts Substance Reaction Codes Entered Date Inactivated Date Status * NO KNOWN DRUG OUSMANE RGIES Unknown 08/17/2015 No Inactive Date Active Past Medical History Illness Codes Condition Status Onset Date Resolved Date Ovarian cancer Unknown Active 03/15/2019 Unknow n [...] ICD-9: 620.2 ICD-10: N83.202 Active 11/12/2018 Unknown Encounter for screen ing mammogram for malignant neoplasm of breast ICD-9: V76.12 ICD-10: Z12.31 Active 03/12/2018 Unknown Impaired fasting glu cose ICD-9: 790.21 [...] Condition Codes Effectiv e Dates Condition Status Ovarian cancer Unknown 03/15/2019 Active Essential (primary) [...] side ICD-9: 620.2 ICD-10: N83.202 11/12/2018 Active Encounter for screen ing mammogram for malignant neoplasm of breast ICD-9: V76.12 ICD-10: Z12.31 03/12/2018 Active Impaired fasting glu cose ICD-9: 790.21 [...] Date Stop Date Sta tus Fill Instructions azithromycin 250 mg tablet RxNorm: 962467 2 tabs on day #1, the n 1 Tablet(s) PO daily x 4 days 11/26/2018 03/14/2019 Inactive Symbicort 160 mcg-4. 5 mcg/actuation HFA aerosol inhaler RxNorm: 2889280 1 INH BID 11/26/2018 01/24/2019 In active pravastatin 40 mg ta blet RxNorm: 740200 TAKE ONE TABLET BY MO UTH DAILY 11/13/2018 05/11/2019 Ac tive glipizide ER 2.5 mg tablet, extended release 24 hr RxNorm: 430616 TAKE ONE TABLET BY MOUTH DAILY 11/13/2018 05/11/2019 Active enalapril 10 mg-hydr ochlorothiazide 25 mg tablet RxNorm: 203138 TAKE ONE TABLET BY MOUTH DAILY 11/13/2018 05/11/2019 Active Symbicort 160 mcg-4. 5 mcg/actuation HFA aerosol inhaler RxNorm: 0319609 2 Puff(s) INH 03/12/2018 09/13/2018 Inactive enalapril 10 mg-hydr ochlorothiazide 25 mg tablet RxNorm: 007684 TAKE ONE TABLET BY MOUTH DAILY 02/23/2018 11/12/2018 Inactive glipizide ER 2.5 mg tablet, extended release 24 hr RxNorm: 624652 Tablet(s) TAKE ONE TABLET BY MOUTH DAILY 02/23/2018 11/12/2018 Inactive pravastatin 40 mg ta blet RxNorm: 237688 TAKE ONE TABLET BY [facility] DAILY 02/23/2018 11/12/2018 In active glipizide ER 2.5 mg tablet, extended release 24 hr RxNorm: 936690 TAKE ONE TABLET BY MOUTH DAILY 08/22/2017 02/17/2018 Inactive enalapril 10 mg-hydr ochlorothiazide 25 mg tablet RxNorm: 550119 TAKE ONE TABLET BY MOUTH DAILY 05/23/2017 02/16/2018 Inactive pravastatin 40 mg ta blet RxNorm: 730013 TAKE ONE TABLET BY [facility] DAILY 05/23/2017 02/16/2018 In active glipizide ER 2.5 mg tablet, extended release 24 hr RxNorm: 962702 TAKE ONE TABLET BY MOUTH DAILY 02/21/2017 08/19/2017 Inactive glipizide ER 2.5 mg tablet, extended release 24 hr RxNorm: 788368 TAKE ONE TABLET BY MOUTH DAILY 12/23/2016 02/20/2017 Inactive pravastatin 40 mg ta blet RxNorm: 607526 TAKE ONE TABLET BY [facility] DAILY 08/26/2016 05/22/2017 In active enalapril 10 mg-hydr ochlorothiazide 25 mg tablet RxNorm: 220180 TAKE ONE TABLET BY MOUTH DAILY 08/26/2016 02/22/2018 Inactive pravastatin 40 mg ta blet RxNorm: 808986 TAKE ONE TABLET BY [facility] DAILY 08/26/2016 02/22/2018 In active enalapril 10 mg-hydr ochlorothiazide 25 mg tablet RxNorm: 018441 TAKE ONE TABLET BY MOUTH DAILY 08/26/2016 02/22/2018 Inactive enalapril 10 mg-hydr ochlorothiazide 25 mg tablet RxNorm: 015878 TAKE ONE TABLET BY MOUTH DAILY 08/26/2016 05/22/2017 Inactive glipizide ER 2.5 mg tablet, extended release 24 hr RxNorm: 630639 TAKE ONE TABLET BY MOUTH DAILY 06/25/2016 12/21/2016 Inactive glipizide ER 2.5 mg tablet, extended release 24 hr RxNorm: 723434 TAKE ONE TABLET BY MOUTH DAILY 03/11/2016 06/24/2016 Inactive glipizide 5 mg tablet RxNorm: 545459 1 Tablet(s) PO daily 10/16/2015 10/15/2015 Inactive glipizide ER 2.5 mg tablet, extended release 24 hr RxNorm: 936623 1 Tablet(s) PO daily 10/16/2015 03/10/2016 Inactive enalapril 10 mg-hydr ochlorothiazide 25 mg tablet RxNorm: 843819 1 Tablet(s) PO daily 09/01/2015 08/25/2016 Inactive pravastatin 40 mg ta blet RxNorm: 303822 1 Tablet(s) PO daily 09/01/2015 08/25/2016 Inactive metformin 500 mg tablet RxNorm: 086630 1/2 Tablet(s) PO BID 09/01/2015 09/13/2018 Inactive metformin 500 mg tablet RxNorm: 722405 1/2 Tablet(s) PO BID 09/01/2015 08/31/2015 Inactive pravastatin 40 mg ta blet RxNorm: 149115 1 Tablet(s) PO daily 08/17/2015 08/31/2015 Inactive vitamin E (dl, aceta te) 1,000 unit capsule RxNorm: 264948 1 Capsule(s) PO every other day No Start Date Active Super B Complex + C 150 mg tablet RxNorm: 1 Tablet(s) PO daily No Start Date Active Odilia 180 mg tablet RxNorm: 469699 1 Tablet(s) PO daily No Start Date Active Vitamin D2 1,000 uni t capsule RxNorm: 805075 1 Capsule(s) PO BID No Start Date Active enalapril 10 mg-hydr ochlorothiazide 25 mg tablet RxNorm: 199986 1 Tablet(s) PO daily No Start Date 08/31/2015 Inactive Medication Administered No Medication Administered data Immunizations No Immunization data Assessments Condition Codes Effectiv e Dates Malignant neoplasm of left ovary ICD -10: [...] glucose ICD-10: R73 .01 ICD-9: 790.21 03/12/2018 Encounter for screening mammogram for ma lignant neoplasm of breast ICD-10: Z12.31 ICD-9: V76.12 03/12/2018 Tobacco use ICD-10: Z72.0 ICD-9: 305.1 [...] Ord30 C/HDL 4.7 Ratio 03/15/2019 Comp Metabolic Fce784 NA 138 mEq/L 03/15/2019 Comp Metabolic Low928 K 4.2 mEq/L 03/15/2019 Comp Metabolic Oij242 CL 102 mEq/L 03/15/2019 Comp Metabolic Vkd267 CO2 28.0 mEq/L 03/15/2019 Comp Metabolic Oen845 AN ION GAP 12 03/15/2019 Comp Metabolic Zix453 GL UCOSE 157 mg/dL 03/15/2019 Comp Metabolic Zyi995 Cr eat 0.6 mg/dL 03/15/2019 Comp Metabolic Hbh505 eG FR 99 ml/min/1.73m2 03/15 Comp Metabolic Mtd032 BUN 9 mg/dL 03/15/2019 Comp Metabolic Prm092 B/ C Ratio 14.3 Ratio 03/15/2019 Comp Metabolic Jar102 CA LCIUM 8.9 mg/dL 03/15/2019 Comp Metabolic Zrs116 AL K PHOS 91 U/L 03/15/2019 Comp Metabolic Bzz066 T(SGOT) 12 U/L 03/15/2019 Comp Metabolic Olb856 AL T(SGPT) 14 U/L 03/15/2019 Comp Metabolic Vow830 BI LI T 0.5 mg/dL 03/15/2019 Comp Metabolic Bdc906 AL BUMIN 3.7 g/dL 03/15/2019 Comp Metabolic Vwx690 TP RO 6.2 g/dL 03/15/2019 Comp Metabolic Ind219 GL OB 2.5 g/dL 03/15/2019 Comp Metabolic Cth123 A/ G Ratio 1.5 Ratio 03/15/2019 Comp Metabolic Lxi246 Os mo 278 mOsmo 03/15/2019 %Hba1C Ktt768 % HbA1c 53390-3 7.2 % 03/15/2019 %Hba1C Lic878 Gluc Ave 160 mg/dL 03/15/2019 Tsh Ord6 TSH (3rd IS) 3.46 uIU/mL 03/12/2018 Comp Metabolic Opo581 NA 138 mEq/L 03/12/2018 Comp Metabolic Afm379 K 4.5 mEq/L 03/12/2018 Comp Metabolic Hgn013 CL 104 mEq/L 03/12/2018 Comp Metabolic Rpy253 CO2 28.0 mEq/L 03/12/2018 Comp Metabolic Csa926 AN ION GAP 11 03/12/2018 Comp Metabolic Yxd810 GL UCOSE 129 mg/dL 03/12/2018 Comp Metabolic Erl002 Cr eat 0.8 mg/dL 03/12/2018 Comp Metabolic Sqs131 eG FR 74 ml/min/1.73m2 03/12 Comp Metabolic Fjp644 BUN 12 mg/dL 03/12/2018 Comp Metabolic Gcx865 B/ C Ratio 14.8 Ratio 03/12/2018 Comp Metabolic Zzg943 CA LCIUM 9.1 mg/dL 03/12/2018 Comp Metabolic Sye109 AL K PHOS 64 U/L 03/12/2018 Comp Metabolic Xhx252 T(SGOT) 13 U/L 03/12/2018 Comp Metabolic Rki287 AL T(SGPT) 12 U/L 03/12/2018 Comp Metabolic Iwg795 BI LI T 0.5 mg/dL 03/12/2018 Comp Metabolic Axa709 AL BUMIN 4.0 g/dL 03/12/2018 Comp Metabolic Jqf905 TP RO 6.8 g/dL 03/12/2018 Comp Metabolic Ytx109 GL OB 2.8 g/dL 03/12/2018 Comp Metabolic Cae798 A/ G Ratio 1.4 Ratio 03/12/2018 Comp Metabolic Vnj837 Os mo 277 mOsmo 03/12/2018 Vitamin D 25 Oh Qcw7006 VITAMIN D, 25 HYDROXY 47.13 ng/mL 03/12/2018 Lipid Ord30 CHOL 161 mg/dL 03/12/2018 Lipid Ord30 HDL 49.0 mg/dl 03/12/2018 Lipid Ord30 TRIG 126 mg/dL 03/12/2018 Lipid Ord30 LDL 87 mg/dL 03/12/2018 Lipid Ord30 C/HDL 3.3 Ratio 03/12/2018 %Hba1C Hgp789 % HbA1c 98554-4 6.4 % 03/12/2018 %Hba1C Itw371 Gluc Ave 137 mg/dL 03/12/2018 Cbc With [...] 28.8 pg 03/12/2018 Cbc With Differential Ord2 [place]% 9.0 % 03/12/2018 Cbc With Differential Ord2 [...] 2.91 K/ul 03/12/2018 Cbc With Differential Ord2 [place] ABS# 1.0 K/ul 03/12/2018 Cbc With Differential Ord2 Eos ABS# 0.2 K/ul 03/12/2018 Cbc With Differential Ord2 Baso ABS# 0.1 K/ul 03/12/2018 Vitamin D 25 Oh Lkq7623 VITAMIN D, 25 HYDROXY 40.72 ng/mL 09/11/2017 %Hba1C Yfw989 % HbA1c 28054-8 6.0 % 09/11/2017 %Hba1C Uzo391 Gluc Ave 126 mg/dL 09/11/2017 Cbc With [...] 28.8 pg 09/11/2017 Cbc With Differential Ord2 [place]% 7.8 % 09/11/2017 Cbc With Differential Ord2 [...] 3.57 K/ul 09/11/2017 Cbc With Differential Ord2 [place] ABS# 1.0 K/ul 09/11/2017 Cbc With Differential Ord2 Eos ABS# 0.3 K/ul 09/11/2017 Cbc With Differential Ord2 Baso ABS# 0.1 K/ul 09/11/2017 Tsh Ord6 hTSH II 2.46 uIU/mL 09/11/2017 Lipid Ord30 CHOL 172 mg/dL 09/11/2017 Lipid Ord30 HDL 47.0 mg/dl 09/11/2017 Lipid Ord30 TRIG 137 mg/dL 09/11/2017 Lipid Ord30 LDL 98 mg/dL 09/11/2017 Lipid Ord30 C/HDL 3.7 Ratio 09/11/2017 Comp Metabolic Iip659 NA 138 mEq/L 09/11/2017 Comp Metabolic Kvs242 K 4.5 mEq/L 09/11/2017 Comp Metabolic Tzj536 CL 103 mEq/L 09/11/2017 Comp Metabolic Ewp736 CO2 28.0 mEq/L 09/11/2017 Comp Metabolic Xgz330 AN ION GAP 12 09/11/2017 Comp Metabolic Mtm613 GL UCOSE 105 mg/dL 09/11/2017 Comp Metabolic Gks579 Cr eat 0.7 mg/dL 09/11/2017 Comp Metabolic Nuu272 eG FR 94 ml/min/1.73m2 09/11 Comp Metabolic Axo082 BUN 10 mg/dL 09/11/2017 Comp Metabolic Jxp773 B/ C Ratio 15.2 Ratio 09/11/2017 Comp Metabolic Xkh236 CA LCIUM 9.1 mg/dL 09/11/2017 Comp Metabolic Cti038 AL K PHOS 70 U/L 09/11/2017 Comp Metabolic Dcj456 T(SGOT) 12 U/L 09/11/2017 Comp Metabolic Uzk038 AL T(SGPT) 11 U/L 09/11/2017 Comp Metabolic Drb669 BI LI T 0.6 mg/dL 09/11/2017 Comp Metabolic Mih059 AL BUMIN 4.1 g/dL 09/11/2017 Comp Metabolic Edi739 TP RO 7.1 g/dL 09/11/2017 Comp Metabolic Sba440 GL OB 3.0 g/dL 09/11/2017 Comp Metabolic Oos180 A/ G Ratio 1.4 Ratio 09/11/2017 Comp Metabolic Wir123 Os mo 275 mOsmo 09/11/2017 Microalbumin Tug713 Micr oAlb <0.7 mg/dL 09/11/2016 %Hba1C Fee660 % HbA1c 15401-1 5.8 % 09/11/2016 %Hba1C Ixd213 Gluc Ave 120 mg/dL 09/11/2016 Cbc With [...] 29.3 pg 09/10/2016 Cbc With Differential Ord2 [place]% 7.5 % 09/10/2016 Cbc With Differential Ord2 [...] 3.78 K/ul 09/10/2016 Cbc With Differential Ord2 [place] ABS# 0.9 K/ul 09/10/2016 Cbc With Differential Ord2 Eos ABS# 0.3 K/ul 09/10/2016 Cbc With Differential Ord2 Baso ABS# 0.1 K/ul 09/10/2016 Lipid Ord30 CHOL 163 mg/dL 09/10/2016 Lipid Ord30 HDL 48.0 mg/dl 09/10/2016 Lipid Ord30 TRIG 174 mg/dL 09/10/2016 Lipid Ord30 LDL 80 mg/dL 09/10/2016 Lipid Ord30 C/HDL 3.4 Ratio 09/10/2016 Comp Metabolic Wmj589 NA 135 mEq/L 09/10/2016 Comp Metabolic Mou816 K 3.8 mEq/L 09/10/2016 Comp Metabolic Dnd166 CL 99 mEq/L 09/10/2016 Comp Metabolic Eav550 CO2 27.0 mEq/L 09/10/2016 Comp Metabolic Mmi284 AN ION GAP 13 09/10/2016 Comp Metabolic Xwm908 GL UCOSE 72 mg/dL 09/10/2016 Comp Metabolic Wuu421 Cr eat 0.7 mg/dL 09/10/2016 Comp Metabolic Ffx207 eG FR 89 ml/min/1.73m2 09/10 Comp Metabolic Iaq524 BUN 7 mg/dL 09/10/2016 Comp Metabolic Cdv826 B/ C Ratio 10.1 Ratio 09/10/2016 Comp Metabolic Imh793 CA LCIUM 9.1 mg/dL 09/10/2016 Comp Metabolic Srx961 AL K PHOS 66 U/L 09/10/2016 Comp Metabolic Thy919 T(SGOT) 14 U/L 09/10/2016 Comp Metabolic Ndq164 AL T(SGPT) 11 U/L 09/10/2016 Comp Metabolic Mwj626 BI LI T 0.6 mg/dL 09/10/2016 Comp Metabolic Uuq748 AL BUMIN 4.1 g/dL 09/10/2016 Comp Metabolic Jml193 TP RO 7.3 g/dL 09/10/2016 Comp Metabolic Nkw525 GL OB 3.2 g/dL 09/10/2016 Comp Metabolic Ubo703 A/ G Ratio 1.3 Ratio 09/10/2016 Comp Metabolic Pkj812 Os mo 267 mOsmo 09/10/2016 Tsh Ord6 hTSH II 2.80 uIU/mL 09/10/2016 %Hba1C Iju254 % HbA1c 36201-3 5.8 % 02/29/2016 %Hba1C Khl785 Gluc Ave 120 mg/dL 02/29/2016 Comp Metabolic Wgl821 NA 135 mEq/L 02/29/2016 Comp Metabolic Moa015 K 4.4 mEq/L 02/29/2016 Comp Metabolic Vtm359 CL 101 mEq/L 02/29/2016 Comp Metabolic Tlc489 CO2 27.0 mEq/L 02/29/2016 Comp Metabolic Mih465 AN ION GAP 11 02/29/2016 Comp Metabolic Hct678 GL UCOSE 77 mg/dL 02/29/2016 Comp Metabolic Nbt529 Cr eat 0.6 mg/dL 02/29/2016 Comp Metabolic Nhv453 eG FR 99 ml/min/1.73m2 02/28 Comp Metabolic Oxu592 BUN 13 mg/dL 02/29/2016 Comp Metabolic Drw801 B/ C Ratio 20.6 Ratio 02/29/2016 Comp Metabolic Kis230 CA LCIUM 9.4 mg/dL 02/29/2016 Comp Metabolic Lxj090 AL K PHOS 65 U/L 02/29/2016 Comp Metabolic Dke564 T(SGOT) 14 U/L 02/29/2016 Comp Metabolic Cuk601 AL T(SGPT) 11 U/L 02/29/2016 Comp Metabolic Xjq852 BI LI T 0.6 mg/dL 02/29/2016 Comp Metabolic Wuz765 AL BUMIN 4.1 g/dL 02/29/2016 Comp Metabolic Cad651 TP RO 7.2 g/dL 02/29/2016 Comp Metabolic Fpu650 GL OB 3.1 g/dL 02/29/2016 Comp Metabolic Odb157 A/ G Ratio 1.3 Ratio 02/29/2016 Comp Metabolic Eff551 Os mo 269 mOsmo 02/29/2016 Lipid Ord30 CHOL 202 mg/dL 02/29/2016 Lipid Ord30 HDL 62.0 mg/dl 02/29/2016 Lipid Ord30 TRIG 123 mg/dL 02/29/2016 Lipid Ord30 LDL 115 mg/dL 02/29/2016 Lipid Ord30 C/HDL 3.3 Ratio 02/29/2016 Vitamin D 25 Oh Rus5704 VITAMIN D, 25 HYDROXY 58.48 ng/mL 08/18/2015 Lipid Ord30 CHOL 172 mg/dL 08/17/2015 Lipid Ord30 HDL 49.0 mg/dl 08/17/2015 Lipid Ord30 TRIG 170 mg/dL 08/17/2015 Lipid Ord30 LDL 89 mg/dL 08/17/2015 Lipid Ord30 C/HDL 3.5 Ratio 08/17/2015 %Hba1C Agm414 % HbA1c 80401-0 6.4 % 08/17/2015 %Hba1C Pgu589 Gluc Ave 137 mg/dL 08/17/2015 Tsh Ord6 [...] Ord2 RDW 14.8 % 08/17/2015 Comp Metabolic Xed834 NA 132 mEq/L 08/17/2015 Comp Metabolic Vbm213 K 4.4 mEq/L 08/17/2015 Comp Metabolic Guy481 CL 101 mEq/L 08/17/2015 Comp Metabolic Qhm934 CO2 24.0 mEq/L 08/17/2015 Comp Metabolic Gmh506 AN ION GAP 11 08/17/2015 Comp Metabolic Mcx922 GL UCOSE 130 mg/dL 08/17/2015 Comp Metabolic Won953 Cr eat 0.7 mg/dL 08/17/2015 Comp Metabolic Muj351 eG FR 93 ml/min/1.73m2 08/17 Comp Metabolic Fbz028 BUN 8 mg/dL 08/17/2015 Comp Metabolic Pil244 B/ C Ratio 11.9 Ratio 08/17/2015 Comp Metabolic Bnp268 CA LCIUM 9.5 mg/dL 08/17/2015 Comp Metabolic Yqx439 AL K PHOS 70 U/L 08/17/2015 Comp Metabolic Imp989 T(SGOT) 28 U/L 08/17/2015 Comp Metabolic Npu907 AL T(SGPT) 14 U/L 08/17/2015 Comp Metabolic Uqo578 BI LI T 0.8 mg/dL 08/17/2015 Comp Metabolic Tux363 AL BUMIN 4.2 g/dL 08/17/2015 Comp Metabolic Qrq023 TP RO 7.3 g/dL 08/17/2015 Comp Metabolic Xzs407 GL OB 3.1 g/dL 08/17/2015 Comp Metabolic Fyy696 A/ G Ratio 1.4 Ratio 08/17/2015 Comp Metabolic Ios422 Os mo 265 mOsmo 08/17/2015 Review of [...] 08/17/2015 None Procedures Procedure Codes Date TOBACCO-USE SHAPER MACHINE HAND 3-[address]: 020747332 CPT-4: G0436 09/10/2016 TOBACCO-USE SHAPER MACHINE HAND 3-[address]: 361461475 CPT-4: G0436 04/23/2016 TOBACCO-USE SHAPER MACHINE HAND 3-[address]: 608265609 CPT-4: G0436 02/29/2016 TOBACCO-USE SHAPER MACHINE HAND 3-[address]: 503858707 CPT-4: G0436 08/17/2015 TOTAL HYSTERECTOMY CPT- 4: 88060 Unknown Vital Signs Date Vital 03/15/2019 Blood Pressure 1: 140/84 Code: 8480-6 BMI: 33.1 Code: 18119-1 Heart Rate 1: 104 bpm Height: 5'4" SpO2: 96% Weight: 193 lbs 11/26/2018 Blood Pressure 1: 130/76 Code: 8480-6 BMI: 36.6 Code: 81660-1 Heart Rate 1: 100 bpm Height: 5'4" SpO2: 96% Temperature: 36.7 (C ) / 98.0 (F) Weight: 213 lbs 11/12/2018 Heigh t: Weight: 11/06/2018 Blood Pressure 1: 150/90 Code: 8480-6 BMI: 36.6 Code: 30757-8 Heart Rate 1: 105 bpm Height: 5'4" SpO2: 96% Weight: 213 lbs 09/14/2018 Blood Pressure 1: 130/80 Code: 8480-6 BMI: 36.9 Code: 32116-8 Height: 5'4" Weight: 215 lbs 03/12/2018 Blood Pressure 1: 148/82 Code: 8480-6 BMI: 36.7 Code: 45453-9 Heart Rate 1: 96 bpm Height: 5'4" SpO2: 98% Weight: 214 lbs 09/11/2017 Blood Pressure 1: 142/84 Code: 8480-6 BMI: 37.2 Code: 91345-1 Heart Rate 1: 91 bpm Height: 5'4" SpO2: 98% Weight: 217 lbs 03/10/2017 Blood Pressure 1: 144/78 Code: 8480-6 BMI: 36.8 Code: 23472-5 Heart Rate 1: 86 bpm Height: 5'4" SpO2: 98% Weight: 214 lbs 8 oz 09/10/2016 Blood Pressure 1: 130/80 Code: 8480-6 BMI: 36.7 Code: 25626-0 Heart Rate 1: 98 bpm Height: 5'4" SpO2: 98% Weight: 214 lbs 04/23/2016 Blood Pressure 1: 126/72 Code: 8480-6 BMI: 36.0 Code: 68493-8 Heart Rate 1: 86 bpm Height: 5'4" SpO2: 97% Weight: 209 lbs 8 oz 02/29/2016 Blood Pressure 1: 138/76 Code: 8480-6 BMI: 34.8 Code: 99040-7 Heart Rate 1: 78 bpm Height: 5'4" SpO2: 98% Weight: 203 lbs 08/17/2015 Blood Pressure 1: 140/88 Code: 8480-6 BMI: 35.2 Code: 19313-0 Heart Rate 1: 90 bpm Height: 5'4" [...] Encounters Encounter Performer Loca tion Codes Date ([id number]) 94555 EST. 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 P ATIENT, LEVEL III Diagnosis: Chronic obstructive pulmonary disease with acute lower respiratory infection[ICD10: J44.0] Diagnosis: Cough[ICD10: R05] Samantha Capone MD, [facility] CPT-4: 29548 11/26/2018 [id number] EST. PATIENT, LEVEL III Diagnosis: Postmenopausal bleeding[ICD10: N95.0] Diagnosis: Unspecified ovarian cyst, left side[ICD10: N83.202] Constance Capone MD, [facility] CPT-4: 14802 11/12/2018 [id number] EST. PATIENT, LEVEL IV Diagnosis: Postmenopausal bleeding[ICD10: N95.0] Constance Capone MD, [facility] CPT- 4: 16614 11/06/2018 ([id number]) 85067 EST. P ATIENT, LEVEL IV Diagnosis: Essential (primary) hypertension[ICD10: I10] Diagnosis: Type 2 diabetes mellitus without complications[ICD10: E11.9] Diagnosis: Mixed hyperlipidemia[ICD10: E78.2] Blessing Capone MD, [facility] CPT-4: 53427 09/14/2018 ([id number]) 56300 EST. P ATIENT, LEVEL IV Diagnosis: Essential (primary) hypertension[ICD10: I10] Diagnosis: Mixed hyperlipidemia[ICD10: E78.2] Diagnosis: Vitamin D deficiency, unspecified[ICD10: E55.9] Diagnosis: Type 2 diabetes mellitus without complications[ICD10: E11.9] Diagnosis: Impaired fasting glucose[ICD10: R73.01] Diagnosis: Encounter for screening mammogram for malignant neoplasm of breast[ICD10: Z12.31] Blessing Capone MD, [facility] CPT-4: 81265 03/12/2018 ([id number]) 32174 EST. P ATIENT, LEVEL IV Diagnosis: Type 2 diabetes mellitus without complications[ICD10: E11.9] Diagnosis: Vitamin D deficiency, unspecified[ICD10: E55.9] Diagnosis: Mixed hyperlipidemia[ICD10: E78.2] Diagnosis: Essential (primary) hypertension[ICD10: I10] Blessing Capone MD, [facility] CPT-4: 36662 09/11/2017 ([id number]) 57250 EST. P ATIENT, LEVEL III Diagnosis: Essential (primary) hypertension[ICD10: I10] Diagnosis: Type 2 diabetes mellitus without complications[ICD10: E11.9] Blessing Capone MD, [facility] CPT-4: 23097 03/10/2017 ([id number]) 41525 EST. P ATIENT, LEVEL IV Diagnosis: Type 2 diabetes mellitus without complications[ICD10: E11.9] Diagnosis: Mixed hyperlipidemia[ICD10: E78.2] Diagnosis: Essential (primary) hypertension[ICD10: I10] Diagnosis: Tobacco use[ICD10: Z72.0] Samantha Capone MD, [facility] CPT-4: 88372 09/10/2016 ([id number]) 88764 EST. P ATIENT, LEVEL IV Diagnosis: Type 2 diabetes mellitus without complications[ICD10: E11.9] Diagnosis: Essential (primary) hypertension[ICD10: I10] Diagnosis: Emphysema (subcutaneous) resulting from a procedure, subsequent encounter[ICD10: T81.82XD] Diagnosis: Tobacco use[ICD10: Z72.0] Samantha Capone MD, [facility] CPT-4: 87353 04/23/2016 ([id number]) 65670 EST. P ATIENT, LEVEL IV Diagnosis: Essential (primary) hypertension[ICD10: I10] Diagnosis: Tobacco use[ICD10: Z72.0] Diagnosis: Type 2 diabetes mellitus without complications[ICD10: E11.9] Samantha Capone MD, [facility] CPT-4: 20082 02/29/2016 ([id number]) OFFICE VISI T, [facility] - LEVEL 4 Diagnosis: Other abnormal glucose[ICD10: R73.09] Diagnosis: Essential (primary) hypertension[ICD10: I10] Diagnosis: Mixed hyperlipidemia[ICD10: E78.2] Diagnosis: Tobacco use[ICD10: Z72.0] Diagnosis: Vitamin D deficiency, unspecified[ICD10: E55.9] Samantha Capone MD, [facility] CPT-4: 63099 08/17/2015 Plan of Care Planned Activity Notes C odes Status Date Visit Plan: Hypertension - well con trolled [...] week 03/15/2019 Appointment: Blessing Miller WPtel: [phone] [phone] (15 min) Moderate 03/15/2019 Patient Education: Patient Medication Summary Completed 03/15/2019 Patient Education: Cholesterol Management Completed 03/15/2019 Patient Education: Diabetes Completed 03/15/2019 Patient Education: Smoking and Tobacco Addiction Completed 03/15/2019 Care Plan: SCREENINGMAMMOGRAPHYDIGITAL LOINC : 96017-1 Pending 03/15/2019 Visit Plan: COPD EXACERBATION - OFFICIAL GREETER D is a chronic problem for this [...] changes. 11/26/2018 [phone] [place] (30 min) Complex 11/26/2018 Patient Education: Patient Medication Summary Completed 11/26/2018 Visit Plan: Post menopausal bleedin g - US shows mass - Dr. Capone in to discuss with pt - will refer to [facility] high speed operator/onc, will order CT Abdomen/pelvis and labs 11/12/2018 Appointment: Constance Esposito WPtel: [phone] [phone] (30 min) Complex 11/12/2018 Patient Education: Patient Medication Summary Completed 11/12/2018 Visit Plan: Post menopausal bleedin g - Pap done - will order US and refer as indicated - pt is to notify clinic with any changes, questions, or concerns. 11/06/2018 Appointment: Constance Esposito WPtel: [phone] [facility] (30 min) Complex 11/06/2018 Patient Education: Patient [...] diet 09/14/2018 Appointment: Blessing Miller WPtel: [phone] [phone] (30 min) Complex 09/14/2018 Patient Education: Patient [...] use 03/12/2018 Appointment: Blessing Miller WPtel: [phone] [phone] (30 min) Complex 03/12/2018 Patient Education: Patient Medication Summary Completed 03/12/2018 Care Plan: SCREENINGMAMMOGRAPHYDIGITAL LOINC : 34019-6 Pending 03/12/2018 Visit Plan: Hypertension - well [...] medications. 09/11/2017 Appointment: Blessing Miller [facility] [phone] [phone] (30 min) Complex 09/11/2017 Patient Education: Patient Medication Summary Completed 09/11/2017 Patient Education: Smoking and Tobacco Addiction Completed 09/11/2017 Patient Education: Obesity Completed 09/11/2017 Care Plan: Comp Metabolic Cancelled 09/11/2017 Care Plan: Cbc With Differential Cancelled 09/11/2017 Care Plan: %Hba1C LOIN C : 52235-2 Cancelled 09/11/2017 Care Plan: Tsh Cancelled 09/11/2017 Care Plan: Lipid Cancelled 09/11/2017 Care Plan: Vitamin D 25 Oh Cancelled 09/11/2017 Appointment: Blessing Miller WPtel[facility] [phone] [facility] [id number] (30 min) Complex 09/08/2017 Visit Plan: Hypertension [...] less controlled. 03/10/2017 Appointment: Blessing Miller WPtel[facility] [phone] [facility] [id number] (30 min) Complex 03/10/2017 Patient Education: Patient Medication Summary Completed 03/10/2017 Patient Education: Smoking and Tobacco Addiction Completed 03/10/2017 Patient Education: Obesity Completed 03/10/2017 Care Plan: Lipid Cancelled 03/10/2017 Care Plan: Tsh Cancelled 03/10/2017 Care Plan: %Hba1C LOIN C : 47912-5 Cancelled 03/10/2017 Care Plan: Cbc With Differential [...] 09/10/2016 Care Plan: %Hba1C LOIN C : 78302-4 Cancelled 09/10/2016 Care Plan: Tsh Cancelled 09/10/2016 [...] Completed 02/29/2016 Appointment: Samantha Capone WPtel: [phone] [id number] (15 min) Moderate 02/22/2016 Visit Plan: Hypertension [...] check hgba1c. 08/17/2015 Appointment: Samantha Capone WPtel: [facility] [place] (S) New Patient 08/17/2015 Patient Education: Patient Medication Summary Completed 08/17/2015 Patient Education: Hypertension Completed 08/17/2015 Patient Education: Smoking and Tobacco Addiction Completed 08/17/2015 Instructions Comment . Post menopausal bl eeding - US shows mass - Dr. Capone in to discuss with pt - will refer to [facility] high speed operator/onc, will order CT Abdomen/pelvis and labs . [...]
--- OUTSIDE RECORDS SUMMARY | 2020-04-27 11:32 | XMS REPORT | CCD ---
Author Author Roberta Capone Organization Samantha Capone MD, [facility] Address [address] [place] [address] Phone Care Team Providers Care Federal Aid Coordinator Name Role Phone PP Unavailable CCM Unavailable Summary Purpose Interface Exchange Insurance Providers Payer name Policy type / Coverage type Covered constitution party ID Effective Begin Date Effective End Date WPS Medicare Part B Medicare Part B [id number] 2018 Unknown [employer] Medicare Part B [id number] Unknown Family history Father Diagnosis Age At Onset Hyperlipidemia Unknown Heart Attack Unknown Hypertension Unknown Mother Diagnosis Age At Onset Arthritis Unknown Breast cancer Unknown Hypertension Unknown Skin cancer Unknown Osteoporosis Unknown Sister Diagnosis Age At Onset Cancer Unknown Social History Social History Element Codes Description Effective Dates Tobacco history SNOMED CT: 40239408 Current every day smoker one pack/day 48 yrs - pt down to 1/2 ppd as of Jul 2016 09/10/2016 Marital status Unknown M arried Derik 08/17/2015 Number of children Unknown 2 adopted children - 35 (Saul) and 33y/o (Jeb) 08/17/2015 Living arrangements Unknown House 08/17/2015 Employment Unknown Retir ed 08/17/[address]: 639940387 Never drinks alcohol 08/17/2015 Allergies, Adverse Reactions, [...] Fill Instructions azithromycin 250 mg tablet RxNorm: 723616 2 tabs on day #1, the n 1 Tablet(s) PO daily x 4 days 11/26/2018 03/14/2019 Inactive Symbicort 160 mcg-4. 5 mcg/actuation HFA aerosol inhaler RxNorm: 4220987 1 INH BID 11/26/2018 01/24/2019 In active pravastatin 40 mg ta blet RxNorm: 556768 TAKE ONE TABLET BY MO [facility] DAILY 11/13/2018 05/11/2019 Ac tive glipizide ER 2.5 mg tablet, extended release 24 hr RxNorm: 927305 TAKE ONE TABLET BY MOUTH DAILY 11/13/2018 05/11/2019 Active enalapril 10 mg-hydr ochlorothiazide 25 mg tablet RxNorm: 475922 TAKE ONE TABLET BY MOUTH DAILY 11/13/2018 05/11/2019 Active Symbicort 160 mcg-4. 5 mcg/actuation HFA aerosol inhaler RxNorm: 0449020 2 Puff(s) INH 03/12/2018 09/13/2018 Inactive enalapril 10 mg-hydr ochlorothiazide 25 mg tablet RxNorm: 097536 TAKE ONE TABLET BY MOUTH DAILY 02/23/2018 11/12/2018 Inactive glipizide ER 2.5 mg tablet, extended release 24 hr RxNorm: 351646 Tablet(s) TAKE ONE TABLET BY MOUTH DAILY 02/23/2018 11/12/2018 Inactive pravastatin 40 mg ta blet RxNorm: 981488 TAKE ONE TABLET BY MO [facility] DAILY 02/23/2018 11/12/2018 In active glipizide ER 2.5 mg tablet, extended release 24 hr RxNorm: 439477 TAKE ONE TABLET BY MOUTH DAILY 08/22/2017 02/17/2018 Inactive enalapril 10 mg-hydr ochlorothiazide 25 mg tablet RxNorm: 659356 TAKE ONE TABLET BY MOUTH DAILY 05/23/2017 02/16/2018 Inactive pravastatin 40 mg ta blet RxNorm: 253076 TAKE ONE TABLET BY [facility] DAILY 05/23/2017 02/16/2018 In active glipizide ER 2.5 mg tablet, extended release 24 hr RxNorm: 653452 TAKE ONE TABLET BY MOUTH DAILY 02/21/2017 08/19/2017 Inactive glipizide ER 2.5 mg tablet, extended release 24 hr RxNorm: 138405 TAKE ONE TABLET BY MOUTH DAILY 12/23/2016 02/20/2017 Inactive pravastatin 40 mg ta blet RxNorm: 511347 TAKE ONE TABLET BY [facility] DAILY 08/26/2016 05/22/2017 In active enalapril 10 mg-hydr ochlorothiazide 25 mg tablet RxNorm: 438498 TAKE ONE TABLET BY MOUTH DAILY 08/26/2016 02/22/2018 Inactive pravastatin 40 mg ta blet RxNorm: 844552 TAKE ONE TABLET BY [facility] DAILY 08/26/2016 02/22/2018 In active enalapril 10 mg-hydr ochlorothiazide 25 mg tablet RxNorm: 807185 TAKE ONE TABLET BY MOUTH DAILY 08/26/2016 02/22/2018 Inactive enalapril 10 mg-hydr ochlorothiazide 25 mg tablet RxNorm: 298672 TAKE ONE TABLET BY MOUTH DAILY 08/26/2016 05/22/2017 Inactive glipizide ER 2.5 mg tablet, extended release 24 hr RxNorm: 797247 TAKE ONE TABLET BY MOUTH DAILY 06/25/2016 12/21/2016 Inactive glipizide ER 2.5 mg tablet, extended release 24 hr RxNorm: 580908 TAKE ONE TABLET BY MOUTH DAILY 03/11/2016 06/24/2016 Inactive glipizide 5 mg tablet RxNorm: 200627 1 Tablet(s) PO daily 10/16/2015 10/15/2015 Inactive glipizide ER 2.5 mg tablet, extended release 24 hr RxNorm: 541733 1 Tablet(s) PO daily 10/16/2015 03/10/2016 Inactive enalapril 10 mg-hydr ochlorothiazide 25 mg tablet RxNorm: 482284 1 Tablet(s) PO daily 09/01/2015 08/25/2016 Inactive pravastatin 40 mg ta blet RxNorm: 482996 1 Tablet(s) PO daily 09/01/2015 08/25/2016 Inactive metformin 500 mg tablet RxNorm: 692652 1/2 Tablet(s) PO BID 09/01/2015 09/13/2018 Inactive metformin 500 mg tablet RxNorm: 071567 1/2 Tablet(s) PO BID 09/01/2015 08/31/2015 Inactive pravastatin 40 mg ta blet RxNorm: 716434 1 Tablet(s) PO daily 08/17/2015 08/31/2015 Inactive vitamin E (dl, aceta te) 1,000 unit capsule RxNorm: 863142 1 Capsule(s) PO every other day No Start Date Active Super B Complex + C 150 mg tablet RxNorm: 1 Tablet(s) PO daily No Start Date Active Odilia 180 mg tablet RxNorm: 319820 1 Tablet(s) PO daily No Start Date Active Vitamin D2 1,000 uni t capsule RxNorm: 059581 1 Capsule(s) PO BID No Start Date Active enalapril 10 mg-hydr ochlorothiazide 25 mg tablet RxNorm: 791857 1 Tablet(s) PO daily No Start Date [...] Observation Code Item Item Code Result Date %Hba1C Cxp209 % HbA1c 53095-5 7.2 % 03/15/2019 %Hba1C Peh530 Gluc Ave 160 mg/dL 03/15/2019 Tsh Ord6 TSH (3rd IS) 3.46 uIU/mL 03/12/2018 Comp Metabolic Nmh024 NA 138 mEq/L 03/12/2018 Comp Metabolic Yed579 K 4.5 mEq/L 03/12/2018 Comp Metabolic Rtt399 CL 104 mEq/L 03/12/2018 Comp Metabolic Zxj562 CO2 28.0 mEq/L 03/12/2018 Comp Metabolic Nak761 AN ION GAP 11 03/12/2018 Comp Metabolic Ggq246 GL UCOSE 129 mg/dL 03/12/2018 Comp Metabolic Pbf171 Cr eat 0.8 mg/dL 03/12/2018 Comp Metabolic Sdi299 eG FR 74 ml/min/1.73m2 03/12 Comp Metabolic Buj368 BUN 12 mg/dL 03/12/2018 Comp Metabolic Rcn930 B/ C Ratio 14.8 Ratio 03/12/2018 Comp Metabolic Dtx799 CA LCIUM 9.1 mg/dL 03/12/2018 Comp Metabolic Dtz068 AL K PHOS 64 U/L 03/12/2018 Comp Metabolic Yym232 T(SGOT) 13 U/L 03/12/2018 Comp Metabolic Arb790 AL T(SGPT) 12 U/L 03/12/2018 Comp Metabolic Fbo645 BI LI T 0.5 mg/dL 03/12/2018 Comp Metabolic Rrg794 AL BUMIN 4.0 g/dL 03/12/2018 Comp Metabolic Jkd191 TP RO 6.8 g/dL 03/12/2018 Comp Metabolic Jci222 GL OB 2.8 g/dL 03/12/2018 Comp Metabolic Cuf487 A/ G Ratio 1.4 Ratio 03/12/2018 Comp Metabolic Ugi259 Os mo 277 mOsmo 03/12/2018 Vitamin D 25 Oh Onf5592 VITAMIN D, 25 HYDROXY 47.13 ng/mL 03/12/2018 Lipid Ord30 CHOL 161 mg/dL 03/12/2018 Lipid Ord30 HDL 49.0 mg/dl 03/12/2018 Lipid Ord30 TRIG 126 mg/dL 03/12/2018 Lipid Ord30 LDL 87 mg/dL 03/12/2018 Lipid Ord30 C/HDL 3.3 Ratio 03/12/2018 %Hba1C Pyh454 % HbA1c 12271-8 6.4 % 03/12/2018 %Hba1C Vpo665 Gluc Ave 137 mg/dL 03/12/2018 Cbc With [...] 28.8 pg 03/12/2018 Cbc With Differential Ord2 Adair% 9.0 % 03/12/2018 Cbc With Differential Ord2 [...] 2.91 K/ul 03/12/2018 Cbc With Differential Ord2 Adair ABS# 1.0 K/ul 03/12/2018 Cbc With Differential Ord2 Eos ABS# 0.2 K/ul 03/12/2018 Cbc With Differential Ord2 Baso ABS# 0.1 K/ul 03/12/2018 Vitamin D 25 Oh Aqv5386 VITAMIN D, 25 HYDROXY 40.72 ng/mL 09/11/2017 %Hba1C Mpb839 % HbA1c 55153-8 6.0 % 09/11/2017 %Hba1C Hzt308 Gluc Ave 126 mg/dL 09/11/2017 Cbc With [...] 28.8 pg 09/11/2017 Cbc With Differential Ord2 Adair% 7.8 % 09/11/2017 Cbc With Differential Ord2 [...] 3.57 K/ul 09/11/2017 Cbc With Differential Ord2 Adair ABS# 1.0 K/ul 09/11/2017 Cbc With Differential Ord2 Eos ABS# 0.3 K/ul 09/11/2017 Cbc With Differential Ord2 Baso ABS# 0.1 K/ul 09/11/2017 Tsh Ord6 hTSH II 2.46 uIU/mL 09/11/2017 Lipid Ord30 CHOL 172 mg/dL 09/11/2017 Lipid Ord30 HDL 47.0 mg/dl 09/11/2017 Lipid Ord30 TRIG 137 mg/dL 09/11/2017 Lipid Ord30 LDL 98 mg/dL 09/11/2017 Lipid Ord30 C/HDL 3.7 Ratio 09/11/2017 Comp Metabolic Njm536 NA 138 mEq/L 09/11/2017 Comp Metabolic Hoh493 K 4.5 mEq/L 09/11/2017 Comp Metabolic Atp015 CL 103 mEq/L 09/11/2017 Comp Metabolic Glr397 CO2 28.0 mEq/L 09/11/2017 Comp Metabolic Vzn044 AN ION GAP 12 09/11/2017 Comp Metabolic Owm833 GL UCOSE 105 mg/dL 09/11/2017 Comp Metabolic Fct703 Cr eat 0.7 mg/dL 09/11/2017 Comp Metabolic Gbm240 eG FR 94 ml/min/1.73m2 09/11 Comp Metabolic Uxz345 BUN 10 mg/dL 09/11/2017 Comp Metabolic Nyw600 B/ C Ratio 15.2 Ratio 09/11/2017 Comp Metabolic Kqe134 CA LCIUM 9.1 mg/dL 09/11/2017 Comp Metabolic Ppn603 AL K PHOS 70 U/L 09/11/2017 Comp Metabolic Xkd460 T(SGOT) 12 U/L 09/11/2017 Comp Metabolic Kyf014 AL T(SGPT) 11 U/L 09/11/2017 Comp Metabolic Qpb016 BI LI T 0.6 mg/dL 09/11/2017 Comp Metabolic Prv552 AL BUMIN 4.1 g/dL 09/11/2017 Comp Metabolic Cua998 TP RO 7.1 g/dL 09/11/2017 Comp Metabolic Knc672 GL OB 3.0 g/dL 09/11/2017 Comp Metabolic Vyi131 A/ G Ratio 1.4 Ratio 09/11/2017 Comp Metabolic Vtx759 Os mo 275 mOsmo 09/11/2017 Microalbumin Wkd635 Micr oAlb <0.7 mg/dL 09/11/2016 %Hba1C Hib794 % HbA1c 08390-8 5.8 % 09/11/2016 %Hba1C Nye296 Gluc Ave 120 mg/dL 09/11/2016 Cbc With [...] 29.3 pg 09/10/2016 Cbc With Differential Ord2 Adair% 7.5 % 09/10/2016 Cbc With Differential Ord2 [...] 3.78 K/ul 09/10/2016 Cbc With Differential Ord2 Adair ABS# 0.9 K/ul 09/10/2016 Cbc With Differential Ord2 Eos ABS# 0.3 K/ul 09/10/2016 Cbc With Differential Ord2 Baso ABS# 0.1 K/ul 09/10/2016 Lipid Ord30 CHOL 163 mg/dL 09/10/2016 Lipid Ord30 HDL 48.0 mg/dl 09/10/2016 Lipid Ord30 TRIG 174 mg/dL 09/10/2016 Lipid Ord30 LDL 80 mg/dL 09/10/2016 Lipid Ord30 C/HDL 3.4 Ratio 09/10/2016 Comp Metabolic Fpl510 NA 135 mEq/L 09/10/2016 Comp Metabolic Ecx537 K 3.8 mEq/L 09/10/2016 Comp Metabolic Bsm112 CL 99 mEq/L 09/10/2016 Comp Metabolic Jbu910 CO2 27.0 mEq/L 09/10/2016 Comp Metabolic Qku584 AN ION GAP 13 09/10/2016 Comp Metabolic Ujk410 GL UCOSE 72 mg/dL 09/10/2016 Comp Metabolic Gde215 Cr eat 0.7 mg/dL 09/10/2016 Comp Metabolic Egq826 eG FR 89 ml/min/1.73m2 09/10 Comp Metabolic Hvx696 BUN 7 mg/dL 09/10/2016 Comp Metabolic Vcx230 B/ C Ratio 10.1 Ratio 09/10/2016 Comp Metabolic Bkf788 CA LCIUM 9.1 mg/dL 09/10/2016 Comp Metabolic Wda692 AL K PHOS 66 U/L 09/10/2016 Comp Metabolic Oew584 T(SGOT) 14 U/L 09/10/2016 Comp Metabolic Fpb401 AL T(SGPT) 11 U/L 09/10/2016 Comp Metabolic Ngd052 BI LI T 0.6 mg/dL 09/10/2016 Comp Metabolic Qmo725 AL BUMIN 4.1 g/dL 09/10/2016 Comp Metabolic Wzx467 TP RO 7.3 g/dL 09/10/2016 Comp Metabolic Drx451 GL OB 3.2 g/dL 09/10/2016 Comp Metabolic Syy671 A/ G Ratio 1.3 Ratio 09/10/2016 Comp Metabolic Cnx276 Os mo 267 mOsmo 09/10/2016 Tsh Ord6 hTSH II 2.80 uIU/mL 09/10/2016 %Hba1C Ljr581 % HbA1c 47816-5 5.8 % 02/29/2016 %Hba1C Ial706 Gluc Ave 120 mg/dL 02/29/2016 Comp Metabolic Vqb078 NA 135 mEq/L 02/29/2016 Comp Metabolic Qbb674 K 4.4 mEq/L 02/29/2016 Comp Metabolic Pte699 CL 101 mEq/L 02/29/2016 Comp Metabolic Lxx064 CO2 27.0 mEq/L 02/29/2016 Comp Metabolic Yvw185 AN ION GAP 11 02/29/2016 Comp Metabolic Rjf854 GL UCOSE 77 mg/dL 02/29/2016 Comp Metabolic Smk488 Cr eat 0.6 mg/dL 02/29/2016 Comp Metabolic Zyl172 eG FR 99 ml/min/1.73m2 02/28 Comp Metabolic Ddr496 BUN 13 mg/dL 02/29/2016 Comp Metabolic Wxp649 B/ C Ratio 20.6 Ratio 02/29/2016 Comp Metabolic Hwa553 CA LCIUM 9.4 mg/dL 02/29/2016 Comp Metabolic Hkj724 AL K PHOS 65 U/L 02/29/2016 Comp Metabolic Jmm083 T(SGOT) 14 U/L 02/29/2016 Comp Metabolic Knk727 AL T(SGPT) 11 U/L 02/29/2016 Comp Metabolic Hrs431 BI LI T 0.6 mg/dL 02/29/2016 Comp Metabolic Pub738 AL BUMIN 4.1 g/dL 02/29/2016 Comp Metabolic Oxq181 TP RO 7.2 g/dL 02/29/2016 Comp Metabolic Bsg262 GL OB 3.1 g/dL 02/29/2016 Comp Metabolic Fvd486 A/ G Ratio 1.3 Ratio 02/29/2016 Comp Metabolic Hgo579 Os mo 269 mOsmo 02/29/2016 Lipid Ord30 CHOL 202 mg/dL 02/29/2016 Lipid Ord30 HDL 62.0 mg/dl 02/29/2016 Lipid Ord30 TRIG 123 mg/dL 02/29/2016 Lipid Ord30 LDL 115 mg/dL 02/29/2016 Lipid Ord30 C/HDL 3.3 Ratio 02/29/2016 Vitamin D 25 Oh Jkv2411 VITAMIN D, 25 HYDROXY 58.48 ng/mL 08/18/2015 Lipid Ord30 CHOL 172 mg/dL 08/17/2015 Lipid Ord30 HDL 49.0 mg/dl 08/17/2015 Lipid Ord30 TRIG 170 mg/dL 08/17/2015 Lipid Ord30 LDL 89 mg/dL 08/17/2015 Lipid Ord30 C/HDL 3.5 Ratio 08/17/2015 %Hba1C Kyq177 % HbA1c 23796-4 6.4 % 08/17/2015 %Hba1C Nmm556 Gluc Ave 137 mg/dL 08/17/2015 Tsh Ord6 [...] Ord2 RDW 14.8 % 08/17/2015 Comp Metabolic Xrm689 NA 132 mEq/L 08/17/2015 Comp Metabolic Iba696 K 4.4 mEq/L 08/17/2015 Comp Metabolic Vbn252 CL 101 mEq/L 08/17/2015 Comp Metabolic Tcd409 CO2 24.0 mEq/L 08/17/2015 Comp Metabolic Hcg426 AN ION GAP 11 08/17/2015 Comp Metabolic Prc286 GL UCOSE 130 mg/dL 08/17/2015 Comp Metabolic Gmm584 Cr eat 0.7 mg/dL 08/17/2015 Comp Metabolic Sfw033 eG FR 93 ml/min/1.73m2 08/17 Comp Metabolic Bzi364 BUN 8 mg/dL 08/17/2015 Comp Metabolic Bss603 B/ C Ratio 11.9 Ratio 08/17/2015 Comp Metabolic Qak874 CA LCIUM 9.5 mg/dL 08/17/2015 Comp Metabolic Rzo778 AL K PHOS 70 U/L 08/17/2015 Comp Metabolic Zxr487 T(SGOT) 28 U/L 08/17/2015 Comp Metabolic Zeg404 AL T(SGPT) 14 U/L 08/17/2015 Comp Metabolic Jtf715 BI LI T 0.8 mg/dL 08/17/2015 Comp Metabolic Oth065 AL BUMIN 4.2 g/dL 08/17/2015 Comp Metabolic Vxo061 TP RO 7.3 g/dL 08/17/2015 Comp Metabolic Cwu674 GL OB 3.1 g/dL 08/17/2015 Comp Metabolic Wfu392 A/ G Ratio 1.4 Ratio 08/17/2015 Comp Metabolic Lon040 Os mo 265 mOsmo 08/17/2015 Review of [...] atraumatic 03/15/2019 None Full Exam - General 1995 Musculoskeletal head and neck Overall: cervical spine [...] dentition 11/26/2018 None Full Exam - General 1995 Ears/Nose/Throat oral cavity/pharynx/larynx Overall: oral mucosa clear 11/26/2018 None Full Exam - General 1994 Ears/Nose/Throat oral cavity/pharynx/larynx Overall: oropharyngeal mucosa clear 11/26/2018 None Full Exam - General 1995 Ears/Nose/Throat oral cavity/pharynx/larynx Overall: hypopharynx benign 11/26/2018 None Full Exam - General 1995 Ears/Nose/Throat oral cavity/pharynx/larynx Overall: no masses 11/26/2018 None Full Exam - General 1994 Respiratory respiratory effort/rhythm Overall: no retractions 11/26/2018 None Full Exam - General 1994 Respiratory respiratory effort/rhythm Overall: normal rate 11/26/2018 None Full Exam - General 1994 Cardiovascular extremities Overall: no clubbing 11/26/2018 None Full Exam - General 1995 Cardiovascular auscultation of heart Overall: regular rate [...] lips 11/12/2018 None Full Exam - General 1995 Ears/Nose/Throat oral cavity/pharynx/larynx Overall: oral mucosa clear [...] 08/17/2015 None Procedures Procedure Codes Date TOBACCO-USE SAP SECURITY CONSULTANT 3-[address]: 597967448 CPT-4: G0436 09/10/2016 TOBACCO-USE SAP SECURITY CONSULTANT 3-[address]: 130251580 CPT-4: G0436 04/23/2016 TOBACCO-USE SAP SECURITY CONSULTANT 3-[address]: 334061335 CPT-4: G0436 02/29/2016 TOBACCO-USE SAP SECURITY CONSULTANT 3-[address]: 926348816 CPT-4: G0436 08/17/2015 TOTAL HYSTERECTOMY CPT- 4: 67103 Unknown Vital Signs Date Vital 03/15/2019 Blood Pressure 1: 140/84 Code: 8480-6 BMI: 33.1 Code: 75807-1 Heart Rate 1: 104 bpm Height: 5'4" SpO2: 96% Weight: 193 lbs 11/26/2018 Blood Pressure 1: 130/76 Code: 8480-6 BMI: 36.6 Code: 63279-3 Heart Rate 1: 100 bpm Height: 5'4" SpO2: 96% Temperature: 36.7 (C ) / 98.0 (F) Weight: 213 lbs 11/12/2018 Heigh t: Weight: 11/06/2018 Blood Pressure 1: 150/90 Code: 8480-6 BMI: 36.6 Code: 02894-0 Heart Rate 1: 105 bpm Height: 5'4" SpO2: 96% Weight: 213 lbs 09/14/2018 Blood Pressure 1: 130/80 Code: 8480-6 BMI: 36.9 Code: 47119-8 Height: 5'4" Weight: 215 lbs 03/12/2018 Blood Pressure 1: 148/82 Code: 8480-6 BMI: 36.7 Code: 77455-3 Heart Rate 1: 96 bpm Height: 5'4" SpO2: 98% Weight: 214 lbs 09/11/2017 Blood Pressure 1: 142/84 Code: 8480-6 BMI: 37.2 Code: 62710-2 Heart Rate 1: 91 bpm Height: 5'4" SpO2: 98% Weight: 217 lbs 03/10/2017 Blood Pressure 1: 144/78 Code: 8480-6 BMI: 36.8 Code: 08756-8 Heart Rate 1: 86 bpm Height: 5'4" SpO2: 98% Weight: 214 lbs 8 oz 09/10/2016 Blood Pressure 1: 130/80 Code: 8480-6 BMI: 36.7 Code: 06248-7 Heart Rate 1: 98 bpm Height: 5'4" SpO2: 98% Weight: 214 lbs 04/23/2016 Blood Pressure 1: 126/72 Code: 8480-6 BMI: 36.0 Code: 31767-2 Heart Rate 1: 86 bpm Height: 5'4" SpO2: 97% Weight: 209 lbs 8 oz 02/29/2016 Blood Pressure 1: 138/76 Code: 8480-6 BMI: 34.8 Code: 08052-1 Heart Rate 1: 78 bpm Height: 5'4" SpO2: 98% Weight: 203 lbs 08/17/2015 Blood Pressure 1: 140/88 Code: 8480-6 BMI: 35.2 Code: 18407-5 Heart Rate 1: 90 bpm Height: 5'4" [...] Encounters Encounter Performer Loca tion Codes Date ([id number]) [id number] EST. 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 P ATIENT, LEVEL III Diagnosis: Chronic obstructive pulmonary disease with acute lower respiratory infection[ICD10: J44.0] Diagnosis: Cough[ICD10: R05] Samantha Capone MD, [facility] CPT-4: 86104 11/26/2018 [id number] EST. PATIENT, LEVEL III Diagnosis: Postmenopausal bleeding[ICD10: N95.0] Diagnosis: Unspecified ovarian cyst, left side[ICD10: N83.202] Constance Capone MD, [facility] CPT-4: 29782 11/12/2018 [id number] EST. PATIENT, LEVEL IV Diagnosis: Postmenopausal bleeding[ICD10: N95.0] Constance Capone MD, [facility] CPT- 4: 77368 11/06/2018 ([id number]) 95802 EST. P ATIENT, LEVEL IV Diagnosis: Essential (primary) hypertension[ICD10: I10] Diagnosis: Type 2 diabetes mellitus without complications[ICD10: E11.9] Diagnosis: Mixed hyperlipidemia[ICD10: E78.2] Blessing Capone MD, [facility] CPT-4: 70845 09/14/2018 ([id number]) 09807 EST. P ATIENT, LEVEL IV Diagnosis: Essential (primary) hypertension[ICD10: I10] Diagnosis: Mixed hyperlipidemia[ICD10: E78.2] Diagnosis: Vitamin D deficiency, unspecified[ICD10: E55.9] Diagnosis: Type 2 diabetes mellitus without complications[ICD10: E11.9] Diagnosis: Impaired fasting glucose[ICD10: R73.01] Diagnosis: Encounter for screening mammogram for malignant neoplasm of breast[ICD10: Z12.31] Blessing Capone MD, [facility] CPT-4: 61297 03/12/2018 ([id number]) 35183 EST. P ATIENT, LEVEL IV Diagnosis: Type 2 diabetes mellitus without complications[ICD10: E11.9] Diagnosis: Vitamin D deficiency, unspecified[ICD10: E55.9] Diagnosis: Mixed hyperlipidemia[ICD10: E78.2] Diagnosis: Essential (primary) hypertension[ICD10: I10] Blessing Capone MD, [facility] CPT-4: 74282 09/11/2017 ([id number]) 71441 EST. P ATIENT, LEVEL III Diagnosis: Essential (primary) hypertension[ICD10: I10] Diagnosis: Type 2 diabetes mellitus without complications[ICD10: E11.9] Blessing Capone MD, [facility] CPT-4: 02800 03/10/2017 ([id number]) 71497 EST. P ATIENT, LEVEL IV Diagnosis: Type 2 diabetes mellitus without complications[ICD10: E11.9] Diagnosis: Mixed hyperlipidemia[ICD10: E78.2] Diagnosis: Essential (primary) hypertension[ICD10: I10] Diagnosis: Tobacco use[ICD10: Z72.0] Samantha Capone MD, [facility] CPT-4: 13897 09/10/2016 ([id number]) 47812 EST. P ATIENT, LEVEL IV Diagnosis: Type 2 diabetes mellitus without complications[ICD10: E11.9] Diagnosis: Essential (primary) hypertension[ICD10: I10] Diagnosis: Emphysema (subcutaneous) resulting from a procedure, subsequent encounter[ICD10: T81.82XD] Diagnosis: Tobacco use[ICD10: Z72.0] Samantha Capone MD, [facility] CPT-4: 23829 04/23/2016 ([id number]) 23475 EST. P ATIENT, LEVEL IV Diagnosis: Essential (primary) hypertension[ICD10: I10] Diagnosis: Tobacco use[ICD10: Z72.0] Diagnosis: Type 2 diabetes mellitus without complications[ICD10: E11.9] Samantha Capone MD, [facility] CPT-4: 94121 02/29/2016 ([id number]) OFFICE VISI T, [facility] - LEVEL 4 Diagnosis: Other abnormal glucose[ICD10: R73.09] Diagnosis: Essential (primary) hypertension[ICD10: I10] Diagnosis: Mixed hyperlipidemia[ICD10: E78.2] Diagnosis: Tobacco use[ICD10: Z72.0] Diagnosis: Vitamin D deficiency, unspecified[ICD10: E55.9] Samantha Capone MD, LL C CPT-4: 39015 08/17/2015 Plan of Care Planned Activity Notes C odes Status Date Visit Plan: Hypertension - well dalton solitario - continue with current medications, continue with [...] see Dr Alvarez later this week 03/15/2019 Patient Education: Patient Medication Summary Completed 03/15/2019 Patient Education: Cholesterol Management Completed 03/15/2019 Patient Education: Diabetes Completed 03/15/2019 Patient Education: Smoking and Tobacco Addiction Completed 03/15/2019 Care Plan: Comp Metabolic Pending 03/15/2019 Care Plan: Lipid Pending 03/15/2019 Care Plan: SCREENINGMAMMOGRAPHYDIGITAL LOINC : 17065-2 Pending 03/15/2019 Visit Plan: COPD EXACERBATION - OBSTETRICS NURSE PRACTITIONER D is a chronic problem for this [...] acute changes. 11/26/2018 Appointment: Samantha Capone WPtel: [address] [place], [place] [address] [place] (30 min) Complex 11/26/2018 Patient Education: Patient Medication Summary Completed 11/26/2018 Visit Plan: Post menopausal bleedin g - US shows mass - Dr. Capone in to discuss with pt - will refer to preload supervisor/onc, will order CT Abdomen/pelvis and labs 11/12/2018 Appointment: Con[facility] [phone] [facility] [place] ([facility] min) Complex 11/12/2018 Patient Education: Patient Medication Summary Completed 11/12/2018 Visit Plan: Post menopausal bleedin g - Pap done - will order US and refer as indicated - pt is to notify clinic with any changes, questions, or concerns. 11/06/2018 Appointment: Constance Esposito WPtel[facility] [place] ([facility] min) Complex 11/06/2018 Patient Education: [...] fat diet 09/14/2018 Appointment: Blessing Miller WPtel: [phone] [place] (30 min) Complex 09/14/2018 Patient Education: [...] on use 03/12/2018 Appointment: Blessing Miller WPtel[phone] (30 min) Complex 03/12/2018 Patient Education: Patient Medication Summary Completed 03/12/2018 Care Plan: SCREENINGMAMMOGRAPHYDIGITAL LOINC : 40938-7 Pending 03/12/2018 Visit Plan: Hypertension - well [...] medications. 09/11/2017 Appointment: Blessing Miller [facility] [phone] [phone] (30 min) Complex 09/11/2017 Patient Education: Patient Medication Summary Completed 09/11/2017 Patient Education: Smoking and Tobacco Addiction Completed 09/11/2017 Patient Education: Obesity Completed 09/11/2017 Care Plan: Comp Metabolic Cancelled 09/11/2017 Care Plan: Cbc With Differential Cancelled 09/11/2017 Care Plan: %Hba1C LOIN C : 84187-0 Cancelled 09/11/2017 Care Plan: Tsh Cancelled 09/11/2017 Care Plan: Lipid Cancelled 09/11/2017 Care Plan: Vitamin D 25 Oh Cancelled 09/11/2017 Appointment: Blessing Miller WPtel: [phone] [phone] (30 min) Complex 09/08/2017 Visit Plan: Hypertension [...] controlled. 03/10/2017 Appointment: Blessing Miller WPtel: [phone] [phone] (30 min) Complex 03/10/2017 Patient Education: Patient Medication Summary Completed 03/10/2017 Patient Education: Smoking and Tobacco Addiction Completed 03/10/2017 Patient Education: Obesity Completed 03/10/2017 Care Plan: Lipid Cancelled 03/10/2017 Care Plan: Tsh Cancelled 03/10/2017 Care Plan: %Hba1C LOIN C : 46128-7 Cancelled 03/10/2017 Care Plan: Cbc With Differential [...] 09/10/2016 Care Plan: %Hba1C CARLOS C : 04385-0 Cancelled 09/10/2016 Care Plan: Tsh Cancelled 09/10/2016 [...] Obesity Completed 02/29/2016 [facility]ment: [facility] [phone] [facility] (15 min) Moderate 02/22/2016 Visit Plan: Hypertension [...] check hgba1c. 08/17/2015 Appointment: Samantha Capone [facility]el[facility] [phone] [facility] [place] ([place] New Patient 08/17/2015 Patient Education: Patient Medication Summary Completed 08/17/2015 Patient Education: Hypertension Completed 08/17/2015 Patient Education: Smoking and Tobacco Addiction Completed 08/17/2015 Instructions Comment . Post menopausal bl eeding - US shows [place] - Dr. Capone in to discuss with pt - will refer to [facility] preload supervisor/onc, will order CT Abdomen/pelvis and labs . [...]
--- OUTSIDE RECORDS SUMMARY | 2020-04-27 11:33 | XMS REPORT | CCD ---
Author Author Roberta Capone Organization Samantha Capone MD, [facility] Address [address] [place] [address] Phone Care Team Providers Care Thread Singer Name Role Phone PP Unavailable CCM Unavailable Summary Purpose Interface Exchange Insurance Providers Payer name Policy type / Coverage type Covered alliance party ID Effective Begin Date Effective End Date WPS Medicare Part B Medicare Part B [id number] Unknown Unknown [employer] Medicare Part B [id number] Unknown Unknown Family history Father Diagnosis Age At Onset Hyperlipidemia Unknown Heart Attack Unknown Hypertension Unknown Mother Diagnosis Age At Onset Arthritis Unknown Breast cancer Unknown Hypertension Unknown Skin cancer Unknown Osteoporosis Unknown Sister Diagnosis Age At Onset Cancer Unknown Social History Social History Element Codes Description Effective Dates Tobacco history SNOMED CT: 27766942 Current every day smoker one pack/day 48 yrs - pt down to 1/2 ppd as of Jul 2016 09/10/2016 Marital status Unknown M deboraied Derik 08/17/2015 Number of children Unknown 2 adopted children - 35 (Saul) and 33y/o (Jeb) 08/17/2015 Living arrangements Unknown House 08/17/2015 Employment Unknown Retir ed 08/17/[address]: 303221890 Never drinks alcohol 08/17/2015 Allergies, Adverse Reactions, Alerts Allergies, Adverse Reactions, Alerts data not found Past Medical History Illness Codes Condition Status Onset Date Resolved Date Diabetes Unknown Active 03/10/2017 Unknow n Essential (primary) hypertension ICD-9: 401.1 ICD-10: I10 Active 03/10/2017 Unknown Type 2 diabetes nadege itus without complications ICD-9: 250.00 ICD-10: E11.9 Active 09/09/2016 Unknown Essential (primary) hypertension ICD-9: 401.9 ICD-10: I10 Active 09/09/2016 Unknown Mixed hyperlipidemia ICD-9: 272.2 ICD-10: E78.2 Active 09/09/2016 Unknown Tobacco use ICD-9: 305.1 ICD-10: Z72.0 Active 09/09/2016 Unknown Emphysema (subcutane ous) resulting from a procedure, subsequent encounter ICD-9: V58.89 ICD-10: T81.82XD Active 04/22/2016 Unknown Hypertension Unknown Active 08/17/2015 Unknow n Other abnormal glucose ICD-9: 790.29 ICD-10: R73.09 Active 08/16/2015 Unknown Vitamin D deficiency , unspecified ICD-9: 268.9 ICD-10: E55.9 Active 08/16/2015 Unknown Problems Condition Codes Effectiv e Dates Condition Status Diabetes Unknown 03/10/2017 Active Essential (primary) hypertension ICD-9: 401.1 ICD-10: I10 03/10/2017 Active Type 2 diabetes nadege itus without complications ICD-9: 250.00 ICD-10: E11.9 09/09/2016 Active Essential (primary) hypertension ICD-9: 401.9 ICD-10: I10 09/09/2016 Active Mixed hyperlipidemia ICD-9: 272.2 ICD-10: E78.2 09/09/2016 Active Tobacco use ICD-9: 305.1 ICD-10: Z72.0 09/09/2016 Active Emphysema (subcutane ous) resulting from a procedure, subsequent encounter ICD-9: V58.89 ICD-10: T81.82XD 04/22/2016 Active Hypertension Unknown 08/17/2015 Active Other abnormal glucose ICD-9: 790.29 ICD-10: R73.09 08/16/2015 Active Vitamin D deficiency , unspecified ICD-9: 268.9 ICD-10: E55.9 08/16/2015 Active Medications Medication Codes Instruc tions Start Date Stop Date Sta tus Fill Instructions enalapril 10 mg-hydr ochlorothiazide 25 mg tablet RxNorm: 248040 TAKE ONE TABLET BY MOUTH DAILY 05/23/2017 02/16/2018 Active pravastatin 40 mg ta blet RxNorm: 469526 TAKE ONE TABLET BY MO UTH DAILY 05/23/2017 02/16/2018 Ac tive glipizide ER 2.5 mg tablet, extended release 24 hr RxNorm: 474160 TAKE ONE TABLET BY MOUTH DAILY 02/21/2017 08/19/2017 Active glipizide ER 2.5 mg tablet, extended release 24 hr RxNorm: 010184 TAKE ONE TABLET BY MOUTH DAILY 12/23/2016 02/20/2017 Inactive enalapril 10 mg-hydr ochlorothiazide 25 mg tablet RxNorm: 043945 TAKE ONE TABLET BY MOUTH DAILY 08/26/2016 05/22/2017 Inactive pravastatin 40 mg ta blet RxNorm: 250970 TAKE ONE TABLET BY MO UTH DAILY 08/26/2016 05/22/2017 In active enalapril 10 mg-hydr ochlorothiazide 25 mg tablet RxNorm: 737693 TAKE ONE TABLET BY MOUTH DAILY 08/26/2016 05/22/2017 Inactive pravastatin 40 mg ta blet RxNorm: 155299 TAKE ONE TABLET BY MO UTH DAILY 08/26/2016 05/22/2017 In active enalapril 10 mg-hydr ochlorothiazide 25 mg tablet RxNorm: 641336 TAKE ONE TABLET BY MOUTH DAILY 08/26/2016 05/22/2017 Inactive glipizide ER 2.5 mg tablet, extended release 24 hr RxNorm: 030671 TAKE ONE TABLET BY MOUTH DAILY 06/25/2016 12/21/2016 Inactive glipizide ER 2.5 mg tablet, extended release 24 hr RxNorm: 040553 TAKE ONE TABLET BY MOUTH DAILY 03/11/2016 06/24/2016 Inactive glipizide 5 mg tablet RxNorm: 596005 1 Tablet(s) PO daily 10/16/2015 10/15/2015 Inactive glipizide ER 2.5 mg tablet, extended release 24 hr RxNorm: 112289 1 Tablet(s) PO daily 10/16/2015 03/10/2016 Inactive metformin 500 mg tablet RxNorm: 794339 1/2 Tablet(s) PO BID 09/01/2015 11/23/2016 Inactive enalapril 10 mg-hydr ochlorothiazide 25 mg tablet RxNorm: 250558 1 Tablet(s) PO daily 09/01/2015 08/25/2016 Inactive pravastatin 40 mg ta blet RxNorm: 289761 1 Tablet(s) PO daily 09/01/2015 08/25/2016 Inactive metformin 500 mg tablet RxNorm: 925425 1/2 Tablet(s) PO BID 09/01/2015 08/31/2015 Inactive pravastatin 40 mg ta blet RxNorm: 380540 1 Tablet(s) PO daily 08/17/2015 08/31/2015 Inactive vitamin E (dl, aceta te) 1,000 unit capsule RxNorm: 787594 1 Capsule(s) PO every other day No Start Date Active Super B Complex + C 150 mg tablet RxNorm: 1 Tablet(s) PO daily No Start Date Active Odilia 180 mg tablet RxNorm: 417812 1 Tablet(s) PO daily No Start Date Active Vitamin D2 1,000 uni t capsule RxNorm: 261767 1 Capsule(s) PO BID No Start Date Active enalapril 10 mg-hydr ochlorothiazide 25 mg tablet RxNorm: 310541 1 Tablet(s) PO daily No Start Date 08/31/2015 Inactive Medication Administered No Medication Administered data Immunizations No Immunization data Assessments Condition Codes Effectiv e Dates Essential (primary) hypertension ICD -10: I10 ICD-9: 401.1 03/10/2017 Type 2 diabetes mellitus without complications ICD-10: E11.9 ICD-9: 250.00 03/10/2017 Tobacco use ICD-10: Z72.0 ICD-9: 305.1 09/10/2016 Essential (primary) hypertension ICD -10: I10 ICD-9: 401.9 09/10/2016 Mixed hyperlipidemia ICD-10: E78.2 ICD-9: 272.2 09/10/2016 Emphysema (subcutaneous) resulting from a procedure, subsequent encounter ICD-10: T81.82XD ICD-9: V58.89 04/23/2016 Vitamin D deficiency, unspecified IC D-10: E55.9 ICD-9: 268.9 08/17/2015 Other abnormal glucose ICD-10: R73.0 9 ICD-9: 790.29 08/17/2015 Reason For Visit Reason For Visit Effective Dates Notes hypertension 03/10/2017 hypertension 09/10/2016 hypertension 04/23/2016 hypertension 02/29/2016 hypertension 08/17/2015 Results Observation Observation Code Item Item Code Result Date %Hba1C Mds823 % HbA1c 07871-6 5.8 % 09/11/2016 %Hba1C Uof642 Gluc Ave 120 mg/dL 09/11/2016 Microalbumin Gdp681 Micr oAlb <0.7 mg/dL 09/11/2016 Lipid Ord30 CHOL 163 mg/dL 09/10/2016 Lipid Ord30 HDL 48.0 mg/dl 09/10/2016 Lipid Ord30 TRIG 174 mg/dL 09/10/2016 Lipid Ord30 LDL 80 mg/dL 09/10/2016 Lipid Ord30 C/HDL 3.4 Ratio 09/10/2016 Tsh Ord6 hTSH II 2.80 uIU/mL 09/10/2016 Comp Metabolic Hzp608 NA 135 mEq/L 09/10/2016 Comp Metabolic Rhl922 K 3.8 mEq/L 09/10/2016 Comp Metabolic Zmu407 CL 99 mEq/L 09/10/2016 Comp Metabolic Ffb705 CO2 27.0 mEq/L 09/10/2016 Comp Metabolic Pia016 AN ION GAP 13 09/10/2016 Comp Metabolic Tde674 GL UCOSE 72 mg/dL 09/10/2016 Comp Metabolic Xxv033 Cr eat 0.7 mg/dL 09/10/2016 Comp Metabolic Siq242 eG FR 89 ml/min/1.73m2 09/10 Comp Metabolic Wqk535 BUN 7 mg/dL 09/10/2016 Comp Metabolic Dpf632 B/ C Ratio 10.1 Ratio 09/10/2016 Comp Metabolic Gyk858 CA LCIUM 9.1 mg/dL 09/10/2016 Comp Metabolic Faf266 AL K PHOS 66 U/L 09/10/2016 Comp Metabolic Mwr754 T(SGOT) 14 U/L 09/10/2016 Comp Metabolic Asl563 AL T(SGPT) 11 U/L 09/10/2016 Comp Metabolic Ikw848 BI LI T 0.6 mg/dL 09/10/2016 Comp Metabolic Uvk582 AL BUMIN 4.1 g/dL 09/10/2016 Comp Metabolic Yqq229 TP RO 7.3 g/dL 09/10/2016 Comp Metabolic Roe779 GL OB 3.2 g/dL 09/10/2016 Comp Metabolic Fvo329 A/ G Ratio 1.3 Ratio 09/10/2016 Comp Metabolic Snh532 Os mo 267 mOsmo 09/10/2016 Cbc With Differential Ord2 WBC 12.06 K/ul 09/10/2016 Cbc With Differential Ord2 RBC 4.85 M/ul 09/10/2016 Cbc With Differential Ord2 HGB 14.2 g/dl 09/10/2016 Cbc With Differential Ord2 Neut% 58.7 % 09/10/2016 Cbc With Differential Ord2 HCT 43.2 % 09/10/2016 Cbc With Differential Ord2 MCV 89.1 fl 09/10/2016 Cbc With Differential Ord2 Lymph% 31.3 % 09/10/2016 Cbc With Differential Ord2 MCH 29.3 pg 09/10/2016 Cbc With Differential Ord2 [place]% 7.5 % 09/10/2016 Cbc With Differential Ord2 [...] 3.78 K/ul 09/10/2016 Cbc With Differential Ord2 [place] ABS# 0.9 K/ul 09/10/2016 Cbc With Differential Ord2 Eos ABS# 0.3 K/ul 09/10/2016 Cbc With Differential Ord2 Baso ABS# 0.1 K/ul 09/10/2016 Lipid Ord30 CHOL 202 mg/dL 02/29/2016 Lipid Ord30 HDL 62.0 mg/dl 02/29/2016 Lipid Ord30 TRIG 123 mg/dL 02/29/2016 Lipid Ord30 LDL 115 mg/dL 02/29/2016 Lipid Ord30 C/HDL 3.3 Ratio 02/29/2016 Comp Metabolic Uuf115 NA 135 mEq/L 02/29/2016 Comp Metabolic Lvx397 K 4.4 mEq/L 02/29/2016 Comp Metabolic Exi827 CL 101 mEq/L 02/29/2016 Comp Metabolic Pbz323 CO2 27.0 mEq/L 02/29/2016 Comp Metabolic Owr537 AN ION GAP 11 02/29/2016 Comp Metabolic Xdu897 GL UCOSE 77 mg/dL 02/29/2016 Comp Metabolic Tiu075 Cr eat 0.6 mg/dL 02/29/2016 Comp Metabolic Pge025 eG FR 99 ml/min/1.73m2 02/28 Comp Metabolic Qit986 BUN 13 mg/dL 02/29/2016 Comp Metabolic Ueh515 B/ C Ratio 20.6 Ratio 02/29/2016 Comp Metabolic Bhb752 CA LCIUM 9.4 mg/dL 02/29/2016 Comp Metabolic Mgs450 AL K PHOS 65 U/L 02/29/2016 Comp Metabolic Eqj023 T(SGOT) 14 U/L 02/29/2016 Comp Metabolic Atw084 AL T(SGPT) 11 U/L 02/29/2016 Comp Metabolic Dih271 BI LI T 0.6 mg/dL 02/29/2016 Comp Metabolic Xtk843 AL BUMIN 4.1 g/dL 02/29/2016 Comp Metabolic Qni303 TP RO 7.2 g/dL 02/29/2016 Comp Metabolic Svl158 GL OB 3.1 g/dL 02/29/2016 Comp Metabolic Clk679 A/ G Ratio 1.3 Ratio 02/29/2016 Comp Metabolic Bzn620 Os mo 269 mOsmo 02/29/2016 %Hba1C Hmp235 % HbA1c 48546-6 5.8 % 02/29/2016 %Hba1C Wvp712 Gluc Ave 120 mg/dL 02/29/2016 Vitamin D 25 Oh Wgr6865 VITAMIN D, 25 HYDROXY 58.48 ng/mL 08/18/2015 Comp Metabolic Lqd810 NA 132 mEq/L 08/17/2015 Comp Metabolic Foe735 K 4.4 mEq/L 08/17/2015 Comp Metabolic Wfy806 CL 101 mEq/L 08/17/2015 Comp Metabolic Bsj104 CO2 24.0 mEq/L 08/17/2015 Comp Metabolic Cee770 AN ION GAP 11 08/17/2015 Comp Metabolic Tjc069 GL UCOSE 130 mg/dL 08/17/2015 Comp Metabolic Qks820 Cr eat 0.7 mg/dL 08/17/2015 Comp Metabolic Ubd741 eG FR 93 ml/min/1.73m2 08/17 Comp Metabolic Rbs618 BUN 8 mg/dL 08/17/2015 Comp Metabolic Lyt716 B/ C Ratio 11.9 Ratio 08/17/2015 Comp Metabolic Dmp917 CA LCIUM 9.5 mg/dL 08/17/2015 Comp Metabolic Elt318 AL K PHOS 70 U/L 08/17/2015 Comp Metabolic Ieo524 T(SGOT) 28 U/L 08/17/2015 Comp Metabolic Bqx162 AL T(SGPT) 14 U/L 08/17/2015 Comp Metabolic Oeh851 BI LI T 0.8 mg/dL 08/17/2015 Comp Metabolic Lwp849 AL BUMIN 4.2 g/dL 08/17/2015 Comp Metabolic Itl444 TP RO 7.3 g/dL 08/17/2015 Comp Metabolic Ilm384 GL OB 3.1 g/dL 08/17/2015 Comp Metabolic Drd451 A/ G Ratio 1.4 Ratio 08/17/2015 Comp Metabolic Owi717 Os mo 265 mOsmo 08/17/2015 Cbc With Differential Ord2 WBC 10.9 [...] With Differential Ord2 RDW 14.8 % 08/17/2015 %Hba1C Umy874 % HbA1c 65953-8 6.4 % 08/17/2015 %Hba1C Mtr025 Gluc Ave 137 mg/dL 08/17/2015 Lipid Ord30 CHOL 172 mg/dL 08/17/2015 Lipid Ord30 HDL 49.0 mg/dl 08/17/2015 Lipid Ord30 TRIG 170 mg/dL 08/17/2015 Lipid Ord30 LDL 89 mg/dL 08/17/2015 Lipid Ord30 C/HDL 3.5 Ratio 08/17/2015 Tsh Ord6 hTSH II 2.25 uIU/mL 08/17/2015 Review of Systems System Result Effective Dates Constitutional No recent illness 03/10/2017 Constitutional No [...] 08/17/2015 None Procedures Procedure Codes Date TOBACCO-USE [employer] 3-[address]: 638639933 CPT-4: [id number] 09/10/2016 TOBACCO-USE [employer] 3-[address]: 612748587 CPT-4: [id number] 04/23/2016 TOBACCO-USE J[employer]ER 3-[address]: 662053561 CPT-4: J0096Ehhnjzn 02/29/2016 TOBACCO-USE J[employer]ER 3-[address]: 948247228 CPT-4: M9788Wiillkk 08/17/2015 Vital Signs Date Vital 03/10/2017 Blood Pressure 1: 144/78 Code: 8480-6 BMI: 36.8 Code: 77456-0 Heart Rate 1: 86 bpm Height: 5'4" SpO2: 98% Weight: 214 lbs 8 oz 09/10/2016 Blood Pressure 1: 130/80 Code: 8480-6 BMI: 36.7 Code: 70818-2 Heart Rate 1: 98 bpm Height: 5'4" SpO2: 98% Weight: 214 lbs 04/23/2016 Blood Pressure 1: 126/72 Code: 8480-6 BMI: 36.0 Code: 20636-7 Heart Rate 1: 86 bpm Height: 5'4" SpO2: 97% Weight: 209 lbs 8 oz 02/29/2016 Blood Pressure 1: 138/76 Code: 8480-6 BMI: 34.8 Code: 03597-7 Heart Rate 1: 78 bpm Height: 5'4" SpO2: 98% Weight: 203 lbs 08/17/2015 Blood Pressure 1: 140/88 Code: 8480-6 BMI: 35.2 Code: 13600-4 Heart Rate 1: 90 bpm Height: 5'4" SpO2: 97% Weight: 205 lbs Functional Status No Functional Status data History of Present Illness Symptom Name Status Resu lt Effective Date Notes hypertension Quality chr onic 03/10/2017 None hypertension [...] Encounters Encounter Performer Loca tion Codes Date ([id number]) [id number] EST. P ATIENT, LEVEL III Diagnosis: Essential (primary) hypertension[ICD10: I10] Diagnosis: Type 2 diabetes mellitus without complications[ICD10: E11.9] [facility] CPT-4: 87945 03/10/2017 [id number]) [id number] EST. P ATIENT, LEVEL IV Diagnosis: Type 2 diabetes mellitus without complications[ICD10: E11.9] Diagnosis: Mixed hyperlipidemia[ICD10: E78.2] Diagnosis: Essential (primary) hypertension[ICD10: I10] Diagnosis: Tobacco use[ICD10: Z72.0] [facility] CPT-4: 76200 09/10/2016 [id number]) 79520 EST. P ATIENT, LEVEL IV Diagnosis: Type 2 diabetes mellitus without complications[ICD10: E11.9] Diagnosis: Essential (primary) hypertension[ICD10: I10] Diagnosis: Emphysema (subcutaneous) resulting from a procedure, subsequent encounter[ICD10: T81.82XD] Diagnosis: Tobacco use[ICD10: Z72.0] Samantha Capone MD, [facility] CPT-4: 63422 04/23/2016 ([id number]) 00809 EST. P ATIENT, LEVEL IV Diagnosis: Essential (primary) hypertension[ICD10: I10] Diagnosis: Tobacco use[ICD10: Z72.0] Diagnosis: Type 2 diabetes mellitus without complications[ICD10: E11.9] Samantha Capone MD, [facility] CPT-4: 03239 02/29/2016 ([id number]) OFFICE VISI T, NEW - LEVEL 4 Diagnosis: Other abnormal glucose[ICD10: R73.09] Diagnosis: Essential (primary) hypertension[ICD10: I10] Diagnosis: Mixed hyperlipidemia[ICD10: E78.2] Diagnosis: Tobacco use[ICD10: Z72.0] Diagnosis: Vitamin D deficiency, unspecified[ICD10: E55.9] Samantha Capone MD, [facility] CPT-4: 45017 08/17/2015 Plan of Care Planned Activity Notes C odes Status Date Visit Plan: Hypertension - well controll ed - continue with current medications, continue with no added salt diet. Pt has been encouraged to exercise daily.The pt has been advised to call the office if there are any acute concerns about change in blood pressure readings at home.Diabetes Mellitus - controlled - per recent FSBS [...] less controlled. 03/10/2017 Appointment: Blessing Miller WPtel: [address] [place], [place] [phone] (30 min) [facility] 03/10/2017 Patient Education: Patient Medication Summary Completed 03/10/2017 Patient Education: Smoking and Tobacco Addiction Completed 03/10/2017 Patient Education: Obesity Completed 03/10/2017 Care Plan: Lipid Cancelled 03/10/2017 Care Plan: Tsh Cancelled 03/10/2017 Care Plan: %Hba1C LOIN C : 38088-1 Cancelled 03/10/2017 Care Plan: Cbc With Differential Cancelled 03/10/2017 Care Plan: Comp Metabolic Cancelled 03/10/2017 Visit Plan: Diabetes Mellitus - controll ed - per recent FSBS reports. I have [...] glucose readings are starting to become less controlled.Hypertension - well controlled - continue with current medications, continue with no added salt diet. Pt has been encouraged to exercise daily.The pt has been advised to call the office if there are any acute concerns about change in blood pressure readings at home.Hyperlipidemia - pt has been counseled about appropriate [...] and to assure normal liver response to medications.smoking - pt is not interested in stopping smoking at this time. 09/10/2016 Patient Education: Patient Medication Summary Completed 09/10/2016 Patient Education: Smoking and Tobacco Addiction Completed 09/10/2016 Patient Education: Obesity Completed 09/10/2016 Care Plan: Comp Metabolic Cancelled 09/10/2016 Care Plan: Cbc With Differential Cancelled 09/10/2016 Care Plan: Microalbumin Cancelled 09/10/2016 Care Plan: %Hba1C LOIN C : 80458-1 Cancelled 09/10/2016 Care Plan: Tsh Cancelled 09/10/2016 Care Plan: Lipid Cancelled 09/10/2016 Visit Plan: Hypertension - well controll ed - continue with current medications, continue with no added salt diet. Pt has been encouraged to exercise daily.The pt has been advised to call the office if there are any acute concerns about change in blood pressure readings at home.Diabetes Mellitus - controlled - per recent FSBS [...] glucose readings are starting to become less controlled.Tobaccoism - recommend pt to stop smoking - she has cut back on tobacco intake - down from 1.5ppd to 1/2 ppd. 04/23/2016 Patient Education: Patient Medication Summary Completed 04/23/2016 Patient Education: Smoking and Tobacco Addiction Completed 04/23/2016 Patient Education: Obesity Completed 04/23/2016 Visit Plan: Hypertension - well controll ed - continue with current medications, continue with no added salt diet. Pt has been encouraged to exercise daily.The pt has been advised to call the office if there are any acute concerns about change in blood pressure readings at home.Diabetes Mellitus - controlled - per recent FSBS [...] glucose readings are starting to become less controlled.Tobacco abuse - recommended cessation - pt is not interested in stopping at this time, but is aware that there are ways to assist with smoking cessation when she is ready - and she is to avoid use of vapors. 2015 Patient Education: Patient Medication Summary Completed 02/29/2016 Patient Education: Smoking and Tobacco Addiction Completed 02/29/2016 Patient Education: Obesity Completed 02/29/2016 Appointment: Samantha Capone WPtel: [address] [place], [place] [phone] (15 min) Moderate 02/22/2016 Visit Plan: Hypertension - well controll ed - continue with current medications, continue with no added salt diet. Pt has been encouraged to exercise daily.The pt has been advised to call the office if there are any acute concerns about change in blood pressure readings at home.Hyperlipidemia - continue with pravastatin - low fat diet, we will call with lab report.Tobaccoism - pt is NOT interested in stopping smoking, pt desires to continue smoking despite known risks, and pt reports that she has had several family members pass from cancer, including lung cancer.I have recommended a CT scan of her chest without contrast.Abnormal glucose - check hgba1c. 08/17/2015 Appointment: Samantha Capone WPtel: [facility] [id number] [place] New Patient 08/17/2015 Patient Education: Patient Medication Summary Completed 08/17/2015 Patient Education: Hypertension Completed 08/17/2015 Patient Education: Smoking and Tobacco Addiction Completed 08/17/2015 Instructions Comment . Hypertension - wel l controlled - [...] is to avoid use of vapors. . Hypertension - wel l controlled - [...] - down from 1.5ppd to 1/2 ppd. co-enzyme Q10 - buy this over the [...] without contrast. Abnormal glucose - check hgba1c. . Hypertension - wel l controlled - [...]
--- OUTSIDE RECORDS SUMMARY | 2020-04-27 11:34 | XMS REPORT | CCD ---
Author Author Roberta Capone Organization Samantha Capone MD, [facility] Address [address] [place] [address] Phone Care Team Providers Care Director Of Emergency Nursing Name Role Phone PP Unavailable CCM Unavailable Summary Purpose Interface Exchange Insurance Providers Payer name Policy type / Coverage type Covered libertarian ID Effective Begin Date Effective End Date WPS Medicare Part B Medicare Part B [id number] Unknown [employer] Medicare Part B [id number] Unknown Family history Father Diagnosis Age At Onset Hyperlipidemia Unknown Heart Attack Unknown Hypertension Unknown Mother Diagnosis Age At Onset Arthritis Unknown Breast cancer Unknown Hypertension Unknown Skin cancer Unknown Osteoporosis Unknown Sister Diagnosis Age At Onset Cancer Unknown Social History Social History Element Codes Description Effective Dates Tobacco history SNOMED CT: 25364167 Current every day smoker one pack/day 48 yrs - pt down to 1/2 ppd as of Jul 2016 09/10/2016 Marital status Unknown M arried Derik 08/17/2015 Number of children Unknown 2 adopted children - 35 (Saul) and 33y/o (Jeb) 08/17/2015 Living arrangements Unknown House 08/17/2015 Employment Unknown Retir ed 08/17/[address]: 107953221 Never drinks alcohol 08/17/2015 Allergies, Adverse Reactions, Alerts Substance Reaction Codes Entered Date Inactivated Date Status * NO KNOWN DRUG OUSMANE RGIES Unknown 08/17/2015 No Inactive Date Active Past Medical History Illness Codes Condition Status Onset Date Resolved Date Chronic obstructive pulmonary disease with acute lower respiratory infection ICD-9: 491.22 ICD-10: J44.0 Active 11/26/2018 Unknown Cough ICD-9: 786.2 ICD-10: R05 Active 11/26/2018 Unknown Essential (primary) hypertension ICD-9: 401.1 ICD-10: I10 Active 03/10/2017 Unknown Postmenopausal bleeding ICD-9: 627.1 ICD-10: N95.0 Active 11/06/2018 Unknown Unspecified ovarian cyst, left side ICD-9: 620.2 ICD-10: N83.202 Active 11/12/2018 Unknown Mixed hyperlipidemia ICD-9: 272.2 ICD-10: E78.2 Active 09/09/2016 Unknown Type 2 diabetes nadege itus without complications ICD-9: 250.00 ICD-10: E11.9 Active 09/09/2016 Unknown Encounter for screen ing mammogram for [...] Condition Codes Effectiv e Dates Condition Status Chronic obstructive pulmonary disease with acute lower respiratory infection ICD-9: 491.22 ICD-10: J44.0 11/26/2018 Active Cough ICD-9: 786.2 ICD-10: R05 11/26/2018 Active Essential (primary) hypertension ICD-9: 401.1 ICD-10: I10 03/10/2017 Active Postmenopausal bleeding ICD-9: 627.1 ICD-10: N95.0 11/06/2018 Active Unspecified ovarian cyst, left side ICD-9: 620.2 ICD-10: N83.202 11/12/2018 Active Mixed hyperlipidemia ICD-9: 272.2 ICD-10: E78.2 09/09/2016 Active Type 2 diabetes nadege itus without complications ICD-9: 250.00 ICD-10: E11.9 09/09/2016 Active Encounter for screen ing mammogram for [...] Fill Instructions azithromycin 250 mg tablet RxNorm: 098050 2 tabs on day #1, the n 1 Tablet(s) PO daily x 4 days 11/26/2018 No Stop Date Active Symbicort 160 mcg-4. 5 mcg/actuation HFA aerosol inhaler RxNorm: 0340338 1 INH BID 11/26/2018 01/24/2019 Ac tive pravastatin 40 mg ta blet RxNorm: 286839 TAKE ONE TABLET BY MO UTH DAILY 11/13/2018 05/11/2019 Ac tive glipizide ER 2.5 mg tablet, extended release 24 hr RxNorm: 607938 TAKE ONE TABLET BY MOUTH DAILY 11/13/2018 05/11/2019 Active enalapril 10 mg-hydr ochlorothiazide 25 mg tablet RxNorm: 504658 TAKE ONE TABLET BY MOUTH DAILY 11/13/2018 05/11/2019 Active Symbicort 160 mcg-4. 5 mcg/actuation HFA aerosol inhaler RxNorm: 7118606 2 Puff(s) INH 03/12/2018 09/13/2018 Inactive enalapril 10 mg-hydr ochlorothiazide 25 mg tablet RxNorm: 905128 TAKE ONE TABLET BY MOUTH DAILY 02/23/2018 11/12/2018 Inactive glipizide ER 2.5 mg tablet, extended release 24 hr RxNorm: 326135 Tablet(s) TAKE ONE TABLET BY MOUTH DAILY 02/23/2018 11/12/2018 Inactive pravastatin 40 mg ta blet RxNorm: 723904 TAKE ONE TABLET BY [facility] DAILY 02/23/2018 11/12/2018 In active glipizide ER 2.5 mg tablet, extended release 24 hr RxNorm: 408781 TAKE ONE TABLET BY MOUTH DAILY 08/22/2017 02/17/2018 Inactive enalapril 10 mg-hydr ochlorothiazide 25 mg tablet RxNorm: 051668 TAKE ONE TABLET BY MOUTH DAILY 05/23/2017 02/16/2018 Inactive pravastatin 40 mg ta blet RxNorm: 231712 TAKE ONE TABLET BY [facility] DAILY 05/23/2017 02/16/2018 In active glipizide ER 2.5 mg tablet, extended release 24 hr RxNorm: 863616 TAKE ONE TABLET BY MOUTH DAILY 02/21/2017 08/19/2017 Inactive glipizide ER 2.5 mg tablet, extended release 24 hr RxNorm: 005986 TAKE ONE TABLET BY MOUTH DAILY 12/23/2016 02/20/2017 Inactive pravastatin 40 mg ta blet RxNorm: 561138 TAKE ONE TABLET BY [facility] DAILY 08/26/2016 05/22/2017 In active enalapril 10 mg-hydr ochlorothiazide 25 mg tablet RxNorm: 722350 TAKE ONE TABLET BY MOUTH DAILY 08/26/2016 02/22/2018 Inactive pravastatin 40 mg ta blet RxNorm: 909659 TAKE ONE TABLET BY [facility] DAILY 08/26/2016 02/22/2018 In active enalapril 10 mg-hydr ochlorothiazide 25 mg tablet RxNorm: 739513 TAKE ONE TABLET BY MOUTH DAILY 08/26/2016 02/22/2018 Inactive enalapril 10 mg-hydr ochlorothiazide 25 mg tablet RxNorm: 653639 TAKE ONE TABLET BY MOUTH DAILY 08/26/2016 05/22/2017 Inactive glipizide ER 2.5 mg tablet, extended release 24 hr RxNorm: 209589 TAKE ONE TABLET BY MOUTH DAILY 06/25/2016 12/21/2016 Inactive glipizide ER 2.5 mg tablet, extended release 24 hr RxNorm: 879632 TAKE ONE TABLET BY MOUTH DAILY 03/11/2016 06/24/2016 Inactive glipizide 5 mg tablet RxNorm: 210543 1 Tablet(s) PO daily 10/16/2015 10/15/2015 Inactive glipizide ER 2.5 mg tablet, extended release 24 hr RxNorm: 597546 1 Tablet(s) PO daily 10/16/2015 03/10/2016 Inactive enalapril 10 mg-hydr ochlorothiazide 25 mg tablet RxNorm: 606890 1 Tablet(s) PO daily 09/01/2015 08/25/2016 Inactive pravastatin 40 mg ta blet RxNorm: 728297 1 Tablet(s) PO daily 09/01/2015 08/25/2016 Inactive metformin 500 mg tablet RxNorm: 962250 1/2 Tablet(s) PO BID 09/01/2015 09/13/2018 Inactive metformin 500 mg tablet RxNorm: 226333 1/2 Tablet(s) PO BID 09/01/2015 08/31/2015 Inactive pravastatin 40 mg ta blet RxNorm: 728281 1 Tablet(s) PO daily 08/17/2015 08/31/2015 Inactive vitamin E (dl, aceta te) 1,000 unit capsule RxNorm: 431072 1 Capsule(s) PO every other day No Start Date Active Super B Complex + C 150 mg tablet RxNorm: 1 Tablet(s) PO daily No Start Date Active Odilia 180 mg tablet RxNorm: 425313 1 Tablet(s) PO daily No Start Date Active Vitamin D2 1,000 uni t capsule RxNorm: 756030 1 Capsule(s) PO BID No Start Date Active enalapril 10 mg-hydr ochlorothiazide 25 mg tablet RxNorm: 161203 1 Tablet(s) PO daily No Start Date 08/31/2015 Inactive Medication Administered No Medication Administered data Immunizations No Immunization data Assessments Condition Codes Effectiv e Dates Chronic obstructive pulmonary disease wi th acute lower respiratory infection ICD-10: J44.0 ICD-9: 491.22 11/26/2018 Cough ICD-10: R05 ICD-9: 786.2 11/26/2018 Postmenopausal bleeding ICD-10: N95. 0 ICD-9: 627.1 11/12/2018 Unspecified ovarian cyst, left side ICD-10: N83.202 ICD-9: 620.2 11/12/2018 Essential (primary) hypertension ICD -10: I10 ICD-9: 401.1 09/14/2018 Type 2 diabetes mellitus without complications ICD-10: E11.9 ICD-9: 250.00 09/14/2018 Mixed hyperlipidemia ICD-10: E78.2 ICD-9: 272.2 09/14/2018 Vitamin D deficiency, unspecified IC D-10: E55.9 [...] Visit Reason For Visit Effective Dates Notes cough 11/26/2018 abnormal test results 11/12/2018 abdominal pain 11/06/2018 hypertension 09/14/2018 hypertension 03/12/2018 hypertension 09/11/2017 hypertension 03/10/2017 hypertension 09/10/2016 hypertension 04/23/2016 hypertension 02/29/2016 hypertension 08/17/2015 Results Observation Observation Code Item Item Code Result Date Tsh Ord6 TSH (3rd IS) 3.46 uIU/mL 03/12/2018 Comp Metabolic Zex380 NA 138 mEq/L 03/12/2018 Comp Metabolic Lqz082 K 4.5 mEq/L 03/12/2018 Comp Metabolic Mme540 CL 104 mEq/L 03/12/2018 Comp Metabolic Grx185 CO2 28.0 mEq/L 03/12/2018 Comp Metabolic Fik773 AN ION GAP 11 03/12/2018 Comp Metabolic Tym854 GL UCOSE 129 mg/dL 03/12/2018 Comp Metabolic Xgx760 Cr eat 0.8 mg/dL 03/12/2018 Comp Metabolic Nbp965 eG FR 74 ml/min/1.73m2 03/12 Comp Metabolic Hmx185 BUN 12 mg/dL 03/12/2018 Comp Metabolic Xre259 B/ C Ratio 14.8 Ratio 03/12/2018 Comp Metabolic Ysq000 CA LCIUM 9.1 mg/dL 03/12/2018 Comp Metabolic Xsc935 AL K PHOS 64 U/L 03/12/2018 Comp Metabolic Ihl699 T(SGOT) 13 U/L 03/12/2018 Comp Metabolic Rdf358 AL T(SGPT) 12 U/L 03/12/2018 Comp Metabolic Gxe691 BI LI T 0.5 mg/dL 03/12/2018 Comp Metabolic Zwj385 AL BUMIN 4.0 g/dL 03/12/2018 Comp Metabolic Rgj752 TP RO 6.8 g/dL 03/12/2018 Comp Metabolic Xhc092 GL OB 2.8 g/dL 03/12/2018 Comp Metabolic Izl700 A/ G Ratio 1.4 Ratio 03/12/2018 Comp Metabolic Hht179 Os mo 277 mOsmo 03/12/2018 Vitamin D 25 Oh Eti1278 VITAMIN D, 25 HYDROXY 47.13 ng/mL 03/12/2018 Lipid Ord30 CHOL 161 mg/dL 03/12/2018 Lipid Ord30 HDL 49.0 mg/dl 03/12/2018 Lipid Ord30 TRIG 126 mg/dL 03/12/2018 Lipid Ord30 LDL 87 mg/dL 03/12/2018 Lipid Ord30 C/HDL 3.3 Ratio 03/12/2018 %Hba1C Ftd433 % HbA1c 89303-3 6.4 % 03/12/2018 %Hba1C Pqi511 Gluc Ave 137 mg/dL 03/12/2018 Cbc With Differential Ord2 WBC 10.71 K/ul 03/12/2018 Cbc With Differential Ord2 RBC 5.35 M/ul 03/12/2018 Cbc With Differential Ord2 HGB 15.4 g/dl 03/12/2018 Cbc With Differential Ord2 HCT 46.8 % 03/12/2018 Cbc With Differential Ord2 Neut% 61.1 % 03/12/2018 Cbc With Differential Ord2 Lymph% 27.2 % 03/12/2018 Cbc With Differential Ord2 MCV 87.5 fl 03/12/2018 Cbc With Differential Ord2 [place]% 9.0 % 03/12/2018 Cbc With Differential Ord2 MCH 28.8 pg 03/12/2018 Cbc With Differential Ord2 MCHC 32.9 pg 03/12/2018 Cbc With Differential Ord2 Eos% 2.1 % 03/12/2018 Cbc With Differential Ord2 Baso% 0.6 % 03/12/2018 Cbc With Differential Ord2 PLT 252 K/ul 03/12/2018 Cbc With Differential Ord2 RDW 14.9 % 03/12/2018 Cbc With Differential Ord2 Neut ABS# 6.55 K/ul 03/12/2018 Cbc With Differential Ord2 Lymph ABS# 2.91 K/ul 03/12/2018 Cbc With Differential Ord2 [place] ABS# 1.0 K/ul 03/12/2018 Cbc With Differential Ord2 Eos ABS# 0.2 K/ul 03/12/2018 Cbc With Differential Ord2 Baso ABS# 0.1 K/ul 03/12/2018 Vitamin D 25 Oh Xwo8148 VITAMIN D, 25 HYDROXY 40.72 ng/mL 09/11/2017 %Hba1C Bgn574 % HbA1c 41365-1 6.0 % 09/11/2017 %Hba1C Qqc213 Gluc Ave 126 mg/dL 09/11/2017 Cbc With [...] 28.8 pg 09/11/2017 Cbc With Differential Ord2 [place]% 7.8 % 09/11/2017 Cbc With Differential Ord2 [...] 3.57 K/ul 09/11/2017 Cbc With Differential Ord2 [place] ABS# 1.0 K/ul 09/11/2017 Cbc With Differential Ord2 Eos ABS# 0.3 K/ul 09/11/2017 Cbc With Differential Ord2 Baso ABS# 0.1 K/ul 09/11/2017 Tsh Ord6 hTSH II 2.46 uIU/mL 09/11/2017 Lipid Ord30 CHOL 172 mg/dL 09/11/2017 Lipid Ord30 HDL 47.0 mg/dl 09/11/2017 Lipid Ord30 TRIG 137 mg/dL 09/11/2017 Lipid Ord30 LDL 98 mg/dL 09/11/2017 Lipid Ord30 C/HDL 3.7 Ratio 09/11/2017 Comp Metabolic Msx994 NA 138 mEq/L 09/11/2017 Comp Metabolic Tmw915 K 4.5 mEq/L 09/11/2017 Comp Metabolic Nmo210 CL 103 mEq/L 09/11/2017 Comp Metabolic Lyu658 CO2 28.0 mEq/L 09/11/2017 Comp Metabolic Con299 AN ION GAP 12 09/11/2017 Comp Metabolic Njh901 GL UCOSE 105 mg/dL 09/11/2017 Comp Metabolic Dvr889 Cr eat 0.7 mg/dL 09/11/2017 Comp Metabolic Jns914 eG FR 94 ml/min/1.73m2 09/11 Comp Metabolic Vfz214 BUN 10 mg/dL 09/11/2017 Comp Metabolic Hsz146 B/ C Ratio 15.2 Ratio 09/11/2017 Comp Metabolic Twy678 CA LCIUM 9.1 mg/dL 09/11/2017 Comp Metabolic Hgj720 AL K PHOS 70 U/L 09/11/2017 Comp Metabolic Ndo874 T(SGOT) 12 U/L 09/11/2017 Comp Metabolic Nna730 AL T(SGPT) 11 U/L 09/11/2017 Comp Metabolic Tiv683 BI LI T 0.6 mg/dL 09/11/2017 Comp Metabolic Rif160 AL BUMIN 4.1 g/dL 09/11/2017 Comp Metabolic Wny880 TP RO 7.1 g/dL 09/11/2017 Comp Metabolic Ecy515 GL OB 3.0 g/dL 09/11/2017 Comp Metabolic Hlg703 A/ G Ratio 1.4 Ratio 09/11/2017 Comp Metabolic Vnk869 Os mo 275 mOsmo 09/11/2017 Microalbumin Mtw076 Micr oAlb <0.7 mg/dL 09/11/2016 %Hba1C Ygq478 % HbA1c 53809-5 5.8 % 09/11/2016 %Hba1C Tdo633 Gluc Ave 120 mg/dL 09/11/2016 Cbc With [...] 29.3 pg 09/10/2016 Cbc With Differential Ord2 [place]% 7.5 % 09/10/2016 Cbc With Differential Ord2 Eos% 2.1 % 09/10/2016 Cbc With Differential Ord2 MCHC 32.9 pg 09/10/2016 Cbc With Differential Ord2 Baso% 0.4 % 09/10/2016 Cbc With Differential Ord2 PLT 272 K/ul 09/10/2016 Cbc With Differential Ord2 Neut ABS# 7.07 K/ul 09/10/2016 Cbc With Differential Ord2 RDW 14.7 % 09/10/2016 Cbc With Differential Ord2 Lymph ABS# 3.78 K/ul 09/10/2016 Cbc With Differential Ord2 [place] ABS# 0.9 K/ul 09/10/2016 Cbc With Differential Ord2 Eos ABS# 0.3 K/ul 09/10/2016 Cbc With Differential Ord2 Baso ABS# 0.1 K/ul 09/10/2016 Lipid Ord30 CHOL 163 mg/dL 09/10/2016 Lipid Ord30 HDL 48.0 mg/dl 09/10/2016 Lipid Ord30 TRIG 174 mg/dL 09/10/2016 Lipid Ord30 LDL 80 mg/dL 09/10/2016 Lipid Ord30 C/HDL 3.4 Ratio 09/10/2016 Comp Metabolic Hyj142 NA 135 mEq/L 09/10/2016 Comp Metabolic Jfk113 K 3.8 mEq/L 09/10/2016 Comp Metabolic Dpx321 CL 99 mEq/L 09/10/2016 Comp Metabolic Abt864 CO2 27.0 mEq/L 09/10/2016 Comp Metabolic Aev598 AN ION GAP 13 09/10/2016 Comp Metabolic Khj101 GL UCOSE 72 mg/dL 09/10/2016 Comp Metabolic Zcd000 Cr eat 0.7 mg/dL 09/10/2016 Comp Metabolic Qtz421 eG FR 89 ml/min/1.73m2 09/10 Comp Metabolic Lus464 BUN 7 mg/dL 09/10/2016 Comp Metabolic Ahj568 B/ C Ratio 10.1 Ratio 09/10/2016 Comp Metabolic Cdf613 CA LCIUM 9.1 mg/dL 09/10/2016 Comp Metabolic Afz139 AL K PHOS 66 U/L 09/10/2016 Comp Metabolic Rbf718 T(SGOT) 14 U/L 09/10/2016 Comp Metabolic Fpt308 AL T(SGPT) 11 U/L 09/10/2016 Comp Metabolic Xfv857 BI LI T 0.6 mg/dL 09/10/2016 Comp Metabolic Ise858 AL BUMIN 4.1 g/dL 09/10/2016 Comp Metabolic Dqj243 TP RO 7.3 g/dL 09/10/2016 Comp Metabolic Fpn750 GL OB 3.2 g/dL 09/10/2016 Comp Metabolic Rnl245 A/ G Ratio 1.3 Ratio 09/10/2016 Comp Metabolic Isr951 Os mo 267 mOsmo 09/10/2016 Tsh Ord6 hTSH II 2.80 uIU/mL 09/10/2016 %Hba1C Aci021 % HbA1c 21410-7 5.8 % 02/29/2016 %Hba1C Saf738 Gluc Ave 120 mg/dL 02/29/2016 Comp Metabolic Yff512 NA 135 mEq/L 02/29/2016 Comp Metabolic Krg536 K 4.4 mEq/L 02/29/2016 Comp Metabolic Jql841 CL 101 mEq/L 02/29/2016 Comp Metabolic Bgc957 CO2 27.0 mEq/L 02/29/2016 Comp Metabolic Vmd830 AN ION GAP 11 02/29/2016 Comp Metabolic Qmi301 GL UCOSE 77 mg/dL 02/29/2016 Comp Metabolic Oir065 Cr eat 0.6 mg/dL 02/29/2016 Comp Metabolic Nws930 eG FR 99 ml/min/1.73m2 02/28 Comp Metabolic Ncc595 BUN 13 mg/dL 02/29/2016 Comp Metabolic Gwj537 B/ C Ratio 20.6 Ratio 02/29/2016 Comp Metabolic Dys211 CA LCIUM 9.4 mg/dL 02/29/2016 Comp Metabolic Mac901 AL K PHOS 65 U/L 02/29/2016 Comp Metabolic Jor956 T(SGOT) 14 U/L 02/29/2016 Comp Metabolic Ccz773 AL T(SGPT) 11 U/L 02/29/2016 Comp Metabolic Rwy176 BI LI T 0.6 mg/dL 02/29/2016 Comp Metabolic Zso821 AL BUMIN 4.1 g/dL 02/29/2016 Comp Metabolic Uyb255 TP RO 7.2 g/dL 02/29/2016 Comp Metabolic Fem937 GL OB 3.1 g/dL 02/29/2016 Comp Metabolic Jnh176 A/ G Ratio 1.3 Ratio 02/29/2016 Comp Metabolic Zga180 Os mo 269 mOsmo 02/29/2016 Lipid Ord30 CHOL 202 mg/dL 02/29/2016 Lipid Ord30 HDL 62.0 mg/dl 02/29/2016 Lipid Ord30 TRIG 123 mg/dL 02/29/2016 Lipid Ord30 LDL 115 mg/dL 02/29/2016 Lipid Ord30 C/HDL 3.3 Ratio 02/29/2016 Vitamin D 25 Oh Gzi6902 VITAMIN D, 25 HYDROXY 58.48 ng/mL 08/18/2015 Lipid Ord30 CHOL 172 mg/dL 08/17/2015 Lipid Ord30 HDL 49.0 mg/dl 08/17/2015 Lipid Ord30 TRIG 170 mg/dL 08/17/2015 Lipid Ord30 LDL 89 mg/dL 08/17/2015 Lipid Ord30 C/HDL 3.5 Ratio 08/17/2015 %Hba1C Wsg075 % HbA1c 63531-3 6.4 % 08/17/2015 %Hba1C Biz492 Gluc Ave 137 mg/dL 08/17/2015 Tsh Ord6 [...] Ord2 RDW 14.8 % 08/17/2015 Comp Metabolic Ywi877 NA 132 mEq/L 08/17/2015 Comp Metabolic Lpp976 K 4.4 mEq/L 08/17/2015 Comp Metabolic But502 CL 101 mEq/L 08/17/2015 Comp Metabolic Bbf877 CO2 24.0 mEq/L 08/17/2015 Comp Metabolic Snt745 AN ION GAP 11 08/17/2015 Comp Metabolic Ojh569 GL UCOSE 130 mg/dL 08/17/2015 Comp Metabolic Inf301 Cr eat 0.7 mg/dL 08/17/2015 Comp Metabolic Hzn838 eG FR 93 ml/min/1.73m2 08/17 Comp Metabolic Xxg518 BUN 8 mg/dL 08/17/2015 Comp Metabolic Svy062 B/ C Ratio 11.9 Ratio 08/17/2015 Comp Metabolic Bll151 CA LCIUM 9.5 mg/dL 08/17/2015 Comp Metabolic Tca587 AL K PHOS 70 U/L 08/17/2015 Comp Metabolic Rss160 T(SGOT) 28 U/L 08/17/2015 Comp Metabolic Asp260 AL T(SGPT) 14 U/L 08/17/2015 Comp Metabolic Kqo157 BI LI T 0.8 mg/dL 08/17/2015 Comp Metabolic Xgp767 AL BUMIN 4.2 g/dL 08/17/2015 Comp Metabolic Vjr872 TP RO 7.3 g/dL 08/17/2015 Comp Metabolic Xcw379 GL OB 3.1 g/dL 08/17/2015 Comp Metabolic Mtv443 A/ G Ratio 1.4 Ratio 08/17/2015 Comp Metabolic Buu683 Os mo 265 mOsmo 08/17/2015 Review of Systems System Result Effective Dates Constitutional recent illness 11/26/2018 Constitutional No chills [...] 11/26/2018 None Full Exam - General 1995 Eyes conjunctiva/eyelids Overall: cornea clear 11/26/2018 None Full Exam - General 1994 Eyes conjunctiva/eyelids Overall: eyelids normal 11/26/2018 None Full Exam - General 1994 Eyes pupils and irises Overall: pupils equal, round, reactive to light and accomodation 11/26/2018 None Full Exam - General 1995 Ears/Nose/Throat otoscopic exam Overall: external auditory canals clear 11/26/2018 None Full Exam - General 1995 Ears/Nose/Throat otoscopic exam Overall: tympanic membranes clear 11/26/2018 None Full Exam - General 1995 Ears/Nose/Throat lips/teeth/gingiva Overall: benign lips 11/26/2018 None [...] 1994 Ears/Nose/Throat oral cavity/pharynx/larynx Overall: no masses 11/26/2018 [...] time 11/26/2018 None Full Exam - General 1995 Psychiatric mood and affect Overall: normal mood and affect 11/26/2018 None Full Exam - General 1994 Respiratory auscultation Upper lung field: inspiratory wheezes 11/26/2018 None Full Exam - General 1994 Respiratory auscultation Lower lung field: diminished 11/26/2018 None Full Exam - General 1995 Constitutional general appearance Overall: well developed 11/12/2018 None Full Exam - General 1995 Constitutional general appearance Overall: in no acute distress 11/12/2018 None Full Exam - General 1995 Constitutional general appearance Overall: well nourished 11/12/2018 [...] 08/17/2015 None Procedures Procedure Codes Date TOBACCO-USE DIRECTOR PEDIATRIC 3-[address]: 832040496 CPT-4: G0436 09/10/2016 TOBACCO-USE DIRECTOR PEDIATRIC 3-[address]: 554382702 CPT-4: G0436 04/23/2016 TOBACCO-USE DIRECTOR PEDIATRIC 3-[address]: 417783880 CPT-4: G0436 02/29/2016 TOBACCO-USE DIRECTOR PEDIATRIC 3-[address]: 736858390 CPT-4: G0436 08/17/2015 Vital Signs Date Vital 11/26/2018 Blood Pressure 1: 130/76 Code: 8480-6 BMI: 36.6 Code: 63559-3 Heart Rate 1: 100 bpm Height: 5'4" SpO2: 96% Temperature: 36.7 (C ) / 98.0 (F) Weight: 213 lbs 11/12/2018 Heigh t: Weight: 11/06/2018 Blood Pressure 1: 150/90 Code: 8480-6 BMI: 36.6 Code: 73043-3 Heart Rate 1: 105 bpm Height: 5'4" SpO2: 96% Weight: 213 lbs 09/14/2018 Blood Pressure 1: 130/80 Code: 8480-6 BMI: 36.9 Code: 65350-1 Height: 5'4" Weight: 215 lbs 03/12/2018 Blood Pressure 1: 148/82 Code: 8480-6 BMI: 36.7 Code: 20454-3 Heart Rate 1: 96 bpm Height: 5'4" SpO2: 98% Weight: 214 lbs 09/11/2017 Blood Pressure 1: 142/84 Code: 8480-6 BMI: 37.2 Code: 56813-5 Heart Rate 1: 91 bpm Height: 5'4" SpO2: 98% Weight: 217 lbs 03/10/2017 Blood Pressure 1: 144/78 Code: 8480-6 BMI: 36.8 Code: 59791-9 Heart Rate 1: 86 bpm Height: 5'4" SpO2: 98% Weight: 214 lbs 8 oz 09/10/2016 Blood Pressure 1: 130/80 Code: 8480-6 BMI: 36.7 Code: 42620-4 Heart Rate 1: 98 bpm Height: 5'4" SpO2: 98% Weight: 214 lbs 04/23/2016 Blood Pressure 1: 126/72 Code: 8480-6 BMI: 36.0 Code: 45340-1 Heart Rate 1: 86 bpm Height: 5'4" SpO2: 97% Weight: 209 lbs 8 oz 02/29/2016 Blood Pressure 1: 138/76 Code: 8480-6 BMI: 34.8 Code: 44162-9 Heart Rate 1: 78 bpm Height: 5'4" SpO2: 98% Weight: 203 lbs 08/17/2015 Blood Pressure 1: 140/88 Code: 8480-6 BMI: 35.2 Code: 03828-2 Heart Rate 1: 90 bpm Height: 5'4" SpO2: 97% Weight: 205 lbs Functional Status No Functional Status data History of Present Illness Symptom Name Status Resu lt Effective Date Notes Location in the throat 11/26/2018 None Quality [...] Encounters Encounter Performer Loca tion Codes Date ([id number]) [id number] EST. P ATIENT, LEVEL III Diagnosis: Chronic obstructive pulmonary disease with acute lower respiratory infection[ICD10: J44.0] Diagnosis: Cough[ICD10: R05] Samantha Capone MD, [facility] CPT-4: 34804 11/26/2018 [id number] EST. PATIENT, LEVEL III Diagnosis: Postmenopausal bleeding[ICD10: N95.0] Diagnosis: Unspecified ovarian cyst, left side[ICD10: N83.202] Constance Capone MD, [facility] CPT-4: 47028 11/12/2018 11276 EST. PATIENT, LEVEL IV Diagnosis: Postmenopausal bleeding[ICD10: N95.0] Constance Capone MD, [facility] CPT- 4: 47512 11/06/2018 ([id number]) 68403 EST. P ATIENT, LEVEL IV Diagnosis: Essential (primary) hypertension[ICD10: I10] Diagnosis: Type 2 diabetes mellitus without complications[ICD10: E11.9] Diagnosis: Mixed hyperlipidemia[ICD10: E78.2] Blessing Capone MD, [facility] CPT-4: 36290 09/14/2018 ([id number]) 76798 EST. P ATIENT, LEVEL IV Diagnosis: Essential (primary) hypertension[ICD10: I10] Diagnosis: Mixed hyperlipidemia[ICD10: E78.2] Diagnosis: Vitamin D deficiency, unspecified[ICD10: E55.9] Diagnosis: Type 2 diabetes mellitus without complications[ICD10: E11.9] Diagnosis: Impaired fasting glucose[ICD10: R73.01] Diagnosis: Encounter for screening mammogram for malignant neoplasm of breast[ICD10: Z12.31] Blessing Capone MD, [facility] CPT-4: 53670 03/12/2018 ([id number]) 73934 EST. P ATIENT, LEVEL IV Diagnosis: Type 2 diabetes mellitus without complications[ICD10: E11.9] Diagnosis: Vitamin D deficiency, unspecified[ICD10: E55.9] Diagnosis: Mixed hyperlipidemia[ICD10: E78.2] Diagnosis: Essential (primary) hypertension[ICD10: I10] Blessing Capone MD, [facility] CPT-4: 97344 09/11/2017 ([id number]) 07347 EST. P ATIENT, LEVEL III Diagnosis: Essential (primary) hypertension[ICD10: I10] Diagnosis: Type 2 diabetes mellitus without complications[ICD10: E11.9] Blessing Capone MD, [facility] CPT-4: 85062 03/10/2017 ([id number]) 05465 EST. P ATIENT, LEVEL IV Diagnosis: Type 2 diabetes mellitus without complications[ICD10: E11.9] Diagnosis: Mixed hyperlipidemia[ICD10: E78.2] Diagnosis: Essential (primary) hypertension[ICD10: I10] Diagnosis: Tobacco use[ICD10: Z72.0] Samantha Capone MD, [facility] CPT-4: 53066 09/10/2016 ([id number]) 27158 EST. P ATIENT, LEVEL IV Diagnosis: Type 2 diabetes mellitus without complications[ICD10: E11.9] Diagnosis: Essential (primary) hypertension[ICD10: I10] Diagnosis: Emphysema (subcutaneous) resulting from a procedure, subsequent encounter[ICD10: T81.82XD] Diagnosis: Tobacco use[ICD10: Z72.0] Samantha Capone MD, [facility] CPT-4: 92537 04/23/2016 ([id number]) 57381 EST. P ATIENT, LEVEL IV Diagnosis: Essential (primary) hypertension[ICD10: I10] Diagnosis: Tobacco use[ICD10: Z72.0] Diagnosis: Type 2 diabetes mellitus without complications[ICD10: E11.9] Samantha Capone MD, [facility] CPT-4: 75243 02/29/2016 ([id number]) OFFICE VISI , [facility] - LEVEL 4 Diagnosis: Other abnormal glucose[ICD10: R73.09] Diagnosis: Essential (primary) hypertension[ICD10: I10] Diagnosis: Mixed hyperlipidemia[ICD10: E78.2] Diagnosis: Tobacco use[ICD10: Z72.0] Diagnosis: Vitamin D deficiency, unspecified[ICD10: E55.9] Samantha Capone MD, [facility] CPT-4: 74892 08/17/2015 Plan of Care Planned Activity Notes C odes Status Date Visit Plan: 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 11/26/2018 Patient Education: Patient Medication Summary Completed 11/26/2018 Visit Plan: Post menopausal bleedin g - US shows mass - Dr. Capone in to discuss with pt - will refer to compound filler/onc, will order CT Abdomen/pelvis and labs 11/12/2018 Appointment: Constance Esposito WPtel: [phone] [id number] (30 min) Complex 11/12/2018 Patient Education: Patient Medication Summary Completed 11/12/2018 Visit Plan: Post menopausal bleedin g - Pap done - will order US and refer as indicated - pt is to notify clinic with any changes, questions, or concerns. 11/06/2018 Appointment: Constance Esposito WPtel: [phone] [facility] [id number] (30 min) Complex 11/06/2018 Patient Education: [...] fat diet 09/14/2018 Appointment: Blessing Miller WPtel: [phone] [phone] [place] (30 min) Complex 09/14/2018 Patient [...] use 03/12/2018 [phone] ([facility]) Complex 03/12/2018 Patient Education: Patient Medication Summary Completed 03/12/2018 Care Plan: SCREENINGMAMMOGRAPHYDIGITAL LOINC : 07643-2 Pending 03/12/2018 Visit Plan: Hypertension - well [...] medications. 09/11/2017 [phone] [place] (30 min) Complex 09/11/2017 Patient Education: Patient Medication Summary Completed 09/11/2017 Patient Education: Smoking and Tobacco Addiction Completed 09/11/2017 Patient Education: Obesity Completed 09/11/2017 Care Plan: Comp Metabolic Cancelled 09/11/2017 Care Plan: Cbc With Differential Cancelled 09/11/2017 Care Plan: %Hba1C LOIN C : 12692-1 Cancelled 09/11/2017 Care Plan: Tsh Cancelled 09/11/2017 Care Plan: Lipid Cancelled 09/11/2017 Care Plan: Vitamin D 25 Oh Cancelled 09/11/2017 Appointment: Blessing Miller WPtel: [phone] [phone] (30 min) Complex 09/08/2017 Visit Plan: [...] controlled. 03/10/2017 App[facility]ment: [phone] ([facility] min) Complex 03/10/2017 Patient Education: Patient Medication Summary Completed 03/10/2017 Patient Education: Smoking and Tobacco Addiction Completed 03/10/2017 Patient Education: Obesity Completed 03/10/2017 Care Plan: Lipid Cancelled 03/10/2017 Care Plan: Tsh Cancelled 03/10/2017 Care Plan: %Hba1C LOIN C : 94172-5 Cancelled 03/10/2017 Care Plan: Cbc With Differential [...] 09/10/2016 Care Plan: %Hba1C LOIN C : 16224-1 Cancelled 09/10/2016 Care Plan: Tsh Cancelled 09/10/2016 [...] Completed 02/29/2016 Appointment: Samantha Capone WPtel: [phone] [facility] (15 min) Moderate 02/22/2016 Visit Plan: [...] hgba1c. 08/17/2015 App[facility]ment: [phone] [place] [facility] New Patient 08/17/2015 Patient Education: Patient Medication Summary Completed 08/17/2015 Patient Education: Hypertension Completed 08/17/2015 Patient Education: Smoking and Tobacco Addiction Completed 08/17/2015 Instructions Comment . Post menopausal bl eeding - US shows mass - Dr. Capone in to discuss with pt - will refer to [facility] compound filler/onc, will order CT Abdomen/pelvis and labs . [...] to assure normal liver response to medications. SYMBICORT 2 PUFFS TW ICE DAILY . [...] - check hgba1c. appointment for US m onday at noon . Post menopausal bleeding - [...]
--- OUTSIDE RECORDS SUMMARY | 2020-04-27 11:35 | XMS REPORT | CCD ---
Author Author Roberta Capone Organization Samantha Capone MD, [facility] Address [address] [place] [address] Phone Care Team Providers Care Telegraph Inspector Name Role Phone PP Unavailable CCM Unavailable Summary Purpose Interface Exchange Insurance Providers Payer name Policy type / Coverage type Covered constitution party ID Effective Begin Date Effective End Date WPS Medicare Part B Medicare Part B [id number] 2018 Unknown [employer] Medicare Part B [id number] Unknown Family history Father Diagnosis Age At Onset Hyperlipidemia Unknown Heart Attack Unknown Hypertension Unknown Mother Diagnosis Age At Onset Arthritis Unknown Breast cancer Unknown Hypertension Unknown Skin cancer Unknown Osteoporosis Unknown Sister Diagnosis Age At Onset Cancer Unknown Social History Social History Element Codes Description Effective Dates Tobacco history SNOMED CT: 68177066 Current every day smoker one pack/day 48 yrs - pt down to 1/2 ppd as of Jul 2016 09/10/2016 Marital status Unknown M arried Derik 08/17/2015 Number of children Unknown 2 adopted children - 35 (Saul) and 33y/o (Jeb) 08/17/2015 Living arrangements Unknown House 08/17/2015 Employment Unknown Retir ed 08/17/[address]: 674395049 Never drinks alcohol 08/17/2015 Allergies, Adverse Reactions, Alerts Substance Reaction Codes Entered Date Inactivated Date Status * NO KNOWN DRUG OUSMANE RGIES Unknown 08/17/2015 No Inactive Date Active Past Medical History Illness Codes Condition Status Onset Date Resolved Date Postmenopausal bleeding ICD-9: 627.1 ICD-10: N95.0 Active 11/06/2018 Unknown Unspecified ovarian cyst, left side ICD-9: 620.2 ICD-10: N83.202 Active 11/12/2018 Unknown Essential (primary) hypertension ICD-9: 401.1 ICD-10: I10 Active 03/10/2017 Unknown Mixed hyperlipidemia ICD-9: 272.2 ICD-10: E78.2 [...] Condition Codes Effectiv e Dates Condition Status Postmenopausal bleeding ICD-9: 627.1 ICD-10: N95.0 11/06/2018 Active Unspecified ovarian cyst, left side ICD-9: 620.2 ICD-10: N83.202 11/12/2018 Active Essential (primary) hypertension ICD-9: 401.1 ICD-10: I10 03/10/2017 Active Mixed hyperlipidemia ICD-9: 272.2 ICD-10: E78.2 [...] Date Stop Date Sta tus Fill Instructions pravastatin 40 mg ta blet RxNorm: 073041 TAKE ONE TABLET BY MO UT DAILY 11/13/2018 05/11/2019 Ac tive glipizide ER 2.5 mg tablet, extended release 24 hr RxNorm: 451121 TAKE ONE TABLET BY MOUTH DAILY 11/13/2018 05/11/2019 Active enalapril 10 mg-hydr ochlorothiazide 25 mg tablet RxNorm: 658170 TAKE ONE TABLET BY MOUTH DAILY 11/13/2018 05/11/2019 Active Symbicort 160 mcg-4. 5 mcg/actuation HFA aerosol inhaler RxNorm: 8643488 2 Puff(s) INH 03/12/2018 09/13/2018 Inactive enalapril 10 mg-hydr ochlorothiazide 25 mg tablet RxNorm: 459505 TAKE ONE TABLET BY MOUTH DAILY 02/23/2018 11/12/2018 Inactive glipizide ER 2.5 mg tablet, extended release 24 hr RxNorm: 403219 Tablet(s) TAKE ONE TABLET BY MOUTH DAILY 02/23/2018 11/12/2018 Inactive pravastatin 40 mg ta blet RxNorm: 152647 TAKE ONE TABLET BY MO UT DAILY 02/23/2018 11/12/2018 In active glipizide ER 2.5 mg tablet, extended release 24 hr RxNorm: 694222 TAKE ONE TABLET BY MOUTH DAILY 08/22/2017 02/17/2018 Inactive enalapril 10 mg-hydr ochlorothiazide 25 mg tablet RxNorm: 302361 TAKE ONE TABLET BY MOUTH DAILY 05/23/2017 02/16/2018 Inactive pravastatin 40 mg ta blet RxNorm: 118170 TAKE ONE TABLET BY MO UT DAILY 05/23/2017 02/16/2018 In active glipizide ER 2.5 mg tablet, extended release 24 hr RxNorm: 947545 TAKE ONE TABLET BY MOUTH DAILY 02/21/2017 08/19/2017 Inactive glipizide ER 2.5 mg tablet, extended release 24 hr RxNorm: 570750 TAKE ONE TABLET BY MOUTH DAILY 12/23/2016 02/20/2017 Inactive pravastatin 40 mg ta blet RxNorm: 931180 TAKE ONE TABLET BY MO UTH DAILY 08/26/2016 05/22/2017 In active enalapril 10 mg-hydr ochlorothiazide 25 mg tablet RxNorm: 106844 TAKE ONE TABLET BY MOUTH DAILY 08/26/2016 02/22/2018 Inactive pravastatin 40 mg ta blet RxNorm: 159370 TAKE ONE TABLET BY MO UTH DAILY 08/26/2016 02/22/2018 In active enalapril 10 mg-hydr ochlorothiazide 25 mg tablet RxNorm: 873295 TAKE ONE TABLET BY MOUTH DAILY 08/26/2016 02/22/2018 Inactive enalapril 10 mg-hydr ochlorothiazide 25 mg tablet RxNorm: 974658 TAKE ONE TABLET BY MOUTH DAILY 08/26/2016 05/22/2017 Inactive glipizide ER 2.5 mg tablet, extended release 24 hr RxNorm: 026091 TAKE ONE TABLET BY MOUTH DAILY 06/25/2016 12/21/2016 Inactive glipizide ER 2.5 mg tablet, extended release 24 hr RxNorm: 516074 TAKE ONE TABLET BY MOUTH DAILY 03/11/2016 06/24/2016 Inactive glipizide 5 mg tablet RxNorm: 474600 1 Tablet(s) PO daily 10/16/2015 10/15/2015 Inactive glipizide ER 2.5 mg tablet, extended release 24 hr RxNorm: 779148 1 Tablet(s) PO daily 10/16/2015 03/10/2016 Inactive enalapril 10 mg-hydr ochlorothiazide 25 mg tablet RxNorm: 479598 1 Tablet(s) PO daily 09/01/2015 08/25/2016 Inactive pravastatin 40 mg ta blet RxNorm: 856863 1 Tablet(s) PO daily 09/01/2015 08/25/2016 Inactive metformin 500 mg tablet RxNorm: 165109 1/2 Tablet(s) PO BID 09/01/2015 09/13/2018 Inactive metformin 500 mg tablet RxNorm: 654699 1/2 Tablet(s) PO BID 09/01/2015 08/31/2015 Inactive pravastatin 40 mg ta blet RxNorm: 422998 1 Tablet(s) PO daily 08/17/2015 08/31/2015 Inactive vitamin E (dl, aceta te) 1,000 unit capsule RxNorm: 049436 1 Capsule(s) PO every other day No Start Date Active Super B Complex + C 150 mg tablet RxNorm: 1 Tablet(s) PO daily No Start Date Active Odilia 180 mg tablet RxNorm: 245704 1 Tablet(s) PO daily No Start Date Active Vitamin D2 1,000 uni t capsule RxNorm: 595176 1 Capsule(s) PO BID No Start Date Active enalapril 10 mg-hydr ochlorothiazide 25 mg tablet RxNorm: 672502 1 Tablet(s) PO daily No Start Date 08/31/2015 Inactive Medication Administered No Medication Administered data Immunizations No Immunization data Assessments Condition Codes Effectiv e Dates Postmenopausal bleeding ICD-10: N95. 0 ICD-9: 627.1 [...] Visit Reason For Visit Effective Dates Notes abnormal test results 11/12/2018 abdominal pain 11/06/2018 hypertension 09/14/2018 hypertension 03/12/2018 hypertension 09/11/2017 hypertension 03/10/2017 hypertension 09/10/2016 hypertension 04/23/2016 hypertension 02/29/2016 hypertension 08/17/2015 Results Observation Observation Code Item Item Code Result Date Tsh Ord6 TSH (3rd IS) 3.46 uIU/mL 03/12/2018 Comp Metabolic Xgt591 NA 138 mEq/L 03/12/2018 Comp Metabolic Ccw100 K 4.5 mEq/L 03/12/2018 Comp Metabolic Rez737 CL 104 mEq/L 03/12/2018 Comp Metabolic Brw256 CO2 28.0 mEq/L 03/12/2018 Comp Metabolic Rsh205 AN ION GAP 11 03/12/2018 Comp Metabolic Ziu186 GL UCOSE 129 mg/dL 03/12/2018 Comp Metabolic Bal089 Cr eat 0.8 mg/dL 03/12/2018 Comp Metabolic Wby318 eG FR 74 ml/min/1.73m2 03/12 Comp Metabolic Cwv736 BUN 12 mg/dL 03/12/2018 Comp Metabolic Vov961 B/ C Ratio 14.8 Ratio 03/12/2018 Comp Metabolic Xeb095 CA LCIUM 9.1 mg/dL 03/12/2018 Comp Metabolic Ucx424 AL K PHOS 64 U/L 03/12/2018 Comp Metabolic Zdv754 T(SGOT) 13 U/L 03/12/2018 Comp Metabolic Aah174 AL T(SGPT) 12 U/L 03/12/2018 Comp Metabolic Whb054 BI LI T 0.5 mg/dL 03/12/2018 Comp Metabolic Ece869 AL BUMIN 4.0 g/dL 03/12/2018 Comp Metabolic Fei358 TP RO 6.8 g/dL 03/12/2018 Comp Metabolic Jsh749 GL OB 2.8 g/dL 03/12/2018 Comp Metabolic Rpw557 A/ G Ratio 1.4 Ratio 03/12/2018 Comp Metabolic Fva542 Os mo 277 mOsmo 03/12/2018 Vitamin D 25 Oh Mof4949 VITAMIN D, 25 HYDROXY 47.13 ng/mL 03/12/2018 Lipid Ord30 CHOL 161 mg/dL 03/12/2018 Lipid Ord30 HDL 49.0 mg/dl 03/12/2018 Lipid Ord30 TRIG 126 mg/dL 03/12/2018 Lipid Ord30 LDL 87 mg/dL 03/12/2018 Lipid Ord30 C/HDL 3.3 Ratio 03/12/2018 %Hba1C Ame903 % HbA1c 99070-0 6.4 % 03/12/2018 %Hba1C Lpj905 Gluc Ave 137 mg/dL 03/12/2018 Cbc With [...] 87.5 fl 03/12/2018 Cbc With Differential Ord2 [place]% 9.0 % 03/12/2018 Cbc With Differential Ord2 [...] 2.91 K/ul 03/12/2018 Cbc With Differential Ord2 [place] ABS# 1.0 K/ul 03/12/2018 Cbc With Differential Ord2 Eos ABS# 0.2 K/ul 03/12/2018 Cbc With Differential Ord2 Baso ABS# 0.1 K/ul 03/12/2018 Vitamin D 25 Oh Lqy5104 VITAMIN D, 25 HYDROXY 40.72 ng/mL 09/11/2017 %Hba1C Hjl455 % HbA1c 90652-5 6.0 % 09/11/2017 %Hba1C Kll427 Gluc Ave 126 mg/dL 09/11/2017 Cbc With [...] 28.8 pg 09/11/2017 Cbc With Differential Ord2 [place]% 7.8 % 09/11/2017 Cbc With Differential Ord2 [...] 3.57 K/ul 09/11/2017 Cbc With Differential Ord2 [place] ABS# 1.0 K/ul 09/11/2017 Cbc With Differential Ord2 Eos ABS# 0.3 K/ul 09/11/2017 Cbc With Differential Ord2 Baso ABS# 0.1 K/ul 09/11/2017 Tsh Ord6 hTSH II 2.46 uIU/mL 09/11/2017 Lipid Ord30 CHOL 172 mg/dL 09/11/2017 Lipid Ord30 HDL 47.0 mg/dl 09/11/2017 Lipid Ord30 TRIG 137 mg/dL 09/11/2017 Lipid Ord30 LDL 98 mg/dL 09/11/2017 Lipid Ord30 C/HDL 3.7 Ratio 09/11/2017 Comp Metabolic Umu685 NA 138 mEq/L 09/11/2017 Comp Metabolic Yfp506 K 4.5 mEq/L 09/11/2017 Comp Metabolic Zph209 CL 103 mEq/L 09/11/2017 Comp Metabolic Xda523 CO2 28.0 mEq/L 09/11/2017 Comp Metabolic Cxe033 AN ION GAP 12 09/11/2017 Comp Metabolic Yfn580 GL UCOSE 105 mg/dL 09/11/2017 Comp Metabolic Znp543 Cr eat 0.7 mg/dL 09/11/2017 Comp Metabolic Plt976 eG FR 94 ml/min/1.73m2 09/11 Comp Metabolic Vkw617 BUN 10 mg/dL 09/11/2017 Comp Metabolic Cax417 B/ C Ratio 15.2 Ratio 09/11/2017 Comp Metabolic Fjt192 CA LCIUM 9.1 mg/dL 09/11/2017 Comp Metabolic Sbh236 AL K PHOS 70 U/L 09/11/2017 Comp Metabolic Qeo403 T(SGOT) 12 U/L 09/11/2017 Comp Metabolic Bai917 AL T(SGPT) 11 U/L 09/11/2017 Comp Metabolic Chz000 BI LI T 0.6 mg/dL 09/11/2017 Comp Metabolic Pcl826 AL BUMIN 4.1 g/dL 09/11/2017 Comp Metabolic Vbf567 TP RO 7.1 g/dL 09/11/2017 Comp Metabolic Zzd779 GL OB 3.0 g/dL 09/11/2017 Comp Metabolic Nks531 A/ G Ratio 1.4 Ratio 09/11/2017 Comp Metabolic Ukt716 Os mo 275 mOsmo 09/11/2017 Microalbumin Zrx560 Micr oAlb <0.7 mg/dL 09/11/2016 %Hba1C Omx437 % HbA1c 86538-8 5.8 % 09/11/2016 %Hba1C Ttg216 Gluc Ave 120 mg/dL 09/11/2016 Cbc With [...] 29.3 pg 09/10/2016 Cbc With Differential Ord2 [place]% 7.5 % 09/10/2016 Cbc With Differential Ord2 [...] 3.78 K/ul 09/10/2016 Cbc With Differential Ord2 [place] ABS# 0.9 K/ul 09/10/2016 Cbc With Differential Ord2 Eos ABS# 0.3 K/ul 09/10/2016 Cbc With Differential Ord2 Baso ABS# 0.1 K/ul 09/10/2016 Lipid Ord30 CHOL 163 mg/dL 09/10/2016 Lipid Ord30 HDL 48.0 mg/dl 09/10/2016 Lipid Ord30 TRIG 174 mg/dL 09/10/2016 Lipid Ord30 LDL 80 mg/dL 09/10/2016 Lipid Ord30 C/HDL 3.4 Ratio 09/10/2016 Comp Metabolic Qek579 NA 135 mEq/L 09/10/2016 Comp Metabolic Hyz469 K 3.8 mEq/L 09/10/2016 Comp Metabolic Xba164 CL 99 mEq/L 09/10/2016 Comp Metabolic Gco195 CO2 27.0 mEq/L 09/10/2016 Comp Metabolic Mms429 AN ION GAP 13 09/10/2016 Comp Metabolic Fkl413 GL UCOSE 72 mg/dL 09/10/2016 Comp Metabolic Ovr156 Cr eat 0.7 mg/dL 09/10/2016 Comp Metabolic Abj518 eG FR 89 ml/min/1.73m2 09/10 Comp Metabolic Bcg595 BUN 7 mg/dL 09/10/2016 Comp Metabolic Utn311 B/ C Ratio 10.1 Ratio 09/10/2016 Comp Metabolic Uuw885 CA LCIUM 9.1 mg/dL 09/10/2016 Comp Metabolic Fxl864 AL K PHOS 66 U/L 09/10/2016 Comp Metabolic Wzk874 T(SGOT) 14 U/L 09/10/2016 Comp Metabolic Lsr514 AL T(SGPT) 11 U/L 09/10/2016 Comp Metabolic Jzh986 BI LI T 0.6 mg/dL 09/10/2016 Comp Metabolic Tlq108 AL BUMIN 4.1 g/dL 09/10/2016 Comp Metabolic Dax731 TP RO 7.3 g/dL 09/10/2016 Comp Metabolic Wtf600 GL OB 3.2 g/dL 09/10/2016 Comp Metabolic Ghb829 A/ G Ratio 1.3 Ratio 09/10/2016 Comp Metabolic Bfb680 Os mo 267 mOsmo 09/10/2016 Tsh Ord6 hTSH II 2.80 uIU/mL 09/10/2016 %Hba1C Atu391 % HbA1c 74256-2 5.8 % 02/29/2016 %Hba1C Rqr425 Gluc Ave 120 mg/dL 02/29/2016 Comp Metabolic Jro125 NA 135 mEq/L 02/29/2016 Comp Metabolic Fbh695 K 4.4 mEq/L 02/29/2016 Comp Metabolic Gtz814 CL 101 mEq/L 02/29/2016 Comp Metabolic Mjn045 CO2 27.0 mEq/L 02/29/2016 Comp Metabolic Kza187 AN ION GAP 11 02/29/2016 Comp Metabolic Pfi237 GL UCOSE 77 mg/dL 02/29/2016 Comp Metabolic Ddb240 Cr eat 0.6 mg/dL 02/29/2016 Comp Metabolic Hga717 eG FR 99 ml/min/1.73m2 02/28 Comp Metabolic Swv554 BUN 13 mg/dL 02/29/2016 Comp Metabolic Ome088 B/ C Ratio 20.6 Ratio 02/29/2016 Comp Metabolic Iyy702 CA LCIUM 9.4 mg/dL 02/29/2016 Comp Metabolic Eed638 AL K PHOS 65 U/L 02/29/2016 Comp Metabolic Wbw979 T(SGOT) 14 U/L 02/29/2016 Comp Metabolic Fjo554 AL T(SGPT) 11 U/L 02/29/2016 Comp Metabolic Ugl043 BI LI T 0.6 mg/dL 02/29/2016 Comp Metabolic Szx033 AL BUMIN 4.1 g/dL 02/29/2016 Comp Metabolic Rvt788 TP RO 7.2 g/dL 02/29/2016 Comp Metabolic Mvb193 GL OB 3.1 g/dL 02/29/2016 Comp Metabolic Fzh813 A/ G Ratio 1.3 Ratio 02/29/2016 Comp Metabolic Fna158 Os mo 269 mOsmo 02/29/2016 Lipid Ord30 CHOL 202 mg/dL 02/29/2016 Lipid Ord30 HDL 62.0 mg/dl 02/29/2016 Lipid Ord30 TRIG 123 mg/dL 02/29/2016 Lipid Ord30 LDL 115 mg/dL 02/29/2016 Lipid Ord30 C/HDL 3.3 Ratio 02/29/2016 Vitamin D 25 Oh Uup8240 VITAMIN D, 25 HYDROXY 58.48 ng/mL 08/18/2015 Lipid Ord30 CHOL 172 mg/dL 08/17/2015 Lipid Ord30 HDL 49.0 mg/dl 08/17/2015 Lipid Ord30 TRIG 170 mg/dL 08/17/2015 Lipid Ord30 LDL 89 mg/dL 08/17/2015 Lipid Ord30 C/HDL 3.5 Ratio 08/17/2015 %Hba1C Rbx675 % HbA1c 44961-4 6.4 % 08/17/2015 %Hba1C Dtw861 Gluc Ave 137 mg/dL 08/17/2015 Tsh Ord6 [...] Ord2 RDW 14.8 % 08/17/2015 Comp Metabolic Ekq029 NA 132 mEq/L 08/17/2015 Comp Metabolic Wnu195 K 4.4 mEq/L 08/17/2015 Comp Metabolic Dgn691 CL 101 mEq/L 08/17/2015 Comp Metabolic Zqa866 CO2 24.0 mEq/L 08/17/2015 Comp Metabolic Gaz752 AN ION GAP 11 08/17/2015 Comp Metabolic Qiw102 GL UCOSE 130 mg/dL 08/17/2015 Comp Metabolic Yof688 Cr eat 0.7 mg/dL 08/17/2015 Comp Metabolic Pxk260 eG FR 93 ml/min/1.73m2 08/17 Comp Metabolic Bjb476 BUN 8 mg/dL 08/17/2015 Comp Metabolic Dho719 B/ C Ratio 11.9 Ratio 08/17/2015 Comp Metabolic Pvs481 CA LCIUM 9.5 mg/dL 08/17/2015 Comp Metabolic Yld679 AL K PHOS 70 U/L 08/17/2015 Comp Metabolic Qdu824 T(SGOT) 28 U/L 08/17/2015 Comp Metabolic Bog083 AL T(SGPT) 14 U/L 08/17/2015 Comp Metabolic Vsa437 BI LI T 0.8 mg/dL 08/17/2015 Comp Metabolic Ser038 AL BUMIN 4.2 g/dL 08/17/2015 Comp Metabolic Ser344 TP RO 7.3 g/dL 08/17/2015 Comp Metabolic Jac005 GL OB 3.1 g/dL 08/17/2015 Comp Metabolic Xdq428 A/ G Ratio 1.4 Ratio 08/17/2015 Comp Metabolic Tyi899 Os mo 265 mOsmo 08/17/2015 Review of Systems System Result Effective Dates Constitutional No recent illness 11/12/2018 Constitutional No [...] 08/17/2015 None Procedures Procedure Codes Date TOBACCO-USE RADAR TECHNICIAN 3-[address]: 255065097 CPT-4: G0436 09/10/2016 TOBACCO-USE RADAR TECHNICIAN 3-[address]: 736767239 CPT-4: G0436 04/23/2016 TOBACCO-USE RADAR TECHNICIAN 3-[address]: 271201706 CPT-4: G0436 02/29/2016 TOBACCO-USE RADAR TECHNICIAN 3-[address]: 241982267 CPT-4: G0436 08/17/2015 Vital Signs Date Vital 11/12/2018 Heigh t: Weight: 11/06/2018 Blood Pressure 1: 150/90 Code: 8480-6 BMI: 36.6 Code: 20165-2 Heart Rate 1: 105 bpm Height: 5'4" SpO2: 96% Weight: 213 lbs 09/14/2018 Blood Pressure 1: 130/80 Code: 8480-6 BMI: 36.9 Code: 89486-8 Height: 5'4" Weight: 215 lbs 03/12/2018 Blood Pressure 1: 148/82 Code: 8480-6 BMI: 36.7 Code: 32906-1 Heart Rate 1: 96 bpm Height: 5'4" SpO2: 98% Weight: 214 lbs 09/11/2017 Blood Pressure 1: 142/84 Code: 8480-6 BMI: 37.2 Code: 28128-2 Heart Rate 1: 91 bpm Height: 5'4" SpO2: 98% Weight: 217 lbs 03/10/2017 Blood Pressure 1: 144/78 Code: 8480-6 BMI: 36.8 Code: 57870-6 Heart Rate 1: 86 bpm Height: 5'4" SpO2: 98% Weight: 214 lbs 8 oz 09/10/2016 Blood Pressure 1: 130/80 Code: 8480-6 BMI: 36.7 Code: 24171-2 Heart Rate 1: 98 bpm Height: 5'4" SpO2: 98% Weight: 214 lbs 04/23/2016 Blood Pressure 1: 126/72 Code: 8480-6 BMI: 36.0 Code: 45495-6 Heart Rate 1: 86 bpm Height: 5'4" SpO2: 97% Weight: 209 lbs 8 oz 02/29/2016 Blood Pressure 1: 138/76 Code: 8480-6 BMI: 34.8 Code: 57560-7 Heart Rate 1: 78 bpm Height: 5'4" SpO2: 98% Weight: 203 lbs 08/17/2015 Blood Pressure 1: 140/88 Code: 8480-6 BMI: 35.2 Code: 06221-7 Heart Rate 1: 90 bpm Height: 5'4" SpO2: 97% Weight: 205 lbs Functional Status No Functional Status data History of Present Illness Symptom Name Status Resu lt Effective Date Notes Abnormal Indicator mal ignant 11/12/2018 None Pertinent [...] Encounters Encounter Performer Loca tion Codes Date 77102 EST. PATIENT, LEVEL III Diagnosis: Postmenopausal bleeding[ICD10: N95.0] Diagnosis: Unspecified ovarian cyst, left side[ICD10: N83.202] Constance Capone MD, [facility] CPT-4: 83211 11/12/2018 [id number] EST. PATIENT, LEVEL IV Diagnosis: Postmenopausal bleeding[ICD10: N95.0] Constance Capone MD, [facility] CPT- 4: 53337 11/06/2018 ([id number]) 41073 EST. P ATIENT, LEVEL IV Diagnosis: Essential (primary) hypertension[ICD10: I10] Diagnosis: Type 2 diabetes mellitus without complications[ICD10: E11.9] Diagnosis: Mixed hyperlipidemia[ICD10: E78.2] Blessing Capone MD, [facility] CPT-4: 22237 09/14/2018 ([id number]) 39317 EST. P ATIENT, LEVEL IV Diagnosis: Essential (primary) hypertension[ICD10: I10] Diagnosis: Mixed hyperlipidemia[ICD10: E78.2] Diagnosis: Vitamin D deficiency, unspecified[ICD10: E55.9] Diagnosis: Type 2 diabetes mellitus without complications[ICD10: E11.9] Diagnosis: Impaired fasting glucose[ICD10: R73.01] Diagnosis: Encounter for screening mammogram for malignant neoplasm of breast[ICD10: Z12.31] Blessing Capone MD, [facility] CPT-4: 96164 03/12/2018 ([id number]) 40663 EST. P ATIENT, LEVEL IV Diagnosis: Type 2 diabetes mellitus without complications[ICD10: E11.9] Diagnosis: Vitamin D deficiency, unspecified[ICD10: E55.9] Diagnosis: Mixed hyperlipidemia[ICD10: E78.2] Diagnosis: Essential (primary) hypertension[ICD10: I10] Blessing Capone MD, [facility] CPT-4: 66245 09/11/2017 ([id number]) 61975 EST. P ATIENT, LEVEL III Diagnosis: Essential (primary) hypertension[ICD10: I10] Diagnosis: Type 2 diabetes mellitus without complications[ICD10: E11.9] Blessing Capone MD, [facility] CPT-4: 13145 03/10/2017 ([id number]) 45736 EST. P ATIENT, LEVEL IV Diagnosis: Type 2 diabetes mellitus without complications[ICD10: E11.9] Diagnosis: Mixed hyperlipidemia[ICD10: E78.2] Diagnosis: Essential (primary) hypertension[ICD10: I10] Diagnosis: Tobacco use[ICD10: Z72.0] Samantha Capone MD, [facility] CPT-4: 66620 09/10/2016 ([id number]) 55501 EST. P ATIENT, LEVEL IV Diagnosis: Type 2 diabetes mellitus without complications[ICD10: E11.9] Diagnosis: Essential (primary) hypertension[ICD10: I10] Diagnosis: Emphysema (subcutaneous) resulting from a procedure, subsequent encounter[ICD10: T81.82XD] Diagnosis: Tobacco use[ICD10: Z72.0] Samantha Capone MD, [facility] CPT-4: 56220 04/23/2016 ([id number]) 61994 EST. P ATIENT, LEVEL IV Diagnosis: Essential (primary) hypertension[ICD10: I10] Diagnosis: Tobacco use[ICD10: Z72.0] Diagnosis: Type 2 diabetes mellitus without complications[ICD10: E11.9] Samantha Capone MD, [facility] CPT-4: 68324 02/29/2016 ([id number]) OFFICE VISI , [facility] - LEVEL 4 Diagnosis: Other abnormal glucose[ICD10: R73.09] Diagnosis: Essential (primary) hypertension[ICD10: I10] Diagnosis: Mixed hyperlipidemia[ICD10: E78.2] Diagnosis: Tobacco use[ICD10: Z72.0] Diagnosis: Vitamin D deficiency, unspecified[ICD10: E55.9] Samantha Capone MD, [facility] CPT-4: 34739 08/17/2015 Plan of Care Planned Activity Notes C odes Status Date Visit Plan: Post menopausal bleedin g - US shows mass - Dr. Capone in to discuss with pt - will refer to [facility] utility tech/onc, will order CT Abdomen/pelvis and labs 11/12/2018 Appointment: Constance Esposito WPtel: [address] [place], [place] [address] [place] (30 min) Complex 11/12/2018 Patient Education: Patient Medication Summary Completed 11/12/2018 Visit Plan: Post menopausal bleedin g - Pap done - will order US and refer as indicated - pt is to notify clinic with any changes, questions, or concerns. 11/06/2018 Appointment: Constance Esposito WPtel: [phone] [phone] (30 min) Complex 11/06/2018 Patient Education: Patient [...] fat diet 09/14/2018 Appointment: Blessing Miller WPtel: [phone] [phone] (30 min) Complex 09/14/2018 Patient Education: Patient [...] on use 03/12/2018 Appointment: Blessing Miller WPtel: [phone] [phone] (30 min) Complex 03/12/2018 Patient Education: Patient Medication Summary Completed 03/12/2018 Care Plan: SCREENINGMAMMOGRAPHYDIGITAL LOINC : 23841-2 Pending 03/12/2018 Visit Plan: Hypertension - well [...] to medications. 09/11/2017 Appointment: Blessing Miller WPtel: [address] [place], [place] [phone] (30 min) Complex 09/11/2017 Patient Education: Patient Medication Summary Completed 09/11/2017 Patient Education: Smoking and Tobacco Addiction Completed 09/11/2017 Patient Education: Obesity Completed 09/11/2017 Care Plan: Comp Metabolic Cancelled 09/11/2017 Care Plan: Cbc With Differential Cancelled 09/11/2017 Care Plan: %Hba1C IN C : 57199-4 Cancelled 09/11/2017 Care Plan: Tsh Cancelled 09/11/2017 Care Plan: Lipid Cancelled 09/11/2017 Care Plan: Vitamin D 25 Oh Cancelled 09/11/2017 Appointment: Blessing Miller WPtel: [address] [place], [place] [phone] (30 min) Complex 09/08/2017 Visit Plan: Hypertension [...] less controlled. 03/10/2017 Appointment: Blessing Miller [facility]el[phone] [facility] min[facility] 03/10/2017 Patient Education: Patient Medication Summary Completed 03/10/2017 Patient Education: Smoking and Tobacco Addiction Completed 03/10/2017 Patient Education: Obesity Completed 03/10/2017 Care Plan: Lipid Cancelled 03/10/2017 Care Plan: Tsh Cancelled 03/10/2017 Care Plan: %Hba1C LOIN C : 52557-0 Cancelled 03/10/2017 Care Plan: Cbc With Differential [...] Microalbumin Cancelled 09/10/2016 Care Plan: %Hba1C [place] : 85193-8 Cancelled 09/10/2016 Care Plan: Tsh Cancelled 09/10/2016 [...] Obesity Completed 02/29/2016 [facility] [phone] [facility] ([facility] min) Moderate 02/22/2016 Visit Plan: Hypertension - well con kassi - continue with current medications, continue with [...] check hgba1c. 08/17/2015 App[facility]ment: [facility] [phone] [facility] [place] [facility] New Patient 08/17/2015 Patient Education: Patient Medication Summary Completed 08/17/2015 Patient Education: Hypertension Completed 08/17/2015 Patient Education: Smoking and Tobacco Addiction Completed 08/17/2015 Instructions Comment . Post menopausal bl eeding - US shows mass - Dr. Capone in to discuss with pt - will refer to [facility] tech/onc, will order CT Abdomen/pelvis and labs . [...]
--- OUTSIDE RECORDS SUMMARY | 2020-04-27 11:36 | XMS REPORT | CCD ---
Author Author Roberta Capone Organization Samantha Capone MD, [facility] Address [address] [place] [address] Phone Care Team Providers Care Agricultural Economics Teacher Name Role Phone PP Unavailable CCM Unavailable Summary Purpose Interface Exchange Insurance Providers Payer name Policy type / Coverage type Covered democrat ID Effective Begin Date Effective End Date WPS Medicare Part B Medicare Part B [id number] 2018 Unknown [employer] Medicare Part B [id number] Unknown Family history Father Diagnosis Age At Onset Hyperlipidemia Unknown Heart Attack Unknown Hypertension Unknown Mother Diagnosis Age At Onset Arthritis Unknown Breast cancer Unknown Hypertension Unknown Skin cancer Unknown Osteoporosis Unknown Sister Diagnosis Age At Onset Cancer Unknown Social History Social History Element Codes Description Effective Dates Tobacco history SNOMED CT: 29778499 Current every day smoker one pack/day 48 yrs - pt down to 1/2 ppd as of Jul 2016 09/10/2016 Marital status Unknown M arried Derik 08/17/2015 Number of children Unknown 2 adopted children - 35 (Saul) and 33y/o (Jeb) 08/17/2015 Living arrangements Unknown House 08/17/2015 Employment Unknown Retir ed 08/17/[address]: 803586130 Never drinks alcohol 08/17/2015 Allergies, Adverse Reactions, [...] Date Stop Date Sta tus Fill Instructions Symbicort 160 mcg-4. 5 mcg/actuation HFA aerosol inhaler RxNorm: 3083562 2 Puff(s) INH 03/12/2018 09/13/2018 Inactive enalapril 10 mg-hydr ochlorothiazide 25 mg tablet RxNorm: 200454 TAKE ONE TABLET BY MOUTH DAILY 02/23/2018 11/19/2018 Active glipizide ER 2.5 mg tablet, extended release 24 hr RxNorm: 480903 Tablet(s) TAKE ONE TABLET BY MOUTH DAILY 02/23/2018 11/19/2018 Active pravastatin 40 mg ta blet RxNorm: 754259 TAKE ONE TABLET BY MO [facility] DAILY 02/23/2018 11/19/2018 Ac tive glipizide ER 2.5 mg tablet, extended release 24 hr RxNorm: 467527 TAKE ONE TABLET BY MOUTH DAILY 08/22/2017 02/17/2018 Inactive enalapril 10 mg-hydr ochlorothiazide 25 mg tablet RxNorm: 660818 TAKE ONE TABLET BY MOUTH DAILY 05/23/2017 02/16/2018 Inactive pravastatin 40 mg ta blet RxNorm: 234217 TAKE ONE TABLET BY MO [place] DAILY 05/23/2017 02/16/2018 In active glipizide ER 2.5 mg tablet, extended release 24 hr RxNorm: 943691 TAKE ONE TABLET BY MOUTH DAILY 02/21/2017 08/19/2017 Inactive glipizide ER 2.5 mg tablet, extended release 24 hr RxNorm: 659323 TAKE ONE TABLET BY MOUTH DAILY 12/23/2016 02/20/2017 Inactive pravastatin 40 mg ta blet RxNorm: 211116 TAKE ONE TABLET BY MO [place] DAILY 08/26/2016 05/22/2017 In active enalapril 10 mg-hydr ochlorothiazide 25 mg tablet RxNorm: 124587 TAKE ONE TABLET BY MOUTH DAILY 08/26/2016 02/22/2018 Inactive pravastatin 40 mg ta blet RxNorm: 552334 TAKE ONE TABLET BY MO UTH DAILY 08/26/2016 02/22/2018 In active enalapril 10 mg-hydr ochlorothiazide 25 mg tablet RxNorm: 064021 TAKE ONE TABLET BY MOUTH DAILY 08/26/2016 02/22/2018 Inactive enalapril 10 mg-hydr ochlorothiazide 25 mg tablet RxNorm: 746153 TAKE ONE TABLET BY MOUTH DAILY 08/26/2016 05/22/2017 Inactive glipizide ER 2.5 mg tablet, extended release 24 hr RxNorm: 234845 TAKE ONE TABLET BY MOUTH DAILY 06/25/2016 12/21/2016 Inactive glipizide ER 2.5 mg tablet, extended release 24 hr RxNorm: 193737 TAKE ONE TABLET BY MOUTH DAILY 03/11/2016 06/24/2016 Inactive glipizide 5 mg tablet RxNorm: 655777 1 Tablet(s) PO daily 10/16/2015 10/15/2015 Inactive glipizide ER 2.5 mg tablet, extended release 24 hr RxNorm: 817155 1 Tablet(s) PO daily 10/16/2015 03/10/2016 Inactive enalapril 10 mg-hydr ochlorothiazide 25 mg tablet RxNorm: 486066 1 Tablet(s) PO daily 09/01/2015 08/25/2016 Inactive pravastatin 40 mg ta blet RxNorm: 393977 1 Tablet(s) PO daily 09/01/2015 08/25/2016 Inactive metformin 500 mg tablet RxNorm: 719170 1/2 Tablet(s) PO BID 09/01/2015 09/13/2018 Inactive metformin 500 mg tablet RxNorm: 132553 1/2 Tablet(s) PO BID 09/01/2015 08/31/2015 Inactive pravastatin 40 mg ta blet RxNorm: 906554 1 Tablet(s) PO daily 08/17/2015 08/31/2015 Inactive vitamin E (dl, aceta te) 1,000 unit capsule RxNorm: 670456 1 Capsule(s) PO every other day No Start Date Active Super B Complex + C 150 mg tablet RxNorm: 1 Tablet(s) PO daily No Start Date Active Odilia 180 mg tablet RxNorm: 559363 1 Tablet(s) PO daily No Start Date Active Vitamin D2 1,000 uni t capsule RxNorm: 931236 1 Capsule(s) PO BID No Start Date Active enalapril 10 mg-hydr ochlorothiazide 25 mg tablet RxNorm: 898624 1 Tablet(s) PO daily No Start Date [...] (3rd IS) 3.46 uIU/mL 03/12/2018 Comp Metabolic Bmf887 NA 138 mEq/L 03/12/2018 Comp Metabolic Alc884 K 4.5 mEq/L 03/12/2018 Comp Metabolic Kac936 CL 104 mEq/L 03/12/2018 Comp Metabolic Eeu136 CO2 28.0 mEq/L 03/12/2018 Comp Metabolic Oec331 AN ION GAP 11 03/12/2018 Comp Metabolic Wkr781 GL UCOSE 129 mg/dL 03/12/2018 Comp Metabolic Fkz125 Cr eat 0.8 mg/dL 03/12/2018 Comp Metabolic Kjd103 eG FR 74 ml/min/1.73m2 03/12 Comp Metabolic Iwg283 BUN 12 mg/dL 03/12/2018 Comp Metabolic Npm172 B/ C Ratio 14.8 Ratio 03/12/2018 Comp Metabolic Jnf402 CA LCIUM 9.1 mg/dL 03/12/2018 Comp Metabolic Vtv424 AL K PHOS 64 U/L 03/12/2018 Comp Metabolic Vvu419 T(SGOT) 13 U/L 03/12/2018 Comp Metabolic Lvs597 AL T(SGPT) 12 U/L 03/12/2018 Comp Metabolic Cvz055 BI LI T 0.5 mg/dL 03/12/2018 Comp Metabolic Zdz443 AL BUMIN 4.0 g/dL 03/12/2018 Comp Metabolic Ezl556 TP RO 6.8 g/dL 03/12/2018 Comp Metabolic Qbu034 GL OB 2.8 g/dL 03/12/2018 Comp Metabolic Apk854 A/ G Ratio 1.4 Ratio 03/12/2018 Comp Metabolic Pum976 Os mo 277 mOsmo 03/12/2018 Vitamin D 25 Oh Wvt0417 VITAMIN D, 25 HYDROXY 47.13 ng/mL 03/12/2018 Lipid Ord30 CHOL 161 mg/dL 03/12/2018 Lipid Ord30 HDL 49.0 mg/dl 03/12/2018 Lipid Ord30 TRIG 126 mg/dL 03/12/2018 Lipid Ord30 LDL 87 mg/dL 03/12/2018 Lipid Ord30 C/HDL 3.3 Ratio 03/12/2018 %Hba1C Oeh016 % HbA1c 01902-2 6.4 % 03/12/2018 %Hba1C Jxz410 Gluc Ave 137 mg/dL 03/12/2018 Cbc With [...] 87.5 fl 03/12/2018 Cbc With Differential Ord2 [place]% 9.0 % 03/12/2018 Cbc With Differential Ord2 [...] 2.91 K/ul 03/12/2018 Cbc With Differential Ord2 [place] ABS# 1.0 K/ul 03/12/2018 Cbc With Differential Ord2 Eos ABS# 0.2 K/ul 03/12/2018 Cbc With Differential Ord2 Baso ABS# 0.1 K/ul 03/12/2018 Vitamin D 25 Oh Wha2736 VITAMIN D, 25 HYDROXY 40.72 ng/mL 09/11/2017 %Hba1C Isv609 % HbA1c 10406-9 6.0 % 09/11/2017 %Hba1C Jub357 Gluc Ave 126 mg/dL 09/11/2017 Cbc With [...] 28.8 pg 09/11/2017 Cbc With Differential Ord2 [place]% 7.8 % 09/11/2017 Cbc With Differential Ord2 [...] 3.57 K/ul 09/11/2017 Cbc With Differential Ord2 [place] ABS# 1.0 K/ul 09/11/2017 Cbc With Differential Ord2 Eos ABS# 0.3 K/ul 09/11/2017 Cbc With Differential Ord2 Baso ABS# 0.1 K/ul 09/11/2017 Tsh Ord6 hTSH II 2.46 uIU/mL 09/11/2017 Lipid Ord30 CHOL 172 mg/dL 09/11/2017 Lipid Ord30 HDL 47.0 mg/dl 09/11/2017 Lipid Ord30 TRIG 137 mg/dL 09/11/2017 Lipid Ord30 LDL 98 mg/dL 09/11/2017 Lipid Ord30 C/HDL 3.7 Ratio 09/11/2017 Comp Metabolic Wng547 NA 138 mEq/L 09/11/2017 Comp Metabolic Emc493 K 4.5 mEq/L 09/11/2017 Comp Metabolic Dge037 CL 103 mEq/L 09/11/2017 Comp Metabolic Dor795 CO2 28.0 mEq/L 09/11/2017 Comp Metabolic Vdk125 AN ION GAP 12 09/11/2017 Comp Metabolic Fjh406 GL UCOSE 105 mg/dL 09/11/2017 Comp Metabolic Cue004 Cr eat 0.7 mg/dL 09/11/2017 Comp Metabolic Dzp680 eG FR 94 ml/min/1.73m2 09/11 Comp Metabolic Dwp386 BUN 10 mg/dL 09/11/2017 Comp Metabolic Qlz008 B/ C Ratio 15.2 Ratio 09/11/2017 Comp Metabolic Fcz169 CA LCIUM 9.1 mg/dL 09/11/2017 Comp Metabolic Uvd870 AL K PHOS 70 U/L 09/11/2017 Comp Metabolic Zgs085 T(SGOT) 12 U/L 09/11/2017 Comp Metabolic Khr471 AL T(SGPT) 11 U/L 09/11/2017 Comp Metabolic Xfj318 BI LI T 0.6 mg/dL 09/11/2017 Comp Metabolic Kwz355 AL BUMIN 4.1 g/dL 09/11/2017 Comp Metabolic Lvx584 TP RO 7.1 g/dL 09/11/2017 Comp Metabolic Cua934 GL OB 3.0 g/dL 09/11/2017 Comp Metabolic Afd150 A/ G Ratio 1.4 Ratio 09/11/2017 Comp Metabolic Awp409 Os mo 275 mOsmo 09/11/2017 Microalbumin Rju963 Micr oAlb <0.7 mg/dL 09/11/2016 %Hba1C Peh039 % HbA1c 10922-1 5.8 % 09/11/2016 %Hba1C Zhl917 Gluc Ave 120 mg/dL 09/11/2016 Cbc With [...] 29.3 pg 09/10/2016 Cbc With Differential Ord2 [place]% 7.5 % 09/10/2016 Cbc With Differential Ord2 [...] 3.78 K/ul 09/10/2016 Cbc With Differential Ord2 [place] ABS# 0.9 K/ul 09/10/2016 Cbc With Differential Ord2 Eos ABS# 0.3 K/ul 09/10/2016 Cbc With Differential Ord2 Baso ABS# 0.1 K/ul 09/10/2016 Lipid Ord30 CHOL 163 mg/dL 09/10/2016 Lipid Ord30 HDL 48.0 mg/dl 09/10/2016 Lipid Ord30 TRIG 174 mg/dL 09/10/2016 Lipid Ord30 LDL 80 mg/dL 09/10/2016 Lipid Ord30 C/HDL 3.4 Ratio 09/10/2016 Comp Metabolic Ncd068 NA 135 mEq/L 09/10/2016 Comp Metabolic Ulr845 K 3.8 mEq/L 09/10/2016 Comp Metabolic Mzf175 CL 99 mEq/L 09/10/2016 Comp Metabolic Sxl845 CO2 27.0 mEq/L 09/10/2016 Comp Metabolic Dmd520 AN ION GAP 13 09/10/2016 Comp Metabolic Vbx629 GL UCOSE 72 mg/dL 09/10/2016 Comp Metabolic Phu510 Cr eat 0.7 mg/dL 09/10/2016 Comp Metabolic Xpy619 eG FR 89 ml/min/1.73m2 09/10 Comp Metabolic Pnj215 BUN 7 mg/dL 09/10/2016 Comp Metabolic Vey004 B/ C Ratio 10.1 Ratio 09/10/2016 Comp Metabolic Svf344 CA LCIUM 9.1 mg/dL 09/10/2016 Comp Metabolic Nab434 AL K PHOS 66 U/L 09/10/2016 Comp Metabolic Xsh565 T(SGOT) 14 U/L 09/10/2016 Comp Metabolic Hlh297 AL T(SGPT) 11 U/L 09/10/2016 Comp Metabolic Zjr992 BI LI T 0.6 mg/dL 09/10/2016 Comp Metabolic Adc081 AL BUMIN 4.1 g/dL 09/10/2016 Comp Metabolic Aqo397 TP RO 7.3 g/dL 09/10/2016 Comp Metabolic Omu224 GL OB 3.2 g/dL 09/10/2016 Comp Metabolic Yma197 A/ G Ratio 1.3 Ratio 09/10/2016 Comp Metabolic Kxf330 Os mo 267 mOsmo 09/10/2016 Tsh Ord6 hTSH II 2.80 uIU/mL 09/10/2016 %Hba1C Erv626 % HbA1c 56637-3 5.8 % 02/29/2016 %Hba1C Xps482 Gluc Ave 120 mg/dL 02/29/2016 Comp Metabolic Hmo548 NA 135 mEq/L 02/29/2016 Comp Metabolic Teo657 K 4.4 mEq/L 02/29/2016 Comp Metabolic Nne154 CL 101 mEq/L 02/29/2016 Comp Metabolic Vag357 CO2 27.0 mEq/L 02/29/2016 Comp Metabolic Tay623 AN ION GAP 11 02/29/2016 Comp Metabolic Rwe678 GL UCOSE 77 mg/dL 02/29/2016 Comp Metabolic Lyg577 Cr eat 0.6 mg/dL 02/29/2016 Comp Metabolic Jcp715 eG FR 99 ml/min/1.73m2 02/28 Comp Metabolic Dyb115 BUN 13 mg/dL 02/29/2016 Comp Metabolic Tkg681 B/ C Ratio 20.6 Ratio 02/29/2016 Comp Metabolic Ite886 CA LCIUM 9.4 mg/dL 02/29/2016 Comp Metabolic Mwm857 AL K PHOS 65 U/L 02/29/2016 Comp Metabolic Ppp902 T(SGOT) 14 U/L 02/29/2016 Comp Metabolic Ayt250 AL T(SGPT) 11 U/L 02/29/2016 Comp Metabolic Lku838 BI LI T 0.6 mg/dL 02/29/2016 Comp Metabolic Xha178 AL BUMIN 4.1 g/dL 02/29/2016 Comp Metabolic Gpp698 TP RO 7.2 g/dL 02/29/2016 Comp Metabolic Xgv975 GL OB 3.1 g/dL 02/29/2016 Comp Metabolic Ely558 A/ G Ratio 1.3 Ratio 02/29/2016 Comp Metabolic Ytt731 Os mo 269 mOsmo 02/29/2016 Lipid Ord30 CHOL 202 mg/dL 02/29/2016 Lipid Ord30 HDL 62.0 mg/dl 02/29/2016 Lipid Ord30 TRIG 123 mg/dL 02/29/2016 Lipid Ord30 LDL 115 mg/dL 02/29/2016 Lipid Ord30 C/HDL 3.3 Ratio 02/29/2016 Vitamin D 25 Oh Iyg4522 VITAMIN D, 25 HYDROXY 58.48 ng/mL 08/18/2015 Lipid Ord30 CHOL 172 mg/dL 08/17/2015 Lipid Ord30 HDL 49.0 mg/dl 08/17/2015 Lipid Ord30 TRIG 170 mg/dL 08/17/2015 Lipid Ord30 LDL 89 mg/dL 08/17/2015 Lipid Ord30 C/HDL 3.5 Ratio 08/17/2015 %Hba1C Rih373 % HbA1c 64053-5 6.4 % 08/17/2015 %Hba1C Jms468 Gluc Ave 137 mg/dL 08/17/2015 Tsh Ord6 [...] Ord2 RDW 14.8 % 08/17/2015 Comp Metabolic Djc388 NA 132 mEq/L 08/17/2015 Comp Metabolic Spa432 K 4.4 mEq/L 08/17/2015 Comp Metabolic Zjf428 CL 101 mEq/L 08/17/2015 Comp Metabolic Rzg094 CO2 24.0 mEq/L 08/17/2015 Comp Metabolic Xxv721 AN ION GAP 11 08/17/2015 Comp Metabolic Plm290 GL UCOSE 130 mg/dL 08/17/2015 Comp Metabolic Ojx206 Cr eat 0.7 mg/dL 08/17/2015 Comp Metabolic Btb081 eG FR 93 ml/min/1.73m2 08/17 Comp Metabolic Pyp162 BUN 8 mg/dL 08/17/2015 Comp Metabolic Qug688 B/ C Ratio 11.9 Ratio 08/17/2015 Comp Metabolic Zmb080 CA LCIUM 9.5 mg/dL 08/17/2015 Comp Metabolic Dra742 AL K PHOS 70 U/L 08/17/2015 Comp Metabolic Kah081 T(SGOT) 28 U/L 08/17/2015 Comp Metabolic Zjg993 AL T(SGPT) 14 U/L 08/17/2015 Comp Metabolic Hhj903 BI LI T 0.8 mg/dL 08/17/2015 Comp Metabolic Thw559 AL BUMIN 4.2 g/dL 08/17/2015 Comp Metabolic Ppr255 TP RO 7.3 g/dL 08/17/2015 Comp Metabolic Iva441 GL OB 3.1 g/dL 08/17/2015 Comp Metabolic Fca021 A/ G Ratio 1.4 Ratio 08/17/2015 Comp Metabolic Lgz837 Os mo 265 mOsmo 08/17/2015 Review of [...] 08/17/2015 None Procedures Procedure Codes Date TOBACCO-USE CUSTOMER SOLUTIONS TEAMMATE 3-[address]: 789827140 CPT-4: G0436 09/10/2016 TOBACCO-USE CUST[employer]ER SOLUT[employer] TEAMMATE 3-[address]: 535129650 CPT-4: G0436 04/23/2016 TOBACCO-USE CUSTOMER SOLUTIONS TEAMMATE 3-[address]: 445614008 CPT-4: G0436 02/29/2016 TOBACCO-USE CUSTOMER SOLUTIONS TEAMMATE 3-[address]: 752490785 CPT-4: G0436 08/17/2015 Vital Signs Date Vital 11/12/2018 Heigh t: Weight: 11/06/2018 Blood Pressure 1: 150/90 Code: 8480-6 BMI: 36.6 Code: 30187-8 Heart Rate 1: 105 bpm Height: 5'4" SpO2: 96% Weight: 213 lbs 09/14/2018 Blood Pressure 1: 130/80 Code: 8480-6 BMI: 36.9 Code: 13943-8 Height: 5'4" Weight: 215 lbs 03/12/2018 Blood Pressure 1: 148/82 Code: 8480-6 BMI: 36.7 Code: 99177-2 Heart Rate 1: 96 bpm Height: 5'4" SpO2: 98% Weight: 214 lbs 09/11/2017 Blood Pressure 1: 142/84 Code: 8480-6 BMI: 37.2 Code: 79994-8 Heart Rate 1: 91 bpm Height: 5'4" SpO2: 98% Weight: 217 lbs 03/10/2017 Blood Pressure 1: 144/78 Code: 8480-6 BMI: 36.8 Code: 70951-5 Heart Rate 1: 86 bpm Height: 5'4" SpO2: 98% Weight: 214 lbs 8 oz 09/10/2016 Blood Pressure 1: 130/80 Code: 8480-6 BMI: 36.7 Code: 35145-5 Heart Rate 1: 98 bpm Height: 5'4" SpO2: 98% Weight: 214 lbs 04/23/2016 Blood Pressure 1: 126/72 Code: 8480-6 BMI: 36.0 Code: 81989-3 Heart Rate 1: 86 bpm Height: 5'4" SpO2: 97% Weight: 209 lbs 8 oz 02/29/2016 Blood Pressure 1: 138/76 Code: 8480-6 BMI: 34.8 Code: 18043-9 Heart Rate 1: 78 bpm Height: 5'4" SpO2: 98% Weight: 203 lbs 08/17/2015 Blood Pressure 1: 140/88 Code: 8480-6 BMI: 35.2 Code: 16632-8 Heart Rate 1: 90 bpm Height: 5'4" [...] Encounters Encounter Performer Loca tion Codes Date EST. PATIENT, LEVEL III Diagnosis: Postmenopausal bleeding[ICD10: N95.0] Diagnosis: Unspecified ovarian cyst, left side[ICD10: N83.202] [facility] CPT-4: 83745 11/12/2018 07705 EST. PATIENT, LEVEL IV Diagnosis: Postmenopausal bleeding[ICD10: N95.0] [facility] CPT- 4: 34298 11/06/2018 ([id number]) 45200 EST. P ATIENT, LEVEL IV Diagnosis: Essential (primary) hypertension[ICD10: I10] Diagnosis: Type 2 diabetes mellitus without complications[ICD10: E11.9] Diagnosis: Mixed hyperlipidemia[ICD10: E78.2] Blessing Capone MD, [facility] CPT-4: 59331 09/14/2018 ([id number]) 38109 EST. P ATIENT, LEVEL IV Diagnosis: Essential (primary) hypertension[ICD10: I10] Diagnosis: Mixed hyperlipidemia[ICD10: E78.2] Diagnosis: Vitamin D deficiency, unspecified[ICD10: E55.9] Diagnosis: Type 2 diabetes mellitus without complications[ICD10: E11.9] Diagnosis: Impaired fasting glucose[ICD10: R73.01] Diagnosis: Encounter for screening mammogram for malignant neoplasm of breast[ICD10: Z12.31] Blessing Capone MD, [facility] CPT-4: 80909 03/12/2018 ([id number]) 56010 EST. P ATIENT, LEVEL IV Diagnosis: Type 2 diabetes mellitus without complications[ICD10: E11.9] Diagnosis: Vitamin D deficiency, unspecified[ICD10: E55.9] Diagnosis: Mixed hyperlipidemia[ICD10: E78.2] Diagnosis: Essential (primary) hypertension[ICD10: I10] Blessing Capone MD, [facility] CPT-4: 39033 09/11/2017 ([id number]) 39384 EST. P ATIENT, LEVEL III Diagnosis: Essential (primary) hypertension[ICD10: I10] Diagnosis: Type 2 diabetes mellitus without complications[ICD10: E11.9] Blessing Capone MD, [facility] CPT-4: 25647 03/10/2017 ([id number]) 04139 EST. P ATIENT, LEVEL IV Diagnosis: Type 2 diabetes mellitus without complications[ICD10: E11.9] Diagnosis: Mixed hyperlipidemia[ICD10: E78.2] Diagnosis: Essential (primary) hypertension[ICD10: I10] Diagnosis: Tobacco use[ICD10: Z72.0] Samantha Capone MD, [facility] CPT-4: 39511 09/10/2016 ([id number]) 67359 EST. P ATIENT, LEVEL IV Diagnosis: Type 2 diabetes mellitus without complications[ICD10: E11.9] Diagnosis: Essential (primary) hypertension[ICD10: I10] Diagnosis: Emphysema (subcutaneous) resulting from a procedure, subsequent encounter[ICD10: T81.82XD] Diagnosis: Tobacco use[ICD10: Z72.0] Samantha Capone MD, [facility] CPT-4: 74447 04/23/2016 ([id number]) 29061 EST. P ATIENT, LEVEL IV Diagnosis: Essential (primary) hypertension[ICD10: I10] Diagnosis: Tobacco use[ICD10: Z72.0] Diagnosis: Type 2 diabetes mellitus without complications[ICD10: E11.9] Samantha Capone MD, [facility] CPT-4: 41798 02/29/2016 ([id number]) OFFICE VISI T, [facility] - LEVEL 4 Diagnosis: Other abnormal glucose[ICD10: R73.09] Diagnosis: Essential (primary) hypertension[ICD10: I10] Diagnosis: Mixed hyperlipidemia[ICD10: E78.2] Diagnosis: Tobacco use[ICD10: Z72.0] Diagnosis: Vitamin D deficiency, unspecified[ICD10: E55.9] Samantha Capone MD, [facility] CPT-4: 36345 08/17/2015 Plan of Care Planned Activity Notes C odes Status Date Visit Plan: Post menopausal bleedin g - US shows mass - Dr. Capone in to discuss with pt - will refer to [facility] handle lathe operator/onc, will order CT Abdomen/pelvis and labs 11/12/2018 Patient Education: Patient Medication Summary Completed 11/12/2018 Visit Plan: Post menopausal bleedin g - Pap done - will order US and refer as indicated - pt is to notify clinic with any changes, questions, or concerns. 11/06/2018 Appointment: Constance Esposito WPtel: [address] [place], [place] [phone] (30 min) [facility] 11/06/2018 Patient Education: Patient Medication Summary Completed [...] diet 09/14/2018 Appointment: Blessing Miller WPtel: [phone] [phone] (30 min) Complex 09/14/2018 Patient Education: Patient [...] use 03/12/2018 Appointment: Blessing Miller WPtel: [phone] [phone] (30 min) Complex 03/12/2018 Patient Education: Patient Medication Summary Completed 03/12/2018 Care Plan: SCREENINGMAMMOGRAPHYDIGITAL LOINC : 97808-9 Pending 03/12/2018 Visit Plan: Hypertension - well [...] to medications. 09/11/2017 Appointment: Blessing Miller WPtel: [phone] (30 min) Complex 09/11/2017 Patient Education: Patient Medication Summary Completed 09/11/2017 Patient Education: Smoking and Tobacco Addiction Completed 09/11/2017 Patient Education: Obesity Completed 09/11/2017 Care Plan: Comp Metabolic Cancelled 09/11/2017 Care Plan: Cbc With Differential Cancelled 09/11/2017 Care Plan: %Hba1C LOIN C : 62964-4 Cancelled 09/11/2017 Care Plan: Tsh Cancelled 09/11/2017 Care Plan: Lipid Cancelled 09/11/2017 Care Plan: Vitamin D 25 Oh Cancelled 09/11/2017 Appointment: Blessing Miller WPtel: [phone] (30 min) Complex 09/08/2017 Visit Plan: Hypertension [...] controlled. 03/10/2017 Appointment: Blessing Miller WPtel: [phone] [phone] (30 min) Complex 03/10/2017 Patient Education: Patient Medication Summary Completed 03/10/2017 Patient Education: Smoking and Tobacco Addiction Completed 03/10/2017 Patient Education: Obesity Completed 03/10/2017 Care Plan: Lipid Cancelled 03/10/2017 Care Plan: Tsh Cancelled 03/10/2017 Care Plan: %Hba1C LOIN C : 68938-6 Cancelled 03/10/2017 Care Plan: Cbc With Differential [...] 09/10/2016 Care Plan: %Hba1C LOIN C : 75251-0 Cancelled 09/10/2016 Care Plan: Tsh Cancelled 09/10/2016 [...] Obesity Completed 02/29/2016 Appointment: Samantha Capone WPtel: [address] [place], [place] [phone] (15 min) Moderate 02/22/2016 Visit Plan: Hypertension [...] check hgba1c. 08/17/2015 Appointment: [facility] Capone [facility] [phone] [facility] [id number] [place] New Patient 08/17/2015 Patient Education: Patient Medication Summary Completed 08/17/2015 Patient Education: Hypertension Completed 08/17/2015 Patient Education: Smoking and Tobacco Addiction Completed 08/17/2015 Instructions Comment . Post menopausal bl eeding - US shows mass - Dr. Capone in to discuss with pt - will refer to [facility] handle lathe operator/onc, will order CT Abdomen/pelvis and labs [...]
--- OUTSIDE RECORDS SUMMARY | 2020-04-27 11:37 | XMS REPORT | CCD ---
Author Author Roberta Capone Organization Samantha Capone MD, [facility] Address [address] [place] [address] Phone Care Team Providers Care Manufacturer Representative Name Role Phone PP Unavailable CCM Unavailable Summary Purpose Interface Exchange Insurance Providers Payer name Policy type / Coverage type Covered republican ID Effective Begin Date Effective End Date WPS Medicare Part B Medicare Part B [id number] 2018 Unknown [employer] Medicare Part B [id number] Unknown Family history Father Diagnosis Age At Onset Hyperlipidemia Unknown Heart Attack Unknown Hypertension Unknown Mother Diagnosis Age At Onset Arthritis Unknown Breast cancer Unknown Hypertension Unknown Skin cancer Unknown Osteoporosis Unknown Sister Diagnosis Age At Onset Cancer Unknown Social History Social History Element Codes Description Effective Dates Tobacco history SNOMED CT: 34353137 Current every day smoker one pack/day 48 yrs - pt down to 1/2 ppd as of Jul 2016 09/10/2016 Marital status Unknown M arrana laura More 08/17/2015 Number of children Unknown 2 adopted children - 35 (Saul) and 33y/o (Jeb) 08/17/2015 Living arrangements Unknown House 08/17/2015 Employment Unknown Retir ed 08/17/[address]: 798741050 Never drinks alcohol 08/17/2015 Allergies, Adverse Reactions, Alerts Substance Reaction Codes Entered Date Inactivated Date Status * NO KNOWN DRUG OUSMANE RGIES Unknown 08/17/2015 No Inactive Date Active Past Medical History Illness Codes Condition Status Onset Date Resolved Date Postmenopausal bleeding ICD-9: 627.1 ICD-10: N95.0 Active 11/06/2018 Unknown Essential (primary) hypertension ICD-9: 401.1 ICD-10: [...] bleeding ICD-9: 627.1 ICD-10: N95.0 11/06/2018 Active Essential (primary) hypertension ICD-9: 401.1 ICD-10: [...] mcg-4. 5 mcg/actuation HFA aerosol inhaler RxNorm: 7851900 2 Puff(s) INH 03/12/2018 09/13/2018 Inactive enalapril 10 mg-hydr ochlorothiazide 25 mg tablet RxNorm: 904763 TAKE ONE TABLET BY MOUTH DAILY 02/23/2018 11/19/2018 Active glipizide ER 2.5 mg tablet, extended release 24 hr RxNorm: 550275 Tablet(s) TAKE ONE TABLET BY MOUTH DAILY 02/23/2018 11/19/2018 Active pravastatin 40 mg ta blet RxNorm: 288054 TAKE ONE TABLET BY [facility] DAILY 02/23/2018 11/19/2018 Ac tive glipizide ER 2.5 mg tablet, extended release 24 hr RxNorm: 470849 TAKE ONE TABLET BY MOUTH DAILY 08/22/2017 02/17/2018 Inactive enalapril 10 mg-hydr ochlorothiazide 25 mg tablet RxNorm: 926087 TAKE ONE TABLET BY MOUTH DAILY 05/23/2017 02/16/2018 Inactive pravastatin 40 mg ta blet RxNorm: 428402 TAKE ONE TABLET BY [facility] DAILY 05/23/2017 02/16/2018 In active glipizide ER 2.5 mg tablet, extended release 24 hr RxNorm: 268986 TAKE ONE TABLET BY MOUTH DAILY 02/21/2017 08/19/2017 Inactive glipizide ER 2.5 mg tablet, extended release 24 hr RxNorm: 141331 TAKE ONE TABLET BY MOUTH DAILY 12/23/2016 02/20/2017 Inactive pravastatin 40 mg ta blet RxNorm: 095628 TAKE ONE TABLET BY [facility] DAILY 08/26/2016 05/22/2017 In active enalapril 10 mg-hydr ochlorothiazide 25 mg tablet RxNorm: 330784 TAKE ONE TABLET BY MOUTH DAILY 08/26/2016 02/22/2018 Inactive pravastatin 40 mg ta blet RxNorm: 654581 TAKE ONE TABLET BY [facility] DAILY 08/26/2016 02/22/2018 In active enalapril 10 mg-hydr ochlorothiazide 25 mg tablet RxNorm: 122837 TAKE ONE TABLET BY MOUTH DAILY 08/26/2016 02/22/2018 Inactive enalapril 10 mg-hydr ochlorothiazide 25 mg tablet RxNorm: 710312 TAKE ONE TABLET BY MOUTH DAILY 08/26/2016 05/22/2017 Inactive glipizide ER 2.5 mg tablet, extended release 24 hr RxNorm: 130680 TAKE ONE TABLET BY MOUTH DAILY 06/25/2016 12/21/2016 Inactive glipizide ER 2.5 mg tablet, extended release 24 hr RxNorm: 454923 TAKE ONE TABLET BY MOUTH DAILY 03/11/2016 06/24/2016 Inactive glipizide 5 mg tablet RxNorm: 969497 1 Tablet(s) PO daily 10/16/2015 10/15/2015 Inactive glipizide ER 2.5 mg tablet, extended release 24 hr RxNorm: 221422 1 Tablet(s) PO daily 10/16/2015 03/10/2016 Inactive enalapril 10 mg-hydr ochlorothiazide 25 mg tablet RxNorm: 632074 1 Tablet(s) PO daily 09/01/2015 08/25/2016 Inactive pravastatin 40 mg ta blet RxNorm: 320946 1 Tablet(s) PO daily 09/01/2015 08/25/2016 Inactive metformin 500 mg tablet RxNorm: 395960 1/2 Tablet(s) PO BID 09/01/2015 09/13/2018 Inactive metformin 500 mg tablet RxNorm: 167791 1/2 Tablet(s) PO BID 09/01/2015 08/31/2015 Inactive pravastatin 40 mg ta blet RxNorm: 561068 1 Tablet(s) PO daily 08/17/2015 08/31/2015 Inactive vitamin E (dl, aceta te) 1,000 unit capsule RxNorm: 873310 1 Capsule(s) PO every other day No Start Date Active Super B Complex + C 150 mg tablet RxNorm: 1 Tablet(s) PO daily No Start Date Active Odilia 180 mg tablet RxNorm: 763891 1 Tablet(s) PO daily No Start Date Active Vitamin D2 1,000 uni t capsule RxNorm: 148880 1 Capsule(s) PO BID No Start Date Active enalapril 10 mg-hydr ochlorothiazide 25 mg tablet RxNorm: 301590 1 Tablet(s) PO daily No Start Date 08/31/2015 Inactive Medication Administered No Medication Administered data Immunizations No Immunization data Assessments Condition Codes Effectiv e Dates Postmenopausal bleeding ICD-10: N95. 0 ICD-9: 627.1 11/06/2018 Essential (primary) hypertension ICD -10: I10 ICD-9: [...] Visit Reason For Visit Effective Dates Notes abdominal pain 11/06/2018 hypertension 09/14/2018 hypertension 03/12/2018 hypertension 09/11/2017 hypertension 03/10/2017 hypertension 09/10/2016 hypertension 04/23/2016 hypertension 02/29/2016 hypertension 08/17/2015 Results Observation Observation Code Item Item Code Result Date Tsh Ord6 TSH (3rd IS) 3.46 uIU/mL 03/12/2018 Comp Metabolic Nlm457 NA 138 mEq/L 03/12/2018 Comp Metabolic Mfa088 K 4.5 mEq/L 03/12/2018 Comp Metabolic Yzd258 CL 104 mEq/L 03/12/2018 Comp Metabolic Sbe840 CO2 28.0 mEq/L 03/12/2018 Comp Metabolic Vio082 AN ION GAP 11 03/12/2018 Comp Metabolic Tcg902 GL UCOSE 129 mg/dL 03/12/2018 Comp Metabolic Hhk368 Cr eat 0.8 mg/dL 03/12/2018 Comp Metabolic Ass984 eG FR 74 ml/min/1.73m2 03/12 Comp Metabolic Fdt406 BUN 12 mg/dL 03/12/2018 Comp Metabolic Arz250 B/ C Ratio 14.8 Ratio 03/12/2018 Comp Metabolic Vho141 CA LCIUM 9.1 mg/dL 03/12/2018 Comp Metabolic Pdo442 AL K PHOS 64 U/L 03/12/2018 Comp Metabolic Jdq528 T(SGOT) 13 U/L 03/12/2018 Comp Metabolic Dwg092 AL T(SGPT) 12 U/L 03/12/2018 Comp Metabolic Zde398 BI LI T 0.5 mg/dL 03/12/2018 Comp Metabolic Bib496 AL BUMIN 4.0 g/dL 03/12/2018 Comp Metabolic Qvk969 TP RO 6.8 g/dL 03/12/2018 Comp Metabolic Wum996 GL OB 2.8 g/dL 03/12/2018 Comp Metabolic Aei417 A/ G Ratio 1.4 Ratio 03/12/2018 Comp Metabolic Xpe684 Os mo 277 mOsmo 03/12/2018 Vitamin D 25 Oh Skh2537 VITAMIN D, 25 HYDROXY 47.13 ng/mL 03/12/2018 Lipid Ord30 CHOL 161 mg/dL 03/12/2018 Lipid Ord30 HDL 49.0 mg/dl 03/12/2018 Lipid Ord30 TRIG 126 mg/dL 03/12/2018 Lipid Ord30 LDL 87 mg/dL 03/12/2018 Lipid Ord30 C/HDL 3.3 Ratio 03/12/2018 %Hba1C Hvm356 % HbA1c 86790-5 6.4 % 03/12/2018 %Hba1C Abm719 Gluc Ave 137 mg/dL 03/12/2018 Cbc With [...] 28.8 pg 03/12/2018 Cbc With Differential Ord2 [place]% 9.0 % 03/12/2018 Cbc With Differential Ord2 [...] 2.91 K/ul 03/12/2018 Cbc With Differential Ord2 [place] ABS# 1.0 K/ul 03/12/2018 Cbc With Differential Ord2 Eos ABS# 0.2 K/ul 03/12/2018 Cbc With Differential Ord2 Baso ABS# 0.1 K/ul 03/12/2018 Vitamin D 25 Oh Mcg8214 VITAMIN D, 25 HYDROXY 40.72 ng/mL 09/11/2017 %Hba1C Bed118 % HbA1c 46278-4 6.0 % 09/11/2017 %Hba1C Ufg524 Gluc Ave 126 mg/dL 09/11/2017 Cbc With [...] 28.8 pg 09/11/2017 Cbc With Differential Ord2 [place]% 7.8 % 09/11/2017 Cbc With Differential Ord2 [...] 3.57 K/ul 09/11/2017 Cbc With Differential Ord2 [place] ABS# 1.0 K/ul 09/11/2017 Cbc With Differential Ord2 Eos ABS# 0.3 K/ul 09/11/2017 Cbc With Differential Ord2 Baso ABS# 0.1 K/ul 09/11/2017 Tsh Ord6 hTSH II 2.46 uIU/mL 09/11/2017 Lipid Ord30 CHOL 172 mg/dL 09/11/2017 Lipid Ord30 HDL 47.0 mg/dl 09/11/2017 Lipid Ord30 TRIG 137 mg/dL 09/11/2017 Lipid Ord30 LDL 98 mg/dL 09/11/2017 Lipid Ord30 C/HDL 3.7 Ratio 09/11/2017 Comp Metabolic Ujg230 NA 138 mEq/L 09/11/2017 Comp Metabolic Oee819 K 4.5 mEq/L 09/11/2017 Comp Metabolic Rcr413 CL 103 mEq/L 09/11/2017 Comp Metabolic Hrv164 CO2 28.0 mEq/L 09/11/2017 Comp Metabolic Zmu536 AN ION GAP 12 09/11/2017 Comp Metabolic Xhr136 GL UCOSE 105 mg/dL 09/11/2017 Comp Metabolic Kjv804 Cr eat 0.7 mg/dL 09/11/2017 Comp Metabolic Acd520 eG FR 94 ml/min/1.73m2 09/11 Comp Metabolic Mbp524 BUN 10 mg/dL 09/11/2017 Comp Metabolic Lak508 B/ C Ratio 15.2 Ratio 09/11/2017 Comp Metabolic Igi624 CA LCIUM 9.1 mg/dL 09/11/2017 Comp Metabolic Qgh521 AL K PHOS 70 U/L 09/11/2017 Comp Metabolic Bpx863 T(SGOT) 12 U/L 09/11/2017 Comp Metabolic Ayt768 AL T(SGPT) 11 U/L 09/11/2017 Comp Metabolic Uco857 BI LI T 0.6 mg/dL 09/11/2017 Comp Metabolic Zem967 AL BUMIN 4.1 g/dL 09/11/2017 Comp Metabolic Icc674 TP RO 7.1 g/dL 09/11/2017 Comp Metabolic Cvq525 GL OB 3.0 g/dL 09/11/2017 Comp Metabolic Nit935 A/ G Ratio 1.4 Ratio 09/11/2017 Comp Metabolic Rnu057 Os mo 275 mOsmo 09/11/2017 Microalbumin Zkk061 Micr oAlb <0.7 mg/dL 09/11/2016 %Hba1C Jhz595 % HbA1c 79359-7 5.8 % 09/11/2016 %Hba1C Dsu523 Gluc Ave 120 mg/dL 09/11/2016 Cbc With [...] 29.3 pg 09/10/2016 Cbc With Differential Ord2 [place]% 7.5 % 09/10/2016 Cbc With Differential Ord2 [...] 3.78 K/ul 09/10/2016 Cbc With Differential Ord2 [place] ABS# 0.9 K/ul 09/10/2016 Cbc With Differential Ord2 Eos ABS# 0.3 K/ul 09/10/2016 Cbc With Differential Ord2 Baso ABS# 0.1 K/ul 09/10/2016 Lipid Ord30 CHOL 163 mg/dL 09/10/2016 Lipid Ord30 HDL 48.0 mg/dl 09/10/2016 Lipid Ord30 TRIG 174 mg/dL 09/10/2016 Lipid Ord30 LDL 80 mg/dL 09/10/2016 Lipid Ord30 C/HDL 3.4 Ratio 09/10/2016 Comp Metabolic Xsd931 NA 135 mEq/L 09/10/2016 Comp Metabolic Eff498 K 3.8 mEq/L 09/10/2016 Comp Metabolic Ruf398 CL 99 mEq/L 09/10/2016 Comp Metabolic Axq154 CO2 27.0 mEq/L 09/10/2016 Comp Metabolic Vhr419 AN ION GAP 13 09/10/2016 Comp Metabolic Ryz272 GL UCOSE 72 mg/dL 09/10/2016 Comp Metabolic Qqa119 Cr eat 0.7 mg/dL 09/10/2016 Comp Metabolic Nnc878 eG FR 89 ml/min/1.73m2 09/10 Comp Metabolic Mpm742 BUN 7 mg/dL 09/10/2016 Comp Metabolic Djw489 B/ C Ratio 10.1 Ratio 09/10/2016 Comp Metabolic Rfr718 CA LCIUM 9.1 mg/dL 09/10/2016 Comp Metabolic Uiw392 AL K PHOS 66 U/L 09/10/2016 Comp Metabolic Kqh604 T(SGOT) 14 U/L 09/10/2016 Comp Metabolic Ucj916 AL T(SGPT) 11 U/L 09/10/2016 Comp Metabolic Zfr798 BI LI T 0.6 mg/dL 09/10/2016 Comp Metabolic Wua603 AL BUMIN 4.1 g/dL 09/10/2016 Comp Metabolic Ntm398 TP RO 7.3 g/dL 09/10/2016 Comp Metabolic Yxs752 GL OB 3.2 g/dL 09/10/2016 Comp Metabolic Rft675 A/ G Ratio 1.3 Ratio 09/10/2016 Comp Metabolic Phi601 Os mo 267 mOsmo 09/10/2016 Tsh Ord6 hTSH II 2.80 uIU/mL 09/10/2016 %Hba1C Guv700 % HbA1c 59470-0 5.8 % 02/29/2016 %Hba1C Wet925 Gluc Ave 120 mg/dL 02/29/2016 Comp Metabolic Jus501 NA 135 mEq/L 02/29/2016 Comp Metabolic Kiz356 K 4.4 mEq/L 02/29/2016 Comp Metabolic Iwz633 CL 101 mEq/L 02/29/2016 Comp Metabolic Whb014 CO2 27.0 mEq/L 02/29/2016 Comp Metabolic Pza037 AN ION GAP 11 02/29/2016 Comp Metabolic Ovj918 GL UCOSE 77 mg/dL 02/29/2016 Comp Metabolic Lgb948 Cr eat 0.6 mg/dL 02/29/2016 Comp Metabolic Zrh205 eG FR 99 ml/min/1.73m2 02/28 Comp Metabolic Whj749 BUN 13 mg/dL 02/29/2016 Comp Metabolic Pov409 B/ C Ratio 20.6 Ratio 02/29/2016 Comp Metabolic Eim271 CA LCIUM 9.4 mg/dL 02/29/2016 Comp Metabolic Abl084 AL K PHOS 65 U/L 02/29/2016 Comp Metabolic Opb570 T(SGOT) 14 U/L 02/29/2016 Comp Metabolic Pfk434 AL T(SGPT) 11 U/L 02/29/2016 Comp Metabolic Mvx480 BI LI T 0.6 mg/dL 02/29/2016 Comp Metabolic Sjz280 AL BUMIN 4.1 g/dL 02/29/2016 Comp Metabolic Mke986 TP RO 7.2 g/dL 02/29/2016 Comp Metabolic Jop339 GL OB 3.1 g/dL 02/29/2016 Comp Metabolic Qov674 A/ G Ratio 1.3 Ratio 02/29/2016 Comp Metabolic Lwj949 Os mo 269 mOsmo 02/29/2016 Lipid Ord30 CHOL 202 mg/dL 02/29/2016 Lipid Ord30 HDL 62.0 mg/dl 02/29/2016 Lipid Ord30 TRIG 123 mg/dL 02/29/2016 Lipid Ord30 LDL 115 mg/dL 02/29/2016 Lipid Ord30 C/HDL 3.3 Ratio 02/29/2016 Vitamin D 25 Oh Wuq4781 VITAMIN D, 25 HYDROXY 58.48 ng/mL 08/18/2015 Lipid Ord30 CHOL 172 mg/dL 08/17/2015 Lipid Ord30 HDL 49.0 mg/dl 08/17/2015 Lipid Ord30 TRIG 170 mg/dL 08/17/2015 Lipid Ord30 LDL 89 mg/dL 08/17/2015 Lipid Ord30 C/HDL 3.5 Ratio 08/17/2015 %Hba1C Wnf475 % HbA1c 55769-5 6.4 % 08/17/2015 %Hba1C Rkm615 Gluc Ave 137 mg/dL 08/17/2015 Tsh Ord6 [...] Ord2 RDW 14.8 % 08/17/2015 Comp Metabolic Axw892 NA 132 mEq/L 08/17/2015 Comp Metabolic Lwv551 K 4.4 mEq/L 08/17/2015 Comp Metabolic Ywg864 CL 101 mEq/L 08/17/2015 Comp Metabolic Ptq260 CO2 24.0 mEq/L 08/17/2015 Comp Metabolic Azg448 AN ION GAP 11 08/17/2015 Comp Metabolic Dko275 GL UCOSE 130 mg/dL 08/17/2015 Comp Metabolic Mzd365 Cr eat 0.7 mg/dL 08/17/2015 Comp Metabolic Tbx644 eG FR 93 ml/min/1.73m2 08/17 Comp Metabolic Rsh051 BUN 8 mg/dL 08/17/2015 Comp Metabolic Lkq733 B/ C Ratio 11.9 Ratio 08/17/2015 Comp Metabolic Tmg146 CA LCIUM 9.5 mg/dL 08/17/2015 Comp Metabolic Sjg033 AL K PHOS 70 U/L 08/17/2015 Comp Metabolic Nfb785 T(SGOT) 28 U/L 08/17/2015 Comp Metabolic Qjw747 AL T(SGPT) 14 U/L 08/17/2015 Comp Metabolic Keh376 BI LI T 0.8 mg/dL 08/17/2015 Comp Metabolic Ehg128 AL BUMIN 4.2 g/dL 08/17/2015 Comp Metabolic Dpw542 TP RO 7.3 g/dL 08/17/2015 Comp Metabolic Naz713 GL OB 3.1 g/dL 08/17/2015 Comp Metabolic Lhy316 A/ G Ratio 1.4 Ratio 08/17/2015 Comp Metabolic Lmz661 Os mo 265 mOsmo 08/17/2015 Review of Systems System Result Effective Dates Constitutional No recent illness 11/06/2018 Constitutional No [...] Result Effective Dates Notes Full Exam - Genitourinary/Female Con stitutional general [...] 08/17/2015 None Procedures Procedure Codes Date TOBACCO-USE [employer] MANAGER 3-[address]: 877471039 CPT-4: G0436 09/10/2016 TOBACCO-USE [employer] WASH MANAGER 3-[address]: 415578036 CPT-4: G0436 04/23/2016 TOBACCO-USE [employer] WASH MANAGER 3-[address]: 993868909 CPT-4: G0436 02/29/2016 TOBACCO-USE [employer] WASH MANAGER 3-[address]: 916280721 CPT-4: G0436 08/17/2015 Vital Signs Date Vital 11/06/2018 Blood Pressure 1: 150/90 Code: 8480-6 BMI: 36.6 Code: 82989-4 Heart Rate 1: 105 bpm Height: 5'4" SpO2: 96% Weight: 213 lbs 09/14/2018 Blood Pressure 1: 130/80 Code: 8480-6 BMI: 36.9 Code: 56968-4 Height: 5'4" Weight: 215 lbs 03/12/2018 Blood Pressure 1: 148/82 Code: 8480-6 BMI: 36.7 Code: 09175-0 Heart Rate 1: 96 bpm Height: 5'4" SpO2: 98% Weight: 214 lbs 09/11/2017 Blood Pressure 1: 142/84 Code: 8480-6 BMI: 37.2 Code: 70805-4 Heart Rate 1: 91 bpm Height: 5'4" SpO2: 98% Weight: 217 lbs 03/10/2017 Blood Pressure 1: 144/78 Code: 8480-6 BMI: 36.8 Code: 70958-0 Heart Rate 1: 86 bpm Height: 5'4" SpO2: 98% Weight: 214 lbs 8 oz 09/10/2016 Blood Pressure 1: 130/80 Code: 8480-6 BMI: 36.7 Code: 04225-2 Heart Rate 1: 98 bpm Height: 5'4" SpO2: 98% Weight: 214 lbs 04/23/2016 Blood Pressure 1: 126/72 Code: 8480-6 BMI: 36.0 Code: 62606-1 Heart Rate 1: 86 bpm Height: 5'4" SpO2: 97% Weight: 209 lbs 8 oz 02/29/2016 Blood Pressure 1: 138/76 Code: 8480-6 BMI: 34.8 Code: 56327-2 Heart Rate 1: 78 bpm Height: 5'4" SpO2: 98% Weight: 203 lbs 08/17/2015 Blood Pressure 1: 140/88 Code: 8480-6 BMI: 35.2 Code: 36400-4 Heart Rate 1: 90 bpm Height: 5'4" SpO2: 97% Weight: 205 lbs Functional Status No Functional Status data History of Present Illness Symptom Name Status Resu lt Effective Date Notes Location diffusely 11/06/2018 None Quality intermittent 11/06/2018 [...] chr onic 09/14/2018 None hypertension Quality ricardo perla hypertension 09/14/2018 None hypertension Onset and Resolution [...] Encounters Encounter Performer Loca tion Codes Date 69332 EST. PATIENT, LEVEL IV Diagnosis: Postmenopausal bleeding[ICD10: N95.0] [facility] CPT- 4: 68598 11/06/2018 ([id number]) 31197 EST. P ATIENT, LEVEL IV Diagnosis: Essential (primary) hypertension[ICD10: I10] Diagnosis: Type 2 diabetes mellitus without complications[ICD10: E11.9] Diagnosis: Mixed hyperlipidemia[ICD10: E78.2] Blessing Capone MD, [facility] CPT-4: 27553 09/14/2018 [id number]) 43204 EST. P ATIENT, LEVEL IV Diagnosis: Essential (primary) hypertension[ICD10: I10] Diagnosis: Mixed hyperlipidemia[ICD10: E78.2] Diagnosis: Vitamin D deficiency, unspecified[ICD10: E55.9] Diagnosis: Type 2 diabetes mellitus without complications[ICD10: E11.9] Diagnosis: Impaired fasting glucose[ICD10: R73.01] Diagnosis: Encounter for screening mammogram for malignant neoplasm of breast[ICD10: Z12.31] [facility] CPT-4: 95122 03/12/2018 ([id number]) 90836 EST. P ATIENT, LEVEL IV Diagnosis: Type 2 diabetes mellitus without complications[ICD10: E11.9] Diagnosis: Vitamin D deficiency, unspecified[ICD10: E55.9] Diagnosis: Mixed hyperlipidemia[ICD10: E78.2] Diagnosis: Essential (primary) hypertension[ICD10: I10] Blessing Capone MD, [facility] CPT-4: 76489 09/11/2017 ([id number]) 73922 EST. P ATIENT, LEVEL III Diagnosis: Essential (primary) hypertension[ICD10: I10] Diagnosis: Type 2 diabetes mellitus without complications[ICD10: E11.9] Blessing Capone MD, [facility] CPT-4: 46116 03/10/2017 ([id number]) 17588 EST. P ATIENT, LEVEL IV Diagnosis: Type 2 diabetes mellitus without complications[ICD10: E11.9] Diagnosis: Mixed hyperlipidemia[ICD10: E78.2] Diagnosis: Essential (primary) hypertension[ICD10: I10] Diagnosis: Tobacco use[ICD10: Z72.0] Samantha Capone MD, [facility] CPT-4: 57115 09/10/2016 ([id number]) 89614 EST. P ATIENT, LEVEL IV Diagnosis: Type 2 diabetes mellitus without complications[ICD10: E11.9] Diagnosis: Essential (primary) hypertension[ICD10: I10] Diagnosis: Emphysema (subcutaneous) resulting from a procedure, subsequent encounter[ICD10: T81.82XD] Diagnosis: Tobacco use[ICD10: Z72.0] Samantha Capone MD, [facility] CPT-4: 58781 04/23/2016 ([id number]) 99975 EST. P ATIENT, LEVEL IV Diagnosis: Essential (primary) hypertension[ICD10: I10] Diagnosis: Tobacco use[ICD10: Z72.0] Diagnosis: Type 2 diabetes mellitus without complications[ICD10: E11.9] Samantha Capone MD, [facility] CPT-4: 03479 02/29/2016 ([id number]) OFFICE VISI T, NEW - LEVEL 4 Diagnosis: Other abnormal glucose[ICD10: R73.09] Diagnosis: Essential (primary) hypertension[ICD10: I10] Diagnosis: Mixed hyperlipidemia[ICD10: E78.2] Diagnosis: Tobacco use[ICD10: Z72.0] Diagnosis: Vitamin D deficiency, unspecified[ICD10: E55.9] [facility] CPT-4: 45282 08/17/2015 Plan of Care Planned Activity Notes C odes Status Date Visit Plan: Post menopausal bleedin g - Pap done - will order US and refer as indicated - pt is to notify clinic with any changes, questions, or concerns. 11/06/2018 [facility]ment[facility] [place] [facility] Complex 11/06/2018 Patient [...] fat diet 09/14/2018 Appointment: Blessing Miller [phone] [place] (30 min) Complex 09/14/2018 Patient Education: [...] on use 03/12/2018 [facility]ointment[phone] [phone] (30 min) Complex 03/12/2018 Patient Education: Patient Medication Summary Completed 03/12/2018 Care Plan: SCREENINGMAMMOGRAPHYDIGITAL LOINC : 49730-6 Pending 03/12/2018 Visit Plan: Hypertension - well [...] medications. 09/11/2017 [facility]ment[phone] [phone] (30 min) Complex 09/11/2017 Patient Education: Patient Medication Summary Completed 09/11/2017 Patient Education: Smoking and Tobacco Addiction Completed 09/11/2017 Patient Education: Obesity Completed 09/11/2017 Care Plan: Comp Metabolic Cancelled 09/11/2017 Care Plan: Cbc With Differential Cancelled 09/11/2017 Care Plan: %Hba1C LOIN C : 59675-1 Cancelled 09/11/2017 Care Plan: Tsh Cancelled 09/11/2017 Care Plan: Lipid Cancelled 09/11/2017 Care Plan: Vitamin D 25 Oh Cancelled 09/11/2017 [phone] [phone] (30 min) Complex 09/08/2017 Visit Plan: Hypertension [...] controlled. 03/10/2017 [facility]ment[phone] [phone] (30 min) Complex 03/10/2017 Patient Education: Patient Medication Summary Completed 03/10/2017 Patient Education: Smoking and Tobacco Addiction Completed 03/10/2017 Patient Education: Obesity Completed 03/10/2017 Care Plan: Lipid Cancelled 03/10/2017 Care Plan: Tsh Cancelled 03/10/2017 Care Plan: %Hba1C LOIN C : 10576-5 Cancelled 03/10/2017 Care Plan: Cbc With Differential [...] 09/10/2016 Care Plan: %Hba1C CARLOS C : 08858-8 Cancelled 09/10/2016 Care Plan: Tsh Cancelled 09/10/2016 [...] Completed 02/29/2016 Appointment: Samantha Capone WPtel: [phone] [facility] (15 min) Moderate 02/22/2016 Visit Plan: Hypertension [...] check hgba1c. 08/17/2015 Appointment: [facility] Cap[phone] [facility] [place] [facility] New Patient 08/17/2015 Patient Education: [...]
--- OUTSIDE RECORDS SUMMARY | 2020-04-27 11:38 | XMS REPORT | CCD ---
Author Author Roberta Capone Organization Samantha Capone MD, [facility] Address [address] [place] [address] Phone Care Team Providers Care [employer] Manager Name Role Phone PP Unavailable CCM Unavailable Summary Purpose Interface Exchange Insurance Providers Payer name Policy type / Coverage type Covered green party ID Effective Begin Date Effective End Date WPS Medicare Part B Medicare Part B [id number] Unknown [employer] Medicare Part B [id number] Unknown Family history Father Diagnosis Age At Onset Hyperlipidemia Unknown Heart Attack Unknown Hypertension Unknown Mother Diagnosis Age At Onset Arthritis Unknown Breast cancer Unknown Hypertension Unknown Skin cancer Unknown Osteoporosis Unknown Sister Diagnosis Age At Onset Cancer Unknown Social History Social History Element Codes Description Effective Dates Tobacco history SNOMED CT: 89772262 Current every day smoker one pack/day 48 yrs - pt down to 1/2 ppd as of Jul 2016 09/10/2016 Marital status Unknown M arrana laura More 08/17/2015 Number of children Unknown 2 adopted children - 35 (Saul) and 33y/o (Jeb) 08/17/2015 Living arrangements Unknown House 08/17/2015 Employment Unknown Retir ed 08/17/[address]: 967591387 Never drinks alcohol 08/17/2015 Allergies, Adverse Reactions, Alerts Substance Reaction Codes Entered Date Inactivated Date Status * NO KNOWN DRUG OUSMANE RGIES Unknown 08/17/2015 No Inactive Date Active Past Medical History Illness Codes Condition Status Onset Date Resolved Date Essential (primary) hypertension ICD-9: 401.1 ICD-10: I10 [...] Condition Codes Effectiv e Dates Condition Status Essential (primary) hypertension ICD-9: 401.1 ICD-10: I10 [...] mcg-4. 5 mcg/actuation HFA aerosol inhaler RxNorm: 6814847 2 Puff(s) INH 03/12/2018 09/13/2018 Inactive enalapril 10 mg-hydr ochlorothiazide 25 mg tablet RxNorm: 561859 TAKE ONE TABLET BY MOUTH DAILY 02/23/2018 11/19/2018 Active glipizide ER 2.5 mg tablet, extended release 24 hr RxNorm: 160770 Tablet(s) TAKE ONE TABLET BY MOUTH DAILY 02/23/2018 11/19/2018 Active pravastatin 40 mg ta blet RxNorm: 089147 TAKE ONE TABLET BY MO UT DAILY 02/23/2018 11/19/2018 Ac tive glipizide ER 2.5 mg tablet, extended release 24 hr RxNorm: 522997 TAKE ONE TABLET BY MOUTH DAILY 08/22/2017 02/17/2018 Inactive enalapril 10 mg-hydr ochlorothiazide 25 mg tablet RxNorm: 432406 TAKE ONE TABLET BY MOUTH DAILY 05/23/2017 02/16/2018 Inactive pravastatin 40 mg ta blet RxNorm: 971331 TAKE ONE TABLET BY MO UT DAILY 05/23/2017 02/16/2018 In active glipizide ER 2.5 mg tablet, extended release 24 hr RxNorm: 925474 TAKE ONE TABLET BY MOUTH DAILY 02/21/2017 08/19/2017 Inactive glipizide ER 2.5 mg tablet, extended release 24 hr RxNorm: 604624 TAKE ONE TABLET BY MOUTH DAILY 12/23/2016 02/20/2017 Inactive pravastatin 40 mg ta blet RxNorm: 897579 TAKE ONE TABLET BY MO UT DAILY 08/26/2016 05/22/2017 In active enalapril 10 mg-hydr ochlorothiazide 25 mg tablet RxNorm: 841834 TAKE ONE TABLET BY MOUTH DAILY 08/26/2016 02/22/2018 Inactive pravastatin 40 mg ta blet RxNorm: 922150 TAKE ONE TABLET BY MO UT DAILY 08/26/2016 02/22/2018 In active enalapril 10 mg-hydr ochlorothiazide 25 mg tablet RxNorm: 007357 TAKE ONE TABLET BY MOUTH DAILY 08/26/2016 02/22/2018 Inactive enalapril 10 mg-hydr ochlorothiazide 25 mg tablet RxNorm: 921024 TAKE ONE TABLET BY MOUTH DAILY 08/26/2016 05/22/2017 Inactive glipizide ER 2.5 mg tablet, extended release 24 hr RxNorm: 585959 TAKE ONE TABLET BY MOUTH DAILY 06/25/2016 12/21/2016 Inactive glipizide ER 2.5 mg tablet, extended release 24 hr RxNorm: 191718 TAKE ONE TABLET BY MOUTH DAILY 03/11/2016 06/24/2016 Inactive glipizide 5 mg tablet RxNorm: 841423 1 Tablet(s) PO daily 10/16/2015 10/15/2015 Inactive glipizide ER 2.5 mg tablet, extended release 24 hr RxNorm: 766595 1 Tablet(s) PO daily 10/16/2015 03/10/2016 Inactive enalapril 10 mg-hydr ochlorothiazide 25 mg tablet RxNorm: 738388 1 Tablet(s) PO daily 09/01/2015 08/25/2016 Inactive pravastatin 40 mg ta blet RxNorm: 644169 1 Tablet(s) PO daily 09/01/2015 08/25/2016 Inactive metformin 500 mg tablet RxNorm: 513187 1/2 Tablet(s) PO BID 09/01/2015 09/13/2018 Inactive metformin 500 mg tablet RxNorm: 463575 1/2 Tablet(s) PO BID 09/01/2015 08/31/2015 Inactive pravastatin 40 mg ta blet RxNorm: 505836 1 Tablet(s) PO daily 08/17/2015 08/31/2015 Inactive vitamin E (dl, aceta te) 1,000 unit capsule RxNorm: 670669 1 Capsule(s) PO every other day No Start Date Active Super B Complex + C 150 mg tablet RxNorm: 1 Tablet(s) PO daily No Start Date Active Odilia 180 mg tablet RxNorm: 958223 1 Tablet(s) PO daily No Start Date Active Vitamin D2 1,000 uni t capsule RxNorm: 105578 1 Capsule(s) PO BID No Start Date Active enalapril 10 mg-hydr ochlorothiazide 25 mg tablet RxNorm: 652246 1 Tablet(s) PO daily No Start Date [...] Reason For Visit Effective Dates Notes hypertension 09/14/2018 hypertension 03/12/2018 hypertension 09/11/2017 hypertension 03/10/2017 hypertension 09/10/2016 hypertension 04/23/2016 hypertension 02/29/2016 hypertension 08/17/2015 Results Observation Observation Code Item Item Code Result Date Tsh Ord6 TSH (3rd IS) 3.46 uIU/mL 03/12/2018 Comp Metabolic Ioe030 NA 138 mEq/L 03/12/2018 Comp Metabolic Drf496 K 4.5 mEq/L 03/12/2018 Comp Metabolic Otk664 CL 104 mEq/L 03/12/2018 Comp Metabolic Nbf691 CO2 28.0 mEq/L 03/12/2018 Comp Metabolic Nfm059 AN ION GAP 11 03/12/2018 Comp Metabolic Jiw665 GL UCOSE 129 mg/dL 03/12/2018 Comp Metabolic Pmx946 Cr eat 0.8 mg/dL 03/12/2018 Comp Metabolic Bre656 eG FR 74 ml/min/1.73m2 03/12 Comp Metabolic Vgp788 BUN 12 mg/dL 03/12/2018 Comp Metabolic Hix619 B/ C Ratio 14.8 Ratio 03/12/2018 Comp Metabolic Otj147 CA LCIUM 9.1 mg/dL 03/12/2018 Comp Metabolic Njs037 AL K PHOS 64 U/L 03/12/2018 Comp Metabolic Qrl470 T(SGOT) 13 U/L 03/12/2018 Comp Metabolic Dut628 AL T(SGPT) 12 U/L 03/12/2018 Comp Metabolic Ugd893 BI LI T 0.5 mg/dL 03/12/2018 Comp Metabolic Dyi277 AL BUMIN 4.0 g/dL 03/12/2018 Comp Metabolic Qso535 TP RO 6.8 g/dL 03/12/2018 Comp Metabolic Zde934 GL OB 2.8 g/dL 03/12/2018 Comp Metabolic Gkb412 A/ G Ratio 1.4 Ratio 03/12/2018 Comp Metabolic Dhq875 Os mo 277 mOsmo 03/12/2018 Vitamin D 25 Oh Btp4149 VITAMIN D, 25 HYDROXY 47.13 ng/mL 03/12/2018 Lipid Ord30 CHOL 161 mg/dL 03/12/2018 Lipid Ord30 HDL 49.0 mg/dl 03/12/2018 Lipid Ord30 TRIG 126 mg/dL 03/12/2018 Lipid Ord30 LDL 87 mg/dL 03/12/2018 Lipid Ord30 C/HDL 3.3 Ratio 03/12/2018 %Hba1C Jcr724 % HbA1c 10990-6 6.4 % 03/12/2018 %Hba1C Axt182 Gluc Ave 137 mg/dL 03/12/2018 Cbc With Differential Ord2 WBC 10.71 K/ul 03/12/2018 Cbc With Differential Ord2 RBC 5.35 M/ul 03/12/2018 Cbc With Differential Ord2 HGB 15.4 g/dl 03/12/2018 Cbc With Differential Ord2 Neut% 61.1 % 03/12/2018 Cbc With Differential Ord2 HCT 46.8 % 03/12/2018 Cbc With Differential Ord2 MCV 87.5 fl 03/12/2018 Cbc With Differential Ord2 Lymph% 27.2 % 03/12/2018 Cbc With Differential Ord2 MCH 28.8 pg 03/12/2018 Cbc With Differential Ord2 [place]% 9.0 % 03/12/2018 Cbc With Differential Ord2 Eos% 2.1 % 03/12/2018 Cbc With Differential Ord2 MCHC 32.9 pg 03/12/2018 Cbc With Differential Ord2 PLT 252 K/ul 03/12/2018 Cbc With Differential Ord2 Baso% 0.6 % 03/12/2018 Cbc With Differential Ord2 RDW 14.9 % 03/12/2018 Cbc With Differential Ord2 Neut ABS# 6.55 K/ul 03/12/2018 Cbc With Differential Ord2 Lymph ABS# 2.91 K/ul 03/12/2018 Cbc With Differential Ord2 [place] ABS# 1.0 K/ul 03/12/2018 Cbc With Differential Ord2 Eos ABS# 0.2 K/ul 03/12/2018 Cbc With Differential Ord2 Baso ABS# 0.1 K/ul 03/12/2018 Vitamin D 25 Oh Izt6825 VITAMIN D, 25 HYDROXY 40.72 ng/mL 09/11/2017 %Hba1C Ocz451 % HbA1c 39832-2 6.0 % 09/11/2017 %Hba1C Tjz020 Gluc Ave 126 mg/dL 09/11/2017 Cbc With Differential Ord2 WBC 12.20 K/ul 09/11/2017 Cbc With Differential Ord2 RBC 5.10 M/ul 09/11/2017 Cbc With Differential Ord2 HGB 14.7 g/dl 09/11/2017 Cbc With Differential Ord2 Neut% 60.0 % 09/11/2017 Cbc With Differential Ord2 HCT 45.0 % 09/11/2017 Cbc With Differential Ord2 MCV 88.2 fl 09/11/2017 Cbc With Differential Ord2 Lymph% 29.3 % 09/11/2017 Cbc With Differential Ord2 MCH 28.8 pg 09/11/2017 Cbc With Differential Ord2 [place]% 7.8 % 09/11/2017 Cbc With Differential Ord2 [...] 3.57 K/ul 09/11/2017 Cbc With Differential Ord2 [place] ABS# 1.0 K/ul 09/11/2017 Cbc With Differential Ord2 Eos ABS# 0.3 K/ul 09/11/2017 Cbc With Differential Ord2 Baso ABS# 0.1 K/ul 09/11/2017 Tsh Ord6 hTSH II 2.46 uIU/mL 09/11/2017 Lipid Ord30 CHOL 172 mg/dL 09/11/2017 Lipid Ord30 HDL 47.0 mg/dl 09/11/2017 Lipid Ord30 TRIG 137 mg/dL 09/11/2017 Lipid Ord30 LDL 98 mg/dL 09/11/2017 Lipid Ord30 C/HDL 3.7 Ratio 09/11/2017 Comp Metabolic Xws882 NA 138 mEq/L 09/11/2017 Comp Metabolic Mdc413 K 4.5 mEq/L 09/11/2017 Comp Metabolic Jxn293 CL 103 mEq/L 09/11/2017 Comp Metabolic Vzo227 CO2 28.0 mEq/L 09/11/2017 Comp Metabolic Azy509 AN ION GAP 12 09/11/2017 Comp Metabolic Opy372 GL UCOSE 105 mg/dL 09/11/2017 Comp Metabolic Cat922 Cr eat 0.7 mg/dL 09/11/2017 Comp Metabolic Ipp164 eG FR 94 ml/min/1.73m2 09/11 Comp Metabolic Gsp732 BUN 10 mg/dL 09/11/2017 Comp Metabolic Owb807 B/ C Ratio 15.2 Ratio 09/11/2017 Comp Metabolic Jov014 CA LCIUM 9.1 mg/dL 09/11/2017 Comp Metabolic Zmi484 AL K PHOS 70 U/L 09/11/2017 Comp Metabolic Yqs164 T(SGOT) 12 U/L 09/11/2017 Comp Metabolic Mqd767 AL T(SGPT) 11 U/L 09/11/2017 Comp Metabolic Nbz613 BI LI T 0.6 mg/dL 09/11/2017 Comp Metabolic Sqi395 AL BUMIN 4.1 g/dL 09/11/2017 Comp Metabolic Gcx676 TP RO 7.1 g/dL 09/11/2017 Comp Metabolic Aie536 GL OB 3.0 g/dL 09/11/2017 Comp Metabolic Jiu752 A/ G Ratio 1.4 Ratio 09/11/2017 Comp Metabolic Ysf704 Os mo 275 mOsmo 09/11/2017 Microalbumin Pxz545 Micr oAlb <0.7 mg/dL 09/11/2016 %Hba1C Xqv958 % HbA1c 73745-2 5.8 % 09/11/2016 %Hba1C Rpo085 Gluc Ave 120 mg/dL 09/11/2016 Cbc With Differential Ord2 WBC 12.06 K/ul 09/10/2016 Cbc With Differential Ord2 RBC 4.85 M/ul 09/10/2016 Cbc With Differential Ord2 HGB 14.2 g/dl 09/10/2016 Cbc With Differential Ord2 Neut% 58.7 % 09/10/2016 Cbc With Differential Ord2 HCT 43.2 % 09/10/2016 Cbc With Differential Ord2 Lymph% 31.3 % 09/10/2016 Cbc With Differential Ord2 MCV 89.1 fl 09/10/2016 Cbc With Differential Ord2 MCH 29.3 pg 09/10/2016 Cbc With Differential Ord2 [place]% 7.5 % 09/10/2016 Cbc With Differential Ord2 MCHC 32.9 pg 09/10/2016 Cbc With Differential Ord2 Eos% 2.1 % 09/10/2016 Cbc With Differential Ord2 Baso% 0.4 % 09/10/2016 Cbc With Differential Ord2 PLT 272 K/ul 09/10/2016 Cbc With Differential Ord2 RDW 14.7 % 09/10/2016 Cbc With Differential Ord2 Neut ABS# 7.07 K/ul 09/10/2016 Cbc With Differential Ord2 Lymph ABS# 3.78 K/ul 09/10/2016 Cbc With Differential Ord2 [place] ABS# 0.9 K/ul 09/10/2016 Cbc With Differential Ord2 Eos ABS# 0.3 K/ul 09/10/2016 Cbc With Differential Ord2 Baso ABS# 0.1 K/ul 09/10/2016 Lipid Ord30 CHOL 163 mg/dL 09/10/2016 Lipid Ord30 HDL 48.0 mg/dl 09/10/2016 Lipid Ord30 TRIG 174 mg/dL 09/10/2016 Lipid Ord30 LDL 80 mg/dL 09/10/2016 Lipid Ord30 C/HDL 3.4 Ratio 09/10/2016 Comp Metabolic Rgb374 NA 135 mEq/L 09/10/2016 Comp Metabolic Dge898 K 3.8 mEq/L 09/10/2016 Comp Metabolic Zai950 CL 99 mEq/L 09/10/2016 Comp Metabolic Iro401 CO2 27.0 mEq/L 09/10/2016 Comp Metabolic Lyq079 AN ION GAP 13 09/10/2016 Comp Metabolic Yph021 GL UCOSE 72 mg/dL 09/10/2016 Comp Metabolic Saa087 Cr eat 0.7 mg/dL 09/10/2016 Comp Metabolic Bee991 eG FR 89 ml/min/1.73m2 09/10 Comp Metabolic Eap700 BUN 7 mg/dL 09/10/2016 Comp Metabolic Ffg168 B/ C Ratio 10.1 Ratio 09/10/2016 Comp Metabolic Itq348 CA LCIUM 9.1 mg/dL 09/10/2016 Comp Metabolic Ndq413 AL K PHOS 66 U/L 09/10/2016 Comp Metabolic Fkr898 T(SGOT) 14 U/L 09/10/2016 Comp Metabolic Ljt656 AL T(SGPT) 11 U/L 09/10/2016 Comp Metabolic Fbu824 BI LI T 0.6 mg/dL 09/10/2016 Comp Metabolic Zax231 AL BUMIN 4.1 g/dL 09/10/2016 Comp Metabolic Tim640 TP RO 7.3 g/dL 09/10/2016 Comp Metabolic Szp369 GL OB 3.2 g/dL 09/10/2016 Comp Metabolic Cpn441 A/ G Ratio 1.3 Ratio 09/10/2016 Comp Metabolic Etb827 Os mo 267 mOsmo 09/10/2016 Tsh Ord6 hTSH II 2.80 uIU/mL 09/10/2016 %Hba1C Pwf446 % HbA1c 83045-2 5.8 % 02/29/2016 %Hba1C Zvh757 Gluc Ave 120 mg/dL 02/29/2016 Comp Metabolic Plr585 NA 135 mEq/L 02/29/2016 Comp Metabolic Bkv445 K 4.4 mEq/L 02/29/2016 Comp Metabolic Fyv714 CL 101 mEq/L 02/29/2016 Comp Metabolic Wgk318 CO2 27.0 mEq/L 02/29/2016 Comp Metabolic Etd072 AN ION GAP 11 02/29/2016 Comp Metabolic Zzh303 GL UCOSE 77 mg/dL 02/29/2016 Comp Metabolic Cee733 Cr eat 0.6 mg/dL 02/29/2016 Comp Metabolic Utb249 eG FR 99 ml/min/1.73m2 02/28 Comp Metabolic Uhu808 BUN 13 mg/dL 02/29/2016 Comp Metabolic Rej002 B/ C Ratio 20.6 Ratio 02/29/2016 Comp Metabolic Jrz450 CA LCIUM 9.4 mg/dL 02/29/2016 Comp Metabolic Ihe785 AL K PHOS 65 U/L 02/29/2016 Comp Metabolic Jxy898 T(SGOT) 14 U/L 02/29/2016 Comp Metabolic Ups294 AL T(SGPT) 11 U/L 02/29/2016 Comp Metabolic Qas588 BI LI T 0.6 mg/dL 02/29/2016 Comp Metabolic Zhn283 AL BUMIN 4.1 g/dL 02/29/2016 Comp Metabolic Wjq198 TP RO 7.2 g/dL 02/29/2016 Comp Metabolic Kth968 GL OB 3.1 g/dL 02/29/2016 Comp Metabolic Kbt981 A/ G Ratio 1.3 Ratio 02/29/2016 Comp Metabolic Qmp991 Os mo 269 mOsmo 02/29/2016 Lipid Ord30 CHOL 202 mg/dL 02/29/2016 Lipid Ord30 HDL 62.0 mg/dl 02/29/2016 Lipid Ord30 TRIG 123 mg/dL 02/29/2016 Lipid Ord30 LDL 115 mg/dL 02/29/2016 Lipid Ord30 C/HDL 3.3 Ratio 02/29/2016 Vitamin D 25 Oh Qqj9586 VITAMIN D, 25 HYDROXY 58.48 ng/mL 08/18/2015 Lipid Ord30 CHOL 172 mg/dL 08/17/2015 Lipid Ord30 HDL 49.0 mg/dl 08/17/2015 Lipid Ord30 TRIG 170 mg/dL 08/17/2015 Lipid Ord30 LDL 89 mg/dL 08/17/2015 Lipid Ord30 C/HDL 3.5 Ratio 08/17/2015 %Hba1C Ihr769 % HbA1c 25456-9 6.4 % 08/17/2015 %Hba1C Uuk303 Gluc Ave 137 mg/dL 08/17/2015 Tsh Ord6 [...] Ord2 RDW 14.8 % 08/17/2015 Comp Metabolic Sjr897 NA 132 mEq/L 08/17/2015 Comp Metabolic Fty140 K 4.4 mEq/L 08/17/2015 Comp Metabolic Nao879 CL 101 mEq/L 08/17/2015 Comp Metabolic Pgo483 CO2 24.0 mEq/L 08/17/2015 Comp Metabolic Wmv609 AN ION GAP 11 08/17/2015 Comp Metabolic Zdm435 GL UCOSE 130 mg/dL 08/17/2015 Comp Metabolic Cnd604 Cr eat 0.7 mg/dL 08/17/2015 Comp Metabolic Sqc129 eG FR 93 ml/min/1.73m2 08/17 Comp Metabolic Lht262 BUN 8 mg/dL 08/17/2015 Comp Metabolic Oxj661 B/ C Ratio 11.9 Ratio 08/17/2015 Comp Metabolic Sxa715 CA LCIUM 9.5 mg/dL 08/17/2015 Comp Metabolic Bpf925 AL K PHOS 70 U/L 08/17/2015 Comp Metabolic Otv915 T(SGOT) 28 U/L 08/17/2015 Comp Metabolic Mww441 AL T(SGPT) 14 U/L 08/17/2015 Comp Metabolic Vog366 BI LI T 0.8 mg/dL 08/17/2015 Comp Metabolic Sxz692 AL BUMIN 4.2 g/dL 08/17/2015 Comp Metabolic Hbk806 TP RO 7.3 g/dL 08/17/2015 Comp Metabolic Baz466 GL OB 3.1 g/dL 08/17/2015 Comp Metabolic Leq911 A/ G Ratio 1.4 Ratio 08/17/2015 Comp Metabolic Ppf977 Os mo 265 mOsmo 08/17/2015 Review of Systems System Result Effective Dates Constitutional No recent illness 09/14/2018 Constitutional No [...] 08/17/2015 None Procedures Procedure Codes Date 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 3-[address]: 570881772 CPT-4: G0436 09/10/2016 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 INSPECTOR 3-[address]: 351774474 CPT-4: G0436 04/23/2016 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 INSPECTOR 3-[address]: 963497604 CPT-4: G0436 02/29/2016 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 INSPECTOR 3-[address]: 961266567 CPT-4: G0436 08/17/2015 Vital Signs Date Vital 09/14/2018 Blood Pressure 1: 130/80 Code: 8480-6 BMI: 36.9 Code: 42261-9 Height: 5'4" Weight: 215 lbs 03/12/2018 Blood Pressure 1: 148/82 Code: 8480-6 BMI: 36.7 Code: 46625-9 Heart Rate 1: 96 bpm Height: 5'4" SpO2: 98% Weight: 214 lbs 09/11/2017 Blood Pressure 1: 142/84 Code: 8480-6 BMI: 37.2 Code: 51989-8 Heart Rate 1: 91 bpm Height: 5'4" SpO2: 98% Weight: 217 lbs 03/10/2017 Blood Pressure 1: 144/78 Code: 8480-6 BMI: 36.8 Code: 69270-3 Heart Rate 1: 86 bpm Height: 5'4" SpO2: 98% Weight: 214 lbs 8 oz 09/10/2016 Blood Pressure 1: 130/80 Code: 8480-6 BMI: 36.7 Code: 11331-5 Heart Rate 1: 98 bpm Height: 5'4" SpO2: 98% Weight: 214 lbs 04/23/2016 Blood Pressure 1: 126/72 Code: 8480-6 BMI: 36.0 Code: 25684-5 Heart Rate 1: 86 bpm Height: 5'4" SpO2: 97% Weight: 209 lbs 8 oz 02/29/2016 Blood Pressure 1: 138/76 Code: 8480-6 BMI: 34.8 Code: 99442-5 Heart Rate 1: 78 bpm Height: 5'4" SpO2: 98% Weight: 203 lbs 08/17/2015 Blood Pressure 1: 140/88 Code: 8480-6 BMI: 35.2 Code: 57442-8 Heart Rate 1: 90 bpm Height: 5'4" SpO2: 97% Weight: 205 lbs Functional Status No Functional Status data History of Present Illness Symptom Name Status Resu lt Effective Date Notes hypertension Quality chr onic 09/14/2018 None hypertension [...] Encounters Encounter Performer Loca tion Codes Date [phone]) [id number] EST. P ATIENT, LEVEL IV Diagnosis: Essential (primary) hypertension[ICD10: I10] Diagnosis: Type 2 diabetes mellitus without complications[ICD10: E11.9] Diagnosis: Mixed hyperlipidemia[ICD10: E78.2] Blessing Capone MD, [facility] CPT-4: 27205 09/14/2018 [id number] EST. P ATIENT, LEVEL IV Diagnosis: Essential (primary) hypertension[ICD10: I10] Diagnosis: Mixed hyperlipidemia[ICD10: E78.2] Diagnosis: Vitamin D deficiency, unspecified[ICD10: E55.9] Diagnosis: Type 2 diabetes mellitus without complications[ICD10: E11.9] Diagnosis: Impaired fasting glucose[ICD10: R73.01] Diagnosis: Encounter for screening mammogram for malignant neoplasm of breast[ICD10: Z12.31] Blessing Capone MD, [facility] CPT-4: 99558 03/12/2018 ([id number]) 55761 EST. P ATIENT, LEVEL IV Diagnosis: Type 2 diabetes mellitus without complications[ICD10: E11.9] Diagnosis: Vitamin D deficiency, unspecified[ICD10: E55.9] Diagnosis: Mixed hyperlipidemia[ICD10: E78.2] Diagnosis: Essential (primary) hypertension[ICD10: I10] Blessing Capone MD, [facility] CPT-4: 99308 09/11/2017 ([id number] EST. P ATIENT, LEVEL III Diagnosis: Essential (primary) hypertension[ICD10: I10] Diagnosis: Type 2 diabetes mellitus without complications[ICD10: E11.9] Blessing Capone MD, [facility] CPT-4: 11012 03/10/2017 [id number] EST. P ATIENT, LEVEL IV Diagnosis: Type 2 diabetes mellitus without complications[ICD10: E11.9] Diagnosis: Mixed hyperlipidemia[ICD10: E78.2] Diagnosis: Essential (primary) hypertension[ICD10: I10] Diagnosis: Tobacco use[ICD10: Z72.0] Samantha Capone MD, [facility] CPT-4: 45733 09/10/2016 ([id number]) 73945 EST. P ATIENT, LEVEL IV Diagnosis: Type 2 diabetes mellitus without complications[ICD10: E11.9] Diagnosis: Essential (primary) hypertension[ICD10: I10] Diagnosis: Emphysema (subcutaneous) resulting from a procedure, subsequent encounter[ICD10: T81.82XD] Diagnosis: Tobacco use[ICD10: Z72.0] Samantha Capone MD, [facility] CPT-4: 77506 04/23/2016 ([id number] EST. P ATIENT, LEVEL IV Diagnosis: Essential (primary) hypertension[ICD10: I10] Diagnosis: Tobacco use[ICD10: Z72.0] Diagnosis: Type 2 diabetes mellitus without complications[ICD10: E11.9] Samantha aCpone MD, [facility] CPT-4: 46765 02/29/2016 ([id number]) OFFICE [facility] - LEVEL 4 Diagnosis: Other abnormal glucose[ICD10: R73.09] Diagnosis: Essential (primary) hypertension[ICD10: I10] Diagnosis: Mixed hyperlipidemia[ICD10: E78.2] Diagnosis: Tobacco use[ICD10: Z72.0] Diagnosis: Vitamin D deficiency, unspecified[ICD10: E55.9] Samantha Capone MD, [facility] CPT-4: 58521 08/17/2015 Plan of Care Planned Activity Notes [...] fat diet 09/14/2018 Appointment: Blessing Miller WPtel: [address] [place], [place] [phone] (30 min) Complex 09/14/2018 Patient Education: Patient [...] on use 03/12/2018 Appointment: Blessing Miller WPtel: [address] [place], [place] [phone] (30 min) [facility] 03/12/2018 Patient Education: Patient Medication Summary Completed 03/12/2018 Care Plan: SCREENINGMAMMOGRAPHYDIGITAL LOINC : 83140-5 Pending 03/12/2018 Visit Plan: Hypertension - well [...] to medications. 09/11/2017 Appointment: Blessing Miller WPtel: [phone] (30 min) Complex 09/11/2017 Patient Education: Patient Medication Summary Completed 09/11/2017 Patient Education: Smoking and Tobacco Addiction Completed 09/11/2017 Patient Education: Obesity Completed 09/11/2017 Care Plan: Comp Metabolic Cancelled 09/11/2017 Care Plan: Cbc With Differential Cancelled 09/11/2017 Care Plan: %Hba1C LOIN C : 57609-5 Cancelled 09/11/2017 Care Plan: Tsh Cancelled 09/11/2017 Care Plan: Lipid Cancelled 09/11/2017 Care Plan: Vitamin D 25 Oh Cancelled 09/11/2017 Appointment: Blessing Miller WPtel: [phone] (30 min) Complex 09/08/2017 Visit Plan: Hypertension [...] controlled. 03/10/2017 App[facility]ment: [phone] [phone] (30 min) Complex 03/10/2017 Patient Education: Patient Medication Summary Completed 03/10/2017 Patient Education: Smoking and Tobacco Addiction Completed 03/10/2017 Patient Education: Obesity Completed 03/10/2017 Care Plan: Lipid Cancelled 03/10/2017 Care Plan: Tsh Cancelled 03/10/2017 Care Plan: %Hba1C LOIN C : 55296-9 Cancelled 03/10/2017 Care Plan: Cbc With Differential [...] 09/10/2016 Care Plan: %Hba1C LOIN C : 28852-6 Cancelled 09/10/2016 Care Plan: Tsh Cancelled 09/10/2016 [...] Obesity Completed 02/29/2016 Appointment: Samantha Capone WPtel: [facility] (15 min) Moderate 02/22/2016 Visit Plan: [...] check hgba1c. 08/17/2015 Appointment: [facility] Cap[facility]el[facility] [phone] [facility] [place] New Patient 08/17/2015 Patient [...]
--- OUTSIDE RECORDS SUMMARY | 2020-04-27 11:39 | XMS REPORT | CCD ---
Author Author Roberta Capone Organization Samantha Capone MD, [facility] Address [address] [place] [address] Phone Care Team Providers Care Costume Shop Coordinator Name Role Phone PP Unavailable CCM Unavailable Summary Purpose Interface Exchange Insurance Providers Payer name Policy type / Coverage type Covered constitution party ID Effective Begin Date Effective End Date WPS Medicare Part B Medicare Part B [id number] Unknown [employer] Medicare Part B [id number] Unknown Family history Father Diagnosis Age At Onset Hyperlipidemia Unknown Heart Attack Unknown Hypertension Unknown Mother Diagnosis Age At Onset Arthritis Unknown Breast cancer Unknown Hypertension Unknown Skin cancer Unknown Osteoporosis Unknown Sister Diagnosis Age At Onset Cancer Unknown Social History Social History Element Codes Description Effective Dates Tobacco history SNOMED CT: 34102339 Current every day smoker one pack/day 48 yrs - pt down to 1/2 ppd as of Jul 2016 09/10/2016 Marital status Unknown M arrana laura More 08/17/2015 Number of children Unknown 2 adopted children - 35 (Saul) and 33y/o (Jeb) 08/17/2015 Living arrangements Unknown House 08/17/2015 Employment Unknown Retir ed 08/17/[address]: 000838338 Never drinks alcohol 08/17/2015 Allergies, Adverse Reactions, [...] mcg-4. 5 mcg/actuation HFA aerosol inhaler RxNorm: 7159659 2 Puff(s) INH 03/12/2018 09/13/2018 Inactive enalapril 10 mg-hydr ochlorothiazide 25 mg tablet RxNorm: 737927 TAKE ONE TABLET BY MOUTH DAILY 02/23/2018 11/19/2018 Active glipizide ER 2.5 mg tablet, extended release 24 hr RxNorm: 954672 Tablet(s) TAKE ONE TABLET BY MOUTH DAILY 02/23/2018 11/19/2018 Active pravastatin 40 mg ta blet RxNorm: 094918 TAKE ONE TABLET BY MO UT DAILY 02/23/2018 11/19/2018 Ac tive glipizide ER 2.5 mg tablet, extended release 24 hr RxNorm: 564336 TAKE ONE TABLET BY MOUTH DAILY 08/22/2017 02/17/2018 Inactive enalapril 10 mg-hydr ochlorothiazide 25 mg tablet RxNorm: 575238 TAKE ONE TABLET BY MOUTH DAILY 05/23/2017 02/16/2018 Inactive pravastatin 40 mg ta blet RxNorm: 845746 TAKE ONE TABLET BY MO UT DAILY 05/23/2017 02/16/2018 In active glipizide ER 2.5 mg tablet, extended release 24 hr RxNorm: 811377 TAKE ONE TABLET BY MOUTH DAILY 02/21/2017 08/19/2017 Inactive glipizide ER 2.5 mg tablet, extended release 24 hr RxNorm: 312993 TAKE ONE TABLET BY MOUTH DAILY 12/23/2016 02/20/2017 Inactive pravastatin 40 mg ta blet RxNorm: 082268 TAKE ONE TABLET BY MO UT DAILY 08/26/2016 05/22/2017 In active enalapril 10 mg-hydr ochlorothiazide 25 mg tablet RxNorm: 512729 TAKE ONE TABLET BY MOUTH DAILY 08/26/2016 02/22/2018 Inactive pravastatin 40 mg ta blet RxNorm: 140514 TAKE ONE TABLET BY MO UT DAILY 08/26/2016 02/22/2018 In active enalapril 10 mg-hydr ochlorothiazide 25 mg tablet RxNorm: 858149 TAKE ONE TABLET BY MOUTH DAILY 08/26/2016 02/22/2018 Inactive enalapril 10 mg-hydr ochlorothiazide 25 mg tablet RxNorm: 412759 TAKE ONE TABLET BY MOUTH DAILY 08/26/2016 05/22/2017 Inactive glipizide ER 2.5 mg tablet, extended release 24 hr RxNorm: 682037 TAKE ONE TABLET BY MOUTH DAILY 06/25/2016 12/21/2016 Inactive glipizide ER 2.5 mg tablet, extended release 24 hr RxNorm: 414843 TAKE ONE TABLET BY MOUTH DAILY 03/11/2016 06/24/2016 Inactive glipizide 5 mg tablet RxNorm: 241706 1 Tablet(s) PO daily 10/16/2015 10/15/2015 Inactive glipizide ER 2.5 mg tablet, extended release 24 hr RxNorm: 753215 1 Tablet(s) PO daily 10/16/2015 03/10/2016 Inactive enalapril 10 mg-hydr ochlorothiazide 25 mg tablet RxNorm: 512109 1 Tablet(s) PO daily 09/01/2015 08/25/2016 Inactive pravastatin 40 mg ta blet RxNorm: 652088 1 Tablet(s) PO daily 09/01/2015 08/25/2016 Inactive metformin 500 mg tablet RxNorm: 618118 1/2 Tablet(s) PO BID 09/01/2015 09/13/2018 Inactive metformin 500 mg tablet RxNorm: 659341 1/2 Tablet(s) PO BID 09/01/2015 08/31/2015 Inactive pravastatin 40 mg ta blet RxNorm: 732787 1 Tablet(s) PO daily 08/17/2015 08/31/2015 Inactive vitamin E (dl, aceta te) 1,000 unit capsule RxNorm: 382841 1 Capsule(s) PO every other day No Start Date Active Super B Complex + C 150 mg tablet RxNorm: 1 Tablet(s) PO daily No Start Date Active Odilia 180 mg tablet RxNorm: 256147 1 Tablet(s) PO daily No Start Date Active Vitamin D2 1,000 uni t capsule RxNorm: 954176 1 Capsule(s) PO BID No Start Date Active enalapril 10 mg-hydr ochlorothiazide 25 mg tablet RxNorm: 420470 1 Tablet(s) PO daily No Start Date [...] (3rd IS) 3.46 uIU/mL 03/12/2018 Comp Metabolic Cfi659 NA 138 mEq/L 03/12/2018 Comp Metabolic Wrn423 K 4.5 mEq/L 03/12/2018 Comp Metabolic Oxz388 CL 104 mEq/L 03/12/2018 Comp Metabolic Bta737 CO2 28.0 mEq/L 03/12/2018 Comp Metabolic Wiu447 AN ION GAP 11 03/12/2018 Comp Metabolic Iiv243 GL UCOSE 129 mg/dL 03/12/2018 Comp Metabolic Nzl326 Cr eat 0.8 mg/dL 03/12/2018 Comp Metabolic Iie350 eG FR 74 ml/min/1.73m2 03/12 Comp Metabolic Ows918 BUN 12 mg/dL 03/12/2018 Comp Metabolic Jgw185 B/ C Ratio 14.8 Ratio 03/12/2018 Comp Metabolic Ldu804 CA LCIUM 9.1 mg/dL 03/12/2018 Comp Metabolic Zhv324 AL K PHOS 64 U/L 03/12/2018 Comp Metabolic Zqq751 T(SGOT) 13 U/L 03/12/2018 Comp Metabolic Joa598 AL T(SGPT) 12 U/L 03/12/2018 Comp Metabolic Xsy031 BI LI T 0.5 mg/dL 03/12/2018 Comp Metabolic Ocj426 AL BUMIN 4.0 g/dL 03/12/2018 Comp Metabolic Suc331 TP RO 6.8 g/dL 03/12/2018 Comp Metabolic Lti665 GL OB 2.8 g/dL 03/12/2018 Comp Metabolic Jzu168 A/ G Ratio 1.4 Ratio 03/12/2018 Comp Metabolic Rwy796 Os mo 277 mOsmo 03/12/2018 Vitamin D 25 Oh Poc2894 VITAMIN D, 25 HYDROXY 47.13 ng/mL 03/12/2018 Lipid Ord30 CHOL 161 mg/dL 03/12/2018 Lipid Ord30 HDL 49.0 mg/dl 03/12/2018 Lipid Ord30 TRIG 126 mg/dL 03/12/2018 Lipid Ord30 LDL 87 mg/dL 03/12/2018 Lipid Ord30 C/HDL 3.3 Ratio 03/12/2018 %Hba1C Ecd048 % HbA1c 48332-4 6.4 % 03/12/2018 %Hba1C Vlw627 Gluc Ave 137 mg/dL 03/12/2018 Cbc With [...] 28.8 pg 03/12/2018 Cbc With Differential Ord2 [place]% 9.0 % 03/12/2018 Cbc With Differential Ord2 [...] 2.91 K/ul 03/12/2018 Cbc With Differential Ord2 [place] ABS# 1.0 K/ul 03/12/2018 Cbc With Differential Ord2 Eos ABS# 0.2 K/ul 03/12/2018 Cbc With Differential Ord2 Baso ABS# 0.1 K/ul 03/12/2018 Vitamin D 25 Oh Acp8734 VITAMIN D, 25 HYDROXY 40.72 ng/mL 09/11/2017 %Hba1C Jwx848 % HbA1c 29576-8 6.0 % 09/11/2017 %Hba1C Jpp706 Gluc Ave 126 mg/dL 09/11/2017 Cbc With [...] 28.8 pg 09/11/2017 Cbc With Differential Ord2 [place]% 7.8 % 09/11/2017 Cbc With Differential Ord2 [...] 3.57 K/ul 09/11/2017 Cbc With Differential Ord2 [place] ABS# 1.0 K/ul 09/11/2017 Cbc With Differential Ord2 Eos ABS# 0.3 K/ul 09/11/2017 Cbc With Differential Ord2 Baso ABS# 0.1 K/ul 09/11/2017 Tsh Ord6 hTSH II 2.46 uIU/mL 09/11/2017 Lipid Ord30 CHOL 172 mg/dL 09/11/2017 Lipid Ord30 HDL 47.0 mg/dl 09/11/2017 Lipid Ord30 TRIG 137 mg/dL 09/11/2017 Lipid Ord30 LDL 98 mg/dL 09/11/2017 Lipid Ord30 C/HDL 3.7 Ratio 09/11/2017 Comp Metabolic Esq011 NA 138 mEq/L 09/11/2017 Comp Metabolic Jec203 K 4.5 mEq/L 09/11/2017 Comp Metabolic Gmk623 CL 103 mEq/L 09/11/2017 Comp Metabolic Sbe258 CO2 28.0 mEq/L 09/11/2017 Comp Metabolic Oxu761 AN ION GAP 12 09/11/2017 Comp Metabolic Gtf525 GL UCOSE 105 mg/dL 09/11/2017 Comp Metabolic Uut586 Cr eat 0.7 mg/dL 09/11/2017 Comp Metabolic Rqq277 eG FR 94 ml/min/1.73m2 09/11 Comp Metabolic Wut492 BUN 10 mg/dL 09/11/2017 Comp Metabolic Dvo384 B/ C Ratio 15.2 Ratio 09/11/2017 Comp Metabolic Qth940 CA LCIUM 9.1 mg/dL 09/11/2017 Comp Metabolic Iec965 AL K PHOS 70 U/L 09/11/2017 Comp Metabolic Wnq108 T(SGOT) 12 U/L 09/11/2017 Comp Metabolic Ogh018 AL T(SGPT) 11 U/L 09/11/2017 Comp Metabolic Cjn923 BI LI T 0.6 mg/dL 09/11/2017 Comp Metabolic Tkr859 AL BUMIN 4.1 g/dL 09/11/2017 Comp Metabolic Ymc281 TP RO 7.1 g/dL 09/11/2017 Comp Metabolic Oka368 GL OB 3.0 g/dL 09/11/2017 Comp Metabolic Jnk215 A/ G Ratio 1.4 Ratio 09/11/2017 Comp Metabolic Zqh634 Os mo 275 mOsmo 09/11/2017 Microalbumin Qgw679 Micr oAlb <0.7 mg/dL 09/11/2016 %Hba1C Fkr055 % HbA1c 97788-9 5.8 % 09/11/2016 %Hba1C Ckt975 Gluc Ave 120 mg/dL 09/11/2016 Cbc With [...] 29.3 pg 09/10/2016 Cbc With Differential Ord2 [place]% 7.5 % 09/10/2016 Cbc With Differential Ord2 [...] 3.78 K/ul 09/10/2016 Cbc With Differential Ord2 [place] ABS# 0.9 K/ul 09/10/2016 Cbc With Differential Ord2 Eos ABS# 0.3 K/ul 09/10/2016 Cbc With Differential Ord2 Baso ABS# 0.1 K/ul 09/10/2016 Lipid Ord30 CHOL 163 mg/dL 09/10/2016 Lipid Ord30 HDL 48.0 mg/dl 09/10/2016 Lipid Ord30 TRIG 174 mg/dL 09/10/2016 Lipid Ord30 LDL 80 mg/dL 09/10/2016 Lipid Ord30 C/HDL 3.4 Ratio 09/10/2016 Comp Metabolic Ajh702 NA 135 mEq/L 09/10/2016 Comp Metabolic Tgb703 K 3.8 mEq/L 09/10/2016 Comp Metabolic Fbe886 CL 99 mEq/L 09/10/2016 Comp Metabolic Lyd911 CO2 27.0 mEq/L 09/10/2016 Comp Metabolic Jcn039 AN ION GAP 13 09/10/2016 Comp Metabolic Los220 GL UCOSE 72 mg/dL 09/10/2016 Comp Metabolic Dio820 Cr eat 0.7 mg/dL 09/10/2016 Comp Metabolic Djz903 eG FR 89 ml/min/1.73m2 09/10 Comp Metabolic Bcf701 BUN 7 mg/dL 09/10/2016 Comp Metabolic Fwj107 B/ C Ratio 10.1 Ratio 09/10/2016 Comp Metabolic Nxs013 CA LCIUM 9.1 mg/dL 09/10/2016 Comp Metabolic Bcn242 AL K PHOS 66 U/L 09/10/2016 Comp Metabolic Upp532 T(SGOT) 14 U/L 09/10/2016 Comp Metabolic Vuf976 AL T(SGPT) 11 U/L 09/10/2016 Comp Metabolic Viz176 BI LI T 0.6 mg/dL 09/10/2016 Comp Metabolic Qel131 AL BUMIN 4.1 g/dL 09/10/2016 Comp Metabolic Zel113 TP RO 7.3 g/dL 09/10/2016 Comp Metabolic Yie406 GL OB 3.2 g/dL 09/10/2016 Comp Metabolic Edg606 A/ G Ratio 1.3 Ratio 09/10/2016 Comp Metabolic Uvu567 Os mo 267 mOsmo 09/10/2016 Tsh Ord6 hTSH II 2.80 uIU/mL 09/10/2016 %Hba1C Chi807 % HbA1c 34953-9 5.8 % 02/29/2016 %Hba1C Aqx361 Gluc Ave 120 mg/dL 02/29/2016 Comp Metabolic Ddn707 NA 135 mEq/L 02/29/2016 Comp Metabolic Btw586 K 4.4 mEq/L 02/29/2016 Comp Metabolic Icc970 CL 101 mEq/L 02/29/2016 Comp Metabolic Fvc235 CO2 27.0 mEq/L 02/29/2016 Comp Metabolic Uyn818 AN ION GAP 11 02/29/2016 Comp Metabolic Plh486 GL UCOSE 77 mg/dL 02/29/2016 Comp Metabolic Ply492 Cr eat 0.6 mg/dL 02/29/2016 Comp Metabolic Exk646 eG FR 99 ml/min/1.73m2 02/28 Comp Metabolic Drl593 BUN 13 mg/dL 02/29/2016 Comp Metabolic Wzl433 B/ C Ratio 20.6 Ratio 02/29/2016 Comp Metabolic Gtz293 CA LCIUM 9.4 mg/dL 02/29/2016 Comp Metabolic Enw883 AL K PHOS 65 U/L 02/29/2016 Comp Metabolic Jho665 T(SGOT) 14 U/L 02/29/2016 Comp Metabolic Zmf492 AL T(SGPT) 11 U/L 02/29/2016 Comp Metabolic Pty087 BI LI T 0.6 mg/dL 02/29/2016 Comp Metabolic Alb123 AL BUMIN 4.1 g/dL 02/29/2016 Comp Metabolic Dts617 TP RO 7.2 g/dL 02/29/2016 Comp Metabolic Ipu453 GL OB 3.1 g/dL 02/29/2016 Comp Metabolic Tgv275 A/ G Ratio 1.3 Ratio 02/29/2016 Comp Metabolic Jii216 Os mo 269 mOsmo 02/29/2016 Lipid Ord30 CHOL 202 mg/dL 02/29/2016 Lipid Ord30 HDL 62.0 mg/dl 02/29/2016 Lipid Ord30 TRIG 123 mg/dL 02/29/2016 Lipid Ord30 LDL 115 mg/dL 02/29/2016 Lipid Ord30 C/HDL 3.3 Ratio 02/29/2016 Vitamin D 25 Oh Wpt4399 VITAMIN D, 25 HYDROXY 58.48 ng/mL 08/18/2015 Lipid Ord30 CHOL 172 mg/dL 08/17/2015 Lipid Ord30 HDL 49.0 mg/dl 08/17/2015 Lipid Ord30 TRIG 170 mg/dL 08/17/2015 Lipid Ord30 LDL 89 mg/dL 08/17/2015 Lipid Ord30 C/HDL 3.5 Ratio 08/17/2015 %Hba1C Ndb260 % HbA1c 61544-9 6.4 % 08/17/2015 %Hba1C Mkl224 Gluc Ave 137 mg/dL 08/17/2015 Tsh Ord6 [...] Ord2 RDW 14.8 % 08/17/2015 Comp Metabolic Hgg375 NA 132 mEq/L 08/17/2015 Comp Metabolic Mvr246 K 4.4 mEq/L 08/17/2015 Comp Metabolic Yrn268 CL 101 mEq/L 08/17/2015 Comp Metabolic Cut957 CO2 24.0 mEq/L 08/17/2015 Comp Metabolic Fqb898 AN ION GAP 11 08/17/2015 Comp Metabolic Qyf246 GL UCOSE 130 mg/dL 08/17/2015 Comp Metabolic Snk751 Cr eat 0.7 mg/dL 08/17/2015 Comp Metabolic Tfk717 eG FR 93 ml/min/1.73m2 08/17 Comp Metabolic Eub550 BUN 8 mg/dL 08/17/2015 Comp Metabolic Fao884 B/ C Ratio 11.9 Ratio 08/17/2015 Comp Metabolic Vxy649 CA LCIUM 9.5 mg/dL 08/17/2015 Comp Metabolic Fqz014 AL K PHOS 70 U/L 08/17/2015 Comp Metabolic Izq883 T(SGOT) 28 U/L 08/17/2015 Comp Metabolic Drx064 AL T(SGPT) 14 U/L 08/17/2015 Comp Metabolic Ovj658 BI LI T 0.8 mg/dL 08/17/2015 Comp Metabolic Jii514 AL BUMIN 4.2 g/dL 08/17/2015 Comp Metabolic Sls294 TP RO 7.3 g/dL 08/17/2015 Comp Metabolic Twy195 GL OB 3.1 g/dL 08/17/2015 Comp Metabolic Ekj853 A/ G Ratio 1.4 Ratio 08/17/2015 Comp Metabolic Iyn972 Os mo 265 mOsmo 08/17/2015 Review of [...] 08/17/2015 None Procedures Procedure Codes Date TOBACCO-USE SALES REVIEW CLERK 3-[address]: 322111345 CPT-4: G0436 09/10/2016 TOBACCO-USE SALES REVIEW CLERK 3-[address]: 190127939 CPT-4: G0436 04/23/2016 TOBACCO-USE SALES REVIEW CLERK 3-[address]: 896259090 CPT-4: G0436 02/29/2016 TOBACCO-USE SALES REVIEW CLERK 3-[address]: 295483956 CPT-4: G0436 08/17/2015 Vital Signs Date Vital 09/14/2018 Blood Pressure 1: 130/80 Code: 8480-6 BMI: 36.9 Code: 25230-4 Height: 5'4" Weight: 215 lbs 03/12/2018 Blood Pressure 1: 148/82 Code: 8480-6 BMI: 36.7 Code: 85593-1 Heart Rate 1: 96 bpm Height: 5'4" SpO2: 98% Weight: 214 lbs 09/11/2017 Blood Pressure 1: 142/84 Code: 8480-6 BMI: 37.2 Code: 30754-7 Heart Rate 1: 91 bpm Height: 5'4" SpO2: 98% Weight: 217 lbs 03/10/2017 Blood Pressure 1: 144/78 Code: 8480-6 BMI: 36.8 Code: 76481-4 Heart Rate 1: 86 bpm Height: 5'4" SpO2: 98% Weight: 214 lbs 8 oz 09/10/2016 Blood Pressure 1: 130/80 Code: 8480-6 BMI: 36.7 Code: 45822-4 Heart Rate 1: 98 bpm Height: 5'4" SpO2: 98% Weight: 214 lbs 04/23/2016 Blood Pressure 1: 126/72 Code: 8480-6 BMI: 36.0 Code: 84645-8 Heart Rate 1: 86 bpm Height: 5'4" SpO2: 97% Weight: 209 lbs 8 oz 02/29/2016 Blood Pressure 1: 138/76 Code: 8480-6 BMI: 34.8 Code: 11405-1 Heart Rate 1: 78 bpm Height: 5'4" SpO2: 98% Weight: 203 lbs 08/17/2015 Blood Pressure 1: 140/88 Code: 8480-6 BMI: 35.2 Code: 58061-9 Heart Rate 1: 90 bpm Height: 5'4" [...] Encounters Encounter Performer Loca tion Codes Date [phone]) [id number] EST. P ATIENT, LEVEL IV Diagnosis: Essential (primary) hypertension[ICD10: I10] Diagnosis: Type 2 diabetes mellitus without complications[ICD10: E11.9] Diagnosis: Mixed hyperlipidemia[ICD10: E78.2] Blessing Capone MD, [facility] CPT-4: 99891 09/14/2018 [id number] EST. P ATIENT, LEVEL IV Diagnosis: Essential (primary) hypertension[ICD10: I10] Diagnosis: Mixed hyperlipidemia[ICD10: E78.2] Diagnosis: Vitamin D deficiency, unspecified[ICD10: E55.9] Diagnosis: Type 2 diabetes mellitus without complications[ICD10: E11.9] Diagnosis: Impaired fasting glucose[ICD10: R73.01] Diagnosis: Encounter for screening mammogram for malignant neoplasm of breast[ICD10: Z12.31] Blessing Capone MD, [facility] CPT-4: 58018 03/12/2018 ([id number]) 32805 EST. P ATIENT, LEVEL IV Diagnosis: Type 2 diabetes mellitus without complications[ICD10: E11.9] Diagnosis: Vitamin D deficiency, unspecified[ICD10: E55.9] Diagnosis: Mixed hyperlipidemia[ICD10: E78.2] Diagnosis: Essential (primary) hypertension[ICD10: I10] Blessing Capone MD, [facility] CPT-4: 85612 09/11/2017 ([id number] 04861 EST. P ATIENT, LEVEL III Diagnosis: Essential (primary) hypertension[ICD10: I10] Diagnosis: Type 2 diabetes mellitus without complications[ICD10: E11.9] Blessing Capone MD, [facility] CPT-4: 04027 03/10/2017 [id number] EST. P ATIENT, LEVEL IV Diagnosis: Type 2 diabetes mellitus without complications[ICD10: E11.9] Diagnosis: Mixed hyperlipidemia[ICD10: E78.2] Diagnosis: Essential (primary) hypertension[ICD10: I10] Diagnosis: Tobacco use[ICD10: Z72.0] Samantha Capone MD, [facility] CPT-4: 17292 09/10/2016 ([id number]) 52104 EST. P ATIENT, LEVEL IV Diagnosis: Type 2 diabetes mellitus without complications[ICD10: E11.9] Diagnosis: Essential (primary) hypertension[ICD10: I10] Diagnosis: Emphysema (subcutaneous) resulting from a procedure, subsequent encounter[ICD10: T81.82XD] Diagnosis: Tobacco use[ICD10: Z72.0] Samantha Capone MD, [facility] CPT-4: 97765 04/23/2016 ([phone] [id number] EST. P ATIENT, LEVEL IV Diagnosis: Essential (primary) hypertension[ICD10: I10] Diagnosis: Tobacco use[ICD10: Z72.0] Diagnosis: Type 2 diabetes mellitus without complications[ICD10: E11.9] Samantha Capone MD, [facility] CPT-4: 27919 02/29/2016 ([id number]) OFFICE [facility] - LEVEL 4 Diagnosis: Other abnormal glucose[ICD10: R73.09] Diagnosis: Essential (primary) hypertension[ICD10: I10] Diagnosis: Mixed hyperlipidemia[ICD10: E78.2] Diagnosis: Tobacco use[ICD10: Z72.0] Diagnosis: Vitamin D deficiency, unspecified[ICD10: E55.9] Samantha Capone MD, [facility] CPT-4: 94053 08/17/2015 Plan of Care Planned Activity Notes [...] water pic. Hyperlipidemia-continue pravastatin-low fat diet 09/14/2018 Patient Education: Patient Medication Summary Completed [...] use 03/12/2018 Appointment: Blessing Miller WPtel: [phone] [phone] (30 min) Complex 03/12/2018 Patient Education: Patient Medication Summary Completed 03/12/2018 Care Plan: SCREENINGMAMMOGRAPHYDIGITAL [facility] : 37259-0 Pending 03/12/2018 Visit Plan: Hypertension - well [...] medications. 09/11/2017 [facility] [phone] [phone] [facility] Complex 09/11/2017 Patient Education: Patient Medication Summary Completed 09/11/2017 Patient Education: Smoking and Tobacco Addiction Completed 09/11/2017 Patient Education: Obesity Completed 09/11/2017 Care Plan: Comp Metabolic Cancelled 09/11/2017 Care Plan: Cbc With Differential Cancelled 09/11/2017 Care Plan: %Hba1C LOIN C : 39642-1 Cancelled 09/11/2017 Care Plan: Tsh Cancelled 09/11/2017 Care Plan: Lipid Cancelled 09/11/2017 Care Plan: Vitamin D 25 Oh Cancelled 09/11/2017 Appointment: Blessing Miller WPtel[phone] ([facility] min[facility] Complex 09/08/2017 Visit Plan: [...] less controlled. 03/10/2017 Appointment: Blessing Miller WPtel: [address] [place], [place] [phone] (30 min) Complex 03/10/2017 Patient Education: Patient Medication Summary Completed 03/10/2017 Patient Education: Smoking and Tobacco Addiction Completed 03/10/2017 Patient Education: Obesity Completed 03/10/2017 Care Plan: Lipid Cancelled 03/10/2017 Care Plan: Tsh Cancelled 03/10/2017 Care Plan: %Hba1C LOIN C : 07528-5 Cancelled 03/10/2017 Care Plan: Cbc With Differential [...] 09/10/2016 Care Plan: %Hba1C LOIN C : 45550-6 Cancelled 09/10/2016 Care Plan: Tsh Cancelled 09/10/2016 [...] Obesity Completed 02/29/2016 Appointment: Samantha Capone WPtel: [phone] [facility] (15 min) Moderate 02/22/2016 Visit Plan: [...] hgba1c. 08/17/2015 App[facility]ment: [facility] [phone] [facility] [place] [facility] New Patient 08/17/2015 [...]
--- OUTSIDE RECORDS SUMMARY | 2020-04-27 11:39 | XMS REPORT | Continuity of Care Document ---
Author Organization Unknown Address Unknown Phone Unavailable Allergies Active Description Code Type Severity Reaction Onset Reported/Identified Relationship to Patient Clinical Status Yes No Known Drug Allergies [id number] Drug Allergy Unknown N/A 02/06/2012 Yes metformin [id number] Drug Allergy Unknown N/A 01/01/2019 Yes paclitaxel [id number] Drug Allerg y Severe N/A 01/07/2019 Medications There is no data. Problems Date Dx Coded Attending Type Code Diagnosis Diagnosed By 10/09/1513 DEWAYNE CARPIO MD Ot Z01.81 8 ENCOUNTER FOR OTHER PREPROCEDURAL EXAMIN 10/09/1513 DEWAYNE CARPIO MD Ot Z11.59 ENCOUNTER FOR SCREENING FOR OTHER VIRAL 02/28/2015 DONNIE NOGUERA MD Ot V16.3 02/28/2015 DONNIE NOGUERA MD Ot V76.11 03/31/2015 DONNIE NOGUERA MD Ot V76.12 09/13/2015 BLESSING MILLER Ot F17.200 09/13/2015 BLESSING MILLER Ot R91.1 03/21/2016 JACOBO ADKINS APRN Ot R92.8 OTH ABN AND INCONCLUSIVE FINDINGS ON DX 03/22/2016 JACOBO ADKINS APRN Ot R92.8 OTH ABN AND INCONCLUSIVE FINDINGS ON DX 03/22/2016 JACOBO ADKINS APRN Ot R92.8 OTH ABN AND INCONCLUSIVE FINDINGS ON DX 03/27/2016 JACOBO ADKINS APRN Ot Z12.31 ENCNTR SCREEN MAMMOGRAM FOR MALIGNANT NE 04/04/2016 JACOBO ADKINS APRN Ot J44.9 CHRONIC OBSTRUCTIVE PULMONARY DISEASE, U 04/05/2016 JACOBO ADKINS APRN Ot R91.8 OTHER NONSPECIFIC ABNORMAL FINDING OF [place] 04/16/2016 JACOBO ADKINS APRN Ot R92.8 OTH ABN AND INCONCLUSIVE FINDINGS ON DX 05/04/2016 JACOBO ADKINS APRN Ot R91.8 OTHER NONSPECIFIC ABNORMAL FINDING OF [place] 09/18/2016 DONNIE NOGUERA MD Ot V16.3 FAMILY HX-BREAST MALIG 09/18/2016 DONNIE NOGUERA MD Ot V76.11 SCRN MAMMO-HIGH RISK PT, MALIGNANT NEOPL 09/18/2016 DONNIE NOGUERA MD Ot V76.12 OTH SCREEN MAMMO-MALIGN NEOPLASM OF FREDI 09/18/2016 BLESSING MILLER LAND RESOURCE SPECIALIST Ot F17.200 NICOTINE DEPENDENCE, UNSPECIFIED, UNCOMP 09/18/2016 BLESSING MILLER LAND RESOURCE SPECIALIST Ot R91.1 SOLITARY PULMONARY NODULE 09/18/2016 JACOBO ADKINS SYSTEMS TECHNOLOGIST Ot R91.8 OTHER NONSPECIFIC ABNORMAL FINDING OF [place] 09/18/2016 JACOBO ADKINS SYSTEMS TECHNOLOGIST Ot Z12.31 ENCNTR SCREEN MAMMOGRAM FOR MALIGNANT NE 09/18/2016 JACOBO ADKINS APRN Ot R92.8 OTH ABN AND INCONCLUSIVE FINDINGS ON DX 09/18/2016 DONNIE NOGUERA MD Ot V16.3 FAMILY HX-BREAST MALIG 09/18/2016 DONNIE NOGUERA MD Ot V76.11 SCRN MAMMO-HIGH RISK PT, MALIGNANT NEOPL 09/18/2016 DONNIE NOGUERA MD Ot V76.12 OTH SCREEN MAMMO-MALIGN NEOPLASM OF FREDI 09/18/2016 BLESSING MILLER LAND RESOURCE SPECIALIST Ot F17.200 NICOTINE DEPENDENCE, UNSPECIFIED, UNCOMP 09/18/2016 BLESSING MILLER LAND RESOURCE SPECIALIST Ot R91.1 SOLITARY PULMONARY NODULE 09/18/2016 JACOBO ADKINS SYSTEMS TECHNOLOGIST Ot R91.8 OTHER NONSPECIFIC ABNORMAL FINDING OF [place] 09/18/2016 JACOBO ADKINS SYSTEMS TECHNOLOGIST Ot Z12.31 ENCNTR SCREEN MAMMOGRAM FOR MALIGNANT NE 09/18/2016 JACOBO ADKINS SYSTEMS TECHNOLOGIST Ot R92.8 OTH ABN AND INCONCLUSIVE FINDINGS ON DX 09/18/2016 TAYE DOSS MD Ot N64.89 OTHER SPECIFIED DISORDERS OF BREAST 09/18/2016 TAYE DOSS MD Ot N64.89 OTHER SPECIFIED DISORDERS OF BREAST 09/24/2016 TAYE DOSS MD Ot N64.89 OTHER SPECIFIED DISORDERS OF BREAST 10/09/2016 TAYE DOSS MD Ot N64.89 OTHER SPECIFIED DISORDERS OF BREAST 02/26/2017 JACOBO ADKINS SYSTEMS TECHNOLOGIST Ot N64.89 OTHER SPECIFIED DISORDERS OF BREAST 02/26/2017 JACOBO ADKINS SYSTEMS TECHNOLOGIST Ot N64.89 OTHER SPECIFIED DISORDERS OF BREAST 02/26/2017 JACOBO ADKINS SYSTEMS TECHNOLOGIST Ot N64.89 OTHER SPECIFIED DISORDERS OF BREAST 03/19/2017 JACOBO ADKINS SYSTEMS TECHNOLOGIST Ot R92.8 OTH ABN AND INCONCLUSIVE FINDINGS ON DX 03/12/2018 DONNIE NOGUERA MD Ot V16.3 FAMILY HX-BREAST MALIG 03/12/2018 DONNIE NOGUERA MD Ot V76.11 SCRN MAMMO-HIGH RISK PT, MALIGNANT NEOPL 03/12/2018 DONNIE NOGUERA MD Ot V76.12 OTH SCREEN MAMMO-MALIGN NEOPLASM OF FREDI 03/12/2018 BLESSING MILLER LAND RESOURCE SPECIALIST Ot F17.200 NICOTINE DEPENDENCE, UNSPECIFIED, UNCOMP 03/12/2018 BLESSING MILLER LAND RESOURCE SPECIALIST Ot R91.1 SOLITARY PULMONARY NODULE 03/12/2018 JACOBO ADKINS SYSTEMS TECHNOLOGIST Ot R91.8 OTHER NONSPECIFIC ABNORMAL FINDING OF [place] 03/12/2018 JACOBO ADKINS SYSTEMS TECHNOLOGIST Ot Z12.31 ENCNTR SCREEN MAMMOGRAM FOR MALIGNANT NE 03/12/2018 JACOBO ADKINS SYSTEMS TECHNOLOGIST Ot R92.8 OTH ABN AND INCONCLUSIVE FINDINGS ON DX 03/12/2018 SELAM PROCTOR, TAYE Ivan Ot N64.89 OTHER SPECIFIED DISORDERS OF BREAST 03/12/2018 JACOBO ADKINS SYSTEMS TECHNOLOGIST Ot R92.8 OTH ABN AND INCONCLUSIVE FINDINGS ON DX 03/25/2018 BLESSING MILLER LAND RESOURCE SPECIALIST Ot Z12.31 ENCNTR SCREEN MAMMOGRAM FOR MALIGNANT NE 03/25/2018 BLESSING MILLER LAND RESOURCE SPECIALIST Ot Z12.31 ENCNTR SCREEN MAMMOGRAM FOR MALIGNANT NE 04/14/2018 BLESSING MILLER LAND RESOURCE SPECIALIST Ot Z12.31 ENCNTR SCREEN MAMMOGRAM FOR MALIGNANT NE 11/06/2018 DONNIE NOGUERA MD Ot V16.3 FAMILY HX-BREAST MALIG 11/06/2018 DONNIE NOGUERA MD Ot V76.11 SCRN MAMMO-HIGH RISK PT, MALIGNANT NEOPL 11/06/2018 DONNIE NOGUERA MD Ot V76.12 OTH SCREEN MAMMO-MALIGN NEOPLASM OF FREDI 11/06/2018 BLESSING MILLER LAND RESOURCE SPECIALIST Ot F17.200 NICOTINE DEPENDENCE, UNSPECIFIED, UNCOMP 11/06/2018 BLESSING MILLER LAND RESOURCE SPECIALIST Ot R91.1 SOLITARY PULMONARY NODULE 11/06/2018 JACOBO ADKINS SYSTEMS TECHNOLOGIST Ot R91.8 OTHER NONSPECIFIC ABNORMAL FINDING OF [place] 11/06/2018 JACOBO ADKINS SYSTEMS TECHNOLOGIST Ot Z12.31 ENCNTR SCREEN MAMMOGRAM FOR MALIGNANT NE 11/06/2018 JACOBO ADKINS SYSTEMS TECHNOLOGIST Ot R92.8 OTH ABN AND INCONCLUSIVE FINDINGS ON DX 11/06/2018 TAYE DOSS MD Ot N64.89 OTHER SPECIFIED DISORDERS OF BREAST 11/06/2018 JACOBO ADKINS SYSTEMS TECHNOLOGIST Ot R92.8 OTH ABN AND INCONCLUSIVE FINDINGS ON DX 11/06/2018 BLESSING MILLER LAND RESOURCE SPECIALIST Ot Z12.31 ENCNTR SCREEN MAMMOGRAM FOR MALIGNANT NE 11/09/2018 POORNIAM PROCTOR, DONNIE Choudhury Ot V16.3 FAMILY HX-BREAST MALIG 11/09/2018 DONNIE NOGUERA MD Ot V76.11 SCRN MAMMO-HIGH RISK PT, MALIGNANT NEOPL 11/09/2018 DONNIE NOGUERA MD Ot V76.12 OTH SCREEN MAMMO-MALIGN NEOPLASM OF FREDI 11/09/2018 BLESSING MILLER LAND RESOURCE SPECIALIST Ot F17.200 NICOTINE DEPENDENCE, UNSPECIFIED, UNCOMP 11/09/2018 BLESSING MILLER LAND RESOURCE SPECIALIST Ot R91.1 SOLITARY PULMONARY NODULE 11/09/2018 JACOBO ADKINS SYSTEMS TECHNOLOGIST Ot R91.8 OTHER NONSPECIFIC ABNORMAL FINDING OF [place] 11/09/2018 JACOBO ADKINS SYSTEMS TECHNOLOGIST Ot Z12.31 ENCNTR SCREEN MAMMOGRAM FOR MALIGNANT NE 11/09/2018 JACOBO ADKINS SYSTEMS TECHNOLOGIST Ot R92.8 OTH ABN AND INCONCLUSIVE FINDINGS ON DX 11/09/2018 TAYE DOSS MD Ot N64.89 OTHER SPECIFIED DISORDERS OF BREAST 11/09/2018 JACOBO ADKINS SYSTEMS TECHNOLOGIST Ot R92.8 OTH ABN AND INCONCLUSIVE FINDINGS ON DX 11/09/2018 BLESSING MILLER LAND RESOURCE SPECIALIST Ot Z12.31 ENCNTR SCREEN MAMMOGRAM FOR MALIGNANT NE 11/11/2018 JACOBO ADKINS SYSTEMS TECHNOLOGIST Ot N83.8 OTH NONINFLAMMATORY DISORD OF OVARY, FAL 11/11/2018 JACOBO ADKINS SYSTEMS TECHNOLOGIST Ot N93.8 OTHER SPECIFIED ABNORMAL UTERINE AND VAG 11/11/2018 JACOBO ADKINS SYSTEMS TECHNOLOGIST Ot Z78.0 ASYMPTOMATIC MENOPAUSAL STATE 11/16/2018 JACOBO ADKINS SYSTEMS TECHNOLOGIST Ot N83.8 OTH NONINFLAMMATORY DISORD OF OVARY, FAL 11/16/2018 JACOBO ADKINS APRN Ot N93.9 ABNORMAL UTERINE AND VAGINAL BLEEDING, U 11/17/2018 JACOBO ADKINS APRN Ot N83.8 OTH NONINFLAMMATORY DISORD OF OVARY, FAL 11/17/2018 JACOBO ADKINS APRN Ot N83.8 OTH NONINFLAMMATORY DISORD OF OVARY, FAL 11/18/2018 JACOBO ADKINS SYSTEMS TECHNOLOGIST Ot K80.20 CALCULUS OF GALLBLADDER W/O CHOLECYSTITI 11/18/2018 JCAOBO ADKINS APRN Ot N28.1 CYST OF KIDNEY, ACQUIRED 11/18/2018 JACOBO ADKINS APRN Ot N83.8 OTH NONINFLAMMATORY DISORD OF OVARY, FAL 11/18/2018 JACOBO ADKINS APRN Ot N93.9 ABNORMAL UTERINE AND VAGINAL BLEEDING, U 11/23/2018 JACOBO ADKINS SYSTEMS TECHNOLOGIST Ot R19.09 OTHER INTRA-ABDOMINAL AND PELVIC SWELLIN 11/23/2018 JACOBO ADKINS APRN Ot Z01.811 ENCOUNTER FOR PREPROCEDURAL RESPIRATORY 11/27/2018 JACOBO ADKINS SYSTEMS TECHNOLOGIST Ot R19.09 OTHER INTRA-ABDOMINAL AND PELVIC SWELLIN 11/27/2018 JACOBO ADKINS SYSTEMS TECHNOLOGIST Ot Z01.811 ENCOUNTER FOR PREPROCEDURAL RESPIRATORY 12/04/2018 JACOBO ADKINS SYSTEMS TECHNOLOGIST Ot K80.20 CALCULUS OF GALLBLADDER W/O CHOLECYSTITI 12/04/2018 JACOBO ADKINS SYSTEMS TECHNOLOGIST Ot N28.1 CYST OF KIDNEY, ACQUIRED 12/04/2018 JACOBO ADKINS APRN Ot N83.8 OTH NONINFLAMMATORY DISORD OF OVARY, FAL 12/04/2018 JACOBO ADKINS APRN Ot N93.9 ABNORMAL UTERINE AND VAGINAL BLEEDING, U 12/07/2018 JACOBO ADKINS APRN Ot N83.8 OTH NONINFLAMMATORY DISORD OF OVARY, FAL 12/07/2018 JED, JACOBO M SYSTEMS TECHNOLOGIST Ot N93.8 OTHER SPECIFIED ABNORMAL UTERINE AND VAG 12/07/2018 JEDJACOBO Macey SYSTEMS TECHNOLOGIST Ot Z78.0 ASYMPTOMATIC MENOPAUSAL STATE 12/09/2018 JACOBO ADKINS SYSTEMS TECHNOLOGIST Ot N83.8 OTH NONINFLAMMATORY DISORD OF OVARY, FAL 12/10/2018 JEDJACOBO SYSTEMS TECHNOLOGIST Ot R19.09 OTHER INTRA-ABDOMINAL AND PELVIC SWELLIN 12/10/2018 JACOBO ADKINS SYSTEMS TECHNOLOGIST Ot Z01.811 ENCOUNTER FOR PREPROCEDURAL RESPIRATORY 01/01/2019 SHERIF CAICEDO MD Ot C56.2 MALIGNANT NEOPLASM OF LEFT OVARY 01/01/2019 SHERIF CAICEDO MD Ot E11.9 TYPE 2 DIABETES MELLITUS WITHOUT COMPLIC 01/01/2019 SHERIF CAICEDO MD Ot F17.210 NICOTINE DEPENDENCE, CIGARETTES, UNCOMPL 01/01/2019 SHERIF CAICEDO MD Ot I10 ESSENTIAL (PRIMARY) HYPERTENSION 01/01/2019 SHERIF CAICEDO MD Ot Z79.899 OTHER SNF (CURRENT) DRUG THERAPY 01/07/2019 SHERIF CAICEDO MD Ot C56.2 MALIGNANT NEOPLASM OF LEFT OVARY 01/07/2019 SHERIF CAICEDO MD Ot E11.9 TYPE 2 DIABETES MELLITUS WITHOUT COMPLIC 01/07/2019 SHERIF CAICEDO MD Ot F17.210 NICOTINE DEPENDENCE, CIGARETTES, UNCOMPL 01/07/2019 SHERIF CAICEDO MD Ot I10 ESSENTIAL (PRIMARY) HYPERTENSION 01/07/2019 SHERIF CAICEDO MD Ot Z79.899 OTHER SNF (CURRENT) DRUG THERAPY 01/13/2019 SHERIF CAICEDO MD Ot C56.2 MALIGNANT NEOPLASM OF LEFT OVARY 01/13/2019 SHERIF CAICEDO MD Ot E11.9 TYPE 2 DIABETES MELLITUS WITHOUT COMPLIC 01/13/2019 SHERIF CAICEDO MD Ot F17.210 NICOTINE DEPENDENCE, CIGARETTES, UNCOMPL 01/13/2019 SHERIF CAICEDO MD Ot I10 ESSENTIAL (PRIMARY) HYPERTENSION 01/13/2019 SHERIF CAICEDO MD Ot Z79.899 OTHER GAS BURNER OPERATOR (CURRENT) DRUG THERAPY 01/29/2019 SHERIF CAICEDO MD Ot C56.2 MALIGNANT NEOPLASM OF LEFT OVARY 01/29/2019 SHERIF CAICEDO MD Ot E11.9 TYPE 2 DIABETES MELLITUS WITHOUT COMPLIC 01/29/2019 SAMANTA CAICEDO MDNER Ot F17.210 NICOTINE DEPENDENCE, CIGARETTES, UNCOMPL 01/29/2019 SHERIF CAICEDO MD Ot I10 ESSENTIAL (PRIMARY) HYPERTENSION 01/29/2019 SHERIF CAICEDO MD Ot Z79.899 OTHER SNF (CURRENT) DRUG THERAPY 02/04/2019 SHERIF CAICEDO MD Ot C56.2 MALIGNANT NEOPLASM OF LEFT OVARY 02/04/2019 SHERIF CAICEDO MD Ot E11.9 TYPE 2 DIABETES MELLITUS WITHOUT COMPLIC 02/04/2019 SHERIF CAICEDO MD Ot F17.210 NICOTINE DEPENDENCE, CIGARETTES, UNCOMPL 02/04/2019 SHERIF CAICEDO MD Ot I10 ESSENTIAL (PRIMARY) HYPERTENSION 02/04/2019 SHERIF CAICEDO MD Ot Z79.899 OTHER SNF (CURRENT) DRUG THERAPY 02/05/2019 DONNIE NOGUERA MD Ot V16.3 FAMILY HX-BREAST MALIG 02/05/2019 DONNIE NOGUERA MD Ot V76.11 SCRN MAMMO-HIGH RISK PT, MALIGNANT NEOPL 02/05/2019 DONNIE NOGUERA MD Ot V76.12 OTH SCREEN MAMMO-MALIGN NEOPLASM OF FREDI 02/05/2019 BLESSING MILLER Ot F17.200 NICOTINE DEPENDENCE, UNSPECIFIED, UNCOMP 02/05/2019 BLESSING MILLER Ot R91.1 SOLITARY PULMONARY NODULE 02/05/2019 JACOBO ADKINS APRN Ot R91.8 OTHER NONSPECIFIC ABNORMAL FINDING OF [place] 02/05/2019 JACOBO ADKINS APRN Ot Z12.31 ENCNTR SCREEN MAMMOGRAM FOR MALIGNANT NE 02/05/2019 JACOBO ADKINS APRN Ot R92.8 OTH ABN AND INCONCLUSIVE FINDINGS ON DX 02/05/2019 TAYE DOSS MD Ot N64.89 OTHER SPECIFIED DISORDERS OF BREAST 02/05/2019 JACOBO ADKINS APRN Ot R92.8 OTH ABN AND INCONCLUSIVE FINDINGS ON DX 02/05/2019 BLESSING MILLERP Ot Z12.31 ENCNTR SCREEN MAMMOGRAM FOR MALIGNANT NE 02/05/2019 JACOBO ADKINS APRN Ot N83.8 OTH NONINFLAMMATORY DISORD OF OVARY, FAL 02/05/2019 JACOBO ADKINS APRN Ot N93.8 OTHER SPECIFIED ABNORMAL UTERINE AND VAG 02/05/2019 JACOBO ADKINS APRN Ot Z78.0 ASYMPTOMATIC MENOPAUSAL STATE 02/05/2019 JACOBO ADKINS SYSTEMS TECHNOLOGIST Ot N83.8 OTH NONINFLAMMATORY DISORD OF OVARY, FAL 02/05/2019 JACOBO ADKINS SYSTEMS TECHNOLOGIST Ot K80.20 CALCULUS OF GALLBLADDER W/O CHOLECYSTITI 02/05/2019 JACOBO ADKINS SYSTEMS TECHNOLOGIST Ot N28.1 CYST OF KIDNEY, ACQUIRED 02/05/2019 JACOBO ADKINS SYSTEMS TECHNOLOGIST Ot N83.8 OTH NONINFLAMMATORY DISORD OF OVARY, FAL 02/05/2019 JACOBO ADKINS SYSTEMS TECHNOLOGIST Ot N93.9 ABNORMAL UTERINE AND VAGINAL BLEEDING, U 02/05/2019 JACOBO ADKINS SYSTEMS TECHNOLOGIST Ot R19.09 OTHER INTRA-ABDOMINAL AND PELVIC SWELLIN 02/05/2019 JACOBO ADKINS SYSTEMS TECHNOLOGIST Ot Z01.811 ENCOUNTER FOR PREPROCEDURAL RESPIRATORY 02/05/2019 SHERIF CAICEDO MD, Ot C56.2 MALIGNANT NEOPLASM OF LEFT OVARY 02/05/2019 SHERIF CAICEDO MD Ot E11.9 TYPE 2 DIABETES MELLITUS WITHOUT COMPLIC 02/05/2019 SHERIF CAICEDO MD Ot F17.210 NICOTINE DEPENDENCE, CIGARETTES, UNCOMPL 02/05/2019 SHERIF CAICEDO MD Ot I10 ESSENTIAL (PRIMARY) HYPERTENSION 02/05/2019 SHERIF CAICEDO MD Ot Z79.899 OTHER GAS BURNER OPERATOR (CURRENT) DRUG THERAPY 02/10/2019 SHERIF CAICEDO MD Ot M79.604 PAIN IN RIGHT LEG 02/10/2019 SHERIF CAICEDO MD Ot R20.0 ANESTHESIA OF SKIN 02/26/2019 SHERIF CAICEDO MD Ot M25.551 PAIN IN RIGHT HIP 02/26/2019 SHERIF CAICEDO MD Ot R29.898 OTH SYMPTOMS AND SIGNS INVOLVING THE MUS 03/03/2019 SHERIF CAICEDO MD Ot M25.551 PAIN IN RIGHT HIP 03/03/2019 SHERIF CAICEDO MD Ot R29.898 OTH SYMPTOMS AND SIGNS INVOLVING THE MUS 03/08/2019 SHERIF CAICEDO MD Ot M79.604 PAIN IN RIGHT LEG 03/08/2019 SHERIF CAICEDO MD Ot R20.0 ANESTHESIA OF SKIN 03/30/2019 SHERIF CAICEDO MD Ot C56.2 MALIGNANT NEOPLASM OF LEFT OVARY 03/30/2019 SHERIF CAICEDO MD Ot E11.9 TYPE 2 DIABETES MELLITUS WITHOUT COMPLIC 03/30/2019 SHERIF CAICEDO MD Ot F17.210 NICOTINE DEPENDENCE, CIGARETTES, UNCOMPL 03/30/2019 SHERIF CAICEDO MD Ot I10 ESSENTIAL (PRIMARY) HYPERTENSION 03/30/2019 SHERIF CAICEDO MD Ot Z79.899 OTHER SNF (CURRENT) DRUG THERAPY 04/02/2019 SHERIF CAICEDO MD, Ot C56.2 MALIGNANT NEOPLASM OF LEFT OVARY 04/02/2019 SHERIF CAICEDO MD Ot E11.9 TYPE 2 DIABETES MELLITUS WITHOUT COMPLIC 04/02/2019 SHERIF CAICEDO MD Ot F17.210 NICOTINE DEPENDENCE, CIGARETTES, UNCOMPL 04/02/2019 SHERIF CAICEDO MD Ot I10 ESSENTIAL (PRIMARY) HYPERTENSION 04/02/2019 HSERIF CAICEDO MD Ot K59.00 CONSTIPATION, UNSPECIFIED 04/02/2019 SHERIF CAICEDO MD Ot M79.604 PAIN IN RIGHT LEG 04/02/2019 HSERIF CAICEDO MD Ot R06.02 SHORTNESS OF BREATH 04/02/2019 SHERIF CAICEDO MD Ot R06.2 WHEEZING 04/02/2019 SHERIF CAICEDO MD Ot R23.2 FLUSHING 04/02/2019 SHERIF CAICEDO MD Ot R29.898 OTH SYMPTOMS AND SIGNS INVOLVING THE MUS 04/02/2019 SHERIF CAICEDO MD Ot R30.0 DYSURIA 04/02/2019 SHERIF CAICEDO MD Ot T45.1X5 A ADVERSE EFFECT OF ANTINEOPLASTIC AND IMM 04/02/2019 SHERIF CAICEDO MD, Ot Z51.11 ENCOUNTER FOR ANTINEOPLASTIC CHEMOTHERAP 04/02/2019 SHERIF CAICEDO MD, Ot Z76.89 [facility] 04/02/2019 SHERIF CAICEDO MD, Ot Z79.899 OTHER SNF (CURRENT) DRUG THERAPY 04/02/2019 SHERIF CAICEDO MD, Ot Z90.710 ACQUIRED ABSENCE OF BOTH CERVIX AND UTER 04/05/2019 SHERIF CAICEDO MD, Ot C56.2 MALIGNANT NEOPLASM OF LEFT OVARY 04/05/2019 SHERIF CAICEDO MD Ot E11.9 TYPE 2 DIABETES MELLITUS WITHOUT COMPLIC 04/05/2019 SHERIF CAICEDO MD Ot F17.210 NICOTINE DEPENDENCE, CIGARETTES, UNCOMPL 04/05/2019 SHERIF CAICEDO MD Ot I10 ESSENTIAL (PRIMARY) HYPERTENSION 04/05/2019 SHERIF CAICEDO MD Ot K59.00 CONSTIPATION, UNSPECIFIED 04/05/2019 SHERIF CAICEDO MD Ot M79.604 PAIN IN RIGHT LEG 04/05/2019 SASCHA MD, GORMAN Ot R06.02 SHORTNESS OF BREATH 04/05/2019 SHERIF CAICEDO MD Ot R06.2 WHEEZING 04/05/2019 SHERIF CAICEDO MD Ot R23.2 FLUSHING 04/05/2019 SHERIF CAICEDO MD Ot R29.898 OTH SYMPTOMS AND SIGNS INVOLVING THE MUS 04/05/2019 SHERIF CAICEDO MD Ot R30.0 DYSURIA 04/05/2019 SHERIF CAICEDO MD Ot T45.1X5 A ADVERSE EFFECT OF ANTINEOPLASTIC AND IMM 04/05/2019 SHERIF CAICEDO MD Ot Z51.11 ENCOUNTER FOR ANTINEOPLASTIC CHEMOTHERAP 04/05/2019 SHERIF CAICEDO MD Ot Z76.89 [facility] 04/05/2019 SHERIF CAICEDO MD Ot Z79.899 OTHER GAS BURNER OPERATOR (CURRENT) DRUG THERAPY 04/05/2019 SHERIF CAICEDO MD Ot Z90.710 ACQUIRED ABSENCE OF BOTH CERVIX AND UTER 04/15/2019 BLESSING MILLER Ot Z12.31 ENCNTR SCREEN MAMMOGRAM FOR MALIGNANT NE 04/16/2019 SHERIF CAICEDO MD Ot C56.2 MALIGNANT NEOPLASM OF LEFT OVARY 04/16/2019 SHERIF CAICEDO MD Ot E11.9 TYPE 2 DIABETES MELLITUS WITHOUT COMPLIC 04/16/2019 SHERIF CAICEDO MD Ot F17.210 NICOTINE DEPENDENCE, CIGARETTES, UNCOMPL 04/16/2019 SHERIF CAICEDO MD Ot I10 ESSENTIAL (PRIMARY) HYPERTENSION 04/16/2019 SHERIF CAICEDO MD Ot Z79.899 OTHER GAS BURNER OPERATOR (CURRENT) DRUG THERAPY 06/03/2019 SHERIF CAICEDO MD Ot C56.2 MALIGNANT NEOPLASM OF LEFT OVARY 06/03/2019 SHERIF CAICEDO MD Ot E11.9 TYPE 2 DIABETES MELLITUS WITHOUT COMPLIC 06/03/2019 SHERIF CAICEDO MD Ot F17.210 NICOTINE DEPENDENCE, CIGARETTES, UNCOMPL 06/03/2019 SHERIF CAICEDO MD Ot I10 ESSENTIAL (PRIMARY) HYPERTENSION 06/03/2019 SHERIF CAICEDO MD Ot Z79.899 OTHER GAS BURNER OPERATOR (CURRENT) DRUG THERAPY 07/14/2019 SHERIF CAICEDO MD, Ot C56.2 MALIGNANT NEOPLASM OF LEFT OVARY 07/14/2019 SHERIF CAICEDO MD Ot E11.9 TYPE 2 DIABETES MELLITUS WITHOUT COMPLIC 07/14/2019 SHERIF CAICEDO MD Ot F17.210 NICOTINE DEPENDENCE, CIGARETTES, UNCOMPL 07/14/2019 SHERIF CAICEDO MD Ot I10 ESSENTIAL (PRIMARY) HYPERTENSION 07/14/2019 SHERIF CAICEDO MD Ot Z79.899 OTHER GAS BURNER OPERATOR (CURRENT) DRUG THERAPY 07/16/2019 SHERIF CAICEDO MD Ot C56.2 MALIGNANT NEOPLASM OF LEFT OVARY 07/16/2019 SHERIF CAICEDO MD Ot E11.9 TYPE 2 DIABETES MELLITUS WITHOUT COMPLIC 07/16/2019 SHERIF CAICEDO MD Ot F17.210 NICOTINE DEPENDENCE, CIGARETTES, UNCOMPL 07/16/2019 SHERIF CAICEDO MD Ot I10 ESSENTIAL (PRIMARY) HYPERTENSION 07/16/2019 SHERIF CAICEDO MD Ot Z79.899 OTHER GAS BURNER OPERATOR (CURRENT) DRUG THERAPY 08/19/2019 SHERIF CAICEDO MD Ot C56.2 MALIGNANT NEOPLASM OF LEFT OVARY 08/19/2019 SHERIF CAICEDO MD Ot E11.9 TYPE 2 DIABETES MELLITUS WITHOUT COMPLIC 08/19/2019 SHERIF CAICEDO MD Ot F17.210 NICOTINE DEPENDENCE, CIGARETTES, UNCOMPL 08/19/2019 SHERIF CAICEDO MD Ot I10 ESSENTIAL (PRIMARY) HYPERTENSION 08/19/2019 SHERIF CAICEDO MD Ot Z79.899 OTHER GAS BURNER OPERATOR (CURRENT) DRUG THERAPY 09/07/2019 SHERIF CAICEDO MD Ot C56.2 MALIGNANT NEOPLASM OF LEFT OVARY 09/07/2019 SHERIF CAICEDO MD Ot E11.9 TYPE 2 DIABETES MELLITUS WITHOUT COMPLIC 09/07/2019 SHERIF CAICEDO MD Ot F17.210 NICOTINE DEPENDENCE, CIGARETTES, UNCOMPL 09/07/2019 SHERIF CAICEDO MD Ot I10 ESSENTIAL (PRIMARY) HYPERTENSION 09/07/2019 SHERIF CAICEDO MD Ot Z79.899 OTHER GAS BURNER OPERATOR (CURRENT) DRUG THERAPY 10/14/2019 SHERIF CAICEDO MD Ot C56.2 MALIGNANT NEOPLASM OF LEFT OVARY 10/14/2019 SHERIF CAICEDO MD Ot E11.9 TYPE 2 DIABETES MELLITUS WITHOUT COMPLIC 10/14/2019 SHERIF CAICEDO MD Ot F17.210 NICOTINE DEPENDENCE, CIGARETTES, UNCOMPL 10/14/2019 SHERIF CAICEDO MD Ot I10 ESSENTIAL (PRIMARY) HYPERTENSION 10/14/2019 SHERIF CAICEDO MD Ot Z79.899 OTHER SNF (CURRENT) DRUG THERAPY 10/15/2019 SHERIF CAICEDO MD Ot C56.2 MALIGNANT NEOPLASM OF LEFT OVARY 10/15/2019 SHERIF CAICEDO MD Ot E11.9 TYPE 2 DIABETES MELLITUS WITHOUT COMPLIC 10/15/2019 SHERIF CAICEDO MD Ot F17.210 NICOTINE DEPENDENCE, CIGARETTES, UNCOMPL 10/15/2019 SHERIF CAICEDO MD Ot I10 ESSENTIAL (PRIMARY) HYPERTENSION 10/15/2019 SHERIF CAICEDO MD Ot Z79.899 OTHER SNF (CURRENT) DRUG THERAPY 11/17/2019 SHERIF CAICEDO MD Ot C56.2 MALIGNANT NEOPLASM OF LEFT OVARY 11/17/2019 SHERIF CAICEDO MD Ot E11.9 TYPE 2 DIABETES MELLITUS WITHOUT COMPLIC 11/17/2019 SHERIF CAICEDO MD Ot F17.210 NICOTINE DEPENDENCE, CIGARETTES, UNCOMPL 11/17/2019 SHERIF CAICEDO MD Ot I10 ESSENTIAL (PRIMARY) HYPERTENSION 11/17/2019 SHERIF CAICEDO MD Ot K43.9 VENTRAL HERNIA WITHOUT OBSTRUCTION OR GA 11/17/2019 SHERIF CAICEDO MD Ot Z79.899 OTHER SNF (CURRENT) DRUG THERAPY 12/06/2019 SHERIF CAICEDO MD Ot C56.2 MALIGNANT NEOPLASM OF LEFT OVARY 12/06/2019 SHERIF CAICEDO MD Ot E11.9 TYPE 2 DIABETES MELLITUS WITHOUT COMPLIC 12/06/2019 SHERIF CAICEDO MD Ot F17.210 NICOTINE DEPENDENCE, CIGARETTES, UNCOMPL 12/06/2019 SHERIF CAICEDO MD Ot I10 ESSENTIAL (PRIMARY) HYPERTENSION 12/06/2019 SHERIF CAICEDO MD Ot K43.9 VENTRAL HERNIA WITHOUT OBSTRUCTION OR GA 12/06/2019 SHERIF CAICEDO MD Ot Z79.899 OTHER SNF (CURRENT) DRUG THERAPY 01/13/2020 SHERIF CAICEDO MD Ot C56.2 MALIGNANT NEOPLASM OF LEFT OVARY 01/13/2020 SHERIF CAICEDO MD Ot E11.9 TYPE 2 DIABETES MELLITUS WITHOUT COMPLIC 01/13/2020 SHERIF CAICEDO MD Ot F17.210 NICOTINE DEPENDENCE, CIGARETTES, UNCOMPL 01/13/2020 SHERIF CAICEDO MD Ot I10 ESSENTIAL (PRIMARY) HYPERTENSION 01/13/2020 SHERIF CAICEDO MD Ot K43.9 VENTRAL HERNIA WITHOUT OBSTRUCTION OR GA 01/13/2020 SHERIF CACIEDO MD Ot Z79.899 OTHER [employer] (CURRENT) DRUG THERAPY 01/14/2020 SHERIF CAICEDO MD Ot C56.2 MALIGNANT NEOPLASM OF LEFT OVARY 01/14/2020 SHERIF CAICEDO MD Ot E11.9 TYPE 2 DIABETES MELLITUS WITHOUT COMPLIC 01/14/2020 SHERIF CAICEDO MD Ot F17.210 NICOTINE DEPENDENCE, CIGARETTES, UNCOMPL 01/14/2020 SASCHA PROCTOR, SHERIF Ot I10 ESSENTIAL (PRIMARY) HYPERTENSION 01/14/2020 SASCHA PROCTOR, SHERIF Hinton K43.9 VENTRAL HERNIA WITHOUT OBSTRUCTION OR GA 01/14/2020 SHERIF CAICEDO MD, Ot Z79.899 OTHER [employer] (CURRENT) DRUG THERAPY 03/21/2020 W E11.9 Type 2 diabetes mellitus without complications Miller Blessing 03/21/2020 W I10 Essent ial (primary) hypertension Blessing Miller 03/21/2020 W K43.2 Inci sional hernia of anterior abdominal wall without obstruction or gangrene Miller, Blessing 03/23/2020 W E11.9 Type 2 diabetes mellitus without complications Gurwinder Millerie 03/23/2020 W I10 Essent ial (primary) hypertension Paul Blessing 03/23/2020 W K43.2 Inci sional hernia of anterior abdominal wall without obstruction or gangrene Blessing Miller Procedures There is no data. Results Test Result Range Complete blood count (CBC) with automate d white blood cell (WBC) differential - 11/12/18 17:13 Blood leukocytes automated count (number/volume) 14.0 10*3/uL 4.3-11.0 Blood erythrocytes automated count (number/volume) 5.25 10*6/uL 4.35-5.85 Venous blood hemoglobin measurement (mass/volume) 14.7 g/dL 11.5-16.0 Blood hematocrit (volume fraction) 45 % 35-52 Automated erythrocyte mean corpuscular volume 86 [ foz_us] 80-99 Automated erythrocyte mean corpuscular h emoglobin (mass per erythrocyte) 28 pg 25-34 Automated erythrocyte mean corpuscular h emoglobin concentration measurement (mass/volume) 33 g/dL 32-36 Automated erythrocyte distribution width ratio 14. 4 % 10.0- 14.5 Automated blood platelet count (count/volume) 307 10*3/uL 130-400 Automated blood platelet mean volume measurement 9.6 [foz_us] 7.4-10.4 Automated blood neutrophils/100 leukocytes 69 % 42-75 Automated blood lymphocytes/100 leukocytes 23 % 12-44 Blood monocytes/100 leukocytes 6 % 0-12 Automated blood eosinophils/100 leukocytes 2 % 0-10 Automated blood basophils/100 leukocytes 1 % 0-10 Blood neutrophils automated count (number/volume) 9.7 10*3 1.8-7.8 Blood lymphocytes automated count (number/volume) 3.2 10*3 1.0-4.0 Blood monocytes automated count (number/volume) 0. 9 10*3 0.0-1.0 Automated eosinophil count 0.2 10*3/uL 0 .0-0.3 Automated blood basophil count (count/volume) 0.1 10*3/uL 0.0-0.1 Comprehensive metabolic panel - 11/12/18 17:13 Serum or plasma sodium measurement (moles/volume) 137 mmol/L 135-145 Serum or plasma potassium measurement (moles/volume) 3.8 mmol/L 3.6-5.0 Serum or plasma chloride measurement (moles/volume) 101 mmol/L 98-107 Carbon dioxide 24 mmol/L 21-32 Serum or plasma anion gap determination (moles/volume) 12 mmol/L 5-14 Serum or plasma urea nitrogen measurement (mass/volume ) 10 mg/dL 7-18 Serum or plasma creatinine measurement (mass/volume) 0.79 mg/dL 0.60-1.30 Serum or plasma urea nitrogen/creatinine mass ratio 13 NRG Serum or plasma creatinine measurement w ith calculation of estimated glomerular filtration rate > NRG Serum or plasma glucose measurement (mass/volume) 136 mg/dL 70-105 Serum or plasma calcium measurement (mass/volume) 9.3 mg/dL 8.5-10.1 Serum or plasma total bilirubin measurement (mass/volu me) 0.3 mg/dL 0.1-1.0 Serum or plasma alkaline phosphatase erin surement (enzymatic activity/volume) 78 U/L 40-136 Serum or plasma aspartate aminotransfera se measurement (enzymatic activity/volume) 16 U/L 5-34 Serum or plasma alanine aminotransferase measurement (enzymatic activity/volume) 15 U/L 0-55 Serum or plasma protein measurement (mass/volume) 7.8 g/dL 6.4-8.2 Serum or plasma albumin measurement (mass/volume) 4.2 g/dL 3.2-4.5 CALCIUM CORRECTED 9.1 mg/dL 8.5-10.1 Blood manual differential performed dete ction - 11/12/18 17:13 Blood monocytes/100 leukocytes 6 % NRG Manual blood segmented neutrophils/100 leukocytes 59 % NRG Blood band neutrophils/100 leukocytes 1 % NRG Manual blood lymphocytes/100 leukocytes 30 % NRG Manual eosinophils/100 leukocytes in nose 2 % NRG Manual blood basophils/100 leukocytes 2 % NRG Blood erythrocyte morphology finding identification NORMAL NRG CA 125 - 11/12/18 17:13 CA 125 C 112.4 u[iU]/mL 0.0-35.0 CA 19-9 - 11/12/18 17:13 CA 19-9 C 51 u[iU]/mL 0-37 CA 125 - 11/12/18 17:13 CA 125 C 112.4 u[iU]/mL 0.0-35.0 Bacterial urine culture - 01/28/19 14:25 Bacterial urine culture [id number] NRG COLONY COUNT 50,000 CFU/ML NRG FTX;REPORTABLE SUSCEPTIBILITY REPORT RCD 01/31 09:0 5 NRG RML Sensitivity Panel - 01/28/19 14:25 Vancomycin susceptibility test by minimum inhibitory c oncentration 2 NRG Levofloxacin susceptibility test by minimum inhibitory concentration <= NRG Ampicillin susceptibility test by minimum inhibitory c oncentration 2 NRG Nitrofurantoin susceptibility test by mi nimum inhibitory concentration <= NRG Linezolid susceptibility test by minimum inhibitory co ncentration <= NRG Daptomycin susc STORMY 2 NRG Complete blood count (CBC) with automate d white blood cell (WBC) differential - 02/11/19 13:56 Blood leukocytes automated count (number/volume) 2.6 10*3/uL 4.3-11.0 Blood erythrocytes automated count (number/volume) 3.97 10*6/uL 4.35-5.85 Venous blood hemoglobin measurement (mass/volume) 11.0 g/dL 11.5-16.0 Blood hematocrit (volume fraction) 34 % 35-52 Automated erythrocyte mean corpuscular volume 85 [ foz_us] 80-99 Automated erythrocyte mean corpuscular h emoglobin (mass per erythrocyte) 28 pg 25-34 Automated erythrocyte mean corpuscular h emoglobin concentration measurement (mass/volume) 33 g/dL 32-36 Automated erythrocyte distribution width ratio 15. 6 % 10.0- 14.5 Automated blood platelet count (count/volume) 253 10*3/uL 130-400 Automated blood platelet mean volume measurement 9.6 [foz_us] 7.4-10.4 Automated blood neutrophils/100 leukocytes 41 % 42-75 Automated blood lymphocytes/100 leukocytes 48 % 12-44 Blood monocytes/100 leukocytes 10 % 0-12 Automated blood eosinophils/100 leukocytes 0 % 0-10 Automated blood basophils/100 leukocytes 2 % 0-10 Blood neutrophils automated count (number/volume) 1.1 10*3 1.8-7.8 Blood lymphocytes automated count (number/volume) 1.3 10*3 1.0-4.0 Blood monocytes automated count (number/volume) 0. 3 10*3 0.0-1.0 Automated eosinophil count 0.0 10*3/uL 0 .0-0.3 Automated blood basophil count (count/volume) 0.0 10*3/uL 0.0-0.1 Whole blood basic metabolic panel - 02/26 13:56 Serum or plasma sodium measurement (moles/volume) 135 mmol/L 135-145 Serum or plasma potassium measurement (moles/volume) 3.9 mmol/L 3.6-5.0 Serum or plasma chloride measurement (moles/volume) 102 mmol/L 98-107 Carbon dioxide 26 mmol/L 21-32 Serum or plasma anion gap determination (moles/volume) 7 mmol/L 5-14 Serum or plasma urea nitrogen measurement (mass/volume ) 16 mg/dL 7-18 Serum or plasma creatinine measurement (mass/volume) 0.67 mg/dL 0.60-1.30 Serum or plasma urea nitrogen/creatinine mass ratio 24 NRG Serum or plasma creatinine measurement w ith calculation of estimated glomerular filtration rate > NRG Serum or plasma glucose measurement (mass/volume) 119 mg/dL 70-105 Serum or plasma calcium measurement (mass/volume) 9.1 mg/dL 8.5-10.1 Complete blood count (CBC) with automate d white blood cell (WBC) differential - 07/16/19 10:25 Blood leukocytes automated count (number/volume) 13.4 10*3/uL 4.3-11.0 Blood erythrocytes automated count (number/volume) 5.17 10*6/uL 4.35-5.85 Venous blood hemoglobin measurement (mass/volume) 14.5 g/dL 11.5-16.0 Blood hematocrit (volume fraction) 44 % 35-52 Automated erythrocyte mean corpuscular volume 84 [ foz_us] 80-99 Automated erythrocyte mean corpuscular h emoglobin (mass per erythrocyte) 28 pg 25-34 Automated erythrocyte mean corpuscular h emoglobin concentration measurement (mass/volume) 33 g/dL 32-36 Automated erythrocyte distribution width ratio 14. 9 % 10.0- 14.5 Automated blood platelet count (count/volume) 264 10*3/uL 130-400 Automated blood platelet mean volume measurement 9.6 [foz_us] 7.4-10.4 Automated blood neutrophils/100 leukocytes 67 % 42-75 Automated blood lymphocytes/100 leukocytes 22 % 12-44 Blood monocytes/100 leukocytes 8 % 0-12 Automated blood eosinophils/100 leukocytes 3 % 0-10 Automated blood basophils/100 leukocytes 1 % 0-10 Blood neutrophils automated count (number/volume) 9.0 10*3 1.8-7.8 Blood lymphocytes automated count (number/volume) 2.9 10*3 1.0-4.0 Blood monocytes automated count (number/volume) 1. 1 10*3 0.0-1.0 Automated eosinophil count 0.4 10*3/uL 0 .0-0.3 Automated blood basophil count (count/volume) 0.1 10*3/uL 0.0-0.1 Comprehensive metabolic panel - 07/16/19 10:25 Serum or plasma sodium measurement (moles/volume) 138 mmol/L 135-145 Serum or plasma potassium measurement (moles/volume) 3.9 mmol/L 3.6-5.0 Serum or plasma chloride measurement (moles/volume) 104 mmol/L 98-107 Carbon dioxide 25 mmol/L 21-32 Serum or plasma anion gap determination (moles/volume) 9 mmol/L 5-14 Serum or plasma urea nitrogen measurement (mass/volume ) 14 mg/dL 7-18 Serum or plasma creatinine measurement (mass/volume) 0.76 mg/dL 0.60-1.30 Serum or plasma urea nitrogen/creatinine mass ratio 18 NRG Serum or plasma creatinine measurement w ith calculation of estimated glomerular filtration rate > NRG Serum or plasma glucose measurement (mass/volume) 122 mg/dL 70-105 Serum or plasma calcium measurement (mass/volume) 9.4 mg/dL 8.5-10.1 Serum or plasma total bilirubin measurement (mass/volu me) 0.6 mg/dL 0.1-1.0 Serum or plasma alkaline phosphatase erin surement (enzymatic activity/volume) 93 U/L 40-136 Serum or plasma aspartate aminotransfera se measurement (enzymatic activity/volume) 13 U/L 5-34 Serum or plasma alanine aminotransferase measurement (enzymatic activity/volume) 12 U/L 0-55 Serum or plasma protein measurement (mass/volume) 7.2 g/dL 6.4-8.2 Serum or plasma albumin measurement (mass/volume) 4.2 g/dL 3.2-4.5 CALCIUM CORRECTED 9.2 mg/dL 8.5-10.1 Coronavirus SARS-CoV-2 SO 2018 - 0 08:00 Coronavirus Ab [Units/volume] in Serum Negative Negative Capillary blood glucose measurement by g lucometer (mass/volume) - 04/27/20 09:46 Capillary blood glucose measurement by glucometer (mas s/volume) 129 mg/dL 70-110 Encounters ACCT No. Visit Date/Time Discharge Status Pt. Type Provider Facility Loc./Unit Complaint [id number] 09/11/2017 11:15:45 09/11/2017 23:59:5 9 CLS Outpatient [id number] 04/24/2020 05:46:00 15:14:00 DIS Outpatient DEWAYNE CARPIO MD Via [facility] PREOP INCISIONAL HERNIA [id number] 01/12/2020 10:15:00 00:01:00 DIS Outpatient SHERIF CAICEDO MD, V [facility] ONC [id number] 07/16/2019 10:11:00 00:01:00 DIS Outpatient SHERIF CAICEDO MD, V [facility] ONC [id number] 04/15/2019 11:02:00 00:01:00 DIS Outpatient SHERIF CAICEDO MD, V [facility] ONC [id number] 03/18/2019 10:37:00 019 00:01:00 DIS Outpatient SHERIF CAICEDO MD, V [facility] ONC [id number] 03/25/2019 14:29:00 23:59:59 CLS Outpatient BLESSING MILLER Via [facility] RAD SCREENING [id number] 02/25/2019 11:59:00 23:59:59 CLS Outpatient SHERIF CAICEDO MD, V [facility] RAD [id number] 02/08/2019 13:45:00 23:59:59 CLS Outpatient SHERIF CAICEDO MD, V [facility] RAD PAIN,NUMBNESS [id number] 11/20/2018 09:18:00 23:59:59 CLS Outpatient JACOBO ADKINS APRN [facility] RAD Z01.811 PREPROCEDURAL RESPIRATORY EXAM [id number] 11/18/2018 10:04:00 23:59:59 CLS Preadmit JACOBO ADKINS APRN Via [facility] CARD [id number] PREPROCEDURAL CARDIOVASCULAR EXAM [id number] 11/13/2018 14:19:00 23:59:59 CLS Outpatient JACOBO ADKINS APRN [facility] RAD OVARIAN MASS [id number] 11/12/2018 16:55:00 23:59:59 CLS Outpatient JACOBO ADKINS APRN [facility] LAB OVARIAN MASS [id number] 11/09/2018 11:31:00 018 23:59:59 CLS Outpatient JACOBO ADKINS APRN [facility] RAD VAGINAL BLEEDING POST MENOPAUSE [id number] 03/24/2018 12:47:00 018 23:59:59 CLS Outpatient BLESSING MILLER Via [facility] RAD SCREENING [id number] 02/26/2017 13:10:00 017 23:59:59 CLS Outpatient JACOBO ADKINS APRN [facility] RAD ASYMMETRY 6 MONTH [id number] 09/18/2016 13:29:00 23:59:59 CLS Outpatient TAYE DOSS MD [facility] RAD RT BREAST ASYMMETRY [id number] 04/04/2016 10:54:00 23:59:59 CLS Outpatient JACOBO ADKINS SYSTEMS TECHNOLOGIST [facility] RAD LUNG NODULES [id number] 03/21/2016 07:56:00 23:59:59 CLS Outpatient JACOBO ADKINS SYSTEMS TECHNOLOGIST [facility] RAD ABNORMAL MAMMO,R BREAS T ASYMMETRY [id number] 03/04/2016 11:19:00 23:59:59 CLS Outpatient JACOBO ADKINS SYSTEMS TECHNOLOGIST [facility] RAD SCREENING [id number] 08/24/2015 11:41:00 23:59:59 CLS Outpatient BLESSING MILLER [facility] RAD TOBACCOISM [id number] 02/28/2015 13:20:00 23:59:59 CLS Outpatient DONNIE NOGUERA MD [facility] RAD SCREENING [id number] 03/01/2014 15:02:00 014 23:59:59 CLS Outpatient DONNIE NOGUERA MD [facility] RAD ROUTINE [id number] 09/03/2013 07:28:00 10:55:00 DIS Outpatient [id number] 09/01/2013 07:28:00 23:59:59 CLS Outpatient [id number] 04/27/2020 10:00:00 P EN Preadmit DEWAYNE CARPIO MD Via [facility] SDC INCISIONAL HERNIA
[2020-04-27] MEDS ORDERED: SEVOFLURANE (ULTANE) 15 ML INHAL SOLN ONE ×4 (11:50→12:33)
[2020-04-27] MEDS ORDERED: HYDROmorphone 2 MG/ML VIAL (DILAUDID) ONE (12:26)
--- NOTE | 2020-04-27 12:48 | Progress Note-Post Operative ---
Post-Operative Progess Note Surgeon (s)/E Learning Specialist (s) Surgeon DEWAYNE CARPIO MD E Learning Specialist: daniela hill ABSTRACT WRITER Pre-Operative Diagnosis ventral abd incisional hernia Post-Operative Diagnosis same(9x5cm). Procedure & Operative Findings Date of Procedure 04/27/20 Procedure Performed/Findings open ventral abdominal incisional hernia repair with mesh. Anesthesia Type get Estimated Blood Loss Estimated blood loss (mL): minimal Specimens/Packing Specimens Removed hernia sac DEWAYNE CARPIO MD Apr 27, 2020 12:48
[2020-04-27] MEDS ORDERED: morphine INJ 10 MG/ML 1ML (SYR OR VIAL) IVP ONE (13:30)
[2020-04-27] MEDS ORDERED: HYDROmorphone 2 MG/ML VIAL (DILAUDID) IV ONE (13:30)
--- NOTE | 2020-04-27 14:00 | Anesthesia-General Post-Op ---
General Patient Condition Mental Status/LOC: Same as Preop Cardiovascular: Satisfactory Nausea/Vomiting: Absent Respiratory: Satisfactory Pain: Controlled Complications: Absent Post Op Complications Complications None Follow Up Care/Instructions Patient Instructions None needed. Anesthesia/Patient Condition Patient Condition Patient is doing well, no complaints, stable vital signs, no apparent adverse anesthesia problems. ANDRE GARCIA DO Apr 27, 2020 14:00
--- NOTE | 2020-04-27 14:29 | OPERATIVE REPORT ---
DATE OF SERVICE: 04/27/2020 PRIMARY CARE PHYSICIAN: Dr. Samantha Capone. PREOPERATIVE DIAGNOSIS: Symptomatic reducible ventral abdominal incisional hernia. POSTOPERATIVE DIAGNOSIS: Symptomatic reducible ventral abdominal incisional hernia with the dimensions of the hernia 9 x 5 cm in size. PROCEDURE PERFORMED: Open ventral abdominal incisional hernia repair with mesh. SURGEON: Dewayne Carpio MD. RN LICENSED PRACTICAL: Shalom Vicente APRN. ANESTHESIA: General endotracheal. ESTIMATED BLOOD LOSS: Minimal. FINDINGS: Significant sized ventral abdominal midline incisional hernia, 9 x 5 cm in size with omentum within the hernia sac. DISPOSITION: The patient tolerated the procedure well. INDICATIONS FOR PROCEDURE: The patient is a 74-year-old female, who is referred over to us for a painful bulge in the mid abdominal region for the past nine months. She states that it has grown larger in size and become more painful. She is status post exploratory laparotomy, total hysterectomy, pelvic and periaortic lymphadenectomy and omentectomy for early stage ovarian cancer approximately one year ago. Upon examination, she was found to have an incisional hernia, which was reducible; however, tender to palpation. DESCRIPTION OF PROCEDURE: The patient was brought to the operating room and laid supine on the table. After adequate IV pain and sedative medications and general endotracheal intubation, the abdomen was prepped and draped in a standard surgical fashion. A 0.5% Marcaine with epinephrine was then used to anesthetize the overlying skin along the incision site. A vertical skin incision along the previous laparotomy incision scar site was then made using a 15-blade. The subcutaneous tissue was then opened using electrocautery. The hernia sac was identified and completely dissected out using electrocautery as well as blunt dissection. Once we reached the fascia, the hernia dimensions were measured and were approximately 9 x 5 cm in size. There was only omentum within the hernia sac. There was no peritoneal implants to indicate any peritoneal carcinomatosis. A 15.4 cm round polypropylene mesh was then placed into the defect and sutured transfascially in a concentric manner around the mesh using 0 Prolene sutures. Good hemostasis was observed. The subcutaneous tissue was then reapproximated using 3-0 Vicryl interrupted sutures. Skin was closed using 4-0 Monocryl running subcuticular suture. Wound was then cleaned and covered with Dermabond. The hernia region was then covered with tonsil sponges followed by 4 x 4 gauze followed by a large Op-Site followed by an abdominal binder. The patient tolerated the procedure well. We will start IV normal pain medication as well as a clear liquid diet. When she is tolerating clears, has good pain control with oral pain medications and ambulating well, we will discharge her home. She will be instructed to do no heavy lifting or exertion for the next six weeks. Job ID: [id number] DocumentID: [id number] Dictated Date: 04/27/2020 12:53:56 Puddler Helper Date: 04/27/2020 14:28:41 Dictated By: DEWAYNE CARPIO MD [facility]
== END 2020-04-27 16:10 | disposition home or self-care (01) ==
LOC: SDC 09:26
PROVIDERS: ATTEND Surgery
DX: K43.2 Incisional hernia without obstruction or gangrene (principal); Z11.2 Encounter for screening for other bacterial diseases; I10 Essential (primary) hypertension; J44.9 Chronic obstructive pulmonary disease, unspecified; E78.00 Pure hypercholesterolemia, unspecified; E78.5 Hyperlipidemia, unspecified; E11.9 Type 2 diabetes mellitus without complications; F17.210 Nicotine dependence, cigarettes, uncomplicated; Z79.84 Long term (current) use of oral hypoglycemic drugs; Z79.899 Other long term (current) drug therapy; Z85.43 Personal history of malignant neoplasm of ovary; Z88.8 Allergy status to other drugs, medicaments and biological substances
CPT/HCPCS: 49560; 49568; 82962; 87081; 94664; C1781

== ENCOUNTER → 2020-06-20 | Outpatient (CLI) | payer MEDICARE, OTHER ==
[~2020-06-20] MED LIST changes: +HYDR-3817 PO
[2020-06-20 11:00] LABS: BASOPHILS # (AUTO) 0.1 10^3/uL (0.0-0.1); BASOPHILS % (AUTO) 1 % (0-10); EOSINOPHILS # (AUTO) 0.3 10^3/uL (0.0-0.3); EOSINOPHILS % (AUTO) 3 % (0-10); HEMATOCRIT 44 % (35-52); HEMOGLOBIN 14.5 G/DL (11.5-16.0); LYMPHOCYTES # (AUTO) 2.9 X 10^3 (1.0-4.0); LYMPHOCYTES % (AUTO) 27 % (12-44); MEAN CORPUSCULAR HEMOGLOBIN 28 PG (25-34); MEAN CORPUSCULAR HGB CONC 33 G/DL (32-36); MEAN CORPUSCULAR VOLUME 86 FL (80-99); MEAN PLATELET VOLUME 9.4 FL (7.4-10.4); MONOCYTES # (AUTO) 0.8 X 10^3 (0.0-1.0); MONOCYTES % (AUTO) 7 % (0-12); NEUTROPHILS # (AUTO) 6.9 X 10^3 (1.8-7.8); NEUTROPHILS % (AUTO) 63 % (42-75); PLATELET COUNT 271 10^3/uL (130-400); RED CELL DISTRIBUTION WIDTH 14.5 % (10.0-14.5)
[2020-06-20 11:20] LABS: CARBON DIOXIDE 21 MMOL/L (21-32); CHLORIDE 103 MMOL/L (98-107); CREATININE SERUM 0.77 MG/DL (0.60-1.30); POTASSIUM 4.2 MMOL/L (3.6-5.0); SODIUM 135 MMOL/L (135-145)
[2020-06-20 11:21] LABS: ALANINE AMINOTRANSFERASE 13 U/L (0-55); ALKALINE PHOSPHATASE 77 U/L (40-136); BILIRUBIN,TOTAL 0.5 MG/DL (0.1-1.0); BUN/CREATININE RATIO 16; CALCIUM 8.9 MG/DL (8.5-10.1); GFR ESTIMATED > 60; GLUCOSE 130 MG/DL (70-105); TOTAL PROTEIN 7.2 GM/DL (6.4-8.2)
== END ==
LOC: EDSTATUS 01-14 08:49 → ONC 10:44
PROVIDERS: ATTEND Internal Medicine Hematology & Oncology
DX: C56.9 Malignant neoplasm of unspecified ovary (principal); I10 Essential (primary) hypertension; E11.9 Type 2 diabetes mellitus without complications; M79.10 Myalgia, unspecified site; E78.00 Pure hypercholesterolemia, unspecified; Z90.710 Acquired absence of both cervix and uterus; Z90.89 Acquired absence of other organs; Z72.0 Tobacco use
CPT/HCPCS: 80053; 85025; G0463; 99213

== ENCOUNTER → 2021-01-03 | Outpatient (CLI) | payer MEDICARE, OTHER ==
[2021-01-03 15:31] LABS: BASOPHILS # (AUTO) 0.1 10^3/uL (0.0-0.1); BASOPHILS % (AUTO) 1 % (0-10); EOSINOPHILS # (AUTO) 0.4 10^3/uL (0.0-0.3); EOSINOPHILS % (AUTO) 3 % (0-10); HEMATOCRIT 43 % (35-52); HEMOGLOBIN 13.9 g/dL (11.5-16.0); LYMPHOCYTES # (AUTO) 3.8 10^3/uL (1.0-4.0); LYMPHOCYTES % (AUTO) 27 % (12-44); MEAN CORPUSCULAR HEMOGLOBIN 28 pg (25-34); MEAN CORPUSCULAR HGB CONC 32 g/dL (32-36); MEAN CORPUSCULAR VOLUME 88 fL (80-99); MEAN PLATELET VOLUME 9.6 fL (9.0-12.2); MONOCYTES # (AUTO) 0.9 10^3/uL (0.0-1.0); MONOCYTES % (AUTO) 6 % (0-12); NEUTROPHILS # (AUTO) 9.2 10^3/uL (1.8-7.8); NEUTROPHILS % (AUTO) 63 % (42-75); PLATELET COUNT 245 10^3/uL (130-400); WHITE BLOOD COUNT 14.4 10^3/uL (4.3-11.0)
[2021-01-03 15:52] LABS: ALANINE AMINOTRANSFERASE 15 U/L (0-55); ALBUMIN 4.2 GM/DL (3.2-4.5); ALKALINE PHOSPHATASE 84 U/L (40-136); BILIRUBIN,TOTAL 0.5 MG/DL (0.1-1.0); BUN/CREATININE RATIO 19; CALCIUM 9.2 MG/DL (8.5-10.1); CARBON DIOXIDE 22 MMOL/L (21-32); CHLORIDE 104 MMOL/L (98-107); CREATININE SERUM 0.86 MG/DL (0.60-1.30); GFR ESTIMATED > 60; GLUCOSE 108 MG/DL (70-105); SODIUM 139 MMOL/L (135-145); TOTAL PROTEIN 7.6 GM/DL (6.4-8.2)
== END ==
LOC: ONC 15:21
PROVIDERS: ATTEND Internal Medicine Hematology & Oncology
DX: C56.9 Malignant neoplasm of unspecified ovary (principal); I10 Essential (primary) hypertension; E11.9 Type 2 diabetes mellitus without complications; D72.829 Elevated white blood cell count, unspecified; M85.80 Other specified disorders of bone density and structure, unspecified site; L29.9 Pruritus, unspecified; R21 Rash and other nonspecific skin eruption; Z79.811 Long term (current) use of aromatase inhibitors; Z78.0 Asymptomatic menopausal state; Z90.710 Acquired absence of both cervix and uterus; Z90.79 Acquired absence of other genital organ(s)
CPT/HCPCS: 80053; 85025; 86304; G0463; 99213

== ENCOUNTER → 2021-04-10 | Outpatient (CLI) | payer MEDICARE, OTHER ==
[~2021-04-10] MED LIST changes: +CHOL-34 PO; -CHOL10002 PO
--- NOTE | 2021-04-10 16:19 | Diagnostic Imaging Report ---
INDICATION: Postmenopausal state COMPARISON: 02/26/2013 FINDINGS: AP Spine L1-L4: [BMD (g/cm2): 1.184] [T-Score: -0.1] [Z-Score: 0.9] [BMD Previous: 1.140] [BMD % Change: 3.9] LT Hip Neck: [BMD (g/cm2): 0.710] [T-Score: -2.4] [Z-Score: -0.9] LT Hip Total: [BMD (g/cm2):0.799] [T-Score:-1.7] [Z-Score: -0.5] [BMD Previous: 0.863] [BMD % Change: -7.4] RT Hip Neck: [BMD (g/cm2):0.697] [T-Score:-2.5] [Z-Score:-1.0] RT Hip Total: [BMD (g/cm2):0.751] [T-score:-2.0] [Z-Score:-0.8] [BMD Previous:0.789] [BMD % Change:-4.8] *Indicates significant change from prior examination based on 95% confidence level. World Health Organization criteria for BMD interpretation classify patients as Normal (T-score at or above -1.0), Osteopenic (T-score between -1.0 and -2.5) or Osteoporotic (T-score at or below -2.5). LIMITATIONS AND MODIFICATION: None. FRACTURE RISK (FRAX SCORE): The ten year probability of (%): Major Osteoporotic Fracture: [15.3] Hip Fracture: [4.6] IMPRESSION: 1. Osteoporosis. 2. No significant change in bone mineral density since prior examination. 3. See below National Osteoporosis Foundation guidelines on when to potentially initiate pharmacologic therapy. Based on the National Osteoporosis Foundation Guidelines, pharmacologic treatment should be initiated in any of the following, unless clinical conditions suggest otherwise: * Any patient with prior fragility fracture of the hip or vertebrae. A spine fracture indicates 5X risk for subsequent spine fracture and 2X risk for subsequent hip fracture. * Osteoporosis (T-score <-2.5). * Postmenopausal women and men age 50 and older with low bone mass/osteopenia (T-score between -1.0 and -2.5) by DXA and 10-year major osteoporotic fracture greater than 20% or a 10-year probability of hip fracture greater than 3%. These fracture risks are supplied above in the FRAX score, if applicable. * Clinician judgement and/or patient preferences may indicate treatment for people with 10-year fracture probabilities above or below these levels. Dictated by: Dictated on workstation # [id number]
== END ==
LOC: RAD 12:04
PROVIDERS: ATTEND Nurse Practitioner Adult Health
DX: M81.0 Age-related osteoporosis without current pathological fracture (principal); M85.80 Other specified disorders of bone density and structure, unspecified site; Z78.0 Asymptomatic menopausal state; Z79.811 Long term (current) use of aromatase inhibitors
CPT/HCPCS: 77080

== ENCOUNTER → 2021-04-19 | Outpatient (CLI) | payer MEDICARE, OTHER ==
[2021-04-19 10:59] LABS: BASOPHILS # (AUTO) 0.1 10^3/uL (0.0-0.1); BASOPHILS % (AUTO) 1 % (0-10); EOSINOPHILS # (AUTO) 0.4 10^3/uL (0.0-0.3); EOSINOPHILS % (AUTO) 4 % (0-10); HEMATOCRIT 46 % (35-52); HEMOGLOBIN 14.9 g/dL (11.5-16.0); LYMPHOCYTES # (AUTO) 3.1 10^3/uL (1.0-4.0); LYMPHOCYTES % (AUTO) 26 % (12-44); MEAN CORPUSCULAR HEMOGLOBIN 29 pg (25-34); MEAN CORPUSCULAR HGB CONC 33 g/dL (32-36); MEAN CORPUSCULAR VOLUME 88 fL (80-99); MEAN PLATELET VOLUME 9.6 fL (9.0-12.2); MONOCYTES # (AUTO) 0.8 10^3/uL (0.0-1.0); MONOCYTES % (AUTO) 7 % (0-12); NEUTROPHILS # (AUTO) 7.4 10^3/uL (1.8-7.8); NEUTROPHILS % (AUTO) 63 % (42-75); PLATELET COUNT 247 10^3/uL (130-400); WHITE BLOOD COUNT 11.8 10^3/uL (4.3-11.0)
[2021-04-19 11:25] LABS: ALANINE AMINOTRANSFERASE 19 U/L (0-55); ALBUMIN 4.1 GM/DL (3.2-4.5); ALKALINE PHOSPHATASE 89 U/L (40-136); BILIRUBIN,TOTAL 0.6 MG/DL (0.1-1.0); BUN/CREATININE RATIO 19; CALCIUM 9.3 MG/DL (8.5-10.1); CARBON DIOXIDE 22 MMOL/L (21-32); CHLORIDE 103 MMOL/L (98-107); GFR ESTIMATED > 60; GLUCOSE 141 MG/DL (70-105); POTASSIUM 4.3 MMOL/L (3.6-5.0); SODIUM 137 MMOL/L (135-145); TOTAL PROTEIN 7.6 GM/DL (6.4-8.2)
== END ==
LOC: ONC 10:48
PROVIDERS: ATTEND Internal Medicine Hematology & Oncology
DX: Z12.31 Encounter for screening mammogram for malignant neoplasm of breast (principal); C56.2 Malignant neoplasm of left ovary; E55.9 Vitamin D deficiency, unspecified; E11.9 Type 2 diabetes mellitus without complications; M81.0 Age-related osteoporosis without current pathological fracture; D72.829 Elevated white blood cell count, unspecified; E78.00 Pure hypercholesterolemia, unspecified; I10 Essential (primary) hypertension; Z98.890 Other specified postprocedural states; Z72.0 Tobacco use; Z90.710 Acquired absence of both cervix and uterus
CPT/HCPCS: 80053; 82306; 85025; 86304; G0463; 99213

== ENCOUNTER → 2021-05-11 | Outpatient (CLI) | payer MEDICARE, OTHER ==
--- NOTE | 2021-05-11 12:12 | Diagnostic Imaging Report ---
INDICATION: Routine screening. COMPARISON is made with prior mammograms from 03/25/2019 and 03/24/2018. 2-D and 3-D bilateral screening mammography was performed with CAD. Scattered fibroglandular densities are identified bilaterally. Benign calcifications in both breasts appear stable. There appears to be some benign nodularity in the outer right breast, stable. No spiculated mass or malignant appearing microcalcifications are seen. Axillae are unremarkable. IMPRESSION: BI-RADS Category 2 No mammographic features suspicious for malignancy are identified. ACR BI-RADS Category 2: Benign findings. Result letter will be mailed to the patient. Note: At least 10% of breast cancer is not imaged by mammography. Dictated by: Dictated on workstation # [id number]
== END ==
LOC: RAD 10:15
PROVIDERS: ATTEND Nurse Practitioner Adult Health
DX: Z12.31 Encounter for screening mammogram for malignant neoplasm of breast (principal)
CPT/HCPCS: 77063; 77067

== ENCOUNTER 2021-08-16 14:12 | Outpatient (RCR) | payer MEDICARE, OTHER ==
[2021-08-16 14:27] LABS: BASOPHILS # (AUTO) 0.1 10^3/uL (0.0-0.1); BASOPHILS % (AUTO) 1 % (0-10); EOSINOPHILS # (AUTO) 0.5 10^3/uL (0.0-0.3); EOSINOPHILS % (AUTO) 4 % (0-10); HEMATOCRIT 43 % (35-52); HEMOGLOBIN 13.9 g/dL (11.5-16.0); LYMPHOCYTES % (AUTO) 33 % (12-44); MEAN CORPUSCULAR HEMOGLOBIN 29 pg (25-34); MEAN CORPUSCULAR HGB CONC 33 g/dL (32-36); MEAN CORPUSCULAR VOLUME 89 fL (80-99); MEAN PLATELET VOLUME 9.8 fL (9.0-12.2); MONOCYTES # (AUTO) 0.8 10^3/uL (0.0-1.0); MONOCYTES % (AUTO) 7 % (0-12); NEUTROPHILS # (AUTO) 6.8 10^3/uL (1.8-7.8); NEUTROPHILS % (AUTO) 56 % (42-75); PLATELET COUNT 239 10^3/uL (130-400); WHITE BLOOD COUNT 12.3 10^3/uL (4.3-11.0)
[2021-08-16 14:47] LABS: ALBUMIN 3.9 GM/DL (3.2-4.5); BILIRUBIN,TOTAL 0.4 MG/DL (0.1-1.0); CALCIUM 9.4 MG/DL (8.5-10.1); CREATININE SERUM 0.74 MG/DL (0.60-1.30); TOTAL PROTEIN 7.1 GM/DL (6.4-8.2)
== END 2021-11-09 | disposition home or self-care (01) ==
LOC: ONC 14:12
PROVIDERS: ATTEND Internal Medicine Hematology & Oncology
DX: C56.2 Malignant neoplasm of left ovary (principal); E11.9 Type 2 diabetes mellitus without complications; E78.00 Pure hypercholesterolemia, unspecified; I10 Essential (primary) hypertension; M81.0 Age-related osteoporosis without current pathological fracture; Z72.0 Tobacco use; Z79.811 Long term (current) use of aromatase inhibitors; Z90.710 Acquired absence of both cervix and uterus; Z92.21 Personal history of antineoplastic chemotherapy
CPT/HCPCS: 80053; 85025; 86304; G0463; 99213

== ENCOUNTER → 2021-09-19 | Outpatient (CLI) | payer MEDICARE, OTHER ==
--- NOTE | 2021-09-19 13:28 | Diagnostic Imaging Report ---
EXAMINATION: Chest 2 view HISTORY: TOBACCOISM, COPD, DECREASE AIRFLOW LEFT BASE COMPARISON: 01/05/2008 FINDINGS: Heart size and pulmonary vasculature are normal. The lungs are clear without consolidation, pleural effusion, or pneumothorax. Degenerative changes of the thoracic spine. Osseous structures are otherwise intact. IMPRESSION: 1. No acute radiographic abnormality in the chest. Dictated by: Dictated on workstation # [id number]
== END ==
LOC: RAD 11:59
PROVIDERS: ATTEND Family Medicine
DX: J44.9 Chronic obstructive pulmonary disease, unspecified (principal); F17.200 Nicotine dependence, unspecified, uncomplicated
CPT/HCPCS: 71046

== ENCOUNTER → 2021-09-19 | Outpatient (CLI) | payer MEDICARE, OTHER ==
--- NOTE | 2021-09-19 13:53 | Diagnostic Imaging Report ---
PROCEDURE: CT chest without contrast. TECHNIQUE: Multiple contiguous axial images were obtained through the chest without the use of intravenous contrast. Auto Exposure Controls were utilized during the CT exam to meet ALARA standards for radiation dose reduction. DATE: September 19, 2021. COMPARISON: CT chest November 20, 2018. CT chest April 04, 2016. INDICATION: 76-year-old female, wheezing. PROCEDURE: Axial noncontrasted CT images of the chest. Noncontrasted limits the evaluation of the mediastinum and vascular structures. FINDINGS: There is no identified pulmonary nodule or lung mass. There is minimal atelectasis in the right lower lobe. There is no additional focal airspace consolidation. There is a thin walled pneumatocele in the lingula. There is no pneumothorax. There is no pleural effusion. The central airways are patent. The heart is not enlarged. There is no pericardial effusion. There are coronary artery calcifications and additional areas of atherosclerotic disease. There is no identified abnormally enlarged mediastinal or axillary lymph node meeting CT size criteria for adenopathy. There is cholelithiasis without evidence of acute cholecystitis. There is no biliary ductal dilation. There is a low-attenuation left renal lesion on axial image 132 which measures 2.5 cm in size with internal attenuation of 10 Hounsfield units, consistent with a benign cyst. There is a hyperdense left renal lesion measuring 8 mm in size on axial image 135 with internal attenuation of 96 Hounsfield units. This is most suggestive of a hemorrhagic cyst. There is a fat-containing lesion in the left kidney, consistent with an angiomyolipoma, measuring 1.5 cm in size on axial image 160. There is a small fat-containing anterior abdominal wall hernia. There is severe bilateral glenohumeral arthritis. There are multilevel degenerative changes of the spine. There is a T11 benign vertebral body hemangioma. IMPRESSION: 1. No identified acute cardiopulmonary abnormality. 2. Incidental findings as above. Dictated by: Dictated on workstation # [id number]
== END ==
LOC: RAD 12:45
PROVIDERS: ATTEND Family Medicine
DX: J98.11 Atelectasis (principal); J98.4 Other disorders of lung; I25.10 Atherosclerotic heart disease of native coronary artery without angina pectoris; K80.20 Calculus of gallbladder without cholecystitis without obstruction; N28.9 Disorder of kidney and ureter, unspecified; K43.9 Ventral hernia without obstruction or gangrene; M19.011 Primary osteoarthritis, right shoulder; M19.012 Primary osteoarthritis, left shoulder; M47.9 Spondylosis, unspecified; D18.09 Hemangioma of other sites; J44.9 Chronic obstructive pulmonary disease, unspecified; F17.200 Nicotine dependence, unspecified, uncomplicated
CPT/HCPCS: 71250

== ENCOUNTER → 2022-02-11 | Outpatient (CLI) | payer MEDICARE, OTHER ==
[~2022-02-11] MED LIST changes: +FEXO-249 PO; -FEXO-46 PO
[2022-02-11 10:46] LABS: BASOPHILS # (AUTO) 0.1 10^3/uL (0.0-0.1); BASOPHILS % (AUTO) 1 % (0-10); EOSINOPHILS # (AUTO) 0.5 10^3/uL (0.0-0.3); EOSINOPHILS % (AUTO) 4 % (0-10); HEMATOCRIT 45 % (35-52); HEMOGLOBIN 14.6 g/dL (11.5-16.0); LYMPHOCYTES # (AUTO) 3.3 10^3/uL (1.0-4.0); LYMPHOCYTES % (AUTO) 28 % (12-44); MEAN CORPUSCULAR HEMOGLOBIN 29 pg (25-34); MEAN CORPUSCULAR HGB CONC 32 g/dL (32-36); MEAN CORPUSCULAR VOLUME 89 fL (80-99); MEAN PLATELET VOLUME 9.4 fL (9.0-12.2); MONOCYTES # (AUTO) 0.7 10^3/uL (0.0-1.0); MONOCYTES % (AUTO) 6 % (0-12); NEUTROPHILS # (AUTO) 7.2 10^3/uL (1.8-7.8); NEUTROPHILS % (AUTO) 61 % (42-75); PLATELET COUNT 272 10^3/uL (130-400); WHITE BLOOD COUNT 11.9 10^3/uL (4.3-11.0)
[2022-02-11 11:06] LABS: ALBUMIN 4.1 GM/DL (3.2-4.5); BILIRUBIN,TOTAL 0.6 MG/DL (0.1-1.0); CALCIUM 9.2 MG/DL (8.5-10.1); CREATININE SERUM 0.82 MG/DL (0.60-1.30); POTASSIUM 4.2 MMOL/L (3.6-5.0); TOTAL PROTEIN 7.4 GM/DL (6.4-8.2)
== END ==
LOC: ONC 10:38
PROVIDERS: ATTEND Internal Medicine
DX: C56.2 Malignant neoplasm of left ovary (principal); M81.0 Age-related osteoporosis without current pathological fracture; Z72.0 Tobacco use; Z79.811 Long term (current) use of aromatase inhibitors; I10 Essential (primary) hypertension; E11.9 Type 2 diabetes mellitus without complications; E78.00 Pure hypercholesterolemia, unspecified
CPT/HCPCS: 80053; 85025; 86304; G0463; 36415; 99213

== ENCOUNTER → 2022-07-24 | Outpatient (CLI) | payer MEDICARE, OTHER ==
[~2022-07-24] MED LIST changes: -FEXO-249 PO; -GLUC1TAB20 PO; +GLUC1TAB21 PO; +NF-ALLE180 PO
--- NOTE | 2022-07-25 10:23 | Diagnostic Imaging Report ---
Indication: Routine screening. Comparison is made with prior mammograms 05/11/2021 and 03/25/2019. 2-D and 3-D bilateral screening mammography was performed with CAD. Scattered fibroglandular densities are identified bilaterally. Areas of nodularity in the outer right breast appear stable. Scattered benign calcifications are noted. No spiculated mass or malignant-appearing microcalcifications are seen. Axillae are unremarkable. IMPRESSION: BI-RADS Category 2 No mammographic features suspicious for malignancy are identified. Dictated by: Dictated on workstation # [id number]
== END ==
LOC: RAD 14:21
PROVIDERS: ATTEND Family Medicine
DX: Z12.31 Encounter for screening mammogram for malignant neoplasm of breast (principal)
CPT/HCPCS: 77063; 77067

== ENCOUNTER → 2022-08-26 | Outpatient (CLI) | payer MEDICARE, OTHER ==
[2022-08-26 10:41] LABS: BASOPHILS # (AUTO) 0.1 10^3/uL (0.0-0.1); BASOPHILS % (AUTO) 1 % (0-10); EOSINOPHILS # (AUTO) 0.6 10^3/uL (0.0-0.3); EOSINOPHILS % (AUTO) 5 % (0-10); HEMATOCRIT 45 % (35-52); HEMOGLOBIN 14.5 g/dL (11.5-16.0); LYMPHOCYTES # (AUTO) 3.1 10^3/uL (1.0-4.0); LYMPHOCYTES % (AUTO) 29 % (12-44); MEAN CORPUSCULAR HEMOGLOBIN 29 pg (25-34); MEAN CORPUSCULAR HGB CONC 32 g/dL (32-36); MEAN CORPUSCULAR VOLUME 89 fL (80-99); MEAN PLATELET VOLUME 9.5 fL (9.0-12.2); MONOCYTES # (AUTO) 0.7 10^3/uL (0.0-1.0); MONOCYTES % (AUTO) 7 % (0-12); NEUTROPHILS # (AUTO) 6.1 10^3/uL (1.8-7.8); NEUTROPHILS % (AUTO) 58 % (42-75); PLATELET COUNT 255 10^3/uL (130-400); WHITE BLOOD COUNT 10.5 10^3/uL (4.3-11.0)
[2022-08-26 11:04] LABS: ALBUMIN 4.1 GM/DL (3.2-4.5); BILIRUBIN,TOTAL 0.4 MG/DL (0.1-1.0); CALCIUM 9.5 MG/DL (8.5-10.1); CREATININE SERUM 0.78 MG/DL (0.60-1.30); POTASSIUM 4.5 MMOL/L (3.6-5.0); TOTAL PROTEIN 7.3 GM/DL (6.4-8.2)
== END ==
LOC: ONC 10:13
PROVIDERS: ATTEND Internal Medicine
DX: C56.2 Malignant neoplasm of left ovary (principal); M81.0 Age-related osteoporosis without current pathological fracture; I10 Essential (primary) hypertension; E11.9 Type 2 diabetes mellitus without complications; E78.00 Pure hypercholesterolemia, unspecified; E55.9 Vitamin D deficiency, unspecified; Z72.0 Tobacco use
CPT/HCPCS: 80053; 85025; 86304; G0463; 36415; 99213

== ENCOUNTER → 2023-02-25 | Outpatient (CLI) | payer MEDICARE, OTHER ==
[2023-02-25 11:08] LABS: BASOPHILS # (AUTO) 0.1 10^3/uL (0.0-0.1); BASOPHILS % (AUTO) 1 % (0-10); EOSINOPHILS # (AUTO) 0.4 10^3/uL (0.0-0.3); EOSINOPHILS % (AUTO) 3 % (0-10); HEMATOCRIT 45 % (35-52); HEMOGLOBIN 14.8 g/dL (11.5-16.0); LYMPHOCYTES % (AUTO) 27 % (12-44); MEAN CORPUSCULAR HEMOGLOBIN 29 pg (25-34); MEAN CORPUSCULAR HGB CONC 33 g/dL (32-36); MEAN CORPUSCULAR VOLUME 87 fL (80-99); MEAN PLATELET VOLUME 9.9 fL (9.0-12.2); MONOCYTES # (AUTO) 0.6 10^3/uL (0.0-1.0); MONOCYTES % (AUTO) 6 % (0-12); NEUTROPHILS # (AUTO) 7.1 10^3/uL (1.8-7.8); NEUTROPHILS % (AUTO) 63 % (42-75); PLATELET COUNT 239 10^3/uL (130-400); WHITE BLOOD COUNT 11.2 10^3/uL (4.3-11.0)
[2023-02-25 11:29] LABS: ALBUMIN 4.2 GM/DL (3.2-4.5); BILIRUBIN,TOTAL 0.6 MG/DL (0.1-1.0); CALCIUM 9.3 MG/DL (8.5-10.1); CREATININE SERUM 0.81 MG/DL (0.60-1.30); POTASSIUM 4.1 MMOL/L (3.6-5.0); TOTAL PROTEIN 7.7 GM/DL (6.4-8.2)
== END ==
LOC: ONC 10:31
PROVIDERS: ATTEND Internal Medicine Hematology & Oncology
DX: C56.9 Malignant neoplasm of unspecified ovary (principal); I10 Essential (primary) hypertension; E11.9 Type 2 diabetes mellitus without complications; M81.0 Age-related osteoporosis without current pathological fracture; E55.9 Vitamin D deficiency, unspecified; Z72.0 Tobacco use
CPT/HCPCS: 36415; 80053; 85025; 86304

== ENCOUNTER → 2023-08-27 | Outpatient (CLI) | payer MEDICARE, OTHER ==
[2023-08-27 11:22] LABS: BASOPHILS # (AUTO) 0.1 10^3/uL (0.0-0.1); BASOPHILS % (AUTO) 1 % (0-10); EOSINOPHILS # (AUTO) 0.6 10^3/uL (0.0-0.3); EOSINOPHILS % (AUTO) 4 % (0-10); HEMATOCRIT 45 % (35-52); HEMOGLOBIN 14.7 g/dL (11.5-16.0); LYMPHOCYTES # (AUTO) 3.6 10^3/uL (1.0-4.0); LYMPHOCYTES % (AUTO) 28 % (12-44); MEAN CORPUSCULAR HEMOGLOBIN 29 pg (25-34); MEAN CORPUSCULAR HGB CONC 32 g/dL (32-36); MEAN CORPUSCULAR VOLUME 90 fL (80-99); MEAN PLATELET VOLUME 9.8 fL (9.0-12.2); MONOCYTES # (AUTO) 0.9 10^3/uL (0.0-1.0); MONOCYTES % (AUTO) 7 % (0-12); NEUTROPHILS # (AUTO) 7.6 10^3/uL (1.8-7.8); NEUTROPHILS % (AUTO) 59 % (42-75); PLATELET COUNT 215 10^3/uL (130-400); WHITE BLOOD COUNT 12.8 10^3/uL (4.3-11.0)
[2023-08-27 11:41] LABS: ALBUMIN 4.1 GM/DL (3.2-4.5); BILIRUBIN,TOTAL 0.5 MG/DL (0.1-1.0); CALCIUM 9.5 MG/DL (8.5-10.1); CREATININE SERUM 0.87 MG/DL (0.60-1.30); POTASSIUM 4.1 MMOL/L (3.6-5.0); TOTAL PROTEIN 7.2 GM/DL (6.4-8.2)
== END ==
LOC: ONC 10:56
PROVIDERS: ATTEND Internal Medicine Hematology & Oncology
DX: C56.9 Malignant neoplasm of unspecified ovary (principal); I10 Essential (primary) hypertension; E11.9 Type 2 diabetes mellitus without complications; E78.00 Pure hypercholesterolemia, unspecified; Z72.0 Tobacco use
CPT/HCPCS: 36415; 80053; 85025; 86304